=== PATIENT | male | born 1950 | race Caucasian/White ===

== ENCOUNTER 2017-07-12 10:13 | Inpatient (IN) | payer OTHER ==
[2017-07-12] VITALS (7 sets, daily range): BP systolic 156–162; BP diastolic 71–120; PULSE 63–101; RESP 18–50; TEMP 97.2–100; O2SAT 93–95
[~2017-07-12] VITALS: Ht 177.8 cm; Wt 124.9 kg
[~2017-07-12 10:13] MED LIST: AMLO5TAB22 PO; ESCI20TA PO; FURO20TA PO; ISOS120T14 PO; LANTUS2P SC; METO50CR PO; NITR0.4S SL; PROS5TAB2 PO; RANO500 PO; ROSU20 PO; WARF5TAB PO; WARF7.5T4 PO
[2017-07-12] MEDS ORDERED: NITROGLYCERIN 0.4 MG SL 25 TABS/BTL SL ONE ×3 (10:32→11:15)
[2017-07-12] MEDS ORDERED: SODIUM CHLORIDE 0.9% FLUSH 10 ML FLUSH IVF PRN (10:45)
[2017-07-12 11:03] LABS: AUTOMATED NEUTROPHIL # 14.9 TH/MM3 (1.8-7.7); BASOPHIL # 0.1 TH/MM3 (0-0.2); BASOPHIL % 0.4 % (0.0-2.0); EOSINOPHIL # 0.1 TH/MM3 (0-0.4); EOSINOPHIL % 0.6 % (0.0-4.0); HEMATOCRIT 48.6 % (39.0-51.0); HEMO FLAGS DIFF FINAL; LYMPH % 14.8 % (9.0-44.0); LYMPHOCYTE # 2.8 TH/MM3 (1.0-4.8); MEAN CELL VOLUME 86.4 FL (80.0-100.0); MEAN CORPUSCULAR HEMOGLOBIN 28.2 PG (27.0-34.0); MEAN CORPUSCULAR HGB CONC 32.7 % (32.0-36.0); MONO % 5.4 % (0.0-8.0); NEUT % 78.8 % (16.0-70.0); PLATELET COUNT 240 TH/MM3 (150-450); RED BLOOD COUNT 5.62 MIL/MM3 (4.50-5.90); RED CELL DISTRIBUTION WIDTH 14.9 % (11.6-17.2); WHITE BLOOD COUNT 18.9 TH/MM3 (4.0-11.0)
--- NOTE | 2017-07-12 11:06 | RADRPT ---
EXAM DATE/TIME: 07/12/2017 10:57 [place] COMPARISON: CHEST SINGLE AP, November 02, 2015, 4:12. INDICATIONS : Patient states shortness of breath. MEDICAL HISTORY : Congestive heart failure. Cardiovascular disease. SURGICAL HISTORY : Pacemaker. CABG. Coronary artery stent. ENCOUNTER: Initial ACUITY: 2 days PAIN SCORE: 0/10 LOCATION: Bilateral chest FINDINGS: Stable dual-lead AICD device. Median sternotomy wires in place. Mild bibasilar airspace disease, like ly atelectasis. Mild interstitial prominence. Cardiomediastinal contours are stable. Remainder of exa m is unchanged. CONCLUSION: 1. Mild bibasilar airspace disease, likely atelectasis. 2. Cardiomegaly with minimal positive fluid balance. Ankit Sarah MD on July 12, 2017 at 11:02 Board Certified Radiologist. This report was verified electronically.
[2017-07-12] MEDS ORDERED: AMLO5TAB2 PO (11:12)
[2017-07-12] MEDS ORDERED: METO25TA6 PO (11:12)
[2017-07-12] MEDS ORDERED: ISOS120T PO (11:12)
[2017-07-12] MEDS ORDERED: LANTUS2P SQ (11:12)
[2017-07-12] MEDS ORDERED: NITR0.4S SL (11:12)
[2017-07-12] MEDS ORDERED: NOVOLOGP2 SQ (11:12)
[2017-07-12] MEDS ORDERED: WARF-23 PO (11:12)
[2017-07-12] MEDS ORDERED: LISI-519 PO (11:12)
[2017-07-12] MEDS ORDERED: FURO20TA PO (11:12)
[2017-07-12] MEDS ORDERED: RANO500 PO (11:12)
[2017-07-12] MEDS ORDERED: ASPI81CH CHEW (11:12)
[2017-07-12] MEDS ORDERED: ESCI20TA PO (11:12)
[2017-07-12 11:13] LABS: INTERNATIONAL NORMALIZED RATIO 2.8 RATIO; PROTHROMBIN TIME - PATIENT 32.7 SEC (9.8-11.6)
[2017-07-12] MEDS ORDERED: FUROSEMIDE 40 MG/4 ML VIAL IV PUSH ONE (11:15)
[2017-07-12] MEDS ORDERED: ASPIRIN 81 MG CHEW TAB CHEW ONE (11:15)
[2017-07-12 11:25] LABS: BICARBONATE 24.2 MEQ/L (21.0-32.0); POTASSIUM 3.5 MEQ/L (3.5-5.1)
[2017-07-12] MEDS ORDERED: PIPERACIL-TAZO 4.5 GM PREMIX 100 ML IV ONE (11:45)
[2017-07-12] MEDS ORDERED: ETOMIDATE 20 MG/10 ML VIAL IV PUSH ONE (11:45)
[2017-07-12] MEDS ORDERED: VANCOMYCIN INJ 1,000 MG in SODIUM CHLOR 0.9% 250 ML INJ 250 ML IV ONE (12:45)
--- NOTE | 2017-07-12 13:12 | PD ---
HPI Chief Complaint: Respiratory Distress Time Seen by Provider: 10:45 Travel History International Travel<30 days: No Contact w/Intl Traveler<30days: No Traveled to known affect area: No History of Present Illness HPI 67-year-old male came to the emergency room with history of chest pain and shortness of breath for past 24 hours progressively getting worse. Patient describes the pain as substernal, nonradiating in as a pressure. Chest pain worse on ambulation. Patient has history of coronary artery disease including 2 stents in 2002 and a bypass surgery in 2004. He goes to [facility]. Patient does not recall his last cardiac catheterization. His temperature was 100 upon arrival. He is also complaining of some cough. No history of syncopal episode. [facility] Past Medical History Narrative Medical List of his past medical, surgical, social and family history is reviewed from the nursing note. Hx Anticoagulant Therapy: Yes (COUMADIN) Asthma: No Anxiety: No Depression: Yes Heart Rhythm Problems: No Cancer: No Cardiac Catheterization: Yes Cardiovascular Problems: Yes High Cholesterol: Yes Chest Pain: No Congestive Heart Failure: Yes COPD: No Cerebrovascular Accident: Yes (TIA) Coronary Artery Disease: Yes Diabetes: Yes Patient Takes Glucophage: No Diminished Hearing: No Endocrine: Yes GERD: Yes Genitourinary: Yes Hypertension: Yes Immune Disorder: No Implanted Vascular Access Dvce: Yes Kidney Stones: Yes Musculoskeletal: No Neurologic: Yes Psychiatric: Yes Reproductive: No Respiratory: Yes Migraines: No Renal Failure: No Seizures: No Sleep Apnea: Yes Tetanus Vaccination: < 5 Years Influenza Vaccination: Yes Past Surgical History Abdominal Surgery: Yes (Hernia Repair) AICD: Yes Arteriovenous Shunt: No Cardiac Surgery: Yes (triple bypass, pacemaker/AICD) Coronary Artery Bypass Graft: Yes Coronary Stent: Yes Ear Surgery: No Endocrine Surgery: No Eye Surgery: No Genitourinary Surgery: No Insulin Pump: No Joint Replacement: No Oral Surgery: Yes (Tonsileectomy) Pacemaker: No Thoracic Surgery: No Tonsillectomy: Yes Other Surgery: Yes Social History Alcohol Use: No Tobacco Use: No Substance Use: No Allergies-Medications (Allergen,Severity, Reaction): Coded Allergies: morphine (Unverified Allergy, Intermediate, RASH, 07/12/17) Comments List of his allergies reviewed from the nursing note. Reported Meds & Prescriptions Reported Meds & Active Scripts Active Reported Metoprolol Succinate ER 24 HR (Metoprolol Succinate) 25 Mg Tab 25 Mg PO TID Lisinopril 5 Mg Tab 5 Mg PO DAILY Isosorbide Mononitrate ER (Isosorbide Mononitrate) 120 Mg Anant 120 Mg PO DAILY Furosemide 20 Mg Tab 20 Mg PO BID Aspirin 81 Mg Chew 81 Mg CHEW DAILY Amlodipine (Amlodipine Besylate) 5 Mg Tab 5 Mg PO DAILY Novolog Inj (Insulin Aspart) 1,000 Unit/10 Ml Vial 5 Units SQ ACHS Warfarin 5 Mg Tab 5 Mg PO DAILY Ranexa ER 12 HR (Ranolazine) 500 Mg Tab 500 Mg PO BID Nitrostat SL (Nitroglycerin) 0.4 Mg Subl 0.4 Mg SL DIRECTED PRN 1 tablet under the tongue as needed for chest pain. Repeat every 5 minutes for a total of 3 DOSES or call 911 if NO relief. Lantus Inj (Insulin Glargine) 1,000 Unit/10 Ml Vial 70 Units SQ BID Escitalopram (Escitalopram Oxalate) 20 Mg Tab 20 Mg PO DAILY Narrative Medication List of his home medications reviewed from the nursing note. Review of Systems Except as stated in HPI: all other systems reviewed are Neg General / Constitutional: Positive: Fever Cardiovascular: Positive: Chest Pain or Discomfort, Dyspnea on exertion Respiratory: Positive: Shortness of Breath Physical Exam Narrative GENERAL: Awake, alert, moderate distress SKIN: Focused skin assessment warm/dry. HEAD: Atraumatic. Normocephalic. EYES: Pupils equal and round. No scleral icterus. No injection or drainage. ENT: No nasal bleeding or discharge. Mucous membranes pink and moist. NECK: Trachea midline. No JVD. CARDIOVASCULAR: Regular rate and rhythm. No murmur appreciated. RESPIRATORY: Decreased air entry bilaterally GASTROINTESTINAL: Abdomen soft, non-tender, nondistended. Hepatic and splenic margins not palpable. MUSCULOSKELETAL: No obvious deformities. No clubbing. No cyanosis. No edema. NEUROLOGICAL: Awake and alert. No obvious cranial nerve deficits. Motor grossly within normal limits. Normal speech. PSYCHIATRIC: Appropriate mood and affect; insight and judgment normal. Data Data Last Documented VS Vital Signs Date Time Temp Pulse Resp B/P (MAP) Pulse Ox O2 Delivery O2 Flow Rate FiO2 07/12/17 13:03 99.0 84 30 160/80 (106) 93 Nasal Cannula 3.00 Orders Orders Nitroglycerin Sl (Nitrostat Sl) (07/12/17 10:32) Complete Blood Count With Diff (07/12/17 10:45) Basic Metabolic Panel (Bmp) (07/12/17 10:45) B-Type Natriuretic Peptide (07/12/17 10:45) Prothrombin Time / Inr (Pt) (07/12/17 10:45) Troponin I (07/12/17 10:45) Urinalysis - C+S If Indicated (07/12/17 10:45) Influenzae A/B Antigen (07/12/17 10:45) Blood Culture (07/12/17 10:45) Iv Access Insert/Monitor (07/12/17 10:45) Electrocardiogram (07/12/17 10:45) Ecg Monitoring (07/12/17 10:45) Oximetry (07/12/17 10:45) Oxygen Administration (07/12/17 10:45) Chest, Single Ap (07/12/17 10:45) Sodium Chloride 0.9% Flush (Ns Flush) (07/12/17 10:45) Lactic Acid (07/12/17 10:45) Furosemide Inj (Lasix Inj) (07/12/17 11:15) Nitroglycerin Sl (Nitrostat Sl) (07/12/17 11:15) Aspirin Chew (Aspirin Chew) (07/12/17 11:15) Nitroglycerin Sl (Nitrostat Sl) (07/12/17 11:15) Piperacil-Tazo 4.5 Gm Premix (Zosyn 4.5 (07/12/17 11:45) Etomidate Inj (Amidate Inj) (07/12/17 11:45) Vancomycin Inj (Vancomycin Inj) (07/12/17 12:45) Admit Order (Ed Use Only) (07/12/17 13:06) Labs Laboratory Tests Test 07/12/17 10:50 07/12/17 13:05 White Blood Count 18.9 TH/MM3 Red Blood Count 5.62 MIL/MM3 Hemoglobin 15.9 GM/DL Hematocrit 48.6 % Mean Corpuscular Volume 86.4 FL Mean Corpuscular Hemoglobin 28.2 PG Mean Corpuscular Hemoglobin Concent 32.7 % Red Cell Distribution Width 14.9 % Platelet Count 240 TH/MM3 Mean Platelet Volume 7.8 FL Neutrophils (%) (Auto) 78.8 % Lymphocytes (%) (Auto) 14.8 % Monocytes (%) (Auto) 5.4 % Eosinophils (%) (Auto) 0.6 % Basophils (%) (Auto) 0.4 % Neutrophils # (Auto) 14.9 TH/MM3 Lymphocytes # (Auto) 2.8 TH/MM3 Monocytes # (Auto) 1.0 TH/MM3 Eosinophils # (Auto) 0.1 TH/MM3 Basophils # (Auto) 0.1 TH/MM3 CBC Comment DIFF FINAL Differential Comment Prothrombin Time 32.7 SEC Prothromb Time International Ratio 2.8 RATIO Blood Urea Nitrogen 21 MG/DL Creatinine 1.59 MG/DL Random Glucose 199 MG/DL Calcium Level 8.5 MG/DL Sodium Level 137 MEQ/L Potassium Level 3.5 MEQ/L Chloride Level 104 MEQ/L Carbon Dioxide Level 24.2 MEQ/L Anion Gap 9 MEQ/L Estimat Glomerular Filtration Rate 43 ML/MIN Lactic Acid Level 2.3 mmol/L Troponin I 0.05 NG/ML B-Type Natriuretic Peptide 920 PG/ML Urine Color YELLOW Urine Turbidity CLEAR Urine pH 6.5 Urine Specific [place] 1.016 Urine Protein 300 mg/dL Urine Glucose (UA) 70 mg/dL Urine Ketones NEG mg/dL Urine Occult Blood SMALL Urine Nitrite NEG Urine Bilirubin NEG Urine Urobilinogen LESS THAN 2.0 MG/DL Urine Leukocyte Esterase NEG Urine RBC 1 /hpf Urine WBC 1 /hpf Urine Hyaline Casts 1 /lpf Urine Mucus FEW /lpf Microscopic Urinalysis Comment CULT NOT INDICATED MDM Medical Decision Making Medical Screen Exam Complete: Yes Emergency Medical Condition: Yes Medical Record Reviewed: Yes Interpretation(s) Twelve-lead EKG was reviewed by me. Normal sinus rhythm, left axis deviation, frequent PVCs, old anterior lateral ME, tachycardia. Heart rate of 104 bpm. Differential Diagnosis Non-STEMI, congestive heart failure, pneumonia, sepsis Narrative Course 1 PM blood test results are back. Patient has significant leukocytosis with elevated lactic acid. His BNP is elevated as well. I have ordered IV Zosyn and vancomycin for sepsis coverage. Patient initially was given 2 nitroglycerin sublingual which has brought his chest pain down to 1. Chest x- ray suggestive of by basilar atelectasis. In my opinion the source of sepsis is respiratory. Patient will need to be admitted medically given the sepsis picture along with the chest pain. But at the same time he needs ACS ruled out as well. I spoke with the hospitalist has accepted the case. Critical Care Narrative Aggregate critical care time was 30 minutes. Time to perform other separately billable procedures was not included in the critical care time. My time did not include minutes spent treating any other patients simultaneously or on activities that did not directly contribute to the patient's treatment. The services I provided to this patient were to treat and/or prevent clinically significant deterioration that could result in: Chest pain, respiratory distress, sepsis I provided critical care services requiring my management, as noted below: Chart data review, documentation time, medication orders and management, vital sign assessments/reviewing monitor data, ordering and reviewing lab tests, ordering and interpreting/reviewing x-rays and diagnostic studies, care of the patient and discussion of the patient with the admitting physicians. Procedures EKG Prior to Arrival: No Sepsis Criteria SIRS Criteria (2 or more): Heart rate over 90, WBC > 27392, < 4000 or > 10% bands Sepsis Criteria (SIRS+source): Infect source susp/known Severe Sepsis (+one): Lactate >2 Diagnosis Primary Impression: Chest pain Qualified Codes: R07.9 - Chest pain, unspecified Additional Impressions: Respiratory distress Sepsis Qualified Codes: A41.9 - Sepsis, unspecified organism possible pneumonia Admitting Information Admitting Physician Requests: Alex Gonzales MD Jul 12, 2017 13:12
[2017-07-12 13:24] LABS: BLOOD, URINE SMALL (NEG); COMMENT (UR) CULT NOT INDICATED; CULTURE IF INDICATED CULT NOT INDICATED; GLUCOSE,URINE 70 mg/dL (NEG); HYALINE CAST, URINE 1 /lpf (RARE); KETONE, URINE NEG (NEG); MUCUS URINE FEW /lpf (OCC); NITRITE,URINE NEG (NEG); PH, URINE 6.5 (5.0-8.5); URINE COLOR YELLOW (YELLW/STRAW)
[2017-07-12] MEDS ORDERED: NALOXONE HCL 0.4 MG/ML AMP IV PUSH PRN (13:30)
[2017-07-12] MEDS ORDERED: MAGNESIUM HYDROXIDE SUSP 30 ML CUP PO PRN (13:30)
[2017-07-12] MEDS ORDERED: SENNOSIDES 8.6 MG TAB PO PRN (13:30)
[2017-07-12] MEDS ORDERED: ACETAMINOPHEN 325 MG TAB PO PRN (13:30)
[2017-07-12] MEDS ORDERED: LACTULOSE SYRUP 20 GM/30 ML CUP PO PRN (13:30)
[2017-07-12] MEDS ORDERED: ONDANSETRON HCL 4 MG/2 ML VIAL IVP PRN (13:30)
[2017-07-12] MEDS ORDERED: BISACODYL 10 MG SUPP RECTAL PRN (13:30)
--- NOTE | 2017-07-12 15:24 | HHI.HP ---
HPI Service [facility] Hospitalists Primary Care Physician [facility] Admission Diagnosis chest pain, rule out ACS, sepsis Diagnoses: Chief Complaint: Dyspnea Chest pain Cough Travel History International Travel<30 Days: No Contact w/Intl Traveler <30 Da: No Traveled to Known Affected Are: No Sepsis Criteria SIRS Criteria (2 or more): Heart rate over 90, RR > 20 or PaCO2 < 32, WBC > 12642, < 4000 or > 10% bands Sepsis Criteria (SIRS+source): Infect source susp/known Severe Sepsis (+one): Lactate >2 Criteria Outcome: Meets severe sepsis criteria History of Present Illness Written by Brittni Torres, acting as scribe for Dr. Otoole on 07/12/17 at 15:22. This is a 67yo male with a PMHX significant for CAD s/p [place] with cardiac stents and CABG x 3, s/p pacemaker/AICD, atrial fibrillation on Coumadin, CHF, HTN, DM , TIA, HLD and GERD who presents to [facility] ED with complaints of dyspnea that started 3 days ago. Patient reports severe shortness of breath all day Wednesday that eventually resolved on its on. He woke up around 3am again short of breath that has failed to improve. He endorses sharp 5/10 anterior chest pain with radiation into both arms that improved with nitroglycerin. He reports cough without any sputum production. He reports nausea but denies any vomiting. He endorses increased swelling in the legs. He denies any headache or vision changes. He denies any abdominal pain. He denies any urinary complaints, diarrhea or constipation. In the ED, patient was severely tachypneic with elevated HR of 101 and temp of 100.0. White count elevated at 18.9. BP elevated at 156/120. Lactic acid elevated at 2.3. BNP 920. CXR revealed cardiomegaly with minimal positive fluid balance and mild bibasilar airspace disease. Review of Systems Except as stated in HPI: all other systems reviewed are Neg Past Family Social History Past Medical History CAD s/p previous [place], cardiac stents, CABG x 3 Pacemaker/AICD CHF HTN DM Afib on Warfarin TIA HLD Kidney stones GERD NADINE Past Surgical History CABG x 3 cardiac stents Pacemaker/AICD Inguinal hernia repair Umbilical hernia repair Tonsillectomy Reported Medications Metoprolol Succinate ER 24 HR (Metoprolol Succinate) 25 Mg Tab 25 Mg PO TID Lisinopril 5 Mg Tab 5 Mg PO DAILY Isosorbide Mononitrate ER (Isosorbide Mononitrate) 120 Mg Anant 120 Mg PO DAILY Furosemide 20 Mg Tab 20 Mg PO BID Aspirin 81 Mg Chew 81 Mg CHEW DAILY Amlodipine (Amlodipine Besylate) 5 Mg Tab 5 Mg PO DAILY Novolog Inj (Insulin Aspart) 1,000 Unit/10 Ml Vial 5 Units SQ ACHS Warfarin 5 Mg Tab 5 Mg PO DAILY Ranexa ER 12 HR (Ranolazine) 500 Mg Tab 500 Mg PO BID Nitrostat SL (Nitroglycerin) 0.4 Mg Subl 0.4 Mg SL DIRECTED PRN 1 tablet under the tongue as needed for chest pain. Repeat every 5 minutes for a total of 3 DOSES or call 911 if NO relief. Lantus Inj (Insulin Glargine) 1,000 Unit/10 Ml Vial 70 Units SQ BID Escitalopram (Escitalopram Oxalate) 20 Mg Tab 20 Mg PO DAILY Allergies: Coded Allergies: morphine (Unverified Allergy, Intermediate, RASH, 07/12/17) Active Ordered Medications Current Medications Medications (Trade) Dose Ordered Sig/Jennifer Route Start Time Stop Time Status Last Admin (NS Flush) 2 ml UNSCH PRN IVF 07/12/17 10:45 Ceftriaxone Sodium 2000 mg/ Sodium Chloride 100 ml @ 200 mls/hr Q24H IV 07/13/17 09:00 Azithromycin 500 mg/Sodium Chloride 250 ml @ 250 mls/hr Q24H IV 07/13/17 11:00 (Tylenol) 650 mg Q4H PRN PO 07/12/17 13:30 (Zofran Inj) 4 mg Q6H PRN IVP 07/12/17 13:30 (Heparin Inj) 5,000 units Q12H SQ 07/12/17 18:00 (Narcan Inj) 0.4 mg UNSCH PRN IV PUSH 07/12/17 13:30 (Milk Of Magnesia Liq) 30 ml Q12H PRN PO 07/12/17 13:30 (Senokot) 17.2 mg Q12H PRN PO 07/12/17 13:30 (Dulcolax Supp) 10 mg DAILY PRN RECTAL 07/12/17 13:30 (Lactulose Liq) 30 ml DAILY PRN PO 07/12/17 13:30 Family History Both parents from an [place]. Father had diabetes. Brother w lung cancer. Sister w breast cancer. Social History Patient quit smoking in 1975. He denies any alcohol or illicit drug use. Physical Exam Vital Signs Vital Signs Date Time Temp Pulse Resp B/P (MAP) Pulse Ox O2 Delivery O2 Flow Rate FiO2 07/12/17 13:03 99.0 84 30 160/80 (106) 93 Nasal Cannula 3.00 07/12/17 10:20 95 Nasal Cannula 2.00 07/12/17 10:15 100.0 101 50 156/120 (132) 93 07/12/17 10:15 50 93 Room Air Physical Exam GENERAL: This is a obese well-nourished, well-developed patient, in mild distress. Awake and alert. SKIN: No rashes, ecchymoses or lesions. Warm and dry. HEAD: Atraumatic. Normocephalic. No temporal or scalp tenderness. EYES: Pupils equal round and reactive. Extraocular motions intact. No scleral icterus. No injection or drainage. ENT: Nose without bleeding, purulent drainage. Throat without erythema, tonsillar hypertrophy or exudate. Uvula midline. Airway patent. NECK: Trachea midline. No lymphadenopathy. Supple, nontender, no meningeal signs. CARDIOVASCULAR: Regular rate and rhythm without murmurs, gallops, or rubs. RESPIRATORY: Diminished BS bilateral bases. Breath sounds equal bilaterally. No wheezes, rales, or rhonchi. GASTROINTESTINAL: Abdomen soft, non-tender, nondistended. No hepato-splenomegaly , or palpable masses. No guarding. MUSCULOSKELETAL: Extremities without clubbing or cyanosis. Trace to 1+ BLE. No joint tenderness, effusion, or edema noted. No calf tenderness. NEUROLOGICAL: Awake and alert. Able to move all extremities. Nonfocal. Normal speech. Laboratory Laboratory Tests Test 07/12/17 10:50 07/12/17 13:05 07/12/17 14:29 White Blood Count 18.9 Red Blood Count 5.62 Hemoglobin 15.9 Hematocrit 48.6 Mean Corpuscular Volume 86.4 Mean Corpuscular Hemoglobin 28.2 Mean Corpuscular Hemoglobin Concent 32.7 Red Cell Distribution Width 14.9 Platelet Count 240 Mean Platelet Volume 7.8 Neutrophils (%) (Auto) 78.8 Lymphocytes (%) (Auto) 14.8 Monocytes (%) (Auto) 5.4 Eosinophils (%) (Auto) 0.6 Basophils (%) (Auto) 0.4 Neutrophils # (Auto) 14.9 Lymphocytes # (Auto) 2.8 Monocytes # (Auto) 1.0 Eosinophils # (Auto) 0.1 Basophils # (Auto) 0.1 CBC Comment DIFF FINAL Differential Comment Prothrombin Time 32.7 Prothromb Time International Ratio 2.8 Blood Urea Nitrogen 21 Creatinine 1.59 Random Glucose 199 Calcium Level 8.5 Sodium Level 137 Potassium Level 3.5 Chloride Level 104 Carbon Dioxide Level 24.2 Anion Gap 9 Estimat Glomerular Filtration Rate 43 Lactic Acid Level 2.3 2.4 Troponin I 0.05 B-Type Natriuretic Peptide 920 Urine Color YELLOW Urine Turbidity CLEAR Urine pH 6.5 Urine Specific [place] 1.016 Urine Protein 300 Urine Glucose (UA) 70 Urine Ketones NEG Urine Occult Blood SMALL Urine Nitrite NEG Urine Bilirubin NEG Urine Urobilinogen LESS THAN 2.0 Urine Leukocyte Esterase NEG Urine RBC 1 Urine WBC 1 Urine Hyaline Casts 1 Urine Mucus FEW Microscopic Urinalysis Comment CULT NOT INDICATED Date/Time Source Procedure Growth Status 07/12/17 11:00 Blood Peripheral Aerobic Blood Culture Pending Received 07/12/17 11:00 Blood Peripheral Anaerobic Blood Culture Pending Received 07/12/17 11:00 Nasal Aspirate Influenza Types A,B Antigen (HANDY) - Final NEGATIVE FOR FLU A AND B ANTIGEN.... Complete Result Diagram: 07/12/17 1050 07/12/17 1050 Imaging Last Impressions Chest X-Ray 07/12/17 1045 Signed Impressions: Service Date/Time: Wednesday, July 12, 2017 10:57 - CONCLUSION: 1. Mild bibasilar airspace disease, likely atelectasis. 2. Cardiomegaly with minimal positive fluid balance. MD Jhoan Lange VTE Risk Assessment Jhoan VTE Risk Assessment: Mod/High Risk (score >= 2) Caprini Risk Assessment Model Point Value = 1 Point Value = 2 Point Value = 3 Point Value = 5 Age 41-60 Minor surgery BMI > 25 kg/m2 Swollen legs Varicose veins or History of unexplained or recurrent spontaneous Oral contraceptives or hormone replacement Sepsis (< 1 month) Serious lung disease, including pneumonia (< 1 month) Abnormal pulmonary function Acute myocardial infarction Congestive heart failure (< 1 month) History of inflammatory bowel disease Medical patient at bed rest Age 61-74 Arthroscopic surgery Major open surgery (> 45 min) Laparoscopic surgery (> 45 min) Malignancy Confined to bed (> 72 hours) Immobilizing plaster cast Central venous access Age >= 75 History of VTE Family history of VTE Factor V Leiden Prothrombin [id number] Lupus anticoagulant Anticardiolipin antibodies Elevated serum homocysteine Heparin-induced thrombocytopenia Other congenital or acquired thrombophilia Stroke (< 1 month) Elective arthroplasty Hip, pelvis, or leg fracture Acute spinal cord injury (< 1 month) Prophylaxis Regimen Total Risk Factor Score Risk Level Prophylaxis Regimen 0-1 Low Early ambulation 2 Moderate Order ONE of the following: *Sequential Compression Device (SCD) *Heparin 5000 units SQ BID 3-4 Higher Order ONE of the following medications: *Heparin 5000 units SQ TID *Enoxaparin/Lovenox 40 mg SQ daily (WT < 150 kg, CrCl > 30 mL/min) *Enoxaparin/Lovenox 30 mg SQ daily (WT < 150 kg, CrCl > 10-29 mL/min) *Enoxaparin/Lovenox 30 mg SQ BID (WT < 150 kg, CrCl > 30 mL/min) AND/OR *Sequential Compression Device (SCD) 5 or more Highest Order ONE of the following medications: *Heparin 5000 units SQ TID (Preferred with Epidurals) *Enoxaparin/Lovenox 40 mg SQ daily (WT < 150 kg, CrCl > 30 mL/min) *Enoxaparin/Lovenox 30 mg SQ daily (WT < 150 kg, CrCl > 10-29 mL/min) *Enoxaparin/Lovenox 30 mg SQ BID (WT < 150 kg, CrCl > 30 mL/min) AND *Sequential Compression Device (SCD) Assessment and Plan Assessment and Plan 67yo male with a PMHX significant for CAD s/p [place] with cardiac stents and CABG x 3, s/p pacemaker/AICD, atrial fibrillation on Coumadin, CHF, HTN, DM, TIA, HLD and GERD who presents to [facility] ED with complaints of dyspnea that started 3 days ago. Patient meets severe sepsis criteria with elevated HR 101, tachypnea with RR 50 , lactic acid of 2.4, elevated white count 18.9 and source of PNA - Patient given Zosyn and Vanco in the ED - continue with IV antibiotics - patient not given bolus fluids due to elevated BNP and positive fluid balance on CXR - monitor lactic acid per sepsis protocol - trend white count Chest pain in patient with known CAD, previous [place], stents, CABG x 3 and pacemaker/AICD. R/O ACS. - EKG personally reviewed showing NSR, LAD, PVCs, old anterior lateral [place] and tachycardia - Initial troponin 0.05. Continue to trend cardiac enzymes and EKGs. - continuous cardiac monitoring - supplemental oxygen - ASA daily - Nitro prn chest pain. Patient reports rash allergy with Morphine - continue on home dose of Ranexa - BB daily PNA - CXR personally reviewed showing mild bibasilar airspace disease - IV Ceftriaxone and Azithromycin - Consult ID - supplemental oxygen to keep O2 sats above 92% - monitor respiratory status Atrial fibrillation - resume home dose of Warfarin. INR 2.8. Continue to monitor PT/INR - HR elevated at ED presentation but improved to 84. Continue to monitor HR. - resume home dose of BB HTN - uncontrolled at ED presentation 156/120, improved to 158/71 - resume home dose of antihypertensives - continue to monitor and adjust treat accordingly CHF - decompensated. CXR showing positive fluid balance. BNP 920. - echo 2015 - EF 30-35%, diffuse hypokinesis - patient given dose of Lasix in the ED - resume patients home dose of Lasix. Monitor electrolytes. - resume home dose of Isosorbide daily - strict I&Os - fluid and sodium restricted diet - monitor for signs of fluid overload DM - resume home dose of insulin - heart healthy diabetic diet - accuchek and ISS CKD stage III - unsure of patients baseline but previous creatinine around 1.9 last year - avoid nephrotoxic agents - renally dose medications - monitor kidney function DVT prophylaxis - Heparin sq - Bilateral SCD/DELPHINE hose This note was transcribed by lake Torres. I, Dr. Fredis Otoole personally performed the history, physical exam, and medical decision making; and confirmed the accuracy of the information in the transcribed note. Authenticated by Dr. Fredis Otoole on 07/12/17 at 16:16. Discussed Condition With Patient, nursing staff and ED physician Physician Certification 2 Midnight Certification Type: Admission for Inpatient Services Order for Inpatient Services The services are ordered in accordance with Medicare regulations or non- Medicare payer requirements, as applicable. In the case of services not specified as inpatient-only, they are appropriately provided as inpatient services in accordance with the 2-midnight benchmark. Estimated LOS (days): 3 3 days is the estimated time the patient will need to remain in the hospital, assuming treatment plan goals are met and no additional complications. Post-Hospital Plan: Not yet determined Brittni Torres Jul 12, 2017 15:23 Fredis Otoole MD Jul 12, 2017 16:17
[2017-07-12] MEDS ORDERED: GLUCAGON 1 MG/ML VIAL OTHER PRN (16:15)
[2017-07-12] MEDS ORDERED: DEXTROSE 50% IN WATER 50 ML VIAL(D50) IV PUSH PRN (16:15)
[2017-07-12 16:34] LABS: LACTIC ACID GHOST NOT REPORTABLE
[2017-07-12] MEDS: METOPROLOL SUCCINATE 25 MG EXTENDED RELEASE TAB PO SCH (16:44)
[2017-07-12] MEDS: HEPARIN SODIUM - SQ 10,000 UNITS/ML VIAL SQ SCH (16:44)
[2017-07-12] MEDS: INSULIN ASPART SUPPLEMENTAL SCALE SQ SCH ×2 (16:45→22:31)
[2017-07-12] MEDS ORDERED: INSULIN ASPART 1,000 UNITS/10 ML VIAL SQ SCH (17:00)
--- NOTE | 2017-07-12 17:32 | PD.ID.CON ---
History of Present Illness Service ID Consult Requested By Reason for Consult Evaluation and Mment of Sepsis, Pneumonia. Primary Care Physician [facility] Diagnoses: History of Present Illness is a 67 y/o CM with PMHx significant for CAD s/p CO with cardiac stents and CABG x 3, s/p pacemaker/AICD, atrial fibrillation on Coumadin, CHF, HTN, DM, TIA, HLD and GERD who presents to [facility] ED with complaints of dyspnea that started 3 days ago. Patient reports severe shortness of breath all day Wednesday and he reports he almost decided to come to hospital but decided to tough it out. The shortness of breath got better on its on. He woke up around 3am again short of breath that had failed to improve. He endorses sharp 5/10 anterior chest pain with radiation into both arms that improved with nitroglycerin. He reports cough without any sputum production. He reports nausea but denies any vomiting. He endorses increased swelling in the legs. He denies any headache or vision changes. He denies any abdominal pain. He denies any urinary complaints, diarrhea or constipation. In the ED, patient was severely tachypneic with elevated HR of 101 and temp of 100.0. White count elevated at 18.9. BP elevated at 156/120. Lactic acid elevated at 2.3. BNP 920. CXR revealed cardiomegaly with minimal positive fluid balance and mild bibasilar airspace disease. ID was consulted for evaluation and Mment of Sepsis, Pneumonia. Review of Systems Constitutional: COMPLAINS OF: Fever, Chills, DENIES: Diaphoretic episodes, Fatigue, Weight gain, Weight loss, Dizziness, Change in appetite, Night Sweats Endocrine: DENIES: Heat/cold intolerance, Polydipsia, Polyuria, Polyphagia Eyes: DENIES: Blurred vision, Diplopia, Eye inflammation, Eye pain, Vision loss , Photosensitivity, Double Vision Ears, nose, mouth, throat: DENIES: Tinnitus, Hearing loss, Vertigo, Nasal discharge, Oral lesions, Throat pain, Hoarseness, Ear Pain, Running Nose, Epistaxis, Sinus Pain, Toothache, Odynophagia Respiratory: COMPLAINS OF: Cough, Wheezing, Sputum production, Shortness of breath, DENIES: Apneas, Snoring, Hemoptysis Cardiovascular: COMPLAINS OF: Chest pain, DENIES: Palpitations, Syncope, Dyspnea on Exertion, PND, Lower Extremity Edema, Orthopnea, Claudication Gastrointestinal: DENIES: Abdominal pain, Black stools, Bloody stools, Constipation, Diarrhea, Nausea, Vomiting, Difficulty Swallowing, Anorexia Genitourinary: DENIES: Sexual dysfunction, Urinary frequency, Urinary incontinence, Urgency, Hematuria, Dysuria, Nocturia, Penile Discharge, Testicular Pain, Testicular Swelling Musculoskeletal: DENIES: Joint pain, Muscle aches, Stiffness, Joint Swelling, Back pain, Neck pain Integumentary: DENIES: Abnormal pigmentation, Nail changes, Pruritus, Rash Hematologic/lymphatic: DENIES: Bruising, Lymphadenopathy Immunologic/allergic: DENIES: Eczema, Urticaria Neurologic: DENIES: Abnormal gait, Headache, Localized weakness, Paresthesias, Seizures, Speech Problems, Tremor, Poor Balance Psychiatric: DENIES: Anxiety, Confusion, Mood changes, Depression, Hallucinations, Agitation, Suicidal Ideation, Homicidal Ideation, Delusions Except as stated in HPI: all other systems reviewed are Neg Past Family Social History Allergies: Coded Allergies: morphine (Unverified Allergy, Intermediate, RASH, 07/12/17) Past Medical History CAD s/p previous CO, cardiac stents, CABG x 3 Pacemaker/AICD CHF HTN DM Afib on Warfarin TIA HLD Kidney stones GERD NADINE Past Surgical History CABG x 3 cardiac stents Pacemaker/AICD Inguinal hernia repair Umbilical hernia repair Tonsillectomy Reported Medications I attest I reviewed, obtained or updated patients home meds and current meds. Reported Meds & Active Scripts Active Reported Metoprolol Succinate ER 24 HR (Metoprolol Succinate) 25 Mg Tab 25 Mg PO TID Lisinopril 5 Mg Tab 5 Mg PO DAILY Isosorbide Mononitrate ER (Isosorbide Mononitrate) 120 Mg Anant 120 Mg PO DAILY Furosemide 20 Mg Tab 20 Mg PO BID Aspirin 81 Mg Chew 81 Mg CHEW DAILY Amlodipine (Amlodipine Besylate) 5 Mg Tab 5 Mg PO DAILY Novolog Inj (Insulin Aspart) 1,000 Unit/10 Ml Vial 5 Units SQ ACHS Warfarin 5 Mg Tab 5 Mg PO DAILY Ranexa ER 12 HR (Ranolazine) 500 Mg Tab 500 Mg PO BID Nitrostat SL (Nitroglycerin) 0.4 Mg Subl 0.4 Mg SL DIRECTED PRN 1 tablet under the tongue as needed for chest pain. Repeat every 5 minutes for a total of 3 DOSES or call 911 if NO relief. Lantus Inj (Insulin Glargine) 1,000 Unit/10 Ml Vial 70 Units SQ BID Escitalopram (Escitalopram Oxalate) 20 Mg Tab 20 Mg PO DAILY Active Ordered Medications Current Medications Medications (Trade) Dose Ordered Sig/Jennifer Route Start Time Stop Time Status Last Admin (NS Flush) 2 ml UNSCH PRN IVF 07/12/17 10:45 Ceftriaxone Sodium 2000 mg/ Sodium Chloride 100 ml @ 200 mls/hr Q24H IV 07/13/17 09:00 Azithromycin 500 mg/Sodium Chloride 250 ml @ 250 mls/hr Q24H IV 07/13/17 11:00 (Tylenol) 650 mg Q4H PRN PO 07/12/17 13:30 (Zofran Inj) 4 mg Q6H PRN IVP 07/12/17 13:30 (Heparin Inj) 5,000 units Q12H SQ 07/12/17 18:00 07/12/17 16:44 (Narcan Inj) 0.4 mg UNSCH PRN IV PUSH 07/12/17 13:30 (Milk Of Magnesia Liq) 30 ml Q12H PRN PO 07/12/17 13:30 (Senokot) 17.2 mg Q12H PRN PO 07/12/17 13:30 (Dulcolax Supp) 10 mg DAILY PRN RECTAL 07/12/17 13:30 (Lactulose Liq) 30 ml DAILY PRN PO 07/12/17 13:30 (Norvasc) 5 mg DAILY PO 07/13/17 09:00 (Aspirin Chew) 81 mg DAILY CHEW 07/13/17 09:00 (Lexapro) 20 mg DAILY PO 07/13/17 09:00 (Lasix) 20 mg BID PO 07/12/17 21:00 (Levemir Inj) 70 units BID SQ 07/12/17 21:00 (Imdur) 120 mg DAILY PO 07/13/17 09:00 (Prinivil) 5 mg DAILY PO 07/13/17 09:00 (Toprol Xl) 25 mg TID PO 07/12/17 18:00 07/12/17 16:44 (Ranexa) 500 mg BID PO 07/12/17 21:00 (Coumadin) 5 mg DAILY@1600 PO 07/13/17 16:00 (D50w (Vial) Inj) 50 ml UNSCH PRN IV PUSH 07/12/17 16:15 (Glucagon Inj) 1 mg UNSCH PRN OTHER 07/12/17 16:15 (NovoLOG SUPPLEMENTAL SCALE) 1 ACHS SLIDING SCALE SQ 07/12/17 17:00 07/12/17 16:45 Family History Both parents from an [place]. Father had diabetes. Brother w lung cancer. Sister w breast cancer. Social History Patient quit smoking in 1975. He denies any alcohol or illicit drug use. Physical Exam Vital Signs Vital Signs Date Time Temp Pulse Resp B/P (MAP) Pulse Ox O2 Delivery O2 Flow Rate FiO2 07/12/17 16:30 Nasal Cannula 3.00 07/12/17 15:32 97.4 84 24 158/71 (100) 95 Nasal Cannula 3.00 07/12/17 13:03 99.0 84 30 160/80 (106) 93 Nasal Cannula 3.00 07/12/17 10:20 95 Nasal Cannula 2.00 07/12/17 10:15 100.0 101 50 156/120 (132) 93 07/12/17 10:15 50 93 Room Air Physical Exam GENERAL:Obese, well-developed patient, in no apparent distress. SKIN: No rashes, ecchymoses or lesions. Cool and dry. HEAD: Atraumatic. Normocephalic. No temporal or scalp tenderness. EYES: Pupils equal round and reactive. Extraocular motions intact. No scleral icterus. No injection or drainage. ENT: Nose without bleeding, purulent drainage or septal hematoma. Throat without erythema, tonsillar hypertrophy or exudate. Uvula midline. Airway patent. NECK: Trachea midline. Supple, nontender, no meningeal signs. Large neck. CARDIOVASCULAR: Regular rate and rhythm without murmurs, gallops, or rubs. RESPIRATORY: Breath sounds decreased bilaterally. Bibasilar crackles noted. GASTROINTESTINAL: Abdomen soft, non-tender, nondistended. Obese. MUSCULOSKELETAL: Extremities without clubbing, cyanosis. Trace pedal edema noted. No joint tenderness, effusion, or edema noted. No calf tenderness. Negative Homans sign bilaterally. NEUROLOGICAL: Awake and alert. Grossly non focal Psych cooperative IV line sites with no e.o infection. Laboratory Laboratory Tests Test 07/12/17 10:50 07/12/17 13:05 07/12/17 14:29 White Blood Count 18.9 Red Blood Count 5.62 Hemoglobin 15.9 Hematocrit 48.6 Mean Corpuscular Volume 86.4 Mean Corpuscular Hemoglobin 28.2 Mean Corpuscular Hemoglobin Concent 32.7 Red Cell Distribution Width 14.9 Platelet Count 240 Mean Platelet Volume 7.8 Neutrophils (%) (Auto) 78.8 Lymphocytes (%) (Auto) 14.8 Monocytes (%) (Auto) 5.4 Eosinophils (%) (Auto) 0.6 Basophils (%) (Auto) 0.4 Neutrophils # (Auto) 14.9 Lymphocytes # (Auto) 2.8 Monocytes # (Auto) 1.0 Eosinophils # (Auto) 0.1 Basophils # (Auto) 0.1 CBC Comment DIFF FINAL Differential Comment Prothrombin Time 32.7 Prothromb Time International Ratio 2.8 Blood Urea Nitrogen 21 Creatinine 1.59 Random Glucose 199 Calcium Level 8.5 Sodium Level 137 Potassium Level 3.5 Chloride Level 104 Carbon Dioxide Level 24.2 Anion Gap 9 Estimat Glomerular Filtration Rate 43 Lactic Acid Level 2.3 2.4 Troponin I 0.05 B-Type Natriuretic Peptide 920 Urine Color YELLOW Urine Turbidity CLEAR Urine pH 6.5 Urine Specific [place] 1.016 Urine Protein 300 Urine Glucose (UA) 70 Urine Ketones NEG Urine Occult Blood SMALL Urine Nitrite NEG Urine Bilirubin NEG Urine Urobilinogen LESS THAN 2.0 Urine Leukocyte Esterase NEG Urine RBC 1 Urine WBC 1 Urine Hyaline Casts 1 Urine Mucus FEW Microscopic Urinalysis Comment CULT NOT INDICATED Date/Time Source Procedure Growth Status 07/12/17 11:00 Blood Peripheral Aerobic Blood Culture Pending Received 07/12/17 11:00 Blood Peripheral Anaerobic Blood Culture Pending Received 07/12/17 11:00 Nasal Aspirate Influenza Types A,B Antigen (HANDY) - Final NEGATIVE FOR FLU A AND B ANTIGEN.... Complete Result Diagram: 07/12/17 1050 07/12/17 1050 Imaging Last Impressions Chest X-Ray 07/12/17 1045 Signed Impressions: Service Date/Time: Wednesday, July 12, 2017 10:57 - CONCLUSION: 1. Mild bibasilar airspace disease, likely atelectasis. 2. Cardiomegaly with minimal positive fluid balance. Ankit Bozorgmanesh, MD Assessment and Plan Assessment and Plan Severe Sepsis with lactic acidosis Pneumonia: CAP vs atypical acute resp failure now on oxygen Acute COPD exacerbation CADs/p CABG, Pacemaker/AICD in place. Acute renal failure: on diuretic at home plus prerenal, sepsis. Recs: Continue Ceftriaxone IV Continue Azithro oral No further vanco IV for now. 2D ECHO in view of cardiac symptoms and history. Follow cultures Follow clinically. Tamanna Santana MD Jul 12, 2017 17:32
[2017-07-12] MEDS ORDERED: FUROSEMIDE 20 MG TAB PO SCH (21:00)
[2017-07-12] MEDS: RANOLAZINE 500 MG EXTENDED RELEASE TAB PO SCH (21:23)
[2017-07-12] MEDS: INSULIN DETEMIR 100 UNITS/ML VIAL SQ SCH (22:31)
[2017-07-13] VITALS (8 sets, daily range): BP systolic 115–159; BP diastolic 72–96; PULSE 59–75; RESP 18–20; TEMP 97.1–98.1; O2SAT 93–96
[2017-07-13] MEDS: HEPARIN SODIUM - SQ 10,000 UNITS/ML VIAL SQ SCH ×2 (05:31→16:59)
[2017-07-13 08:17] LABS: BICARBONATE 25.5 MEQ/L (21.0-32.0); POTASSIUM 4.2 MEQ/L (3.5-5.1)
[2017-07-13] MEDS: LISINOPRIL 5 MG TAB PO SCH (08:54)
[2017-07-13] MEDS: amLODIPine BESYLATE 5 MG TAB PO SCH (08:54)
[2017-07-13] MEDS: ISOSORBIDE MONONITRATE 60 MG TAB PO SCH (08:54)
[2017-07-13] MEDS: ESCITALOPRAM OXALATE 20 MG TAB PO SCH (08:54)
[2017-07-13] MEDS: ASPIRIN 81 MG CHEW TAB CHEW SCH (08:54)
[2017-07-13] MEDS: RANOLAZINE 500 MG EXTENDED RELEASE TAB PO SCH ×2 (08:54→21:09)
[2017-07-13] MEDS: METOPROLOL SUCCINATE 25 MG EXTENDED RELEASE TAB PO SCH ×3 (08:54→16:55)
[2017-07-13] MEDS: cefTRIAXone INJ 2,000 MG in SODIUM CHLORIDE 0.9% INJ 100 ML IV SCH (08:55)
--- NOTE | 2017-07-13 09:24 | HHI.PR ---
Subjective Remarks Pt states SOB is somewhat improved however not much improvement w his lower extremity edema. no chest pains at this time. 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 doesn't remember the exact dose of his lasix but instead of taking it BID he takes both pills in the morning because he is forgetful. States that he has been compliant w his meds. no nausea or vomiting. Objective Vitals Vital Signs Date Time Temp Pulse Resp B/P (MAP) Pulse Ox O2 Delivery O2 Flow Rate FiO2 07/13/17 08:00 97.5 75 20 148/76 (100) 95 07/13/17 04:00 97.6 59 20 157/96 (116) 96 07/13/17 04:00 Room Air 07/13/17 00:00 97.1 72 20 159/84 (109) 95 07/13/17 00:00 3.00 07/12/17 20:01 84 07/12/17 20:00 97.7 63 20 162/84 (110) 94 07/12/17 20:00 Nasal Cannula 3.00 07/12/17 19:32 95 Nasal Cannula 3.00 07/12/17 16:30 Nasal Cannula 3.00 07/12/17 16:00 97.2 69 18 161/73 (102) 94 07/12/17 15:32 97.4 84 24 158/71 (100) 95 Nasal Cannula 3.00 07/12/17 13:03 99.0 84 30 160/80 (106) 93 Nasal Cannula 3.00 07/12/17 10:20 95 Nasal Cannula 2.00 07/12/17 10:15 100.0 101 50 156/120 (132) 93 07/12/17 10:15 50 93 Room Air I/O 07/12/17 07/12/17 07/12/17 07/13/17 07/13/17 07/13/17 07:00 15:00 23:00 07:00 15:00 23:00 Intake Total 300 ml 610 ml Output Total 200 ml 450 ml 950 ml Balance 100 ml -450 ml -340 ml Intake Oral 200 ml 610 ml IV Total 100 ml Output Urine Total 200 ml 450 ml 950 ml # Voids 1 1 # Bowel Movements 1 Result Diagram: 07/12/17 1050 07/13/17 0545 Imaging Last Impressions Chest X-Ray 07/12/17 1045 Signed Impressions: Service Date/Time: Wednesday, July 12, 2017 10:57 - CONCLUSION: 1. Mild bibasilar airspace disease, likely atelectasis. 2. Cardiomegaly with minimal positive fluid balance. Ankit Sarah MD Objective Remarks GENERAL: laying in bed, mildly SOB EYES: Extraocular motions intact. ENT: Airway patent. NECK: Trachea midline. CARDIOVASCULAR: Regular rate and rhythm without murmurs RESPIRATORY: Diminished BS bilateral bases. a bit SOB. No wheezes or crackles. GASTROINTESTINAL: Abdomen soft, non-tender, nondistended. MUSCULOSKELETAL: Extremities w Trace to 1+ BLE mainly at the feet and ankles. NEUROLOGICAL: Awake and alert. Able to move all extremities. Nonfocal. Normal speech. A/P Assessment and Plan 67yo male with a PMHX significant for CAD s/p [place] with cardiac stents and CABG x 3, s/p pacemaker/AICD, atrial fibrillation on Coumadin, CHF, HTN, DM, TIA, HLD and GERD who presents to [facility] ED with complaints of dyspnea that started 3 days ago. Patient meets severe sepsis criteria with elevated HR 101, tachypnea with RR 50 , lactic acid of 2.4, elevated white count 18.9 and source of PNA - s/p Zosyn and Vanco. ID evaluated the patient and pt now on azithro and rocephin. - patient not given bolus fluids due to elevated BNP and positive fluid balance on CXR - Continue to trend lactic acid and WBC. Chest pain in patient with known CAD, previous OR, stents, CABG x 3 and pacemaker/AICD. R/O ACS. - EKG showing NSR, LAD, PVCs, old anterior lateral OR and tachycardia - CE 0.05 -->0.09-->0.08. continuous cardiac monitoring. supplemental oxygen as needed - ASA daily, Nitro prn chest pain. Patient reports rash allergy with Morphine - continue on home dose of Ranexa - on his home dose of BB PNA - CXR showing mild bibasilar airspace disease, monitor respiratory status - IV Ceftriaxone and Azithromycin - ID following. - supplemental oxygen to keep O2 sats above 92% CHF - decompensated. CXR showing positive fluid balance. BNP 920. - echo 2015 - EF 30-35%, diffuse hypokinesis. Repeat ECHO - patient given dose of Lasix in the ED - Patient was restarted on his home dose of lasix 20mg po BID. Pt still edematous in his lower extremity and still has some SOB. Will increased dose to 40mg IV BID. Monitor Cr and K levels closely. Baseline Cr 1.9. monitor for signs of fluid overload - on Isosorbide daily - strict I&Os - fluid <1800ml/day and sodium restricted diet - Consulted cards for any recs and also due to elevated trops. Appreciate assistance. Atrial fibrillation - on Warfarin. INR 2.8. Continue to monitor PT/INR. - on BB HTN - uncontrolled at ED presentation 156/120, improved to 158/71 - resume home dose of antihypertensives - continue to monitor and adjust treat accordingly DM - resume home dose of insulin - heart healthy diabetic diet - accuchek and ISS CKD stage III - previous creatinine around 1.9 last year - avoid nephrotoxic agents - renally dose medications - monitor kidney function DVT prophylaxis - Heparin sq - Bilateral SCD/DELPHINE hose Discharge Planning ECHO pending cards consult continue Abx. Genesis Storey MD Jul 13, 2017 09:24
[2017-07-13] MEDS: INSULIN DETEMIR 100 UNITS/ML VIAL SQ SCH ×2 (10:11→22:23)
[2017-07-13] MEDS: INSULIN ASPART SUPPLEMENTAL SCALE SQ SCH ×4 (10:12→22:22)
[2017-07-13] MEDS ORDERED: FUROSEMIDE 20 MG/2 ML VIAL IV PUSH ONE (11:00)
[2017-07-13] MEDS: AZITHROMYCIN INJ 500 MG in SODIUM CHLOR 0.9% 250 ML INJ 250 ML IV SCH (13:18)
--- NOTE | 2017-07-13 15:39 | ECHRPT ---
Indication: CHRONIC PULMONARY HEART DISEASE CONCLUSIONS Moderately dilated left ventricle. Wall thickness is normal. The left ventricular systolic function is severely reduced with an estimated ejection fraction in th e range of 20-25%. There is diffuse global hypokinesis with distinct regional wall motion abnormalities. Trace mitral valve regurgitation. There is mild to moderate tricuspid valve regurgitation. The estimated pulmonary arterial pressure is 54 mmHg. BP: 157 / 96 HR: 59 Rhythm: Sinus MEASUREMENTS (Male / Female) Normal Values Technical Quality:Very technically difficult study 2D ECHO LV Diastolic Diameter PLAX 6.8 cm 4.2 - 5.9 / 3.9 - 5.3 cm LV Systolic Diameter PLAX 6.3 cm IVS Diastolic Thickness 0.9 cm 0.6 - 1.0 / 0.6 - 0.9 cm LVPW Diastolic Thickness 0.9 cm 0.6 - 1.0 / 0.6 - 0.9 cm LV Relative Wall Thickness 0.3 LVOT Diameter 2.1 cm Aortic Root Diameter 3.8 cm LA Systolic Diameter LX 4.6 cm 3.0 - 4.0 / 2.7 - 3.8 cm M-MODE AV Cusp Separation MM 2.1 cm DOPPLER AV Peak Velocity 131.0 cm/s AV Peak Gradient 6.9 mmHg AV Mean Gradient 4.0 mmHg AV Velocity Time Integral 26.5 cm LVOT Peak Velocity 79.0 cm/s LVOT Peak Gradient 2.5 mmHg LVOT Velocity Time Integral 15.3 cm LVOT Cardiac Index 1247.8 cm/minm AV Area Cont Eq vti 2.0 cm AV Area Cont Eq pk 2.1 cm Mitral E Point Velocity 69.1 cm/s Mitral A Point Velocity 64.7 cm/s Mitral E to A Ratio 1.1 LV E' Lateral Velocity 3.6 cm/s Mitral E to LV E' Lateral Ratio 19.1 LV E' Septal Velocity 3.5 cm/s Mitral E to LV E' Septal Ratio 19.7 TR Peak Velocity 331.0 cm/s TR Peak Gradient 43.8 mmHg Right Atrial Pressure 10.0 mmHg Pulmonary Artery Systolic Pressu 53.8 mmHg Right Ventricular Systolic Press 53.8 mmHg PV Peak Velocity 53.4 cm/s PV Peak Gradient 1.1 mmHg FINDINGS LEFT VENTRICLE Moderately dilated left ventricle. Wall thickness is normal. The left ventricular systolic function is severely reduced with an estimated ejection fraction in th e range of 20-25%. There is diffuse global hypokinesis with distinct regional wall motion abnormalities. RIGHT VENTRICLE Normal right ventricular size and systolic function. LEFT ATRIUM The left atrial size is normal. RIGHT ATRIUM The right atrial size is normal. ATRIAL SEPTUM Normal atrial septal thickness without atrial level shunting by limited color doppler interrogation. AORTA The aortic root and proximal ascending aorta are normal in size on limited imaging. MITRAL VALVE Trace mitral valve regurgitation. AORTIC VALVE Trileaflet aortic valve. No aortic valve stenosis or regurgitation. TRICUSPID VALVE There is mild to moderate tricuspid valve regurgitation. The estimated pulmonary arterial pressure is 54 mmHg. PULMONARY VALVE The pulmonary valve is not well visualized. VESSELS The inferior vena cava is normal in size. PERICARDIUM No pericardial effusion. Lana Beal MD, FACC (Electronically Signed) Final Date:13 July 2017 15:38
[2017-07-13] MEDS: WARFARIN SOD 5 MG TAB PO SCH (16:55)
[2017-07-13] MEDS: FUROSEMIDE 40 MG/4 ML VIAL IV PUSH SCH (16:56)
--- NOTE | 2017-07-13 20:47 | EKG ---
Date Performed: 07/12/2017 Time Performed: 17:36:53 PTAGE: 67 years EKG: ELECTRONIC ATRIAL PACEMAKER MARKED LEFT AXIS DEVIATION PATTERN CONSISTENT WITH PULMONARY DI SEASE SEPTAL MYOCARDIAL INFARCTION , OF INDETERMINATE AGE WHEN COMPARED TO PRIOR EKG PATIENT IS NOW I N ATRIAL PACED. ABNORMAL ECG PREVIOUS TRACING : 07/12/2017 10.39 DOCTOR: Lana Beal Interpretating Date/Time 07/13/2017 20:46:54
--- NOTE | 2017-07-13 20:47 | EKG ---
Date Performed: 07/12/2017 Time Performed: 22:08:34 PTAGE: 67 years EKG: ELECTRONIC ATRIAL PACEMAKER MARKED LEFT AXIS DEVIATION PATTERN CONSISTENT WITH PULMONARY DI SEASE INCOMPLETE RIGHT BUNDLE BRANCH BLOCK SEPTAL MYOCARDIAL INFARCTION , OF INDETERMINATE AGE Compar ed to prior tracing no significant change ABNORMAL ECG PREVIOUS TRACING : 07/12/2017 17.36 DOCTOR: Lana Beal Interpretating Date/Time 07/13/2017 20:47:07
--- NOTE | 2017-07-13 20:47 | EKG ---
Date Performed: 07/12/2017 Time Performed: 10:39:11 PTAGE: 67 years EKG: SINUS TACHYCARDIA WITH FREQUENT VENTRICULAR PREMATURE COMPLEXES LEFT ATRIAL ENLARGEMENT MAR KED LEFT AXIS DEVIATION WHEN COMPARED TO PRIOR EKG PATIENT IS NOW TACHYCARDIC. ABNORMAL ECG PREVIOUS TRACING : 11/05/2015 05.56 DOCTOR: Lana Beal Interpretating Date/Time 07/13/2017 20:45:53
[2017-07-14] VITALS (7 sets, daily range): BP systolic 120–140; BP diastolic 68–84; PULSE 60–67; RESP 16–20; TEMP 97.3–98.5; O2SAT 91–95
[2017-07-14] MEDS: HEPARIN SODIUM - SQ 10,000 UNITS/ML VIAL SQ SCH ×2 (05:48→16:46)
[2017-07-14 07:42] LABS: BASOPHIL % 0.3 % (0.0-2.0); EOSINOPHIL # 0.2 TH/MM3 (0-0.4); EOSINOPHIL % 2.1 % (0.0-4.0); HEMATOCRIT 41.1 % (39.0-51.0); HEMO FLAGS DIFF FINAL; LYMPH % 17.7 % (9.0-44.0); LYMPHOCYTE # 1.7 TH/MM3 (1.0-4.8); MEAN CORPUSCULAR HEMOGLOBIN 28.7 PG (27.0-34.0); MEAN CORPUSCULAR HGB CONC 33.8 % (32.0-36.0); MONO % 7.6 % (0.0-8.0); NEUT % 72.3 % (16.0-70.0); PLATELET COUNT 255 TH/MM3 (150-450); RED BLOOD COUNT 4.84 MIL/MM3 (4.50-5.90); RED CELL DISTRIBUTION WIDTH 15.3 % (11.6-17.2); WHITE BLOOD COUNT 9.6 TH/MM3 (4.0-11.0)
[2017-07-14] MEDS: INSULIN ASPART SUPPLEMENTAL SCALE SQ SCH ×4 (08:00→21:00)
[2017-07-14 08:34] LABS: BICARBONATE 26.7 MEQ/L (21.0-32.0); POTASSIUM 3.5 MEQ/L (3.5-5.1)
[2017-07-14] MEDS: LISINOPRIL 5 MG TAB PO SCH (09:27)
[2017-07-14] MEDS: ESCITALOPRAM OXALATE 20 MG TAB PO SCH (09:28)
[2017-07-14] MEDS: FUROSEMIDE 40 MG/4 ML VIAL IV PUSH SCH ×2 (09:28→16:46)
[2017-07-14] MEDS: RANOLAZINE 500 MG EXTENDED RELEASE TAB PO SCH ×2 (09:28→21:20)
[2017-07-14] MEDS: amLODIPine BESYLATE 5 MG TAB PO SCH (09:28)
[2017-07-14] MEDS: cefTRIAXone INJ 2,000 MG in SODIUM CHLORIDE 0.9% INJ 100 ML IV SCH (09:28)
[2017-07-14] MEDS: ASPIRIN 81 MG CHEW TAB CHEW SCH (09:28)
[2017-07-14] MEDS: ISOSORBIDE MONONITRATE 60 MG TAB PO SCH (09:28)
[2017-07-14] MEDS: METOPROLOL SUCCINATE 25 MG EXTENDED RELEASE TAB PO SCH ×2 (09:28→12:34)
[2017-07-14] MEDS: INSULIN DETEMIR 100 UNITS/ML VIAL SQ SCH ×2 (09:29→21:00)
--- NOTE | 2017-07-14 09:41 | HHI.PR ---
Subjective Remarks Pt states that his breathing is improved. Denies any chest pain at this time, denies any nausea or vomiting. Feels that his lower extremities are still swollen Objective Vitals Vital Signs Date Time Temp Pulse Resp B/P (MAP) Pulse Ox O2 Delivery O2 Flow Rate FiO2 07/14/17 04:00 97.6 67 20 133/68 (89) 95 07/14/17 04:00 2.00 07/14/17 00:00 98.2 65 20 140/81 (100) 95 07/14/17 00:00 2.00 07/13/17 20:50 60 07/13/17 20:00 Room Air 07/13/17 20:00 97.3 64 18 121/72 (88) 94 07/13/17 19:36 21 07/13/17 16:00 97.7 70 20 115/76 (89) 94 07/13/17 12:00 98.1 64 20 129/80 (96) 93 I/O 07/13/17 07/13/17 07/13/17 07/14/17 07/14/17 07/14/17 07:00 15:00 23:00 07:00 15:00 23:00 Intake Total 610 ml 240 ml 460 ml Output Total 950 ml 600 ml 300 ml Balance -340 ml -360 ml 160 ml Intake Oral 610 ml 240 ml 460 ml Output Urine Total 950 ml 600 ml 300 ml # Bowel Movements 1 Result Diagram: 07/14/17 0605 07/14/17 0605 Imaging Last Impressions Chest X-Ray 07/12/17 1045 Signed Impressions: Service Date/Time: Wednesday, July 12, 2017 10:57 - CONCLUSION: 1. Mild bibasilar airspace disease, likely atelectasis. 2. Cardiomegaly with minimal positive fluid balance. Ankit Sarah MD Objective Remarks GENERAL: laying in bed, mildly SOB EYES: Extraocular motions intact. ENT: Airway patent. NECK: Trachea midline. CARDIOVASCULAR: Regular rate and rhythm without murmurs RESPIRATORY: Diminished BS bilateral bases. No wheezes or crackles. on exam, able to speak in full sentences GASTROINTESTINAL: Abdomen soft, non-tender, nondistended. MUSCULOSKELETAL: Extremities w Trace BLE mainly at the feet and ankles. NEUROLOGICAL: Awake and alert. Able to move all extremities. Nonfocal. Normal speech. A/P Assessment and Plan 67yo male with a PMHX significant for CAD s/p [place] with cardiac stents and CABG x 3, s/p pacemaker/AICD, atrial fibrillation on Coumadin, CHF, HTN, DM, TIA, HLD and GERD who presents to [facility] ED with complaints of dyspnea that started 3 days ago. Patient meets severe sepsis criteria with elevated HR 101, tachypnea with RR 50 , lactic acid of 2.4, elevated white count 18.9 and source of PNA - s/p Zosyn and Vanco. ID evaluated the patient and pt now on azithro and rocephin. - patient not given bolus fluids due to elevated BNP and positive fluid balance on CXR - Continue to trend lactic acid and WBC. Chest pain in patient with known CAD, previous VA, stents, CABG x 3 and pacemaker/AICD. R/O ACS. - EKG showing NSR, LAD, PVCs, old anterior lateral VA and tachycardia - CE 0.05 -->0.09-->0.08. continuous cardiac monitoring. supplemental oxygen as needed - ASA daily, Nitro prn chest pain. Patient reports rash allergy with Morphine - continue on home dose of Ranexa - on his home dose of BB - Cardiology consult in place. PNA - CXR showing mild bibasilar airspace disease, monitor respiratory status - IV Ceftriaxone and Azithromycin - ID following. - supplemental oxygen to keep O2 sats above 92% CHF - decompensated. CXR showing positive fluid balance. BNP 920. - echo 2015 - EF 30-35%, diffuse hypokinesis. Repeat ECHO 07/13/17 shows EF 20-25% - patient given dose of Lasix in the ED - lasix dose was increased to 40 mg IV BID. Pt improving. Monitor Cr and K levels closely. Baseline Cr 1.9. monitor for signs of fluid overload. today Cr 2.01 - on Isosorbide daily - strict I&Os - fluid <1800ml/day and sodium restricted diet - Consulted cards for any recs and also due to elevated trops. Appreciate assistance. Atrial fibrillation - on Warfarin. INR 2.8. Repeat INR today. Continue to monitor PT/INR. pharm consult for coumadin management. - on BB HTN - uncontrolled at ED presentation 156/120, improved - resume home dose of antihypertensives - continue to monitor and adjust treat accordingly DM - on home dose of insulin - heart healthy/ diabetic diet - accuchek and ISS CKD stage III - previous creatinine around 1.9 last year - avoid nephrotoxic agents - renally dose medications - monitor kidney function DVT prophylaxis - Heparin sq - Bilateral SCD/DELPHINE hose Discharge Planning continue diuresing cards consult, awaiting recs continue Abx. Genesis Storey MD Jul 14, 2017 09:41
[2017-07-14] MEDS: AZITHROMYCIN INJ 500 MG in SODIUM CHLOR 0.9% 250 ML INJ 250 ML IV SCH (11:17)
--- NOTE | 2017-07-14 13:05 | HHI.IDPN ---
Subjective Subjective Remarks is a 67 y/o CM with PMHx significant for CAD s/p OR with cardiac stents and CABG x 3, s/p pacemaker/AICD, atrial fibrillation on Coumadin, CHF, HTN, DM, TIA, HLD and GERD who presents to [facility] ED with complaints of dyspnea that started 3 days ago. Patient reports severe shortness of breath all day Wednesday and he reports he almost decided to come to hospital but decided to tough it out. The shortness of breath got better on its on. He woke up around 3am again short of breath that had failed to improve. He endorses sharp 5/10 anterior chest pain with radiation into both arms that improved with nitroglycerin. He reports cough without any sputum production. He reports nausea but denies any vomiting. He endorses increased swelling in the legs. He denies any headache or vision changes. He denies any abdominal pain. He denies any urinary complaints, diarrhea or constipation. In the ED, patient was severely tachypneic with elevated HR of 101 and temp of 100.0. White count elevated at 18.9. BP elevated at 156/120. Lactic acid elevated at 2.3. BNP 920. CXR revealed cardiomegaly with minimal positive fluid balance and mild bibasilar airspace disease. ID was consulted for evaluation and Mment of Sepsis, Pneumonia. Overnight events reviewed No fevers No rash No diarrhea Antibiotics I attest I reviewed, obtained or updated patients home meds and current meds. Antibiotics reviewed. Ceftriaxone IV Azithro IV Lines Line sites with no e.o infection Past Medical History CAD s/p previous OR, cardiac stents, CABG x 3 Pacemaker/AICD CHF HTN DM Afib on Warfarin TIA HLD Kidney stones GERD NADINE CABG x 3 cardiac stents Pacemaker/AICD Inguinal hernia repair Umbilical hernia repair Tonsillectomy Allergies: Coded Allergies: morphine (Unverified Allergy, Intermediate, RASH, 07/12/17) Objective . Vital Signs Date Time Temp Pulse Resp B/P (MAP) Pulse Ox O2 Delivery O2 Flow Rate FiO2 07/14/17 08:00 97.8 65 16 130/69 (89) 94 07/14/17 04:00 97.6 67 20 133/68 (89) 95 07/14/17 04:00 2.00 07/14/17 00:00 98.2 65 20 140/81 (100) 95 07/14/17 00:00 2.00 07/13/17 20:50 60 07/13/17 20:00 Room Air 07/13/17 20:00 97.3 64 18 121/72 (88) 94 07/13/17 19:36 21 07/13/17 16:00 97.7 70 20 115/76 (89) 94 . Laboratory Tests Test 07/14/17 06:05 White Blood Count 9.6 TH/MM3 Red Blood Count 4.84 MIL/MM3 Hemoglobin 13.9 GM/DL Hematocrit 41.1 % Mean Corpuscular Volume 85.0 FL Mean Corpuscular Hemoglobin 28.7 PG Mean Corpuscular Hemoglobin Concent 33.8 % Red Cell Distribution Width 15.3 % Platelet Count 255 TH/MM3 Mean Platelet Volume 8.0 FL Neutrophils (%) (Auto) 72.3 % Lymphocytes (%) (Auto) 17.7 % Monocytes (%) (Auto) 7.6 % Eosinophils (%) (Auto) 2.1 % Basophils (%) (Auto) 0.3 % Neutrophils # (Auto) 7.0 TH/MM3 Lymphocytes # (Auto) 1.7 TH/MM3 Monocytes # (Auto) 0.7 TH/MM3 Eosinophils # (Auto) 0.2 TH/MM3 Basophils # (Auto) 0.0 TH/MM3 CBC Comment DIFF FINAL Differential Comment Laboratory Tests Test 07/12/17 14:29 07/12/17 18:25 07/13/17 00:02 07/13/17 05:45 Lactic Acid Level 2.4 mmol/L 2.1 mmol/L Total Creatine Kinase 147 U/L Troponin I 0.09 NG/ML 0.08 NG/ML Blood Urea Nitrogen 32 MG/DL Creatinine 1.94 MG/DL Random Glucose 197 MG/DL Calcium Level 8.6 MG/DL Sodium Level 137 MEQ/L Potassium Level 4.2 MEQ/L Chloride Level 102 MEQ/L Carbon Dioxide Level 25.5 MEQ/L Anion Gap 10 MEQ/L Estimat Glomerular Filtration Rate 34 ML/MIN Test 07/14/17 06:05 Blood Urea Nitrogen 41 MG/DL Creatinine 2.01 MG/DL Random Glucose 77 MG/DL Calcium Level 8.9 MG/DL Sodium Level 139 MEQ/L Potassium Level 3.5 MEQ/L Chloride Level 104 MEQ/L Carbon Dioxide Level 26.7 MEQ/L Anion Gap 8 MEQ/L Estimat Glomerular Filtration Rate 33 ML/MIN Microbiology Date/Time Source Procedure Growth Status 07/12/17 11:00 Blood Peripheral Aerobic Blood Culture - Preliminary NO GROWTH IN 2 DAYS Resulted 07/12/17 11:00 Blood Peripheral Anaerobic Blood Culture - Preliminary NO GROWTH IN 2 DAYS Resulted 07/12/17 10:45 Blood Peripheral Aerobic Blood Culture - Preliminary NO GROWTH IN 2 DAYS Resulted 07/12/17 10:45 Blood Peripheral Anaerobic Blood Culture - Preliminary NO GROWTH IN 2 DAYS Resulted 07/12/17 11:00 Nasal Aspirate Influenza Types A,B Antigen (HANDY) - Final NEGATIVE FOR FLU A AND B ANTIGEN.... Complete Imaging Last Impressions Chest X-Ray 07/12/17 1045 Signed Impressions: Service Date/Time: Wednesday, July 12, 2017 10:57 - CONCLUSION: 1. Mild bibasilar airspace disease, likely atelectasis. 2. Cardiomegaly with minimal positive fluid balance. Ankit Sarah MD Physical Exam GENERAL:Obese, well-developed patient, in no apparent distress. SKIN: No rashes, ecchymoses or lesions. Cool and dry. HEAD: Atraumatic. Normocephalic. No temporal or scalp tenderness. EYES: Pupils equal round and reactive. Extraocular motions intact. No scleral icterus. No injection or drainage. ENT: Nose without bleeding, purulent drainage or septal hematoma. Throat without erythema, tonsillar hypertrophy or exudate. Uvula midline. Airway patent. NECK: Trachea midline. Supple, nontender, no meningeal signs. Large neck. CARDIOVASCULAR: Regular rate and rhythm without murmurs, gallops, or rubs. RESPIRATORY: Breath sounds decreased bilaterally. Bibasilar crackles noted. GASTROINTESTINAL: Abdomen soft, non-tender, nondistended. Obese. MUSCULOSKELETAL: Extremities without clubbing, cyanosis. Trace pedal edema noted. No joint tenderness, effusion, or edema noted. No calf tenderness. Negative Homans sign bilaterally. NEUROLOGICAL: Awake and alert. Grossly non focal Psych cooperative IV line sites with no e.o infection. Assessment & Plan Remarks Severe Sepsis with lactic acidosis Pneumonia: CAP vs atypical Acute mild CHF exacerbation acute resp failure now on oxygen Acute COPD exacerbation CADs/p CABG, Pacemaker/AICD in place. Acute renal failure: on diuretic at home plus prerenal, sepsis. Recs: DC Ceftriaxone IV DC Azithro oral ECHO reviewed low EF. BNP elevated. Will start Doxy oral (covers CAP and atypicals, helps reduce fluid issues) Will check procalcitonin if normal all antibiotics can possibly stopped if clinically no signs of infection. If procalcitonin elevated will treat as CAP as he had fever on admission. But procalcitonin will help assess possible severity or rule out infection. Follow cultures Follow clinically. d/w pt and . Tamanna Santana MD Jul 14, 2017 13:04
[2017-07-14 14:58] LABS: INTERNATIONAL NORMALIZED RATIO 2.1 RATIO; PROTHROMBIN TIME - PATIENT 24.5 SEC (9.8-11.6)
--- NOTE | 2017-07-14 16:20 | MB ---
cc: SILVA FARIAS M.D. DATE OF CONSULTATION: 07/14/2017 REASON FOR CONSULTATION Congestive heart failure, chest pain, nonsustained ventricular tachycardia. HISTORY OF PRESENT ILLNESS The patient is a 67-year-old white male, followed regularly by a physician practice market manager at the [facility], with a history of multiple medical problems including hypertension, diabetes, severe ischemic cardiomyopathy, coronary artery disease, chronic renal insufficiency, who presented to the hospital with shortness of breath and chest discomforts. About 5 days ago he experienced fairly severe shortness of breath most of the day. By the end of the day the shortness of breath had improved so he decided not to go to the hospital. About 24 hours later the dyspnea recurred so he finally came to the emergency room for further evaluation and treatment. The patient also states he has chronic "angina". He describes the chest discomfort as a "pressure" without associated shortness of breath, nausea or diaphoresis. He takes occasional sublingual nitroglycerin with usually prompt relief of the symptoms. In general the pattern of the chest discomfort has not changed in the last several months. The patient reports compliance with his medications and a no added salt diet, although he does admit to eating a lot of processed foods. He denies paroxysmal nocturnal dyspnea, dizziness, syncope, near-syncope, palpitations. Occasionally he experiences dependent edema which may be somewhat worse recently. PAST MEDICAL HISTORY 1. History of transient ischemic attacks for which he is chronically on warfarin. 2. Obstructive sleep apnea. 3. COPD. 4. Hypertension. 5. Hyperlipidemia. 6. Coronary artery disease status post three-vessel bypass surgery 2002. The patient cannot recall his last heart catheterization but believes it was within the last 5 years, showing patent bypass grafts. 7. Status post dual-chamber AICD implantation, a [employer] device approximately 2009. 8. History of congestive heart failure. His ejection fraction was 20-25% on echo 2 days ago. 9. Chronic renal insufficiency. 10. Diabetes. MEDICATIONS His cardiac medications at home: 1. Metoprolol succinate 25 mg t.i.d. 2. Lisinopril 5 mg daily. 3. Imdur 120 mg daily. 4. Furosemide 20 mg b.i.d. 5. Aspirin 81 mg daily. 6. Amlodipine 5 mg daily. 7. Warfarin 5 mg daily. 8. Ranexa 500 mg b.i.d. ALLERGIES MORPHINE. FAMILY HISTORY Noncontributory. SOCIAL HISTORY The patient quit smoking 40 years ago. He denies alcohol abuse. REVIEW OF SYSTEMS in the history of present illness, otherwise negative or noncontributory. He also denies headache, abdominal pain, melena, dyspepsia, bright red blood per rectum, wheezing, cough, fevers. PHYSICAL EXAMINATION VITAL SINGS: On physical examination his blood pressure is 120/75 with a pulse of 60, respirations 18. GENERAL: He is a well-developed, well-nourished white male in no acute distress. HEENT: Jugular venous pressure is difficult to assess, it appears to be normal. Carotid pulses are 2+ bilaterally and without bruits. CHEST: Examination of the chest reveals decreased breath sounds at the bases. CARDIAC: On cardiac examination he has a regular rhythm and rate without S3-S4 or murmur. ABDOMEN: On abdominal examination he has a soft, obese, nontender abdomen. Bowel sounds are present. There is no definite hepatosplenomegaly. EXTREMITIES: Examination of extremities reveals no clubbing or cyanosis. There is trace pretibial edema bilaterally. LABORATORY DATA Laboratory data includes WBC 9.6, hemoglobin 13.9, platelets 255, potassium 3.5, BUN 41, creatinine 2.01, troponin 0.08. CK 147. Brain natriuretic peptide level 920, INR 2.1. EKG Shows sinus rhythm with occasional atrial demand pacing, poor R-wave progression, occasional premature atrial complex, inferior and lateral ST and T-wave abnormality, consider ischemia. IMAGING STUDIES Chest x-ray shows bibasilar atelectasis and mildly increased interstitial markings. IMPRESSION Congestive heart failure, overall chronic stable angina in this 67-year-old white male with a history of multiple medical problems including coronary artery disease, severe ischemic cardiomyopathy, sleep apnea, diabetes, chronic renal insufficiency, history of AICD implant. Since coming into the hospital he has symptomatically significantly improved after just mild diuresis with intravenous Lasix. He has had no further angina symptoms. Troponin levels are only slightly abnormal in the setting of renal insufficiency. The precipitating factor for his congestive heart failure may be in part due to dietary noncompliance. Also, his ejection fraction reportedly is 20-25% which is reduced from 30-35% last year. At this point he is overall a poor candidate for invasive cardiac evaluation. He would be at increased risk for dye induced renal failure with his diabetes and chronic renal insufficiency and severely reduced ejection fraction. The patient is already on a fairly comprehensive medical regimen for both his congestive heart failure and coronary artery disease. RECOMMENDATIONS 1. Would change his metoprolol succinate to once a day dosing, 100 mg a day. 2. Increase his Ranexa to 1 gram b.i.d. Continue Imdur. 3. Consider increasing his amlodipine to 10 mg a day. 4. Consider changing back to oral furosemide this evening or tomorrow morning. 5. With respect to his episodes of nonsustained ventricular tachycardia seen here on monitoring, it appears no therapy is being delivered by his AICD. Will have the [employer] sales support representative interrogate his device. MD CARTER Soriano/TLL /3:20 PM /3:39 PM MTDCrystal
[2017-07-14] MEDS: WARFARIN SOD 5 MG TAB PO SCH (16:41)
[2017-07-14] MEDS: DOXYCYCLINE HYCLATE 100 MG TAB PO SCH ×2 (16:41→21:20)
[2017-07-15] VITALS: BP 154/84; PULSE 65; RESP 16; TEMP 97.8; O2SAT 97
[2017-07-15 04:00] VITALS: BP 149/83; PULSE 63; RESP 16; TEMP 98.2; O2SAT 95
[2017-07-15] MEDS: HEPARIN SODIUM - SQ 10,000 UNITS/ML VIAL SQ SCH (05:33)
--- NOTE | 2017-07-15 06:56 | PD.CARD.PN ---
Subjective Subjective Remarks Denies dyspnea. Feeling much better. No CP, dizziness, palpitations. Objective Medications Item Value Date Time Metoprolol 100 mg 07/15/17 0900 Succinate DAILY/PO (Toprol Xl) Ranolazine 1,000 mg 07/14/17 2100 (Ranexa) BID/PO 07/14/172119 Furosemide 40 mg 07/13/17 1800 (Lasix Inj) BID@,18/IV PUSH 07/14/17 164 Warfarin Sodium 5 mg 07/13/17 1600 (Coumadin) DAILY@1600/PO 07/14/17 164 Amlodipine 5 mg 07/13/17 0900 Besylate DAILY/PO 07/14/17 0928 (Norvasc) Aspirin 81 mg 07/13/17 0900 (Aspirin Chew) DAILY/CHEW 07/14/17 0928 Isosorbide 120 mg 07/13/17 0900 Mononitrate DAILY/PO 07/14/17 0928 (Imdur) Lisinopril 5 mg 07/13/17 0900 (Prinivil) DAILY/PO 07/14/17 0927 Heparin Sodium 5,000 units 07/12/17 1800 (Porcine) Q12H/SQ 07/15/17 0533 (Heparin Inj) Current Medications Medications (Trade) Dose Ordered Sig/Jennifer Route Start Time Stop Time Status Last Admin (NS Flush) 2 ml UNSCH PRN IVF 07/12/17 10:45 07/12/17 21:24 (Tylenol) 650 mg Q4H PRN PO 07/12/17 13:30 (Zofran Inj) 4 mg Q6H PRN IVP 07/12/17 13:30 (Heparin Inj) 5,000 units Q12H SQ 07/12/17 18:00 07/15/17 05:33 (Narcan Inj) 0.4 mg UNSCH PRN IV PUSH 07/12/17 13:30 (Milk Of Magnesia Liq) 30 ml Q12H PRN PO 07/12/17 13:30 (Senokot) 17.2 mg Q12H PRN PO 07/12/17 13:30 (Dulcolax Supp) 10 mg DAILY PRN RECTAL 07/12/17 13:30 (Lactulose Liq) 30 ml DAILY PRN PO 07/12/17 13:30 (Norvasc) 5 mg DAILY PO 07/13/17 09:00 07/14/17 09:28 (Aspirin Chew) 81 mg DAILY CHEW 07/13/17 09:00 07/14/17 09:28 (Lexapro) 20 mg DAILY PO 07/13/17 09:00 07/14/17 09:28 (Levemir Inj) 70 units BID SQ 07/12/17 21:00 07/14/17 09:29 (Imdur) 120 mg DAILY PO 07/13/17 09:00 07/14/17 09:28 (Prinivil) 5 mg DAILY PO 07/13/17 09:00 07/14/17 09:27 (Coumadin) 5 mg DAILY@1600 PO 07/13/17 16:00 07/14/17 16:41 (D50w (Vial) Inj) 50 ml UNSCH PRN IV PUSH 07/12/17 16:15 (Glucagon Inj) 1 mg UNSCH PRN OTHER 07/12/17 16:15 (NovoLOG SUPPLEMENTAL SCALE) 1 ACHS SLIDING SCALE SQ 07/12/17 17:00 07/14/17 12:34 (Lasix Inj) 40 mg BID@09,18 IV PUSH 07/13/17 18:00 07/14/17 16:46 Pharmacy Profile Note 0 ml @ 0 mls/hr UNSCH OTHER 07/14/17 09:30 (Vibratab) 100 mg Q12HR PO 07/14/17 16:00 07/14/17 21:20 (Toprol Xl) 100 mg DAILY PO 07/15/17 09:00 (Ranexa) 1,000 mg BID PO 07/14/17 21:00 07/14/17 21:20 Vital Signs / I&O Vital Signs Date Time Temp Pulse Resp B/P (MAP) Pulse Ox O2 Delivery O2 Flow Rate FiO2 07/15/17 04:00 98.2 63 16 149/83 (105) 95 07/15/17 00:00 97.8 65 16 154/84 (107) 97 07/14/17 20:00 Room Air 07/14/17 20:00 67 07/14/17 20:00 98.5 63 16 121/73 (89) 91 07/14/17 16:48 94 07/14/17 16:00 97.5 62 18 134/84 (101) 94 11/1/17 12:00 97.3 60 18 120/75 (90) 94 07/14/17 08:00 Room Air 07/14/17 08:00 97.8 65 16 130/69 (89) 94 07/14/17 08:00 65 I/O 07/14/17 07/14/17 07/14/17 07/15/17 07/15/17 07/15/17 07:00 15:00 23:00 07:00 15:00 23:00 Intake Total 460 ml 480 ml 120 ml Output Total 300 ml 800 ml 1450 ml Balance 160 ml -320 ml -1330 ml Intake Oral 460 ml 480 ml 120 ml Output Urine Total 300 ml 800 ml 1450 ml # Bowel Movements 1 Physical Exam GENERAL: Well developed, well nourished. No acute distress. HEENT: Jugular venous pressure is normal. CHEST: Lungs clear to auscultation bilaterally. Unlabored respiratory effort. CARDIAC: Regular rate and rhythm without S3, S4, or murmur. ABDOMEN: Soft, nontender, no hepatosplenomegaly. Bowel sounds present. EXTREMITIES: No clubbing, cyanosis. Trace pretibial edema. Laboratory Laboratory Tests Test 07/14/17 13:55 Prothrombin Time 24.5 SEC Prothromb Time International Ratio 2.1 RATIO Procalcitonin 0.19 ng/mL Assessment and Plan Problem List: (1) CHF (congestive heart failure) ICD Codes: I50.9 - Heart failure, unspecified Status: Acute Plan: Doing well. Symptomatically much better after good diuresis since admission. EF 20% by echo. Suspect precipitation of CHF in part due to dietary noncompliance. REC change back to oral furosemide; OK to discharge home later today from a cardiac standpoint, f/u with his [facility] in [place] of note, metoprolol succinate dosing changed to 100 mg daily continue low dose RAMIN-I (2) CAD (coronary artery disease) ICD Codes: I25.10 - Atherosclerotic heart disease of [place] coronary artery without angina pectoris Status: Chronic Plan: Stable overnight. Angina pattern overall chronic, stable. Some of CP's also atypical for myocardial ischemia. Patient less than ideal candidate for invasive cardiac evaluation with the increased risk of dye-induced renal failure. REC medical therapy of his CAD continue Imdur, amlodipine, metoprolol, Ranexa (Ranexa and metoprolol doses increased) (3) Nonsustained ventricular tachycardia ICD Codes: I47.2 - Ventricular tachycardia Status: Acute Plan: Stable overnight. ICD interrogation shows normal ICD function. No recent ICD shocks. Rec no change in therapy unless patient has repeated ICD shocks for VT. (4) Hypertension ICD Codes: I10 - Essential (primary) hypertension Status: Chronic Plan: Fluctuating BP's. Rec outpatient monitoring. Code Status full code Discussed Condition With patient Problem Qualifiers (1) CHF (congestive heart failure): Qualified Codes: I50.23 - Acute on chronic systolic (congestive) heart failure (2) CAD (coronary artery disease): Qualified Codes: I25.118 - Atherosclerotic heart disease of [place] coronary artery with other forms of angina pectoris (3) Hypertension: Qualified Codes: I10 - Essential (primary) hypertension Jaden Little MD Jul 15, 2017 06:56
[2017-07-15 08:00] VITALS: BP 148/85; PULSE 60; RESP 20; TEMP 97.1; O2SAT 95
[2017-07-15] MEDS: INSULIN ASPART SUPPLEMENTAL SCALE SQ SCH ×2 (08:00→12:43)
[2017-07-15] MEDS ORDERED: LEVOFLOXACIN 500 MG TAB PO SCH (09:00)
[2017-07-15] MEDS ORDERED: METOPROLOL SUCCINATE 50 MG EXTENDED RELEASE TAB PO SCH (09:00)
[2017-07-15 09:06] LABS: INTERNATIONAL NORMALIZED RATIO 2.1 RATIO; PROTHROMBIN TIME - PATIENT 23.7 SEC (9.8-11.6)
[2017-07-15] MEDS: ASPIRIN 81 MG CHEW TAB CHEW SCH (09:48)
[2017-07-15] MEDS: amLODIPine BESYLATE 5 MG TAB PO SCH (09:49)
[2017-07-15] MEDS: ISOSORBIDE MONONITRATE 60 MG TAB PO SCH (09:49)
[2017-07-15] MEDS: FUROSEMIDE 40 MG/4 ML VIAL IV PUSH SCH (09:49)
[2017-07-15] MEDS: ESCITALOPRAM OXALATE 20 MG TAB PO SCH (09:49)
[2017-07-15] MEDS: LISINOPRIL 5 MG TAB PO SCH (09:50)
[2017-07-15] MEDS: RANOLAZINE 500 MG EXTENDED RELEASE TAB PO SCH (09:50)
[2017-07-15] MEDS: DOXYCYCLINE HYCLATE 100 MG TAB PO SCH (09:50)
[2017-07-15] MEDS ORDERED: INSULIN DETEMIR 100 UNITS/ML VIAL SQ SCH (10:15)
[2017-07-15 10:30] LABS: BICARBONATE 26.3 MEQ/L (21.0-32.0); MAGNESIUM 2.1 MG/DL (1.5-2.5); POTASSIUM 3.6 MEQ/L (3.5-5.1)
[2017-07-15 11:36] VITALS: BP 166/91; PULSE 66; RESP 20; TEMP 97.5; O2SAT 94
[2017-07-15] MEDS ORDERED: METO50TA11 PO (13:40)
[2017-07-15] MEDS ORDERED: FURO40TA PO (13:40)
[2017-07-15] MEDS ORDERED: DOXY100T PO (13:40)
--- NOTE | 2017-07-15 14:38 | HHI.DCPOC ---
Discharge Care Plan Diagnosis: (1) PNA (pneumonia) (2) CHF (congestive heart failure) Goals to Promote Your Health * To prevent worsening of your condition and complications * To maintain your health at the optimal level Directions to Meet Your Goals Take your medications as prescribed Follow your dietary instruction Follow activity as directed Keep your appointments as scheduled Take your immunizations and boosters as scheduled If your symptoms worsen call your PCP, if no PCP go to Urgent Care Center or Emergency Room Smoking is Dangerous to Your Health. Avoid second hand smoke Call the 24-hour hour crisis hotline for domestic abuse at Anni Garza Jul 15, 2017 14:38
--- NOTE | 2017-07-15 14:46 | HHI.DS ---
Discharge Summary Admission Date Jul 12, 2017 at 13:07 Discharge Date: Jul 15, 2017 Admitting Diagnosis chest pain, rule out ACS, sepsis (1) CHF (congestive heart failure) ICD Code: I50.9 - Heart failure, unspecified Status: Acute (2) PNA (pneumonia) ICD Code: J18.9 - Pneumonia, unspecified organism Procedures none Brief History - From Admission Written by Brittni Torres, acting as scribe for Dr. Otoole on 07/12/17 at 15:22. This is a 67yo male with a PMHX significant for CAD s/p ND with cardiac stents and CABG x 3, s/p pacemaker/AICD, atrial fibrillation on Coumadin, CHF, HTN, DM , TIA, HLD and GERD who presents to [facility] ED with complaints of dyspnea that started 3 days ago. Patient reports severe shortness of breath all day Wednesday that eventually resolved on its on. He woke up around 3am again short of breath that has failed to improve. He endorses sharp 5/10 anterior chest pain with radiation into both arms that improved with nitroglycerin. He reports cough without any sputum production. He reports nausea but denies any vomiting. He endorses increased swelling in the legs. He denies any headache or vision changes. He denies any abdominal pain. He denies any urinary complaints, diarrhea or constipation. In the ED, patient was severely tachypneic with elevated HR of 101 and temp of 100.0. White count elevated at 18.9. BP elevated at 156/120. Lactic acid elevated at 2.3. BNP 920. CXR revealed cardiomegaly with minimal positive fluid balance and mild bibasilar airspace disease. CBC/BMP: 07/14/17 0605 07/15/17 0825 Significant Findings Laboratory Tests Test 07/12/17 18:25 07/13/17 00:02 07/13/17 05:45 07/14/17 06:05 Lactic Acid Level 2.1 mmol/L (0.4-2.0) Troponin I 0.09 NG/ML (0.02-0.05) 0.08 NG/ML (0.02-0.05) Blood Urea Nitrogen 32 MG/DL (7-18) 41 MG/DL (7-18) Creatinine 1.94 MG/DL (0.60-1.30) 2.01 MG/DL (0.60-1.30) Random Glucose 197 MG/DL (74-106) Estimat Glomerular Filtration Rate 34 ML/MIN (>89) 33 ML/MIN (>89) Neutrophils (%) (Auto) 72.3 % (16.0-70.0) Test 07/14/17 13:55 07/15/17 08:25 Prothrombin Time 24.5 SEC (9.8-11.6) 23.7 SEC (9.8-11.6) Procalcitonin 0.19 ng/mL (0.00-0.08) Blood Urea Nitrogen 42 MG/DL (7-18) Creatinine 2.11 MG/DL (0.60-1.30) Random Glucose 117 MG/DL (74-106) Estimat Glomerular Filtration Rate 31 ML/MIN (>89) Imaging Last Impressions Chest X-Ray 07/12/17 1045 Signed Impressions: Service Date/Time: Wednesday, July 12, 2017 10:57 - CONCLUSION: 1. Mild bibasilar airspace disease, likely atelectasis. 2. Cardiomegaly with minimal positive fluid balance. Ankit Sarah MD PE at Discharge GENERAL: laying in bed, in no acute distress EYES: Extraocular motions intact. ENT: Airway patent. NECK: Trachea midline. CARDIOVASCULAR: Regular rate and rhythm RESPIRATORY: clear through out GASTROINTESTINAL: Abdomen soft, non-tender, nondistended. MUSCULOSKELETAL: Extremities w Trace BLE mainly at the feet and ankles. NEUROLOGICAL: Awake and alert. Able to move all extremities. Nonfocal. Normal speech. Hospital Course 67yo male with a PMHX significant for CAD s/p ND with cardiac stents and CABG x 3, s/p pacemaker/AICD, atrial fibrillation on Coumadin, CHF, HTN, DM, TIA, HLD and GERD who presents to [facility] ED with complaints of dyspnea that started 3 days ago. On admission patient met severe sepsis criteria with elevated HR 101, tachypnea with RR 50, lactic acid of 2.4, elevated white count 18.9 and source of PNA - s/p Zosyn and Vanco. ID evaluated the patient and pt now on azithro and rocephin. - patient not given bolus fluids due to elevated BNP and positive fluid balance on CXR - Continue to trend lactic acid and WBC. Chest pain in patient with known CAD, previous ND, stents, CABG x 3 and pacemaker/AICD. R/O ACS. - EKG showing NSR, LAD, PVCs, old anterior lateral ND and tachycardia - CE 0.05 -->0.09-->0.08. continuous cardiac monitoring. supplemental oxygen as needed - ASA daily, Nitro prn chest pain. Patient reports rash allergy with Morphine - continue on home dose of Ranexa - continue BB - Patient with report of 27 beat NSVT, patient has AICD which was interrogated and no changes were made - Cardiology consult in place- cleared patient for DC follow up with [facility] cardiology PNA - CXR showing mild bibasilar airspace disease, monitor respiratory status - IV Ceftriaxone and Azithromycin DC - ID following changed patient to Doxycycline PO, Spoke with ID who cleared patient for DC recommending 5 more days of PO doxycycline - supplemental oxygen to keep O2 sats above 92% CHF NSVT - decompensated. CXR showing positive fluid balance. BNP 920. - echo 2015 - EF 30-35%, diffuse hypokinesis. Repeat ECHO 07/13/17 shows EF 20-25% - patient given dose of Lasix in the ED - lasix dose was increased to 40 mg IV BID. Pt improving. Monitor Cr and K levels closely. Baseline Cr 1.9. monitor for signs of fluid overload. today Cr 2.01 - on Isosorbide daily - strict I&Os - fluid <1800ml/day and sodium restricted diet - Consulted cards for any recs and also due to elevated trops. Appreciate assistance. - report of 27 beat NSVT, patient has AICD which was interrogated and no changes were made - Cardiology consult in place- cleared patient for DC follow up with [facility] cardiology Atrial fibrillation - on Warfarin. Continue to monitor PT/INR. pharm consult for Coumadin management. - on BB HTN - uncontrolled at ED presentation 156/120, improved - resume home dose of antihypertensives - continue to monitor and adjust treat accordingly DM - on home dose of insulin - heart healthy/ diabetic diet - accuchek and ISS CKD stage III - previous creatinine around 1.9 last year - avoid nephrotoxic agents - renally dose medications - monitor kidney function DVT prophylaxis - Heparin sq - Bilateral SCD/DELPHINE hose Pt Condition on Discharge: Stable Discharge Disposition: Discharge Home Discharge Time: <= 30 minutes Discharge Instructions DIET: Follow Instructions for: Heart Healthy Diet, Diabetic Diet Activities you can perform: Regular-No Restrictions Follow up Referrals: Cardiology - 1 Week 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 [facility] 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 Follow-up - 1 Week with [facility] provider New Orders: BASIC METABOLIC PROF - 1 Week New Medications: Doxycycline Hyclate (Doxycycline Hyclate) 100 Mg Tab 100 MG PO Q12HR for antibiotic for 5 Days, #10 TAB 0 Refills Furosemide (Furosemide) 40 Mg Tab 40 MG PO BID@09,18 for fluid retention, #60 TAB 0 Refills Metoprolol Succinate ER 24 HR (Metoprolol Succinate ER 24 HR) 50 Mg Tab 100 MG PO DAILY for heart/ blood pressure, #30 TAB 0 Refills Continued Medications: Amlodipine (Amlodipine) 5 Mg Tab 5 MG PO DAILY for Blood Pressure Management, TAB 0 Refills Aspirin (Aspirin) 81 Mg Chew 81 MG CHEW DAILY, TAB 0 Refills Escitalopram (Escitalopram) 20 Mg Tab 20 MG PO DAILY, TAB 0 Refills Insulin Aspart Inj (Novolog Inj) 1,000 Unit/10 Ml Vial 5 UNITS SQ ACHS for Blood Sugar Management, INJECTION 0 Refills Insulin Glargine Inj (Lantus Inj) 1,000 Unit/10 Ml Vial 70 UNITS SQ BID for Blood Sugar Management, VIAL 0 Refills Isosorbide Mononitrate ER (Isosorbide Mononitrate ER) 120 Mg Anant 120 MG PO DAILY for Prevent Chest Pain, TAB 0 Refills Lisinopril (Lisinopril) 5 Mg Tab 5 MG PO DAILY for Blood Pressure Management, TAB 0 Refills Nitroglycerin SL (Nitrostat SL) 0.4 Mg Subl 0.4 MG SL DIRECTED PRN for CHEST PAIN, TAB.SL 0 Refills 1 tablet under the tongue as needed for chest pain. Repeat every 5 minutes for a total of 3 DOSES or call 911 if NO relief. Ranolazine ER 12 HR (Ranexa ER 12 HR) 500 Mg Tab 500 MG PO BID for Chest Pain, TAB 0 Refills Warfarin (Warfarin) 5 Mg Tab 5 MG PO DAILY for Blood Clot Prevention, TAB 0 Refills Discontinued Medications: Furosemide (Furosemide) 20 Mg Tab 20 MG PO BID, TAB 0 Refills Metoprolol Succinate ER 24 HR (Metoprolol Succinate ER 24 HR) 25 Mg Tab 25 MG PO TID, TAB 0 Refills Additional Information patient instructed to weigh himself daily after DC and call outpatient MD if began to gain weight > 3 lbs in 2 days Anni Garza Jul 15, 2017 14:46
[2017-07-15] MEDS ORDERED: FUROSEMIDE 40 MG TAB PO SCH (18:00)
== END 2017-07-15 16:25 | disposition home or self-care (01) | DRG 871 ==
LOC: NEPE 10:13 → NEDA 13:07 → N04A 16:12
PROVIDERS: ADMIT Internal Medicine; ATTEND Internal Medicine
DX: A41.9 Sepsis, unspecified organism (principal); J18.9 Pneumonia, unspecified organism; J96.00 Acute respiratory failure, unspecified whether with hypoxia or hypercapnia; I50.23 Acute on chronic systolic (congestive) heart failure; I47.2 Ventricular tachycardia; N17.9 Acute kidney failure, unspecified; N18.3 Chronic kidney disease, stage 3 (moderate); E87.2 Acidosis; I13.0 Hypertensive heart and chronic kidney disease with heart failure and stage 1 through stage 4 chronic kidney disease, or unspecified chronic kidney disease; J44.0 Chronic obstructive pulmonary disease with (acute) lower respiratory infection; J44.1 Chronic obstructive pulmonary disease with (acute) exacerbation; J98.11 Atelectasis; E11.22 Type 2 diabetes mellitus with diabetic chronic kidney disease; R65.20 Severe sepsis without septic shock; E78.5 Hyperlipidemia, unspecified; I25.118 Atherosclerotic heart disease of native coronary artery with other forms of angina pectoris; G47.33 Obstructive sleep apnea (adult) (pediatric); I25.5 Ischemic cardiomyopathy; I25.2 Old myocardial infarction; I48.91 Unspecified atrial fibrillation; Z79.01 Long term (current) use of anticoagulants; K21.9 Gastro-esophageal reflux disease without esophagitis; Z79.4 Long term (current) use of insulin; Z86.73 Personal history of transient ischemic attack (TIA), and cerebral infarction without residual deficits; Z87.891 Personal history of nicotine dependence; Z95.1 Presence of aortocoronary bypass graft; Z95.5 Presence of coronary angioplasty implant and graft; Z95.810 Presence of automatic (implantable) cardiac defibrillator
CPT/HCPCS: 71010; 80048; 81001; 82550; 82948; 83605; 83735; 83880; 84145; 84484; 85025; 85610; 87040; 87804; 93005; 93306; 96374; 96375; J0456; J0696; J1644; J1815; J1940; J2543; J3370; J7050

== ENCOUNTER 2017-09-07 14:40 | Observation (INO) | payer OTHER ==
[~2017-09-07 14:40] MED LIST changes: +AMLO5TAB2 PO; -AMLO5TAB22 PO; +ASPI-516 CHEW; +DOXY100T PO; -FURO20TA PO; +FURO40TA PO; +ISOS120T PO; -ISOS120T14 PO; -LANTUS2P SC; +LANTUS2P SQ; +LISI-519 PO; +METO1TAB9 PO; -METO50CR PO; +NOVOLOGP2 SQ; -PROS5TAB2 PO; -ROSU20 PO; +WARF-23 PO; -WARF5TAB PO; -WARF7.5T4 PO
[2017-09-07 14:43] VITALS: BP 191/107; PULSE 96; RESP 24; TEMP 96.6; O2SAT 96
[2017-09-07 15:49] VITALS: BP 112/67; PULSE 84; RESP 19; O2SAT 95
[2017-09-07] MEDS ORDERED: FUROSEMIDE 40 MG/4 ML VIAL IV PUSH ONE (16:00)
--- NOTE | 2017-09-07 16:16 | RADRPT ---
EXAM DATE/TIME: 09/07/2017 15:18 [place] COMPARISON: CHEST SINGLE AP, July 12, 2017, 10:57. INDICATIONS : Short of breatah MEDICAL HISTORY : Congestive heart failure. Cardiovascular disease SURGICAL HISTORY : Pacemaker. CABG. Coronary artery stent. ENCOUNTER: Initial ACUITY: 2 days PAIN SCORE: 0/10 LOCATION: chest FINDINGS: Heart is moderately enlarged. Postsurgical changes from prior open heart surgery noted. ICD device is noted in place. There is no significant congestion or consolidating airspace disease. CONCLUSION: Cardiomegaly without evidence of acute congestion or consolidating airspace disease. Stable ICD. Chidi Zapata MD on September 07, 2017 at 16:10 Board Certified Radiologist. This report was verified electronically.
[2017-09-07 16:20] LABS: AUTOMATED NEUTROPHIL # 5.6 TH/MM3 (1.8-7.7); BASOPHIL # 0.1 TH/MM3 (0-0.2); BASOPHIL % 0.9 % (0.0-2.0); EOSINOPHIL # 0.2 TH/MM3 (0-0.4); EOSINOPHIL % 2.5 % (0.0-4.0); HEMATOCRIT 47.8 % (39.0-51.0); LYMPH % 18.8 % (9.0-44.0); LYMPHOCYTE # 1.5 TH/MM3 (1.0-4.8); MEAN CELL VOLUME 85.6 FL (80.0-100.0); MEAN CORPUSCULAR HEMOGLOBIN 28.6 PG (27.0-34.0); MEAN CORPUSCULAR HGB CONC 33.4 % (32.0-36.0); MEAN PLATELET VOLUME 7.9 FL (7.0-11.0); MONO % 8.1 % (0.0-8.0); MONOCYTE # 0.6 TH/MM3 (0-0.9); NEUT % 69.7 % (16.0-70.0); PLATELET COUNT 239 TH/MM3 (150-450); RED BLOOD COUNT 5.59 MIL/MM3 (4.50-5.90); WHITE BLOOD COUNT 8.1 TH/MM3 (4.0-11.0)
[2017-09-07 16:25] LABS: INTERNATIONAL NORMALIZED RATIO 2.9 RATIO; PROTHROMBIN TIME - PATIENT 29.7 SEC (9.8-11.6)
[2017-09-07 16:34] LABS: BICARBONATE 25.9 MEQ/L (21.0-32.0); BLOOD UREA NITROGEN 30 MG/DL (7-18); CALCIUM 8.4 MG/DL (8.5-10.1); CHLORIDE 106 MEQ/L (98-107); CREATININE 1.97 MG/DL (0.60-1.30); GLOMERULAR FILTRATION RATE 34 ML/MIN (>89); GLUCOSE,RANDOM 227 MG/DL (74-106); MAGNESIUM 1.9 MG/DL (1.5-2.5); SODIUM (NA) 139 MEQ/L (136-145)
--- NOTE | 2017-09-07 16:34 | PD ---
HPI Chief Complaint: Respiratory Symptoms Time Seen by Provider: 15:12 Travel History International Travel<30 days: No Contact w/Intl Traveler<30days: No Traveled to known affect area: No History of Present Illness HPI 67-year-old male that presents to the ED for evaluation of shortness of breath with exertion. Per patient his been going on for 3 days. He has a significant history of heart failure and has had multiple exacerbations in the past per per patient he feels somewhat similar. He states that he takes Coumadin. He has a pacemaker in place. Denies any chest pain but states the shortness of breath is worse with laying flat as well as with any movement. Even sitting right now the shortness of breath is worse which is what prompted evaluation today. He denies any abdominal pain. Per patient he is not sure if it in any way but he believes that he has. He denies any pain anywhere. He states that he is compliant with his Lasix and takes it every day. He denies any other medical issues at this time. Denies any headache. No blurry vision or double vision. No chest pain or pressure. Allergies to morphine. PFSH Past Medical History Hx Anticoagulant Therapy: Yes (WARFARIN) Asthma: No Anxiety: No Depression: Yes Heart Rhythm Problems: No Cancer: No Cardiac Catheterization: Yes Cardiovascular Problems: Yes (CHF, HTN) High Cholesterol: Yes Chest Pain: No Congestive Heart Failure: Yes COPD: No Cerebrovascular Accident: Yes (TIA) Coronary Artery Disease: Yes Diabetes: Yes Diminished Hearing: No Endocrine: Yes GERD: Yes Genitourinary: Yes Hypertension: Yes Immune Disorder: No Implanted Vascular Access Dvce: Yes Kidney Stones: Yes Musculoskeletal: No Neurologic: Yes Psychiatric: Yes Reproductive: No Respiratory: Yes Migraines: No Renal Failure: No Seizures: No Sleep Apnea: Yes Past Surgical History Abdominal Surgery: Yes (Hernia Repair) AICD: Yes Arteriovenous Shunt: No Cardiac Surgery: Yes (triple bypass, pacemaker/AICD, stents) Coronary Artery Bypass Graft: Yes Coronary Stent: Yes Ear Surgery: No Endocrine Surgery: No Eye Surgery: No Genitourinary Surgery: No Insulin Pump: No Joint Replacement: No Oral Surgery: Yes (Tonsileectomy) Pacemaker: No Thoracic Surgery: No Tonsillectomy: Yes Other Surgery: Yes Social History Alcohol Use: No Tobacco Use: No Substance Use: No Allergies-Medications (Allergen,Severity, Reaction): Coded Allergies: morphine (Unverified Allergy, Intermediate, RASH, 07/12/17) Reported Meds & Prescriptions Reported Meds & Active Scripts Active Furosemide 40 Mg Tab 40 Mg PO BID@ Metoprolol Succinate ER 24 HR (Metoprolol Succinate) 50 Mg Tab 100 Mg PO DAILY Doxycycline Hyclate 100 Mg Tab 100 Mg PO Q12HR 5 Days Reported Lisinopril 5 Mg Tab 5 Mg PO DAILY Isosorbide Mononitrate ER (Isosorbide Mononitrate) 120 Mg Anant 120 Mg PO DAILY Aspirin 81 Mg Chew 81 Mg CHEW DAILY Amlodipine (Amlodipine Besylate) 5 Mg Tab 5 Mg PO DAILY Novolog Inj (Insulin Aspart) 1,000 Unit/10 Ml Vial 5 Units SQ ACHS Warfarin 5 Mg Tab 5 Mg PO DAILY Ranexa ER 12 HR (Ranolazine) 500 Mg Tab 500 Mg PO BID Nitrostat SL (Nitroglycerin) 0.4 Mg Subl 0.4 Mg SL DIRECTED PRN 1 tablet under the tongue as needed for chest pain. Repeat every 5 minutes for a total of 3 DOSES or call 911 if NO relief. Lantus Inj (Insulin Glargine) 1,000 Unit/10 Ml Vial 70 Units SQ BID Escitalopram (Escitalopram Oxalate) 20 Mg Tab 20 Mg PO DAILY Review of Systems Except as stated in HPI: all other systems reviewed are Neg Physical Exam Narrative GENERAL: SKIN: Warm and dry. HEAD: Atraumatic. Normocephalic. EYES: Pupils equal and round. No scleral icterus. No injection or drainage. ENT: No nasal bleeding or discharge. Mucous membranes pink and moist. Tongue is midline. No uvula deviation. NECK: Trachea midline. No JVD. CARDIOVASCULAR: Regular rate and rhythm. No murmurs, S3, S4. RESPIRATORY: No accessory muscle use. Some rales hurts patient the lower lung dao. Breath sounds equal bilaterally. GASTROINTESTINAL: Abdomen soft, non-tender, slightly distended. Hepatic and splenic margins not palpable. MUSCULOSKELETAL: Extremities without clubbing, cyanosis, or edema. No obvious deformities. Full range of motion of the upper and lower extremities bilaterally. 2+ pulses bilaterally. NEUROLOGICAL: Awake and alert. No obvious cranial nerve deficits. Motor grossly within normal limits. Five out of 5 muscle strength in the arms and legs. Normal speech. PSYCHIATRIC: Appropriate mood and affect; insight and judgment normal. Data Data Last Documented VS Vital Signs Date Time Temp Pulse Resp B/P (MAP) Pulse Ox O2 Delivery O2 Flow Rate FiO2 09/07/17 15:49 84 19 112/67 (82) 95 Nasal Cannula 2.00 09/07/17 14:43 96.6 Orders Orders Electrocardiogram (09/07/17 15:12) Complete Blood Count With Diff (09/07/17 15:12) Basic Metabolic Panel (Bmp) (09/07/17 15:12) Ckmb (Isoenzyme) Profile (09/07/17 15:12) Troponin I (09/07/17 15:12) B-Type Natriuretic Peptide (09/07/17 15:12) Prothrombin Time / Inr (Pt) (09/07/17 15:12) Act Partial Throm Time (Ptt) (09/07/17 15:12) Magnesium (Mg) (09/07/17 15:12) Chest, Single Ap (09/07/17 15:12) Iv Access Insert/Monitor (09/07/17 15:12) Ecg Monitoring (09/07/17 15:12) Oximetry (09/07/17 15:12) Furosemide Inj (Lasix Inj) (09/07/17 16:00) CKMB (09/07/17 15:45) CKMB% (09/07/17 15:45) Labs Laboratory Tests Test 09/07/17 15:45 White Blood Count 8.1 TH/MM3 Red Blood Count 5.59 MIL/MM3 Hemoglobin 16.0 GM/DL Hematocrit 47.8 % Mean Corpuscular Volume 85.6 FL Mean Corpuscular Hemoglobin 28.6 PG Mean Corpuscular Hemoglobin Concent 33.4 % Red Cell Distribution Width 16.0 % Platelet Count 239 TH/MM3 Mean Platelet Volume 7.9 FL Neutrophils (%) (Auto) 69.7 % Lymphocytes (%) (Auto) 18.8 % Monocytes (%) (Auto) 8.1 % Eosinophils (%) (Auto) 2.5 % Basophils (%) (Auto) 0.9 % Neutrophils # (Auto) 5.6 TH/MM3 Lymphocytes # (Auto) 1.5 TH/MM3 Monocytes # (Auto) 0.6 TH/MM3 Eosinophils # (Auto) 0.2 TH/MM3 Basophils # (Auto) 0.1 TH/MM3 CBC Comment DIFF FINAL Differential Comment Prothrombin Time 29.7 SEC Prothromb Time International Ratio 2.9 RATIO Activated Partial Thromboplast Time 38.5 SEC Blood Urea Nitrogen 30 MG/DL Creatinine 1.97 MG/DL Random Glucose 227 MG/DL Calcium Level 8.4 MG/DL Magnesium Level 1.9 MG/DL Sodium Level 139 MEQ/L Potassium Level 3.7 MEQ/L Chloride Level 106 MEQ/L Carbon Dioxide Level 25.9 MEQ/L Anion Gap 7 MEQ/L Estimat Glomerular Filtration Rate 34 ML/MIN Total Creatine Kinase 219 U/L Creatine Kinase MB 3.3 NG/ML Troponin I 0.06 NG/ML B-Type Natriuretic Peptide 698 PG/ML MDM Medical Decision Making Medical Screen Exam Complete: Yes Emergency Medical Condition: Yes Medical Record Reviewed: Yes Interpretation(s) CBC & BMP Diagram 09/07/17 15:45 Calcium Level 8.4 L, Magnesium Level 1.9 Last Impressions Chest X-Ray 09/07/17 1512 Signed Impressions: Service Date/Time: Thursday, September 07, 2017 15:18 - CONCLUSION: Cardiomegaly without evidence of acute congestion or consolidating airspace disease. Stable ICD. Chidi Zapata MD BNP in the 600s Troponin is slightly elevated at 0.06 CK-MB negative. Differential Diagnosis CHF exacerbation versus respiratory illness versus COPD versus CAD versus pneumonia versus sleep apnea Narrative Course 67-year-old male that presents to the ED for evaluation of shortness of breath. Patient was properly examined and was found to have signs and symptoms very concerning for CHF exacerbation. Patient does have significant history of this in the past. Per patient feels somewhat similar to his not quite sure if it is the same. Labs and imaging were ordered. Labs and imaging were consistent with CHF exacerbation. Patient does have a slightly positive troponin but this appears to be better than previous. Likely secondary to the significant CHF. Patient was given Lasix IV. Patient was put on oxygen. Case was discussed in my attending Dr. Andino who agrees with plan. HEPAS was paged. Diagnosis Primary Impression: CHF (congestive heart failure) Qualified Codes: I50.9 - Heart failure, unspecified Admitting Information Admitting Physician Requests: John Ochoa Sep 07, 2017 16:34
[2017-09-07 16:38] LABS: TROPONIN I 0.06 NG/ML (0.02-0.05)
[2017-09-07 17:23] VITALS: BP 141/93; PULSE 79; RESP 18; O2SAT 99
[2017-09-07] MEDS: RESP: ALBUTEROL 2.5 MG/IPRATROPIUM 0.5 MG NEB (SCH) INH (17:43)
[2017-09-07 18:27] VITALS: BP 153/84; PULSE 77; RESP 16; O2SAT 100
[2017-09-07] MEDS ORDERED: NALOXONE HCL 0.4 MG/ML AMP IV PUSH PRN (19:45)
[2017-09-07] MEDS ORDERED: ACETAMINOPHEN 325 MG TAB PO PRN (19:45)
[2017-09-07] MEDS ORDERED: ONDANSETRON HCL 4 MG/2 ML VIAL IVP PRN (19:45)
[2017-09-07] MEDS ORDERED: SENNOSIDES 8.6 MG TAB PO PRN (19:45)
[2017-09-07] MEDS ORDERED: GLUCAGON 1 MG/ML VIAL OTHER PRN (19:45)
[2017-09-07] MEDS ORDERED: BISACODYL 10 MG SUPP RECTAL PRN (19:45)
[2017-09-07] MEDS ORDERED: SODIUM CHLORIDE 0.9% FLUSH 10 ML FLUSH IV FLUSH PRN (19:45)
[2017-09-07] MEDS ORDERED: DEXTROSE 50% IN WATER 50 ML VIAL(D50) IV PUSH PRN (19:45)
[2017-09-07 20:21] VITALS: BP 175/91; PULSE 75; RESP 18; TEMP 98.9; O2SAT 99
[2017-09-07 20:30] VITALS: PULSE 75
--- NOTE | 2017-09-07 20:53 | HHI.HP ---
[facility] Admission Diagnosis acute CHF exacerbation Diagnoses: Travel History International Travel<30 Days: No Contact w/Intl Traveler <30 Da: No Traveled to Known Affected Are: No History of Present Illness 67-year-old male with a past medical history significant for CHF (echo on showed an EF of 30-35%), CAD, hypertension, hyperlipidemia, atrial fibrillation on Coumadin, insulin-dependent diabetes mellitus, TIA and GERD presents to the emergency department with increasing shortness of breath 2 days. The patient reports a productive cough and increased ankle edema. He denies fever/chills. He also reports weakness of 2 days' duration and increasing dyspnea on exertion. Troponin mildly elevated at 0.06, which is baseline for the patient. BNP 698. Review of Systems Denies fever or chills Denies blurry vision, otorrhea, rhinorrhea Denies sore throat and cough No chest pain, palpitations, positive shortness of breath No abdominal pain Denies constipation/diarrhea/nausea/vomiting Denies muscle pain/positive weakness No rashes Past Family Social History Past Medical History CAD status post previous AL, stent placement 1, status post CABG 3 Pacemaker/AICD CHF (EF of 30-35%) Hypertension Insulin-dependent diabetes mellitus A. fib on Coumadin TIA Hyperlipidemia GERD Past Surgical History CABG 3 in Cardiac stent placement 1 Pacemaker/AICD Inguinal hernia repair Umbilical hernia repair Tonsillectomy Reported Medications Reported Meds & Active Scripts Active Furosemide 40 Mg Tab 40 Mg PO BID@,18 Metoprolol Succinate ER 24 HR (Metoprolol Succinate) 50 Mg Tab 100 Mg PO DAILY Doxycycline Hyclate 100 Mg Tab 100 Mg PO Q12HR 5 Days Reported Lisinopril 5 Mg Tab 5 Mg PO DAILY Isosorbide Mononitrate ER (Isosorbide Mononitrate) 120 Mg Anant 120 Mg PO DAILY Aspirin 81 Mg Chew 81 Mg CHEW DAILY Amlodipine (Amlodipine Besylate) 5 Mg Tab 5 Mg PO DAILY Novolog Inj (Insulin Aspart) 1,000 Unit/10 Ml Vial 5 Units SQ ACHS Warfarin 5 Mg Tab 5 Mg PO DAILY Ranexa ER 12 HR (Ranolazine) 500 Mg Tab 500 Mg PO BID Nitrostat SL (Nitroglycerin) 0.4 Mg Subl 0.4 Mg SL DIRECTED PRN 1 tablet under the tongue as needed for chest pain. Repeat every 5 minutes for a total of 3 DOSES or call 911 if NO relief. Lantus Inj (Insulin Glargine) 1,000 Unit/10 Ml Vial 70 Units SQ BID Escitalopram (Escitalopram Oxalate) 20 Mg Tab 20 Mg PO DAILY Allergies: Coded Allergies: morphine (Unverified Allergy, Intermediate, RASH, 07/12/17) Family History Father with diabetes mellitus Social History Patient quit smoking in 1975. He denies alcohol, illicit drugs. Physical Exam Vital Signs Vital Signs Date Time Temp Pulse Resp B/P (MAP) Pulse Ox O2 Delivery O2 Flow Rate FiO2 09/07/17 20:21 98.9 75 18 175/91 (119) 99 09/07/17 20:06 09/07/17 18:27 77 16 153/84 (107) 100 Nasal Cannula 2.00 09/07/17 17:23 79 18 141/93 (109) 99 Nasal Cannula 2.00 09/07/17 15:50 96 Nasal Cannula 2.00 09/07/17 15:49 84 19 112/67 (82) 95 Nasal Cannula 2.00 09/07/17 14:43 96.6 96 24 191/107 (135) 96 Room Air Physical Exam GENERAL: male standing up in his room SKIN: No rashes, ecchymoses or lesions. Cool and dry. HEAD: Atraumatic. Normocephalic. No temporal or scalp tenderness. EYES: Pupils equal round and reactive. Extraocular motions intact. No scleral icterus. No injection or drainage. ENT: Nose without bleeding, purulent drainage or septal hematoma. Throat without erythema, tonsillar hypertrophy or exudate. Uvula midline. Airway patent. NECK: Trachea midline. No JVD or lymphadenopathy. Supple, nontender, no meningeal signs. CARDIOVASCULAR: Regular rate and rhythm without murmurs, gallops, or rubs. RESPIRATORY: Clear to auscultation. Breath sounds equal bilaterally. No wheezes , rales, or rhonchi. GASTROINTESTINAL: Abdomen soft, non-tender, nondistended. No hepato-splenomegaly , or palpable masses. No guarding. MUSCULOSKELETAL: 2+ pitting edema to the mid smith. No calf tenderness. NEUROLOGICAL: Awake and alert. Cranial nerves II through XII intact. Motor and sensory grossly within normal limits. Normal speech. Laboratory Laboratory Tests Test 09/07/17 15:45 White Blood Count 8.1 Red Blood Count 5.59 Hemoglobin 16.0 Hematocrit 47.8 Mean Corpuscular Volume 85.6 Mean Corpuscular Hemoglobin 28.6 Mean Corpuscular Hemoglobin Concent 33.4 Red Cell Distribution Width 16.0 Platelet Count 239 Mean Platelet Volume 7.9 Neutrophils (%) (Auto) 69.7 Lymphocytes (%) (Auto) 18.8 Monocytes (%) (Auto) 8.1 Eosinophils (%) (Auto) 2.5 Basophils (%) (Auto) 0.9 Neutrophils # (Auto) 5.6 Lymphocytes # (Auto) 1.5 Monocytes # (Auto) 0.6 Eosinophils # (Auto) 0.2 Basophils # (Auto) 0.1 CBC Comment DIFF FINAL Differential Comment Prothrombin Time 29.7 Prothromb Time International Ratio 2.9 Activated Partial Thromboplast Time 38.5 Blood Urea Nitrogen 30 Creatinine 1.97 Random Glucose 227 Calcium Level 8.4 Magnesium Level 1.9 Sodium Level 139 Potassium Level 3.7 Chloride Level 106 Carbon Dioxide Level 25.9 Anion Gap 7 Estimat Glomerular Filtration Rate 34 Total Creatine Kinase 219 Creatine Kinase MB 3.3 Troponin I 0.06 B-Type Natriuretic Peptide 698 Result Diagram: 09/07/17 1545 09/07/17 1545 Caprini VTE Risk Assessment Caprini VTE Risk Assessment: Mod/High Risk (score >= 2) Caprini Risk Assessment Model Point Value = 1 Point Value = 2 Point Value = 3 Point Value = 5 Age 41-60 Minor surgery BMI > 25 kg/m2 Swollen legs Varicose veins or History of unexplained or recurrent spontaneous Oral contraceptives or hormone replacement Sepsis (< 1 month) Serious lung disease, including pneumonia (< 1 month) Abnormal pulmonary function Acute myocardial infarction Congestive heart failure (< 1 month) History of inflammatory bowel disease Medical patient at bed rest Age 61-74 Arthroscopic surgery Major open surgery (> 45 min) Laparoscopic surgery (> 45 min) Malignancy Confined to bed (> 72 hours) Immobilizing plaster cast Central venous access Age >= 75 History of VTE Family history of VTE Factor V Leiden Prothrombin 13205H Lupus anticoagulant Anticardiolipin antibodies Elevated serum homocysteine Heparin-induced thrombocytopenia Other congenital or acquired thrombophilia Stroke (< 1 month) Elective arthroplasty Hip, pelvis, or leg fracture Acute spinal cord injury (< 1 month) Prophylaxis Regimen Total Risk Factor Score Risk Level Prophylaxis Regimen 0-1 Low Early ambulation 2 Moderate Order ONE of the following: *Sequential Compression Device (SCD) *Heparin 5000 units SQ BID 3-4 Higher Order ONE of the following medications: *Heparin 5000 units SQ TID *Enoxaparin/Lovenox 40 mg SQ daily (WT < 150 kg, CrCl > 30 mL/min) *Enoxaparin/Lovenox 30 mg SQ daily (WT < 150 kg, CrCl > 10-29 mL/min) *Enoxaparin/Lovenox 30 mg SQ BID (WT < 150 kg, CrCl > 30 mL/min) AND/OR *Sequential Compression Device (SCD) 5 or more Highest Order ONE of the following medications: *Heparin 5000 units SQ TID (Preferred with Epidurals) *Enoxaparin/Lovenox 40 mg SQ daily (WT < 150 kg, CrCl > 30 mL/min) *Enoxaparin/Lovenox 30 mg SQ daily (WT < 150 kg, CrCl > 10-29 mL/min) *Enoxaparin/Lovenox 30 mg SQ BID (WT < 150 kg, CrCl > 30 mL/min) AND *Sequential Compression Device (SCD) Assessment and Plan Assessment and Plan Assessment/plan: 1. CHF exacerbation/shortness of breath Chest x-ray showed cardiomegaly without acute congestion, images reviewed by me GERALDINE Mcallister Echo from 11/02/15 showed an EF of 30-35% Continue home medications 2. A. fib Continue anticoagulation with warfarin Currently in NSR Continue home medications 3. Insulin-dependent diabetes mellitus Continue home Lantus SSI Monitor blood glucose 4. Hypertension/hyperlipidemia/CAD Status post CABG and stent placement, AICD Continue home medications ACS rule out pending [facility] Heart healthy diet Electrolytes: monitor and replete prn Coumadin Janey Baldwin MD Sep 07, 2017 20:53
[2017-09-07] MEDS: RANOLAZINE 500 MG EXTENDED RELEASE TAB PO SCH (21:47)
[2017-09-07] MEDS: SODIUM CHLORIDE 0.9% FLUSH 10 ML FLUSH IV FLUSH SCH (21:47)
[2017-09-07] MEDS: INSULIN DETEMIR 100 UNITS/ML VIAL SQ SCH (21:48)
[2017-09-07] MEDS: INSULIN ASPART SUPPLEMENTAL SCALE SQ SCH (21:48)
[2017-09-07 23:43] LABS: TROPONIN I 0.06 NG/ML (0.02-0.05)
[2017-09-08] VITALS (11 sets, daily range): BP systolic 115–186; BP diastolic 63–109; PULSE 48–84; RESP 20–21; TEMP 97.4–98.1; O2SAT 92–99
[2017-09-08 05:18] LABS: AUTOMATED NEUTROPHIL # 5.4 TH/MM3 (1.8-7.7); BASOPHIL % 0.2 % (0.0-2.0); EOSINOPHIL # 0.3 TH/MM3 (0-0.4); EOSINOPHIL % 3.3 % (0.0-4.0); HEMATOCRIT 45.6 % (39.0-51.0); HEMOGLOBIN 15.8 GM/DL (13.0-17.0); LYMPH % 23.8 % (9.0-44.0); MEAN CELL VOLUME 85.4 FL (80.0-100.0); MEAN CORPUSCULAR HEMOGLOBIN 29.6 PG (27.0-34.0); MEAN CORPUSCULAR HGB CONC 34.6 % (32.0-36.0); MEAN PLATELET VOLUME 8.6 FL (7.0-11.0); MONO % 8.9 % (0.0-8.0); MONOCYTE # 0.8 TH/MM3 (0-0.9); NEUT % 63.8 % (16.0-70.0); PLATELET COUNT 275 TH/MM3 (150-450); RED BLOOD COUNT 5.34 MIL/MM3 (4.50-5.90); RED CELL DISTRIBUTION WIDTH 15.6 % (11.6-17.2); WHITE BLOOD COUNT 8.5 TH/MM3 (4.0-11.0)
[2017-09-08 05:24] LABS: INTERNATIONAL NORMALIZED RATIO 2.6 RATIO; PROTHROMBIN TIME - PATIENT 26.4 SEC (9.8-11.6)
[2017-09-08 05:48] LABS: BICARBONATE 29.1 MEQ/L (21.0-32.0); CALCIUM 8.6 MG/DL (8.5-10.1); CREATININE 1.94 MG/DL (0.60-1.30)
[2017-09-08 05:52] LABS: TROPONIN I 0.08 NG/ML (0.02-0.05)
[2017-09-08] MEDS: INSULIN ASPART SUPPLEMENTAL SCALE SQ SCH ×4 (08:00→21:34)
[2017-09-08] MEDS ORDERED: cloNIDine HCL 0.1 MG TAB PO PRN (08:15)
[2017-09-08] MEDS ORDERED: FUROSEMIDE 20 MG/2 ML VIAL IV PUSH SCH (09:00)
--- NOTE | 2017-09-08 10:26 | HHI.PR ---
Subjective Remarks Patient reports only slight improvements in his CHF symptoms. He still has problems lying flat. He still has significant shortness of breath and benefits from oxygen use at this point. He is not at baseline. Objective Vital Signs Date Time Temp Pulse Resp B/P (MAP) Pulse Ox O2 Delivery O2 Flow Rate FiO2 09/08/17 07:58 97.4 61 21 161/109 (126) 97 09/08/17 03:42 80 09/08/17 00:50 98.1 60 21 186/81 (116) 99 09/08/17 00:04 79 09/07/17 20:30 75 09/07/17 20:21 98.9 75 18 175/91 (119) 99 09/07/17 20:06 09/07/17 18:27 77 16 153/84 (107) 100 Nasal Cannula 2.00 09/07/17 17:23 79 18 141/93 (109) 99 Nasal Cannula 2.00 09/07/17 15:50 96 Nasal Cannula 2.00 09/07/17 15:49 84 19 112/67 (82) 95 Nasal Cannula 2.00 09/07/17 14:43 96.6 96 24 191/107 (135) 96 Room Air Result Diagram: 09/08/17 0500 09/08/17 0500 Objective Remarks GENERAL: NAD, A&Ox3 HEAD: Normocephalic. NECK: Supple, trachea midline. No lymphadenopathy. EYES: No scleral icterus. No injection or drainage. CARDIOVASCULAR: Regular rate and rhythm without murmurs, gallops, or rubs. RESPIRATORY: Breath sounds equal bilaterally. No accessory muscle use. Bilateral crackles at bases. GASTROINTESTINAL: Abdomen soft, non-tender, nondistended. MUSCULOSKELETAL: No cyanosis, or edema. SKIN: Warm and dry. NEURO: No focal neurological deficitis. A/P Problem List: (1) CHF (congestive heart failure) ICD Code: I50.9 - Heart failure, unspecified Status: Acute Assessment and Plan Assessment and Plan 67-year-old male admitted secondary to CHF exacerbation CHF exacerbation Dyspnea Continue twice a day diuresis Minimal improvements thus far Furosemide increased from 20mg to 40 mg twice a day baseline echocardiogram from 11/02/15 is an EF of 30-35%. A. fib Continue Coumadin Continue beta bryan Follow on telemetry Follow INR Diabetes mellitus type 2 Follow blood sugars Insulin sliding scale Diabetic diet Hypertension Continue to monitor blood pressures No change in baseline treatment hyperlipidemia Follows in outpatient No change to baseline treatment CAD Follow clinically No chest pain Monitor on telemetry DVT prophylaxis Patient on Coumadin Problem Qualifiers (1) CHF (congestive heart failure): Qualified Codes: I50.9 - Heart failure, unspecified Kings Oor MD Sep 08, 2017 10:26
[2017-09-08] MEDS ORDERED: TAMSULOSIN HCL 0.4 MG CAP PO ONE (10:30)
[2017-09-08] MEDS ORDERED: predniSONE 10 MG TAB PO ONE (10:30)
[2017-09-08] MEDS: INSULIN DETEMIR 100 UNITS/ML VIAL SQ SCH ×2 (10:50→21:34)
[2017-09-08] MEDS: ASPIRIN 81 MG CHEW TAB CHEW SCH (10:52)
[2017-09-08] MEDS: SODIUM CHLORIDE 0.9% FLUSH 10 ML FLUSH IV FLUSH SCH ×2 (10:53→21:34)
[2017-09-08] MEDS: METOPROLOL SUCCINATE 50 MG EXTENDED RELEASE TAB PO SCH (10:53)
[2017-09-08] MEDS: ISOSORBIDE MONONITRATE 60 MG TAB PO SCH (10:54)
[2017-09-08] MEDS: amLODIPine BESYLATE 5 MG TAB PO SCH (10:54)
[2017-09-08] MEDS: ESCITALOPRAM OXALATE 20 MG TAB PO SCH (13:31)
[2017-09-08] MEDS: RANOLAZINE 500 MG EXTENDED RELEASE TAB PO SCH ×2 (13:31→21:33)
--- NOTE | 2017-09-08 14:40 | EKG ---
Date Performed: 09/08/2017 Time Performed: 03:27:11 PTAGE: 67 years EKG: ELECTRONIC ATRIAL PACEMAKER SEPTAL MYOCARDIAL INFARCTION ABNORMAL ECG INTERPRETATION BASED ON A DEFAULT AGE OF 40 YEARS PREVIOUS TRACING : 09/07/2017 22.06 DOCTOR: Hardeep Pierre Interpretating Date/Time 09/08/2017 14:38:13
--- NOTE | 2017-09-08 14:46 | EKG ---
Date Performed: 09/07/2017 Time Performed: 22:06:41 PTAGE: 67 years EKG: Sinus rhythm SEPTAL MYOCARDIAL INFARCTION ABNORMAL ECG WARNING: DATA QUALITY MAY AFFECT INTERPRETATION PREVIOUS TRACING : 09/07/2017 15.45 DOCTOR: Hardeep Pierre Interpretating Date/Time 09/08/2017 14:44:54
--- NOTE | 2017-09-08 15:06 | EKG ---
Date Performed: 09/07/2017 Time Performed: 15:45:01 PTAGE: 67 years EKG: Sinus rhythm WITH FREQUENT VENTRICULAR PREMATURE COMPLEXES LEFT ATRIAL ENLARGEMENT MARKED LEFT AXIS DEVIATION INC OMPLETE RIGHT BUNDLE BRANCH BLOCK ANTEROSEPTAL MYOCARDIAL INFARCTION ABNORMAL ECG PREVIOUS TRACING : 07/12/2017 22.08 DOCTOR: Hardeep Pierre Interpretating Date/Time 09/08/2017 15:05:53
[2017-09-08] MEDS: FUROSEMIDE 40 MG/4 ML VIAL IV PUSH SCH (15:25)
[2017-09-08] MEDS ORDERED: RESP: ALBUTEROL 2.5 MG/IPRATROPIUM 0.5 MG NEB (PRN) NEB (15:30)
[2017-09-08] MEDS ORDERED: WARFARIN SOD 5 MG TAB PO SCH (16:00)
[2017-09-09] VITALS (10 sets, daily range): BP systolic 103–142; BP diastolic 56–89; PULSE 61–74; RESP 19–22; TEMP 97.4–98.1; O2SAT 94–97
[2017-09-09] MEDS ORDERED: diphenhydrAMINE HCL 50 MG CAP PO ONE (00:30)
[2017-09-09 05:42] LABS: AUTOMATED NEUTROPHIL # 5.5 TH/MM3 (1.8-7.7); BASOPHIL # 0.1 TH/MM3 (0-0.2); BASOPHIL % 0.9 % (0.0-2.0); EOSINOPHIL # 0.2 TH/MM3 (0-0.4); EOSINOPHIL % 2.2 % (0.0-4.0); HEMATOCRIT 44.5 % (39.0-51.0); HEMOGLOBIN 15.3 GM/DL (13.0-17.0); LYMPH % 23.1 % (9.0-44.0); MEAN CELL VOLUME 85.3 FL (80.0-100.0); MEAN CORPUSCULAR HEMOGLOBIN 29.4 PG (27.0-34.0); MEAN CORPUSCULAR HGB CONC 34.5 % (32.0-36.0); MEAN PLATELET VOLUME 8.2 FL (7.0-11.0); MONO % 8.5 % (0.0-8.0); MONOCYTE # 0.7 TH/MM3 (0-0.9); NEUT % 65.3 % (16.0-70.0); PLATELET COUNT 278 TH/MM3 (150-450); RED BLOOD COUNT 5.22 MIL/MM3 (4.50-5.90); RED CELL DISTRIBUTION WIDTH 15.8 % (11.6-17.2); WHITE BLOOD COUNT 8.5 TH/MM3 (4.0-11.0)
[2017-09-09 06:02] LABS: ALBUMIN 2.6 GM/DL (3.4-5.0); AST (GOT) 19 U/L (15-37); BICARBONATE 24.7 MEQ/L (21.0-32.0); BLOOD UREA NITROGEN 34 MG/DL (7-18); CALCIUM 8.7 MG/DL (8.5-10.1); CHLORIDE 105 MEQ/L (98-107); CREATININE 2.25 MG/DL (0.60-1.30); GLOMERULAR FILTRATION RATE 29 ML/MIN (>89); GLUCOSE,RANDOM 125 MG/DL (74-106); SODIUM (NA) 139 MEQ/L (136-145)
[2017-09-09 06:04] LABS: ALT (GPT) 16 U/L (12-78)
[2017-09-09 06:06] LABS: ALKALINE PHOSPHATASE 109 U/L (45-117); TOTAL BILIRUBIN ADULT 0.7 MG/DL (0.2-1.0); TOTAL PROTEIN 6.1 GM/DL (6.4-8.2)
[2017-09-09] MEDS: INSULIN ASPART SUPPLEMENTAL SCALE SQ SCH ×2 (08:00→12:58)
[2017-09-09] MEDS: FUROSEMIDE 40 MG/4 ML VIAL IV PUSH SCH (08:39)
[2017-09-09] MEDS: amLODIPine BESYLATE 5 MG TAB PO SCH (08:39)
[2017-09-09] MEDS: ISOSORBIDE MONONITRATE 60 MG TAB PO SCH (08:39)
[2017-09-09] MEDS: ASPIRIN 81 MG CHEW TAB CHEW SCH (08:39)
[2017-09-09] MEDS: METOPROLOL SUCCINATE 50 MG EXTENDED RELEASE TAB PO SCH (08:40)
[2017-09-09] MEDS: RANOLAZINE 500 MG EXTENDED RELEASE TAB PO SCH (08:40)
[2017-09-09] MEDS: SODIUM CHLORIDE 0.9% FLUSH 10 ML FLUSH IV FLUSH SCH (09:00)
[2017-09-09] MEDS ORDERED: TAMSULOSIN HCL 0.4 MG CAP PO SCH (09:00)
[2017-09-09] MEDS: ESCITALOPRAM OXALATE 20 MG TAB PO SCH (09:00)
[2017-09-09] MEDS ORDERED: predniSONE 10 MG TAB PO SCH (09:00)
[2017-09-09] MEDS: INSULIN DETEMIR 100 UNITS/ML VIAL SQ SCH (09:20)
--- NOTE | 2017-09-09 13:12 | HHI.DCPOC ---
Discharge Care Plan Diagnosis: (1) CHF (congestive heart failure) (2) A-fib (3) Hypertension (4) Diabetes (5) CKD (chronic kidney disease) Goals to Promote Your Health * To prevent worsening of your condition and complications * To maintain your health at the optimal level Directions to Meet Your Goals Take your medications as prescribed Follow your dietary instruction Follow activity as directed Keep your appointments as scheduled Take your immunizations and boosters as scheduled If your symptoms worsen call your PCP, if no PCP go to Urgent Care Center or Emergency Room Smoking is Dangerous to Your Health. Avoid second hand smoke Call the 24-hour hour crisis hotline for domestic abuse at [facility] Rivera PA-C Sep 09, 2017 1:12 pm
[2017-09-09] MEDS ORDERED: FURO1TAB60 PO (13:30)
[2017-09-09] MEDS ORDERED: TAMS5CAP PO (13:30)
--- NOTE | 2017-09-09 13:33 | HHI.DS ---
Discharge Summary Admission Date Sep 07, 2017 at 17:12 Discharge Date: Sep 09, 2017 Admitting Diagnosis acute CHF exacerbation (1) Acute exacerbation of congestive heart failure ICD Code: I50.9 - Heart failure, unspecified Diagnosis: Principal (2) CKD (chronic kidney disease) ICD Code: N18.9 - Chronic kidney disease, unspecified Diagnosis: Secondary Status: Chronic (3) Hypertension ICD Code: I10 - Essential (primary) hypertension Diagnosis: Secondary Status: Chronic (4) A-fib ICD Code: I48.91 - Unspecified atrial fibrillation Diagnosis: Secondary (5) CHF (congestive heart failure) ICD Code: I50.9 - Heart failure, unspecified Diagnosis: Principal Status: Acute Procedures None Brief History - From Admission 67-year-old male with a past medical history significant for CHF (echo on showed an EF of 30-35%), CAD, hypertension, hyperlipidemia, atrial fibrillation on Coumadin, insulin-dependent diabetes mellitus, TIA and GERD presents to the emergency department with increasing shortness of breath 2 days. The patient reports a productive cough and increased ankle edema. He denies fever/chills. He also reports weakness of 2 days' duration and increasing dyspnea on exertion. Troponin mildly elevated at 0.06, which is baseline for the patient. BNP 698. CBC/BMP: 09/09/17 0503 09/09/17 0503 Significant Findings Laboratory Tests Test 09/07/17 15:45 09/07/17 22:35 09/08/17 05:00 09/09/17 05:03 Monocytes (%) (Auto) 8.1 % (0.0-8.0) 8.9 % (0.0-8.0) 8.5 % (0.0-8.0) Prothrombin Time 29.7 SEC (9.8-11.6) 26.4 SEC (9.8-11.6) Activated Partial Thromboplast Time 38.5 SEC (24.3-30.1) Blood Urea Nitrogen 30 MG/DL (7-18) 29 MG/DL (7-18) 34 MG/DL (7-18) Creatinine 1.97 MG/DL (0.60-1.30) 1.94 MG/DL (0.60-1.30) 2.25 MG/DL (0.60-1.30) Random Glucose 227 MG/DL (74-106) 115 MG/DL (74-106) 125 MG/DL (74-106) Calcium Level 8.4 MG/DL (8.5-10.1) Estimat Glomerular Filtration Rate 34 ML/MIN (>89) 34 ML/MIN (>89) 29 ML/MIN (>89) Troponin I 0.06 NG/ML (0.02-0.05) 0.06 NG/ML (0.02-0.05) 0.08 NG/ML (0.02-0.05) B-Type Natriuretic Peptide 698 PG/ML (0-100) Total Protein 6.1 GM/DL (6.4-8.2) Albumin 2.6 GM/DL (3.4-5.0) Hospital Course Mr. John is a 67-year-old male. He is admitted secondary to acute CHF exacerbation. He has congestive heart failure at baseline and is uncertain if this is diastolic or systolic. Pulmonary edema with respiratory distress was his primary complaint. With diuresis he has benefited to time. At this point she is nearing his prior baseline and is medically stable for conversion back to by mouth Lasix. Medically stable for discharge to home today. Follow up with primary care doctor and cardiology as an outpatient. Pt Condition on Discharge: Stable Discharge Disposition: Discharge Home Discharge Time: <= 30 minutes Discharge Instructions DIET: Follow Instructions for: Heart Healthy Diet Activities you can perform: Regular-No Restrictions Follow up Referrals: Cardiology - 1 Week PCP Follow-up - 1 Week with [facility] New Medications: Furosemide (Lasix) 40 Mg Tab 40 MG PO DAILY PRN for Swelling, #30 TAB 0 Refills Tamsulosin (Flomax) 0.4 Mg Cap 0.4 MG PO DAILY for Prostate, #30 CAP Continued Medications: Amlodipine (Amlodipine) 5 Mg Tab 5 MG PO DAILY for Blood Pressure Management, TAB 0 Refills Aspirin (Aspirin) 81 Mg Chew 81 MG CHEW DAILY, TAB 0 Refills Escitalopram (Escitalopram) 20 Mg Tab 20 MG PO DAILY, TAB 0 Refills Furosemide (Furosemide) 40 Mg Tab 40 MG PO BID@09,18 for fluid retention, #60 TAB 0 Refills Insulin Aspart Inj (Novolog Inj) 1,000 Unit/10 Ml Vial 5 UNITS SQ ACHS for Blood Sugar Management, INJECTION 0 Refills Insulin Glargine Inj (Lantus Inj) 1,000 Unit/10 Ml Vial 70 UNITS SQ BID for Blood Sugar Management, VIAL 0 Refills Isosorbide Mononitrate ER (Isosorbide Mononitrate ER) 120 Mg Anant 120 MG PO DAILY for Prevent Chest Pain, TAB 0 Refills Lisinopril (Lisinopril) 5 Mg Tab 5 MG PO DAILY for Blood Pressure Management, TAB 0 Refills Metoprolol Succinate ER 24 HR (Metoprolol Succinate ER 24 HR) 50 Mg Tab 100 MG PO DAILY for heart/ blood pressure, #30 TAB 0 Refills Nitroglycerin SL (Nitrostat SL) 0.4 Mg Subl 0.4 MG SL DIRECTED PRN for CHEST PAIN, TAB.SL 0 Refills 1 tablet under the tongue as needed for chest pain. Repeat every 5 minutes for a total of 3 DOSES or call 911 if NO relief. Ranolazine ER 12 HR (Ranexa ER 12 HR) 500 Mg Tab 500 MG PO BID for Chest Pain, TAB 0 Refills Warfarin (Warfarin) 5 Mg Tab 5 MG PO DAILY for Blood Clot Prevention, TAB 0 Refills Discontinued Medications: Doxycycline Hyclate (Doxycycline Hyclate) 100 Mg Tab 100 MG PO Q12HR for antibiotic for 5 Days, #10 TAB 0 Refills Kings Oro MD Sep 09, 2017 13:33
[2017-09-09] MEDS ORDERED: FUROSEMIDE 20 MG/2 ML VIAL IV PUSH SCH (14:00)
== END 2017-09-09 15:37 | disposition home or self-care (01) ==
LOC: NEPE 14:40 → NEDA 17:12 → NEPFCDU 20:08
PROVIDERS: ADMIT Hospitalist; ATTEND Hospitalist
DX: I13.0 Hypertensive heart and chronic kidney disease with heart failure and stage 1 through stage 4 chronic kidney disease, or unspecified chronic kidney disease (principal); I50.9 Heart failure, unspecified; N18.9 Chronic kidney disease, unspecified; E11.22 Type 2 diabetes mellitus with diabetic chronic kidney disease; I48.91 Unspecified atrial fibrillation; R06.02 Shortness of breath; I25.10 Atherosclerotic heart disease of native coronary artery without angina pectoris; E78.5 Hyperlipidemia, unspecified; K21.9 Gastro-esophageal reflux disease without esophagitis; Z95.0 Presence of cardiac pacemaker; Z79.01 Long term (current) use of anticoagulants; Z86.73 Personal history of transient ischemic attack (TIA), and cerebral infarction without residual deficits; Z79.4 Long term (current) use of insulin
CPT/HCPCS: 71010; 80048; 80053; 82550; 82552; 82948; 83735; 83880; 84484; 85025; 85610; 85730; 93005; 94620; 94640; 94664; 96372; 96374; 96375; 96376; 97162; 99285; G0378; G8987; G8988; J1815; J1940; J2405; J7512

== ENCOUNTER 2017-11-15 16:45 | Inpatient (IN) | payer OTHER, MEDICARE ==
[~2017-11-15] VITALS: Ht 175.3 cm; Wt 112.5 kg
[~2017-11-15 16:45] MED LIST changes: -DOXY100T PO; +FURO1TAB60 PO; +TAMS5CAP PO
[2017-11-15 17:16] VITALS: BP 109/58; PULSE 88; RESP 18; TEMP 97.9; O2SAT 99
--- NOTE | 2017-11-15 17:35 | PD ---
HPI Chief Complaint: Respiratory Symptoms Time Seen by Provider: 17:32 Travel History International Travel<30 days: No Contact w/Intl Traveler<30days: No Traveled to known affect area: No History of Present Illness HPI 67-year-old male with PMH of CHF, DM, COPD, ESRD, CAD status post stenting, on Coumadin presents to the ED by EMS for evaluation of approximately 12 hour history of nausea and shortness of breath. The patient endorses weakness. He states that his legs gave out on him today and he just laid on the floor for many hours. He endorses nonproductive cough. He endorses dysuria. He denies fever, chills, vomiting, chest pain, palpitations, abdominal pain. He states that he is compliant with his medications. He is followed by the OR. [facility] Past Medical History Hx Anticoagulant Therapy: Yes (WARFARIN) Asthma: No Anxiety: No Depression: Yes Heart Rhythm Problems: No Cancer: No Cardiac Catheterization: Yes Cardiovascular Problems: Yes High Cholesterol: Yes Chest Pain: Yes Congestive Heart Failure: Yes COPD: No Cerebrovascular Accident: Yes (TIA) Coronary Artery Disease: Yes Diabetes: Yes (takes lantus and novolog) Patient Takes Glucophage: No Diminished Hearing: No Endocrine: Yes GERD: Yes Genitourinary: No Hypertension: Yes Immune Disorder: No Implanted Vascular Access Dvce: Yes Kidney Stones: Yes Musculoskeletal: Yes Neurologic: Yes (hx. tia) Psychiatric: Yes Reproductive: No Respiratory: Yes Migraines: No Renal Failure: No Seizures: No Sleep Apnea: Yes Thyroid Disease: No ?: Not Past Surgical History Abdominal Surgery: Yes (Hernia Repair) AICD: Yes Arteriovenous Shunt: No Cardiac Surgery: Yes (triple bypass, pacemaker/AICD, stents) Coronary Artery Bypass Graft: Yes Coronary Stent: Yes Ear Surgery: No Endocrine Surgery: No Eye Surgery: No Genitourinary Surgery: No Insulin Pump: No Joint Replacement: No Oral Surgery: Yes (Tonsileectomy) Pacemaker: No Thoracic Surgery: No Tonsillectomy: Yes Other Surgery: Yes Social History Alcohol Use: No Tobacco Use: No Substance Use: No Allergies-Medications (Allergen,Severity, Reaction): Coded Allergies: morphine (Unverified Allergy, Intermediate, RASH, 07/12/17) Reported Meds & Prescriptions Reported Meds & Active Scripts Active Lasix (Furosemide) 40 Mg Tab 40 Mg PO DAILY PRN Flomax (Tamsulosin HCl) 0.4 Mg Cap 0.4 Mg PO DAILY Furosemide 40 Mg Tab 40 Mg PO BID@,18 Metoprolol Succinate ER 24 HR (Metoprolol Succinate) 50 Mg Tab 100 Mg PO DAILY Reported Lisinopril 5 Mg Tab 5 Mg PO DAILY Isosorbide Mononitrate ER (Isosorbide Mononitrate) 120 Mg Anant 120 Mg PO DAILY Aspirin 81 Mg Chew 81 Mg CHEW DAILY Amlodipine (Amlodipine Besylate) 5 Mg Tab 5 Mg PO DAILY Novolog Inj (Insulin Aspart) 1,000 Unit/10 Ml Vial 5 Units SQ ACHS Warfarin 5 Mg Tab 5 Mg PO DAILY Ranexa ER 12 HR (Ranolazine) 500 Mg Tab 500 Mg PO BID Nitrostat SL (Nitroglycerin) 0.4 Mg Subl 0.4 Mg SL DIRECTED PRN 1 tablet under the tongue as needed for chest pain. Repeat every 5 minutes for a total of 3 DOSES or call 911 if NO relief. Lantus Inj (Insulin Glargine) 1,000 Unit/10 Ml Vial 70 Units SQ BID Escitalopram (Escitalopram Oxalate) 20 Mg Tab 20 Mg PO DAILY Review of Systems Except as stated in HPI: all other systems reviewed are Neg Physical Exam Narrative GENERAL: Obese white male in no acute distress. SKIN: Focused skin assessment warm/dry. HEAD: Normocephalic. EYES: No scleral icterus. No injection or drainage. NECK: Supple, trachea midline. No JVD or lymphadenopathy. CARDIOVASCULAR: Regular rate and rhythm without murmurs, gallops, or rubs. RESPIRATORY: Breath sounds tight, equal bilaterally. No accessory muscle use. GASTROINTESTINAL: Abdomen soft, protuberant, non-tender, nondistended. Active bowel sounds. MUSCULOSKELETAL: No cyanosis, or edema. Moves extremities spontaneously. BACK: Nontender without obvious deformity. No CVA tenderness. Data Data Last Documented VS Vital Signs Date Time Temp Pulse Resp B/P (MAP) Pulse Ox O2 Delivery O2 Flow Rate FiO2 11/15/17 20:50 98 Nasal Cannula 2.00 11/15/17 20:50 24 11/15/17 20:50 75 113/69 (84) 11/15/17 17:16 97.9 Orders Orders Complete Blood Count With Diff (11/15/17 17:32) Comprehensive Metabolic Panel (11/15/17 17:32) B-Type Natriuretic Peptide (11/15/17 17:32) Act Partial Throm Time (Ptt) (11/15/17 17:32) Prothrombin Time / Inr (Pt) (11/15/17 17:32) Magnesium (Mg) (11/15/17 17:32) Ckmb (Isoenzyme) Profile (11/15/17 17:32) Troponin I (11/15/17 17:32) Urinalysis - C+S If Indicated (11/15/17 17:32) Iv Access Insert/Monitor (11/15/17 17:32) Electrocardiogram (11/15/17 17:32) Ecg Monitoring (11/15/17 17:32) Oximetry (11/15/17 17:32) Oxygen Administration (11/15/17 17:32) Chest, Single Ap (11/15/17 17:32) Sodium Chloride 0.9% Flush (Ns Flush) (11/15/17 17:45) Methylprednisolone So Succ Inj (Solumedr (11/15/17 17:45) Albuterol-Ipratropium Neb (Duoneb Neb) (11/15/17 17:45) Influenzae A/B Antigen (11/15/17 20:50) CKMB (11/15/17 20:00) CKMB% (11/15/17 20:00) Consult Cardiology (11/15/17 ) Aspirin Chew (Aspirin Chew) (11/15/17 22:00) Admit Order (Ed Use Only) (11/15/17 22:45) Labs Laboratory Tests Test 11/15/17 20:00 White Blood Count 7.8 TH/MM3 Red Blood Count 5.80 MIL/MM3 Hemoglobin 16.4 GM/DL Hematocrit 48.5 % Mean Corpuscular Volume 83.5 FL Mean Corpuscular Hemoglobin 28.3 PG Mean Corpuscular Hemoglobin Concent 33.9 % Red Cell Distribution Width 16.3 % Platelet Count 193 TH/MM3 Mean Platelet Volume 8.1 FL Neutrophils (%) (Auto) 80.1 % Lymphocytes (%) (Auto) 13.0 % Monocytes (%) (Auto) 6.6 % Eosinophils (%) (Auto) 0.0 % Basophils (%) (Auto) 0.3 % Neutrophils # (Auto) 6.3 TH/MM3 Lymphocytes # (Auto) 1.0 TH/MM3 Monocytes # (Auto) 0.5 TH/MM3 Eosinophils # (Auto) 0.0 TH/MM3 Basophils # (Auto) 0.0 TH/MM3 CBC Comment DIFF FINAL Differential Comment Prothrombin Time 16.5 SEC Prothromb Time International Ratio 1.6 RATIO Activated Partial Thromboplast Time 35.0 SEC Blood Urea Nitrogen 35 MG/DL Creatinine 2.59 MG/DL Random Glucose 198 MG/DL Total Protein 6.6 GM/DL Albumin 2.7 GM/DL Calcium Level 8.6 MG/DL Magnesium Level 2.0 MG/DL Alkaline Phosphatase 124 U/L Aspartate Amino Transf (AST/SGOT) 110 U/L Alanine Aminotransferase (ALT/SGPT) 21 U/L Total Bilirubin 0.8 MG/DL Sodium Level 133 MEQ/L Potassium Level 4.2 MEQ/L Chloride Level 98 MEQ/L Carbon Dioxide Level 21.3 MEQ/L Anion Gap 14 MEQ/L Estimat Glomerular Filtration Rate 25 ML/MIN Total Creatine Kinase 1428 U/L Creatine Kinase MB 77.5 NG/ML Creatine Kinase MB % 5.4 % Troponin I 35.30 NG/ML B-Type Natriuretic Peptide 1445 PG/ML MDM Medical Decision Making Medical Screen Exam Complete: Yes Emergency Medical Condition: Yes Differential Diagnosis COPD exacerbation versus CHF exacerbation versus pneumonia versus UTI versus ACS versus other Narrative Course 67-year-old male with PMH of CHF, DM, COPD, ESRD, CAD status post stenting, on Coumadin presents to the ED by EMS for evaluation of approximately 12 hour history of nausea and shortness of breath. The patient endorses weakness. He states that his legs gave out on him today and he just laid on the floor for many hours. He endorses nonproductive cough. He endorses dysuria. He states that he is compliant with his medications. [facility] patients afebrile, BP 109/58, heart rate 88, O2 sats 99% on room air on presentation. On exam this is an obese white male in no acute distress. Sounds are tight but equal bilaterally. Patient was administered 120 mg methylprednisone, do nebs 2. Patient seen in the ambulance [place]. Please see oncoming providers notes for disposition Charisma Tavares Nov 15, 2017 17:35
[2017-11-15] MEDS ORDERED: SODIUM CHLORIDE 0.9% FLUSH 10 ML FLUSH IVF PRN (17:45)
[2017-11-15] MEDS ORDERED: methylPREDNISolone SOD SUCC 125 MG/2 ML VIAL IV PUSH ONE (17:45)
--- NOTE | 2017-11-15 18:08 | RADRPT ---
EXAM DATE/TIME: 11/15/2017 17:40 [place] COMPARISON: CHEST SINGLE AP, September 07, 2017, 15:18. INDICATIONS : Short of breath. MEDICAL HISTORY : Hypertension. Congestive heart failure. A-fib. SURGICAL HISTORY : Pacemaker. ENCOUNTER: Initial ACUITY: 2 days PAIN SCORE: 0/10 LOCATION: Bilateral chest FINDINGS: A single portable frontal view the chest shows cardiomegaly with pulmonary vascular engorgement. No i nfiltrates or effusions. Left-sided pacing device. Median sternotomy wires. CONCLUSION: Cardiomegaly with pulmonary vascular engorgement. Humphrey Kilpatrick Jr., MD on November 15, 2017 at 18:06 Board Certified Radiologist. This report was verified electronically.
[2017-11-15] MEDS: RESP: ALBUTEROL 2.5 MG/IPRATROPIUM 0.5 MG NEB (SCH) INH ×2 (18:35→18:36)
[2017-11-15 20:41] LABS: AUTOMATED NEUTROPHIL # 6.3 TH/MM3 (1.8-7.7); BASOPHIL % 0.3 % (0.0-2.0); HEMATOCRIT 48.5 % (39.0-51.0); HEMOGLOBIN 16.4 GM/DL (13.0-17.0); MEAN CELL VOLUME 83.5 FL (80.0-100.0); MEAN CORPUSCULAR HEMOGLOBIN 28.3 PG (27.0-34.0); MEAN CORPUSCULAR HGB CONC 33.9 % (32.0-36.0); MEAN PLATELET VOLUME 8.1 FL (7.0-11.0); MONO % 6.6 % (0.0-8.0); MONOCYTE # 0.5 TH/MM3 (0-0.9); NEUT % 80.1 % (16.0-70.0); PLATELET COUNT 193 TH/MM3 (150-450); RED CELL DISTRIBUTION WIDTH 16.3 % (11.6-17.2); WHITE BLOOD COUNT 7.8 TH/MM3 (4.0-11.0)
[2017-11-15 20:50] VITALS: BP 113/69; PULSE 75; RESP 24; O2SAT 98
--- NOTE | 2017-11-15 20:55 | PD ---
Physical Exam Narrative Patient was seen by physician [employer] assistant principal and signed out to me. Patient complains of extreme nausea for the past 2 weeks. Patient states that he had poor appetite for the past 2 weeks. Patient states that he had intermittent productive cough for the past 2 weeks and worse for the past 2 days. Patient denies any chest pain. Patient complains of shortness of breath. Patient complaint generalized malaise and weakness. Patient states that he fell on the floor this morning and stay on the floor all day today. EMS was called. Patient was brought to ED for evaluation. Patient denies any headache. Patient denies any chest pain. Patient denies abdominal pain. Patient denies any focal weakness or numbness of extremity. Patient denies any fever chills. Patient has history hypertension, diabetes, hyperlipidemia. Patient is a non-smoker. Patient has history of CAD status post stent placement , CABG, patient status post AICD placement. patient is on Coumadin. Physical exam: Patient had few rhonchi at the bases. No wheezes. Cardiovascular regular rate and rhythm. Data Data Last Documented VS Vital Signs Date Time Temp Pulse Resp B/P (MAP) Pulse Ox O2 Delivery O2 Flow Rate FiO2 11/15/17 20:50 98 Nasal Cannula 2.00 11/15/17 20:50 24 11/15/17 20:50 75 113/69 (84) 11/15/17 17:16 97.9 Orders Orders Complete Blood Count With Diff (11/15/17 17:32) Comprehensive Metabolic Panel (11/15/17 17:32) B-Type Natriuretic Peptide (11/15/17 17:32) Act Partial Throm Time (Ptt) (11/15/17 17:32) Prothrombin Time / Inr (Pt) (11/15/17 17:32) Magnesium (Mg) (11/15/17 17:32) Ckmb (Isoenzyme) Profile (11/15/17 17:32) Troponin I (11/15/17 17:32) Urinalysis - C+S If Indicated (11/15/17 17:32) Iv Access Insert/Monitor (11/15/17 17:32) Electrocardiogram (11/15/17 17:32) Ecg Monitoring (11/15/17 17:32) Oximetry (11/15/17 17:32) Oxygen Administration (11/15/17 17:32) Chest, Single Ap (11/15/17 17:32) Sodium Chloride 0.9% Flush (Ns Flush) (11/15/17 17:45) Methylprednisolone So Succ Inj (Solumedr (11/15/17 17:45) Albuterol-Ipratropium Neb (Duoneb Neb) (11/15/17 17:45) Influenzae A/B Antigen (11/15/17 20:50) CKMB (11/15/17 20:00) CKMB% (11/15/17 20:00) Labs Laboratory Tests Test 11/15/17 20:00 White Blood Count 7.8 TH/MM3 Red Blood Count 5.80 MIL/MM3 Hemoglobin 16.4 GM/DL Hematocrit 48.5 % Mean Corpuscular Volume 83.5 FL Mean Corpuscular Hemoglobin 28.3 PG Mean Corpuscular Hemoglobin Concent 33.9 % Red Cell Distribution Width 16.3 % Platelet Count 193 TH/MM3 Mean Platelet Volume 8.1 FL Neutrophils (%) (Auto) 80.1 % Lymphocytes (%) (Auto) 13.0 % Monocytes (%) (Auto) 6.6 % Eosinophils (%) (Auto) 0.0 % Basophils (%) (Auto) 0.3 % Neutrophils # (Auto) 6.3 TH/MM3 Lymphocytes # (Auto) 1.0 TH/MM3 Monocytes # (Auto) 0.5 TH/MM3 Eosinophils # (Auto) 0.0 TH/MM3 Basophils # (Auto) 0.0 TH/MM3 CBC Comment DIFF FINAL Differential Comment Prothrombin Time 16.5 SEC Prothromb Time International Ratio 1.6 RATIO Activated Partial Thromboplast Time 35.0 SEC Blood Urea Nitrogen 35 MG/DL Creatinine 2.59 MG/DL Random Glucose 198 MG/DL Total Protein 6.6 GM/DL Albumin 2.7 GM/DL Calcium Level 8.6 MG/DL Magnesium Level 2.0 MG/DL Alkaline Phosphatase 124 U/L Aspartate Amino Transf (AST/SGOT) 110 U/L Alanine Aminotransferase (ALT/SGPT) 21 U/L Total Bilirubin 0.8 MG/DL Sodium Level 133 MEQ/L Potassium Level 4.2 MEQ/L Chloride Level 98 MEQ/L Carbon Dioxide Level 21.3 MEQ/L Anion Gap 14 MEQ/L Estimat Glomerular Filtration Rate 25 ML/MIN Total Creatine Kinase 1428 U/L Creatine Kinase MB 77.5 NG/ML Creatine Kinase MB % 5.4 % Troponin I 35.30 NG/ML B-Type Natriuretic Peptide 1445 PG/ML [facility] Supervised Visit with NATY: Yes Interpretation(s) Last Impressions Chest X-Ray 11/15/17 1732 Signed Impressions: Service Date/Time: Wednesday, November 15, 2017 17:40 - CONCLUSION: Cardiomegaly with pulmonary vascular engorgement. Humphrey Kilpatrick Jr., MD 2054 PM. CBC within normal limits. 21:19 PM. BUN 35. Creatinine 2.59. GFR 25. Troponin 35.30. BNP 1445. Narrative Course I spoke with Dr. Little, hide curer safety companion. Advised aspirin 81 mg daily. Continue Coumadin. Serial EKG and cardiac enzymes. Diagnosis Primary Impression: NSTEMI (non-ST elevated myocardial infarction) Additional Impressions: CKD (chronic kidney disease) Qualified Codes: N18.4 - Chronic kidney disease, stage 4 (severe) CHF (congestive heart failure) Qualified Codes: I50.9 - Heart failure, unspecified Admitting Information Admitting Physician Requests: Admit Jose Howard MD Nov 15, 2017 20:55
[2017-11-15 20:57] LABS: ALBUMIN 2.7 GM/DL (3.4-5.0); AST (GOT) 110 U/L (15-37); BICARBONATE 21.3 MEQ/L (21.0-32.0); BLOOD UREA NITROGEN 35 MG/DL (7-18); CALCIUM 8.6 MG/DL (8.5-10.1); CHLORIDE 98 MEQ/L (98-107); CREATININE 2.59 MG/DL (0.60-1.30); GLOMERULAR FILTRATION RATE 25 ML/MIN (>89); GLUCOSE,RANDOM 198 MG/DL (74-106); INTERNATIONAL NORMALIZED RATIO 1.6 RATIO; PROTHROMBIN TIME - PATIENT 16.5 SEC (9.8-11.6); SODIUM (NA) 133 MEQ/L (136-145)
[2017-11-15 20:58] LABS: ALT (GPT) 21 U/L (12-78)
[2017-11-15 21:06] LABS: ALKALINE PHOSPHATASE 124 U/L (45-117); TOTAL BILIRUBIN ADULT 0.8 MG/DL (0.2-1.0); TOTAL PROTEIN 6.6 GM/DL (6.4-8.2)
[2017-11-15] MEDS ORDERED: ASPIRIN 81 MG CHEW TAB CHEW ONE (22:00)
[2017-11-15 22:53] VITALS: BP 130/68; PULSE 84; RESP 24; O2SAT 97
[2017-11-15] MEDS ORDERED: DEXTROSE 50% IN WATER 50 ML VIAL(D50) IV PUSH PRN (23:15)
[2017-11-15] MEDS ORDERED: GLUCAGON 1 MG/ML VIAL OTHER PRN (23:15)
[2017-11-15] MEDS ORDERED: SODIUM CHLORIDE 0.9% FLUSH 10 ML FLUSH IV FLUSH PRN (23:15)
[2017-11-15] MEDS ORDERED: PROCHLORPERAZINE 25 MG SUPP RECTAL PRN (23:15)
[2017-11-15] MEDS ORDERED: ACETAMINOPHEN 325 MG TAB PO PRN (23:15)
[2017-11-15] MEDS: NITROGLYCERIN 2% OINT 1 GM PACKET TOPICAL SCH (23:56)
[2017-11-16] VITALS (27 sets, daily range): BP systolic 97–154; BP diastolic 56–79; PULSE 68–88; RESP 18–21; TEMP 96.9–98.1; O2SAT 92–97
--- NOTE | 2017-11-16 01:14 | HHI.HP ---
[facility] [employer] [facility] Admission Diagnosis NSTEMI. Chronic kidney disease Diagnoses: Travel History International Travel<30 Days: No Contact w/Intl Traveler <30 Da: No Traveled to Known Affected Are: No History of Present Illness 67-year-old male with a past medical history significant for CHF (echo on showed an EF of 30-35%), CAD, hypertension, hyperlipidemia, atrial fibrillation on Coumadin, insulin-dependent diabetes mellitus, TIA and GERD presents to the emergency department with nausea and shortness of breath. He also states he has weakness and that his legs gave out on him today and he just laid on the floor for many hours. He has a nonproductive cough. He denies any fever/chills/nausea/vomiting/diarrhea/abdominal pain. He denies any lateralizing signs/symptoms. Review of Systems Except as stated in HPI: all other systems reviewed are Neg Past Family Social History Past Medical History CAD status post previous AR, stent placement 1, status post CABG 3 Pacemaker/AICD CHF (EF of 30-35%) Hypertension Insulin-dependent diabetes mellitus A. fib on Coumadin TIA Hyperlipidemia GERD Past Surgical History CABG 3 in Cardiac stent placement 1 Pacemaker/AICD Inguinal hernia repair Umbilical hernia repair Tonsillectomy Reported Medications Reported Meds & Active Scripts Active Lasix (Furosemide) 40 Mg Tab 40 Mg PO DAILY PRN Flomax (Tamsulosin HCl) 0.4 Mg Cap 0.4 Mg PO DAILY Furosemide 40 Mg Tab 40 Mg PO BID@,18 Metoprolol Succinate ER 24 HR (Metoprolol Succinate) 50 Mg Tab 100 Mg PO DAILY Reported Lisinopril 5 Mg Tab 5 Mg PO DAILY Isosorbide Mononitrate ER (Isosorbide Mononitrate) 120 Mg Anant 120 Mg PO DAILY Aspirin 81 Mg Chew 81 Mg CHEW DAILY Amlodipine (Amlodipine Besylate) 5 Mg Tab 5 Mg PO DAILY Novolog Inj (Insulin Aspart) 1,000 Unit/10 Ml Vial 5 Units SQ ACHS Warfarin 5 Mg Tab 5 Mg PO DAILY Ranexa ER 12 HR (Ranolazine) 500 Mg Tab 500 Mg PO BID Nitrostat SL (Nitroglycerin) 0.4 Mg Subl 0.4 Mg SL DIRECTED PRN 1 tablet under the tongue as needed for chest pain. Repeat every 5 minutes for a total of 3 DOSES or call 911 if NO relief. Lantus Inj (Insulin Glargine) 1,000 Unit/10 Ml Vial 70 Units SQ BID Escitalopram (Escitalopram Oxalate) 20 Mg Tab 20 Mg PO DAILY Allergies: Coded Allergies: morphine (Unverified Allergy, Intermediate, RASH, 07/12/17) Family History Father with diabetes mellitus Social History Patient quit smoking in 1975. He denies alcohol, illicit drugs. Physical Exam Vital Signs Vital Signs Date Time Temp Pulse Resp B/P (MAP) Pulse Ox O2 Delivery O2 Flow Rate FiO2 11/16/17 00:16 11/15/17 22:53 84 24 130/68 (88) 97 Nasal Cannula 2.00 11/15/17 20:50 98 Nasal Cannula 2.00 11/15/17 20:50 24 11/15/17 20:50 75 24 113/69 (84) 98 Nasal Cannula 2.00 11/15/17 17:16 97.9 88 18 109/58 (75) 99 Physical Exam GENERAL: Obese, male lying in bed SKIN: No rashes, ecchymoses or lesions. Cool and dry. HEAD: Atraumatic. Normocephalic. No temporal or scalp tenderness. EYES: Pupils equal round and reactive. Extraocular motions intact. No scleral icterus. No injection or drainage. ENT: Nose without bleeding, purulent drainage or septal hematoma. Throat without erythema, tonsillar hypertrophy or exudate. Uvula midline. Airway patent. NECK: Trachea midline. No JVD or lymphadenopathy. Supple, nontender, no meningeal signs. CARDIOVASCULAR: Regular rate and rhythm without murmurs, gallops, or rubs. RESPIRATORY: Clear to auscultation. Breath sounds equal bilaterally. No wheezes , rales, or rhonchi. GASTROINTESTINAL: Abdomen soft, non-tender, nondistended. No hepato-splenomegaly , or palpable masses. No guarding. MUSCULOSKELETAL: Extremities without clubbing, cyanosis, or edema. No joint tenderness, effusion, or edema noted. No calf tenderness. NEUROLOGICAL: Awake and alert. Cranial nerves II through XII intact. Motor and sensory grossly within normal limits. Normal speech. Laboratory Laboratory Tests Test 11/15/17 20:00 White Blood Count 7.8 Red Blood Count 5.80 Hemoglobin 16.4 Hematocrit 48.5 Mean Corpuscular Volume 83.5 Mean Corpuscular Hemoglobin 28.3 Mean Corpuscular Hemoglobin Concent 33.9 Red Cell Distribution Width 16.3 Platelet Count 193 Mean Platelet Volume 8.1 Neutrophils (%) (Auto) 80.1 Lymphocytes (%) (Auto) 13.0 Monocytes (%) (Auto) 6.6 Eosinophils (%) (Auto) 0.0 Basophils (%) (Auto) 0.3 Neutrophils # (Auto) 6.3 Lymphocytes # (Auto) 1.0 Monocytes # (Auto) 0.5 Eosinophils # (Auto) 0.0 Basophils # (Auto) 0.0 CBC Comment DIFF FINAL Differential Comment Prothrombin Time 16.5 Prothromb Time International Ratio 1.6 Activated Partial Thromboplast Time 35.0 Blood Urea Nitrogen 35 Creatinine 2.59 Random Glucose 198 Total Protein 6.6 Albumin 2.7 Calcium Level 8.6 Magnesium Level 2.0 Alkaline Phosphatase 124 Aspartate Amino Transf (AST/SGOT) 110 Alanine Aminotransferase (ALT/SGPT) 21 Total Bilirubin 0.8 Sodium Level 133 Potassium Level 4.2 Chloride Level 98 Carbon Dioxide Level 21.3 Anion Gap 14 Estimat Glomerular Filtration Rate 25 Total Creatine Kinase 1428 Creatine Kinase MB 77.5 Creatine Kinase MB % 5.4 Troponin I 35.30 B-Type Natriuretic Peptide 1445 Date/Time Source Procedure Growth Status 11/15/17 21:00 Nasal Washing Influenza Types A,B Antigen (HANDY) - Final NEGATIVE FOR FLU A AND B ANTIGEN.... Complete Result Diagram: 11/15/17199911/15/171999 Caprini VTE Risk Assessment Caprini VTE Risk Assessment: Mod/High Risk (score >= 2) Caprini Risk Assessment Model Point Value = 1 Point Value = 2 Point Value = 3 Point Value = 5 Age 41-60 Minor surgery BMI > 25 kg/m2 Swollen legs Varicose veins or History of unexplained or recurrent spontaneous Oral contraceptives or hormone replacement Sepsis (< 1 month) Serious lung disease, including pneumonia (< 1 month) Abnormal pulmonary function Acute myocardial infarction Congestive heart failure (< 1 month) History of inflammatory bowel disease Medical patient at bed rest Age 61-74 Arthroscopic surgery Major open surgery (> 45 min) Laparoscopic surgery (> 45 min) Malignancy Confined to bed (> 72 hours) Immobilizing plaster cast Central venous access Age >= 75 History of VTE Family history of VTE Factor V Leiden Prothrombin [id number] Lupus anticoagulant Anticardiolipin antibodies Elevated serum homocysteine Heparin-induced thrombocytopenia Other congenital or acquired thrombophilia Stroke (< 1 month) Elective arthroplasty Hip, pelvis, or leg fracture Acute spinal cord injury (< 1 month) Prophylaxis Regimen Total Risk Factor Score Risk Level Prophylaxis Regimen 0-1 Low Early ambulation 2 Moderate Order ONE of the following: *Sequential Compression Device (SCD) *Heparin 5000 units SQ BID 3-4 Higher Order ONE of the following medications: *Heparin 5000 units SQ TID *Enoxaparin/Lovenox 40 mg SQ daily (WT < 150 kg, CrCl > 30 mL/min) *Enoxaparin/Lovenox 30 mg SQ daily (WT < 150 kg, CrCl > 10-29 mL/min) *Enoxaparin/Lovenox 30 mg SQ BID (WT < 150 kg, CrCl > 30 mL/min) AND/OR *Sequential Compression Device (SCD) 5 or more Highest Order ONE of the following medications: *Heparin 5000 units SQ TID (Preferred with Epidurals) *Enoxaparin/Lovenox 40 mg SQ daily (WT < 150 kg, CrCl > 30 mL/min) *Enoxaparin/Lovenox 30 mg SQ daily (WT < 150 kg, CrCl > 10-29 mL/min) *Enoxaparin/Lovenox 30 mg SQ BID (WT < 150 kg, CrCl > 30 mL/min) AND *Sequential Compression Device (SCD) Assessment and Plan Assessment and Plan Assessment/plan: 1. NSTEMI EKG significant for incomplete right bundle branch block without ST segment elevations or depressions, personally reviewed Initial troponin 35.30 Serial troponin/EKGs Cardiology consulted, appreciate recommendations - will continue anticoagulation with Coumadin per cardiology recommendations Aspirin Continue home beta bryan 2. CHF exacerbation/shortness of breath Chest x-ray showed cardiomegaly without acute congestion, images reviewed by me BNP elevated from baseline IV Lasix Echo from 07/13/17 showed an EF of 20-25% Continue home medications 3. A. fib Continue anticoagulation with warfarin Currently in NSR Continue home medications 4. Insulin-dependent diabetes mellitus Continue home Lantus SSI Monitor blood glucose 5. CKD Creatinine 2.59, baseline approximately 2.0 Monitor renal function 6. Hypertension/hyperlipidemia/CAD Status post CABG and stent placement, AICD Continue home medications ACS rule out pending FEN Heart healthy diet Electrolytes: monitor and replete prn Coumadin Physician Certification 2 Midnight Certification Type: Admission for Inpatient Services Order for Inpatient Services The services are ordered in accordance with Medicare regulations or non- Medicare payer requirements, as applicable. In the case of services not specified as inpatient-only, they are appropriately provided as inpatient services in accordance with the 2-midnight benchmark. Estimated LOS (days): 2 2 days is the estimated time the patient will need to remain in the hospital, assuming treatment plan goals are met and no additional complications. Post-Hospital Plan: Not yet determined Janey Baldwin MD Nov 16, 2017 01:14
[2017-11-16 01:47] LABS: AUTOMATED NEUTROPHIL # 6.1 TH/MM3 (1.8-7.7); BASOPHIL % 0.1 % (0.0-2.0); HEMATOCRIT 47.9 % (39.0-51.0); HEMOGLOBIN 16.1 GM/DL (13.0-17.0); LYMPH % 4.4 % (9.0-44.0); LYMPHOCYTE # 0.3 TH/MM3 (1.0-4.8); MEAN CELL VOLUME 84.3 FL (80.0-100.0); MEAN CORPUSCULAR HEMOGLOBIN 28.3 PG (27.0-34.0); MEAN CORPUSCULAR HGB CONC 33.6 % (32.0-36.0); MEAN PLATELET VOLUME 7.6 FL (7.0-11.0); MONO % 2.4 % (0.0-8.0); MONOCYTE # 0.2 TH/MM3 (0-0.9); NEUT % 93.1 % (16.0-70.0); PLATELET COUNT 190 TH/MM3 (150-450); RED BLOOD COUNT 5.68 MIL/MM3 (4.50-5.90); RED CELL DISTRIBUTION WIDTH 16.5 % (11.6-17.2); WHITE BLOOD COUNT 6.6 TH/MM3 (4.0-11.0)
[2017-11-16 02:20] LABS: BICARBONATE 21.7 MEQ/L (21.0-32.0); CALCIUM 8.9 MG/DL (8.5-10.1); CREATININE 2.82 MG/DL (0.60-1.30)
[2017-11-16 02:25] LABS: TROPONIN I 28.2 NG/ML (0.02-0.05)
[2017-11-16] MEDS: NITROGLYCERIN 2% OINT 1 GM PACKET TOPICAL SCH ×3 (06:00→17:06)
[2017-11-16] MEDS: ISOSORBIDE MONONITRATE 60 MG CR TAB (IMDUR) PO SCH (06:21)
[2017-11-16] MEDS: INSULIN ASPART SUPPLEMENTAL SCALE SQ SCH ×4 (08:41→21:00)
[2017-11-16 08:54] LABS: TROPONIN I 21.7 NG/ML (0.02-0.05)
--- NOTE | 2017-11-16 08:54 | HHI.PR ---
Subjective Remarks Follow up [place], CKD. The patient reports dyspnea. He denies chest pain. No nausea, vomiting, diarrhea, constipation. Objective Vitals Vital Signs Date Time Temp Pulse Resp B/P (MAP) Pulse Ox O2 Delivery O2 Flow Rate FiO2 11/16/17 06:00 80 11/16/17 05:00 82 11/16/17 04:00 82 11/16/17 03:52 96 Nasal Cannula 2.00 11/16/17 03:00 97.8 80 154/74 (100) 94 11/16/17 03:00 78 11/16/17 03:00 94 Nasal Cannula 2.00 11/16/17 02:00 80 11/16/17 01:00 80 11/16/17 00:16 11/15/17 22:53 84 24 130/68 (88) 97 Nasal Cannula 2.00 11/15/17 20:50 98 Nasal Cannula 2.00 11/15/17 20:50 24 11/15/17 20:50 75 24 113/69 (84) 98 Nasal Cannula 2.00 11/15/17 17:16 97.9 88 18 109/58 (75) 99 I/O 11/15/17 11/15/17 11/15/17 11/16/17 11/16/17 11/16/17 07:00 15:00 23:00 07:00 15:00 23:00 Intake Total 220 ml Output Total 0 ml Balance 220 ml Intake Oral 220 ml Output Urine Total 0 ml Bladder Scan Volume Amount 39 ml # Bowel Movements 1 Result Diagram: 11/16/17 0128 11/16/17 0128 Imaging Last Impressions Chest X-Ray 11/15/17 1732 Signed Impressions: Service Date/Time: Wednesday, November 15, 2017 17:40 - CONCLUSION: Cardiomegaly with pulmonary vascular engorgement. Humphrey Kilpatrick Jr., MD Objective Remarks General: Obese male in no acute distress. Heart: Regular rate and rhythm. No murmur. Lungs: Clear to auscultation bilaterally. No wheezes, rales, or rhonchi. Breathing is nonlabored. Abdomen: Soft, nontender, nondistended. Extremities: No lower extremity edema. Psych: Alert and oriented. Procedures None Urinary Catheter: No Vascular Central Line Catheter: No A/P Assessment and Plan 1. NSTEMI: Patient has significant history of coronary artery disease. In the past he was not felt to be a good candidate for cardiac catheterization due to renal failure. Cardiology consultation is pending. Troponin is significantly elevated. Patient without chest pain currently. Continue aspirin, beta- bryan. 2. Acute exacerbation of chronic systolic congestive heart failure: Echocardiogram from 07/13/17 showed ejection fraction of 20-25%. Continue Lasix. BNP is elevated. Cardiology consultation is pending. 3. Atrial fibrillation: Continue Coumadin. Currently in normal sinus rhythm. 4. Insulin-dependent diabetes mellitus: Continue Lantus. Monitor Accu-Cheks and cover with sliding scale insulin. 5. Acute kidney injury superimposed on chronic kidney disease: Consult nephrology. Patient may need cardiac catheterization. 6. Hypertension: Continue home medications. 7. DVT prophylaxis: Coumadin. Fredis Otoole MD Nov 16, 2017 08:54
[2017-11-16] MEDS ORDERED: FUROSEMIDE 40 MG/4 ML VIAL IV PUSH SCH (09:00)
[2017-11-16] MEDS: RANOLAZINE 500 MG EXTENDED RELEASE TAB PO SCH ×2 (09:30→21:07)
[2017-11-16] MEDS: INSULIN DETEMIR 100 UNITS/ML VIAL SQ SCH ×2 (09:30→21:07)
[2017-11-16] MEDS: ASPIRIN 81 MG CHEW TAB CHEW SCH (09:30)
[2017-11-16] MEDS: TAMSULOSIN HCL 0.4 MG CAP PO SCH (09:31)
[2017-11-16] MEDS: amLODIPine BESYLATE 5 MG TAB PO SCH (09:31)
[2017-11-16] MEDS: METOPROLOL SUCCINATE 50 MG EXTENDED RELEASE TAB PO SCH (09:31)
[2017-11-16] MEDS: ESCITALOPRAM OXALATE 20 MG TAB PO SCH (09:31)
[2017-11-16] MEDS: FUROSEMIDE 40 MG/4 ML VIAL IV PUSH SCH ×2 (09:34→17:05)
[2017-11-16] MEDS: SODIUM CHLORIDE 0.9% FLUSH 10 ML FLUSH IV FLUSH SCH ×2 (09:35→21:00)
[2017-11-16 10:33] LABS: BILIRUBIN, URINE NEG (NEG); BLOOD, URINE MOD (NEG); GLUCOSE,URINE 150 mg/dL (NEG); HYALINE CAST, URINE 12 /lpf (RARE); KETONE, URINE TRACE mg/dL (NEG); MUCUS URINE FEW /lpf (OCC); NITRITE,URINE NEG (NEG); SQUAMOUS EPITHELIAL CELL URINE 1 /hpf (0-5); URINE COLOR YELLOW (YELLW/STRAW); URINE LEUKOCYTE ESTERASE NEG (NEG)
--- NOTE | 2017-11-16 11:42 | MB ---
cc: Bernardo Avila DO DATE OF CONSULT: 11/16/2017 REASON FOR CONSULTATION: Elevated troponin. HISTORY OF PRESENT ILLNESS: Adam Cortez is a pleasant 67-year-old male who presented to [facility] Emergency Room on 11/15/2017 due to weakness. Apparently the patient stated that this started weeks ago when he started getting nauseous and short of breath. These episodes seem to correlate together. During these episodes, he denies any chest pain. Then, on 11/15/2017, he tried to get up out of bed and go to the restroom. When he attempted to sit back down on the bed, he felt like his legs gave out, and he landed on the floor. No loss of consciousness during this episode. He laid on the floor for hours until in the afternoon he was able to crawl to his phone. He denies any fevers or chills. He has had a nonproductive cough. In seeing him, he states that his breathing has been somewhat better since being in the hospital. He still denies having any episodes of chest pain. PAST MEDICAL HISTORY: 1. Coronary artery disease with a history of myocardial infarction. 2. Chronic systolic heart failure with an ejection fraction of 30% to 35%. 3. Hypertension. 4. Insulin dependent diabetes mellitus. 5. Atrial fibrillation on Coumadin. 6. TIA. 7. Hyperlipidemia. 8. GERD. PAST SURGICAL HISTORY: 1. CABG x3. 2. Jeana PCI to an unknown vessel. 3. Pacemaker/AICD placement. 4. Inguinal hernia repair. 5. Umbilical hernia repair. 6. Tonsillectomy. ALLERGIES: MORPHINE. MEDICATIONS: 1. Flomax 0.4 mg daily. 2. Coumadin 5 mg daily. 3. Ranexa 500 mg b.i.d. 4. Isosorbide mononitrate 120 mg daily. 5. Nitro sublingual as needed for chest pain. 6. Toprol XL 100 mg daily. 7. Norvasc 5 mg daily. 8. Lisinopril 5 mg daily. 9. Aspirin 81 mg daily. 10. Lexapro 20 mg daily. 11. Lasix 40 mg b.i.d. 12. Novolog 5 units with meals. 13. Lantus 70 units b.i.d. FAMILY HISTORY: Denies premature coronary artery disease or sudden cardiac within the family. SOCIAL HISTORY: The patient previously smoked, but quit in 1975. Denies alcohol or illicit drugs. REVIEW OF SYSTEMS: Fourteen systems were reviewed including osteopathic pertinent positives and negatives above, otherwise negative. PHYSICAL EXAMINATION: VITAL SIGNS: Temperature 97.8, heart rate 88, blood pressure 149/79, respirations 20. Pulse ox 94% on 2 liters. GENERAL: The patient appears well in no acute distress. Alert, awake and oriented x3. HEENT: Extraocular muscles intact. Mucous membranes moist. NECK: Supple. No JVD at 45 degrees. CARDIOVASCULAR: No carotid bruits heard bilaterally. Carotid upstroke is brisk in nature. Heart is regular rate and rhythm, positive first and second heart sounds with no noted murmurs, gallops or rubs. RESPIRATORY: Lungs have decreased breath sounds bilaterally, but no overt wheezes, rales or rhonchi. GASTROINTESTINAL: Abdomen is soft, nontender, nondistended. No organomegaly noted. EXTREMITIES: No clubbing, cyanosis or edema. Femoral and distal pulses intact bilaterally. NEUROLOGIC: No focal deficits. SKIN: Warm, dry and intact. MUSCULOSKELETAL: Osteopathically, mild lordosis, no kyphoscoliosis or paraspinal tender points. LABORATORY WORK: Hemoglobin 16.1, hematocrit 47.9, platelets 190. INR 1.6. Potassium 4.8, BUN 40, creatinine 2.82. Troponin 35, decreasing to 21. RADIOLOGY: Electrocardiogram (11/16/2017 at 0306). Sinus rhythm, in a bigeminal pattern, left axis deviation, inferior infarct age undetermined, non-specific ST-T wave changes. IMPRESSION: 1. Non-ST elevation myocardial infarction. 2. History of coronary artery disease as above. 3. Acute kidney injury and chronic kidney disease. 4. Acute exacerbation of chronic systolic heart failure. 5. Atrial fibrillation on Coumadin therapy. 6. Insulin dependent diabetes mellitus. RECOMMENDATIONS: 1. Mr. Cortez appears to have had an NSTEMI, although the troponins are decreasing, and this might be overall type 2 in nature. 2. Due to the significance of his troponin elevation, I feel that he will eventually need an ischemic evaluation if possible. 3. He does have a creatinine that is significantly elevated from his previous hospitalization, but also elevated from yesterday, and so for now, he will have to be treated medically. I am concerned that any kind of contrast will put him onto hemodialysis. 4. He will be started on a heparin drip. 5. We will check a 2D echo to look at his overall left ventricular function, cardiac structure and possible valvulopathies. 6. While on the heparin drip, we will hold his Coumadin in anticipation of possible coronary visualization. 7. We will continue him on his beta bryan therapy. 8. Further recommendations will be made based on the hospital course. Thank you for allowing me to see Adam Cortez. If there are any questions, please do not hesitate to call. Bernardo Avila, VGP/DL , 10:55 AM , 11:41 AM
--- NOTE | 2017-11-16 12:20 | PD.CONS ---
HPI Consult Requested By Reason for Consult Acute on chronic renal insufficiency Primary Care Physician Niko [facility] History of Present Illness 67-year-old male with a history of known CKD, long-standing diabetes mellitus,, coronary disease, question of diabetic retinopathy as well as hypertension and a cardiomyopathy with an ejection fraction said to be 20-25%. Patient presents with dyspnea related to clinically largely evidence of congestive heart failure. Patient is being considered for possible repeat catheterization. As a history of CABG as well as previous stent placement. Creatinine level noted to be 2.25 witnessed by GFR September 09, 2017. On presentation patient has required diuresis and his creatinine level on day of consultation 2.82 with a GFR of only 22. Denies using NSAIDs as an outpatient for analgesia. No history of collagen vascular disease Review of Systems Constitutional: COMPLAINS OF: Fatigue, DENIES: Diaphoretic episodes, Fever, Weight gain, Weight loss, Chills, Dizziness, Change in appetite, Night Sweats Respiratory: COMPLAINS OF: Cough, Shortness of breath, DENIES: Apneas, Snoring , Wheezing, Hemoptysis, Sputum production Cardiovascular: COMPLAINS OF: Dyspnea on Exertion, Lower Extremity Edema, DENIES: Chest pain, Palpitations, Syncope, PND, Orthopnea, Claudication Genitourinary: COMPLAINS OF: Sexual dysfunction, Urinary frequency, Dysuria, Nocturia, DENIES: Urinary incontinence, Urgency, Hematuria, Penile Discharge, Testicular Pain, Testicular Swelling Musculoskeletal: DENIES: Muscle aches, Stiffness, Joint Swelling, Back pain, Neck pain Past Family Social History Allergies: Coded Allergies: morphine (Unverified Allergy, Intermediate, RASH, 07/12/17) Past Medical History Chronic kidney disease stage IV Diabetes mellitus long-standing History suggesting diabetic retinopathy Ischemic cardiomyopathy with an ejection fraction said to be 20-25%. Congestive heart failure. Gastroesophageal reflux disease. Evidence of proteinuria. Past Surgical History AICD placement. CABG 3. PTCA. Reported Medications Reported Meds & Active Scripts Active Lasix (Furosemide) 40 Mg Tab 40 Mg PO DAILY PRN Flomax (Tamsulosin HCl) 0.4 Mg Cap 0.4 Mg PO DAILY Furosemide 40 Mg Tab 40 Mg PO BID@,18 Metoprolol Succinate ER 24 HR (Metoprolol Succinate) 50 Mg Tab 100 Mg PO DAILY Reported Lisinopril 5 Mg Tab 5 Mg PO DAILY Isosorbide Mononitrate ER (Isosorbide Mononitrate) 120 Mg Anant 120 Mg PO DAILY Aspirin 81 Mg Chew 81 Mg CHEW DAILY Amlodipine (Amlodipine Besylate) 5 Mg Tab 5 Mg PO DAILY Novolog Inj (Insulin Aspart) 1,000 Unit/10 Ml Vial 5 Units SQ ACHS Warfarin 5 Mg Tab 5 Mg PO DAILY Ranexa ER 12 HR (Ranolazine) 500 Mg Tab 500 Mg PO BID Nitrostat SL (Nitroglycerin) 0.4 Mg Subl 0.4 Mg SL DIRECTED PRN 1 tablet under the tongue as needed for chest pain. Repeat every 5 minutes for a total of 3 DOSES or call 911 if NO relief. Lantus Inj (Insulin Glargine) 1,000 Unit/10 Ml Vial 70 Units SQ BID Escitalopram (Escitalopram Oxalate) 20 Mg Tab 20 Mg PO DAILY Active Ordered Medications Current Medications Sodium Chloride (NS Flush) 2 ml UNSCH PRN IVF FLUSH AFTER USING IV ACCESS; Start 11/15/17 at 17:45; Stop 11/15/17 at 23:14; Status DC Methylprednisolone Sodium Succinate (SoluMEDROL INJ) 125 mg ONCE ONCE IV PUSH Last administered on 11/15/17at 18:24; Start 11/15/17 at 17:45; Stop 11/15/17 at 17: 46; Status DC Albuterol/ Ipratropium (Duoneb Neb) 1 ampule Q15M INH Last administered on at 18:36; Start 11/15/17 at 17:45; Stop 11/15/17 at 18:16; Status DC Aspirin (Aspirin Chew) 81 mg ONCE ONCE CHEW Last administered on 11/15/17at 22: 06; Start 11/15/17 at 22:00; Stop 11/15/17 at 22:01; Status DC Sodium Chloride (NS Flush) 2 ml UNSCH PRN IV FLUSH FLUSH AFTER USING IV ACCESS ; Start 11/15/17 at 23:15 Sodium Chloride (NS Flush) 2 ml BID IV FLUSH Last administered on 11/16/17at 09: 35; Start 11/16/17 at 09:00 Acetaminophen (Tylenol) 650 mg Q4H PRN PO TEMP > 100.4; Start 11/15/17 at 23:15 Prochlorperazine (Compazine Supp) 25 mg Q12H PRN RECTAL NAUSEA OR VOMITING; Start 11/15/17 at 23:15 Nitroglycerin (Nitroglycerin 2% Oint) 1 inch Q6HR TOPICAL Last administered on 11/15/17at 23:56; Start 11/16/17 at 00:00 Dextrose (D50w (Vial) Inj) 50 ml UNSCH PRN IV PUSH HYPOGLYCEMIA-SEE COMMENTS; Start 11/15/17 at 23:15 Glucagon (Glucagon Inj) 1 mg UNSCH PRN OTHER HYPOGLYCEMIA-SEE COMMENTS; Start 11/15/17 at 23:15 Insulin Aspart (NovoLOG SUPPLEMENTAL SCALE) 1 ACHS SLIDING SCALE SQ ; Start 11/16/17 at 08:00 Pharmacy Profile Note 0 ml @ 0 mls/hr UNSCH OTHER ; Start 11/15/17 at 23:15 Furosemide (Lasix Inj) 40 mg BID@,18 IV PUSH ; Start 11/16/17 at 09:00; Stop at 09:00; Status DC Furosemide (Lasix Inj) 20 mg BID@18 IV PUSH Last administered on 11/16/17at 09 :34; Start 11/16/17 at 09:00 Amlodipine Besylate (Norvasc) 5 mg DAILY PO Last administered on 11/16/17 09:31 ; Start 11/16/17 at 09:00 Aspirin (Aspirin Chew) 81 mg DAILY CHEW Last administered on 11/16/17at 09:30; Start 11/16/17 at 09:00 Escitalopram Oxalate (Lexapro) 20 mg DAILY PO Last administered on 11/16/17at 09: 31; Start 11/16/17 at 09:00 Insulin Detemir (Levemir Inj) 70 units BID SQ Last administered on 11/16/17at 09: 30; Start 11/16/17 at 09:00 Isosorbide Mononitrate (Imdur) 120 mg DAILY@0700 PO Last administered on 06:21; Start 11/16/17 at 07:00 Metoprolol Succinate (Toprol Xl) 100 mg DAILY PO Last administered on 11/16/17at 09:31; Start 11/16/17 at 09:00 Ranolazine (Ranexa) 500 mg BID PO Last administered on 11/16/17at 09:30; Start at 09:00 Tamsulosin HCl (Flomax) 0.4 mg DAILY PO Last administered on 11/16/17at 09:31; Start 11/16/17 at 09:00 Warfarin Sodium (Coumadin) 5 mg DAILY@1600 PO ; Start 11/16/17 at 16:00; Stop 11/16/17 at 16:00; Status DC Heparin Sodium (Porcine) (Heparin Inj) 4,000 units ONCE ONCE IV PUSH ; Start at 11:00; Stop 11/16/17 at 11:01; Status UNV Heparin Sodium (Porcine) (Heparin Inj) 5,000 units UNSCH PRN IV PUSH APTT LESS THAN 25; Start 11/16/17 at 17:00; Status UNV Heparin Sodium (Porcine) (Heparin Inj) 2,500 units UNSCH PRN IV PUSH APTT 25 TO 39; Start 11/16/17 at 17:00; Status UNV Heparin Sodium/ Dextrose 250 ml @ 0 mls/hr TITRATE PRN IV Coagulation Management; Start 11/16/17 at 11:00; Status UNV Family History Noncontributory to current complaint Social History Please see H&P for details. Physical Exam Vital Signs Vital Signs Date Time Temp Pulse Resp B/P (MAP) Pulse Ox O2 Delivery O2 Flow Rate FiO2 11/16/17 10:28 84 11/16/17 09:03 Nasal Cannula 2.00 11/16/17 09:03 97.8 88 21 149/79 (102) 94 11/16/17 09:00 81 11/16/17 08:00 96.9 82 18 149/79 (102) 97 11/16/17 08:00 85 11/16/17 08:00 84 11/16/17 07:00 82 11/16/17 07:00 81 11/16/17 06:00 80 11/16/17 05:00 82 11/16/17 04:00 82 11/16/17 03:52 96 Nasal Cannula 2.00 11/16/17 03:00 97.8 80 154/74 (100) 94 11/16/17 03:00 78 11/16/17 03:00 94 Nasal Cannula 2.00 11/16/17 02:00 80 11/16/17 01:00 80 11/16/17 00:16 11/15/17 22:53 84 24 130/68 (88) 97 Nasal Cannula 2.00 11/15/17 20:50 98 Nasal Cannula 2.00 11/15/17 20:50 24 11/15/17 20:50 75 24 113/69 (84) 98 Nasal Cannula 2.00 11/15/17 17:16 97.9 88 18 109/58 (75) 99 Physical Exam GENERAL: Elderly male appears to have mild dyspnea. Obese. SKIN: Warm and dry. HEAD: Normocephalic. EYES: No scleral icterus. No injection or drainage. NECK: Supple, trachea midline. No JVD or lymphadenopathy. CARDIOVASCULAR: Regular rate and rhythm without murmurs, gallops, or rubs. RESPIRATORY: Breath sounds equal bilaterally. No accessory muscle use. GASTROINTESTINAL: Abdomen soft, non-tender, nondistended. MUSCULOSKELETAL: No cyanosis, plus pitting edema lower legs and pretibial.. BACK: Nontender without obvious deformity. No CVA tenderness. Laboratory Laboratory Tests Test 11/15/17 20:00 11/16/17 01:28 11/16/17 07:35 11/16/17 09:15 White Blood Count 7.8 6.6 Red Blood Count 5.80 5.68 Hemoglobin 16.4 16.1 Hematocrit 48.5 47.9 Mean Corpuscular Volume 83.5 84.3 Mean Corpuscular Hemoglobin 28.3 28.3 Mean Corpuscular Hemoglobin Concent 33.9 33.6 Red Cell Distribution Width 16.3 16.5 Platelet Count 193 190 Mean Platelet Volume 8.1 7.6 Neutrophils (%) (Auto) 80.1 93.1 Lymphocytes (%) (Auto) 13.0 4.4 Monocytes (%) (Auto) 6.6 2.4 Eosinophils (%) (Auto) 0.0 0.0 Basophils (%) (Auto) 0.3 0.1 Neutrophils # (Auto) 6.3 6.1 Lymphocytes # (Auto) 1.0 0.3 Monocytes # (Auto) 0.5 0.2 Eosinophils # (Auto) 0.0 0.0 Basophils # (Auto) 0.0 0.0 CBC Comment DIFF FINAL DIFF FINAL Differential Comment Prothrombin Time 16.5 Prothromb Time International Ratio 1.6 Activated Partial Thromboplast Time 35.0 Blood Urea Nitrogen 35 40 Creatinine 2.59 2.82 Random Glucose 198 308 Total Protein 6.6 Albumin 2.7 Calcium Level 8.6 8.9 Magnesium Level 2.0 Alkaline Phosphatase 124 Aspartate Amino Transf (AST/SGOT) 110 Alanine Aminotransferase (ALT/SGPT) 21 Total Bilirubin 0.8 Sodium Level 133 132 Potassium Level 4.2 4.8 Chloride Level 98 100 Carbon Dioxide Level 21.3 21.7 Anion Gap 14 10 Estimat Glomerular Filtration Rate 25 22 Total Creatine Kinase 1428 1534 1436 Creatine Kinase MB 77.5 69.4 56.2 Creatine Kinase MB % 5.4 4.5 3.9 Troponin I 35.30 28.20 21.70 B-Type Natriuretic Peptide 1445 Urine Color YELLOW Urine Turbidity HAZY Urine pH 6.0 Urine Specific Odin 1.026 Urine Protein 300 Urine Glucose (UA) 150 Urine Ketones TRACE Urine Occult Blood MOD Urine Nitrite NEG Urine Bilirubin NEG Urine Urobilinogen LESS THAN 2.0 Urine Leukocyte Esterase NEG Urine RBC 1 Urine WBC 3 Urine Squamous Epithelial Cells 1 Urine Hyaline Casts 12 Urine Granular Casts 1 Urine Mucus FEW Microscopic Urinalysis Comment CULT NOT INDICATED Date/Time Source Procedure Growth Status 11/15/17 21:00 Nasal Washing Influenza Types A,B Antigen (HANDY) - Final NEGATIVE FOR FLU A AND B ANTIGEN.... Complete Result Diagram: 11/16/17 0128 11/16/17 0128 Imaging Last 48 hours Impressions Chest X-Ray 11/15/17 1732 Signed Impressions: Service Date/Time: Wednesday, November 15, 2017 17:40 - CONCLUSION: Cardiomegaly with pulmonary vascular engorgement. Humphrey Kilpatrick Jr., MD Assessment and Plan Problem List: (1) Cardiorenal syndrome with renal failure ICD Codes: I13.10 - Hypertensive heart and chronic kidney disease without heart failure, with stage 1 through stage 4 chronic kidney disease, or unspecified chronic kidney disease; N19 - Unspecified kidney failure Status: Acute Plan: I believe the patient has a significant component of cardiorenal syndrome given the severity of his cardiomyopathy and worsening renal indices now noted. Discussed with patient in detail the pathogenesis of same and its implications. Most likely a poor prognostic indicator for the future. Despite worsening renal indices diuresis is necessary to improve his volume status as discussed with the patient. (2) CKD (chronic kidney disease) stage 4, GFR 15-29 ml/min ICD Codes: N18.4 - Chronic kidney disease, stage 4 (severe) Status: Chronic Plan: Most likely related to diabetic nephropathy with possible superimposed nephrosclerosis. Does have symptoms suggesting prostatism. Renal ultrasound to exclude obstructive process. Serological studies as ordered. Far as his cardiac catheterization is concerned estimated risk for development of contrast nephrotoxicity about 26% which may result in temporary worsening or possibly permanent decline in his already severely impaired renal function as discussed with the patient. Estimated risk of the patient may require dialysis temporarily or permanently after exposure to 100 mL also iodine contrast agent about 1.1% or higher. This was also discussed with the patient. Risk-benefit ratio has to be considered as far as proceeding with cardiac catheterization. I will defer to cardiology as far as determining potential benefit of cardiac catheter and discussing same with patient. Unfortunately the patient's congestive heart failure precludes utilization of saline for hydration pre-catheter in my opinion. This was also discussed with the patient. Medications should be adjusted for the patient's estimated GFR if clinically indicated. Avoid agents with significant potential for nephrotoxicity possible including NSAIDs for analgesia, . Gadolinium is contraindicated if the GFR is below 30. (3) Proteinuria ICD Codes: R80.9 - Proteinuria, unspecified Status: Chronic (4) CHF (congestive heart failure) ICD Codes: I50.9 - Heart failure, unspecified Status: Acute Plan: Continue diuretic therapy as is for the present. (5) HTN (hypertension) ICD Codes: I10 - Essential (primary) hypertension Status: Acute Problem Qualifiers (1) CHF (congestive heart failure): Qualified Codes: I50.9 - Heart failure, unspecified Leann Garza MD Nov 16, 2017 12:20
[2017-11-16 13:13] LABS: HEMATOCRIT 47.9 % (39.0-51.0); HEMOGLOBIN 16.2 GM/DL (13.0-17.0); MEAN CELL VOLUME 84.6 FL (80.0-100.0); MEAN CORPUSCULAR HEMOGLOBIN 28.6 PG (27.0-34.0); MEAN CORPUSCULAR HGB CONC 33.8 % (32.0-36.0); MEAN PLATELET VOLUME 8.2 FL (7.0-11.0); PLATELET COUNT 222 TH/MM3 (150-450); RED BLOOD COUNT 5.65 MIL/MM3 (4.50-5.90); RED CELL DISTRIBUTION WIDTH 16.3 % (11.6-17.2); WHITE BLOOD COUNT 10.1 TH/MM3 (4.0-11.0)
[2017-11-16 13:27] LABS: INTERNATIONAL NORMALIZED RATIO 1.6 RATIO; PROTHROMBIN TIME - PATIENT 15.9 SEC (9.8-11.6)
[2017-11-16] MEDS ORDERED: HEPARIN SODIUM - IV 10,000 UNITS/10 ML VIAL IV PUSH ONE (13:45)
--- NOTE | 2017-11-16 14:03 | RADRPT ---
EXAM DATE/TIME: 11/16/2017 13:20 [facility] COMPARISON: No previous studies available for comparison. INDICATIONS : Increased BUN/Creatinine. MEDICAL HISTORY : Myocardial infarction. Hypercholesterolemia. Hypertension. TIA. Congestive heart failure. Coronary ar zehra disease. Anticoagulant therapy, Warfarin. GERD. Diabetes. SURGICAL HISTORY : Tonsillectomy. CABG. Cardiac catheterization. Coronary stent. Internal defibrillator. Hernia repair . ENCOUNTER: Initial ACUITY: 1 day PAIN SCORE: 0/10 LOCATION: Bilateral flank MEASUREMENTS: RIGHT KIDNEY: 9.5 x 4.8 x 5.4 cm LEFT KIDNEY: 12.3 x 5.2 x 4.7 cm FINDINGS: RIGHT KIDNEY: Renal cortex is normal in thickness and echotexture. No hydronephrosis, stone, or mass. LEFT KIDNEY: Renal cortex is normal in thickness and echotexture. No hydronephrosis, stone, or mass. Small left kidney cyst measuring 1 cm. BLADDER: Within normal limits given the degree of distension. Prevoid volume was 233 mL. Patient was unable t o void. CONCLUSION: 1. No evidence of hydronephrosis. 2. 1 cm benign appearing left renal cyst. Martin Fernandez MD on November 16, 2017 at 14:00 Board Certified Radiologist. This report was verified electronically.
[2017-11-16] MEDS: HEPARIN-D5W 25,000 U/250 ML 250 ML IV PRN (14:49)
--- NOTE | 2017-11-16 15:13 | ECHRPT ---
Indication: NSTEMI CONCLUSIONS The left ventricular systolic function is severely reduced with an estimated ejection fraction in th e range of 20-25%. There is global left ventricular dysfunction. Trace mitral valve regurgitation. There is mild to moderate tricuspid valve regurgitation. BP: 149 / 79 HR: 84 Rhythm: MEASUREMENTS (Male / Female) Normal Values Technical Quality:Fair 2D ECHO LV Diastolic Diameter PLAX 6.6 cm 4.2 - 5.9 / 3.9 - 5.3 cm LV Systolic Diameter PLAX 6.0 cm IVS Diastolic Thickness 1.1 cm 0.6 - 1.0 / 0.6 - 0.9 cm LVPW Diastolic Thickness 1.0 cm 0.6 - 1.0 / 0.6 - 0.9 cm LV Relative Wall Thickness 0.3 RV Internal Dim ED PLAX 2.8 cm LVOT Diameter 2.0 cm LA Systolic Diameter LX 4.7 cm 3.0 - 4.0 / 2.7 - 3.8 cm LV Ejection Fraction MOD 4C 23.7 % LV Cardiac Index MOD 4C 1946.2 cm/minm LV Ejection Fraction 4C AL 26.6 % LV Cardiac Index 4C AL 2278.5 cm/minm M-MODE Aortic Root Diameter MM 2.9 cm LA Systolic Diameter MM 4.3 cm LA Ao Ratio MM 1.5 AV Cusp Separation MM 2.0 cm DOPPLER AV Peak Velocity 128.0 cm/s AV Peak Gradient 6.6 mmHg LVOT Peak Velocity 82.4 cm/s LVOT Peak Gradient 2.7 mmHg AV Area Cont Eq pk 2.0 cm MV Area PHT 3.9 cm Mitral E Point Velocity 82.9 cm/s Mitral A Point Velocity 54.3 cm/s Mitral E to A Ratio 1.5 LV E' Lateral Velocity 4.2 cm/s Mitral E to LV E' Lateral Ratio 19.8 LV E' Septal Velocity 5.2 cm/s Mitral E to LV E' Septal Ratio 16.0 TR Peak Velocity 305.0 cm/s TR Peak Gradient 37.2 mmHg Right Atrial Pressure 10.0 mmHg Pulmonary Artery Systolic Pressu 47.2 mmHg Right Ventricular Systolic Press 47.2 mmHg PV Peak Velocity 81.4 cm/s PV Peak Gradient 2.7 mmHg FINDINGS LEFT VENTRICLE The left ventricular systolic function is severely reduced with an estimated ejection fraction in th e range of 20-25%. Normal left ventricular size. Wall thickness is normal. There is global left ventricular dysfunction. RIGHT VENTRICLE Normal right ventricular size The right ventricular systoilc function is mildly decreased. LEFT ATRIUM The left atrial size is moderately dilated. RIGHT ATRIUM The right atrial size is normal. ATRIAL SEPTUM Normal atrial septal thickness AORTA The aortic root and proximal ascending aorta are normal in size on limited imaging. MITRAL VALVE Structurally normal mitral valve. Trace mitral valve regurgitation. No mitral valve stenosis. AORTIC VALVE Trileaflet aortic valve. Aortic valve sclerosis is present. No aortic valve regurgitation. No aortic valve stenosis. TRICUSPID VALVE Structurally normal tricuspid valve. There is mild to moderate tricuspid valve regurgitation. The estimated pulmonary arterial pressure is 47 mmHg. PULMONARY VALVE Trivial pulmonary valve regurgitation. VESSELS The inferior vena cava is normal in size. PERICARDIUM No pericardial effusion. Bernardo Avila DO (Electronically Signed) Final Date:16 November 2017 15:11
[2017-11-16] MEDS ORDERED: WARFARIN SOD 5 MG TAB PO SCH (16:00)
[2017-11-16] MEDS ORDERED: HEPARIN SODIUM - IV 10,000 UNITS/10 ML VIAL IV PUSH PRN (17:00)
[2017-11-16 19:04] LABS: BILIRUBIN, URINE NEG (NEG); BLOOD, URINE MOD (NEG); GLUCOSE,URINE 70 mg/dL (NEG); HYALINE CAST, URINE 29 /lpf (RARE); KETONE, URINE TRACE mg/dL (NEG); NITRITE,URINE NEG (NEG); PH, URINE 5.5 (5.0-8.5); URINE COLOR YELLOW (YELLW/STRAW); URINE LEUKOCYTE ESTERASE NEG (NEG)
[2017-11-16] MEDS ORDERED: TRIMETHOBENZAMIDE INJ 200 MG/2 ML VIAL IM PRN (21:00)
--- NOTE | 2017-11-16 23:37 | RADRPT ---
EXAM DATE/TIME: 11/16/2017 23:18 [facility] COMPARISON: CHEST SINGLE AP, November 15, 2017, 17:40. INDICATIONS : Shortness of breath. MEDICAL HISTORY : Hypertension. Congestive heart failure. A-fib. SURGICAL HISTORY : Pacemaker. CABG. ENCOUNTER: Subsequent ACUITY: 3 days PAIN SCORE: 0/10 LOCATION: Bilateral chest FINDINGS: Stable cardiomegaly. Central bronchopulmonary markings are fairly well delineated. There is a new f ocal area of consolidation in the lateral left lower lung. Right lung is clear. Median sternotomy a nd cardiac pacer leads. CONCLUSION: 1. Stable cardiomegaly. 2. Small infiltrate at the left lung base.. Humphrey Shaffer MD on November 16, 2017 at 23:33 Board Certified Radiologist. This report was verified electronically.
[2017-11-17] VITALS (32 sets, daily range): BP systolic 100–133; BP diastolic 59–73; PULSE 46–77; RESP 16–20; TEMP 97.1–97.7; O2SAT 93–99
[2017-11-17 02:46] LABS: COMPLEMENT C3 132 MG/DL (90-180); COMPLEMENT C4 30 MG/DL (10-40)
[2017-11-17 02:49] LABS: INTERNATIONAL NORMALIZED RATIO 1.5 RATIO; PROTHROMBIN TIME - PATIENT 15.5 SEC (9.8-11.6)
[2017-11-17 03:03] LABS: ALBUMIN 2.6 GM/DL (3.4-5.0); BICARBONATE 27.3 MEQ/L (21.0-32.0); BLOOD UREA NITROGEN 62 MG/DL (7-18); CALCIUM 8.9 MG/DL (8.5-10.1); CHLORIDE 98 MEQ/L (98-107); CREATININE 3.21 MG/DL (0.60-1.30); GLOMERULAR FILTRATION RATE 19 ML/MIN (>89); GLUCOSE,RANDOM 129 MG/DL (74-106); PHOSPHORUS 4.9 MG/DL (2.5-4.9); SODIUM (NA) 133 MEQ/L (136-145)
[2017-11-17] MEDS: NITROGLYCERIN 2% OINT 1 GM PACKET TOPICAL SCH ×4 (06:00→17:54)
[2017-11-17] MEDS: ISOSORBIDE MONONITRATE 60 MG CR TAB (IMDUR) PO SCH (06:21)
[2017-11-17] MEDS: INSULIN ASPART SUPPLEMENTAL SCALE SQ SCH ×4 (08:00→20:35)
--- NOTE | 2017-11-17 08:30 | EKG ---
Date Performed: 11/15/2017 Time Performed: 19:17:49 PTAGE: 67 years EKG: Sinus rhythm LEFT AXIS DEVIATION LEFT ATRIAL ABNORMALITY VENTRICULAR BIGEMINY POOR R-WAVE PROGRESSION, CANNOT EXC LUDE OLD ANTEROSEPTAL INFARCT ABNORMAL ECG Since PREVIOUS TRACING , no significant change noted PREVIOUS TRACIN09/08/2017 03.27 DOCTOR: Best Arizmendi Interpretating Date/Time 11/17/2017 08:28:54
--- NOTE | 2017-11-17 08:32 | EKG ---
Date Performed: 11/16/2017 Time Performed: 03:06:42 PTAGE: 67 years EKG: Sinus rhythm LEFT AXIS DEVIATION LEFT ATRIAL ENLARGEMENT VENTRICULAR BIGEMINY POOR R-WAVE PROGRESSION, CANNOT EXC LUDE OLD ANTEROSEPTAL INFARCT Abnormal ECG Since PREVIOUS TRACING , no significant change noted PREVIOUS TRACIN11/15/2017 19.17 DOCTOR: Best Arizmendi Interpretating Date/Time 11/17/2017 08:30:54
[2017-11-17] MEDS: METOPROLOL SUCCINATE 50 MG EXTENDED RELEASE TAB PO SCH (09:00)
[2017-11-17] MEDS: INSULIN DETEMIR 100 UNITS/ML VIAL SQ SCH ×2 (09:00→20:35)
[2017-11-17] MEDS: TAMSULOSIN HCL 0.4 MG CAP PO SCH (09:21)
[2017-11-17] MEDS: amLODIPine BESYLATE 5 MG TAB PO SCH (09:22)
[2017-11-17] MEDS: RANOLAZINE 500 MG EXTENDED RELEASE TAB PO SCH (09:22)
[2017-11-17] MEDS: FUROSEMIDE 40 MG/4 ML VIAL IV PUSH SCH ×2 (09:23→17:53)
[2017-11-17] MEDS: ASPIRIN 81 MG CHEW TAB CHEW SCH (09:23)
[2017-11-17] MEDS: ESCITALOPRAM OXALATE 20 MG TAB PO SCH (09:23)
[2017-11-17] MEDS: SODIUM CHLORIDE 0.9% FLUSH 10 ML FLUSH IV FLUSH SCH ×2 (09:24→20:35)
--- NOTE | 2017-11-17 09:46 | HHI.PR ---
Subjective Remarks Follow up ND, CHF, diabetes. Patient reports worsening dyspnea and nausea. No chest pain. Objective Vitals Vital Signs Date Time Temp Pulse Resp B/P (MAP) Pulse Ox O2 Delivery O2 Flow Rate FiO2 11/17/17 09:35 74 11/17/17 08:22 56 11/17/17 08:01 97 Simple Mask 5.00 11/17/17 08:00 97.7 56 16 106/68 (81) 97 11/17/17 07:01 77 11/17/17 06:01 72 11/17/17 05:00 70 11/17/17 04:00 70 11/17/17 03:21 93 30 11/17/17 03:00 97 Bi-Pap 11/17/17 03:00 97.1 72 100/63 (75) 97 11/17/17 03:00 70 11/17/17 02:00 70 11/17/17 01:00 70 11/17/17 00:12 96 30 11/17/17 00:00 68 11/16/17 23:00 72 11/16/17 23:00 96 Simple Mask 4.00 11/16/17 23:00 97.7 71 104/56 (72) 96 11/16/17 22:00 68 11/16/17 21:00 70 11/16/17 20:00 72 11/16/17 19:00 92 Nasal Cannula 2.00 11/16/17 19:00 70 11/16/17 19:00 98.1 74 105/63 (77) 92 11/16/17 18:00 72 11/16/17 17:00 72 11/16/17 16:00 74 11/16/17 15:03 94 Nasal Cannula 2.00 11/16/17 15:03 98.0 74 20 97/64 (75) 94 11/16/17 15:00 74 11/16/17 14:00 74 11/16/17 13:00 76 11/16/17 12:00 78 11/16/17 11:45 Nasal Cannula 2.00 11/16/17 11:00 78 18 140/71 (94) 94 11/16/17 11:00 84 11/16/17 11:00 76 11/16/17 10:28 84 11/16/17 10:00 84 I/O 311/16/17 11/16/17 11/17/17 11/17/17 11/17/17 07:00 15:00 23:00 07:00 15:00 23:00 Intake Total 220 ml 560 ml 360 ml 146 ml Output Total 0 ml 300 ml 150 ml 0 ml Balance 220 ml 260 ml 210 ml 146 ml Intake Oral 220 ml 560 ml 360 ml 0 ml IV Total 146 ml Output Urine Total 0 ml 300 ml 150 ml 0 ml Bladder Scan Volume Amount 39 ml # Bowel Movements 1 Result Diagram: 11/16/17 1144 11/17/17 0209 Imaging Last Impressions Renal Ultrasound 11/16/17 0000 Signed Impressions: Service Date/Time: Thursday, November 16, 2017 13:20 - CONCLUSION: 1. No evidence of hydronephrosis. 2. 1 cm benign appearing left renal cyst. Martin Fernandez MD Chest X-Ray 11/16/17 0000 Signed Impressions: Service Date/Time: Thursday, November 16, 2017 23:18 - CONCLUSION: 1. Stable cardiomegaly. 2. Small infiltrate at the left lung base.. Humphrey Shaffer MD Objective Remarks General: Obese male in no acute distress. Heart: Regular rate and rhythm. No murmur. Lungs: Decreased breath sounds in the bases, L>R. Breathing is nonlabored. Abdomen: Soft, nontender, nondistended. Extremities: No lower extremity edema. Psych: Alert and oriented. Procedures None Urinary Catheter: No Vascular Central Line Catheter: No A/P Assessment and Plan 1. NSTEMI: Patient has significant history of coronary artery disease. In the past he was not felt to be a good candidate for cardiac catheterization due to renal failure. Appreciate cardiology recommendations. Troponin is significantly elevated, but trending down. Patient without chest pain currently. Continue aspirin, beta-bryan. 2. Acute exacerbation of chronic systolic congestive heart failure: Echocardiogram from 07/13/17 showed ejection fraction of 20-25%. Continue Lasix. BNP is elevated. 3. Atrial fibrillation: Coumadin on hold. On heparin drip. Currently in normal sinus rhythm. 4. Insulin-dependent diabetes mellitus: Continue Lantus. Monitor Accu-Cheks and cover with sliding scale insulin. 5. Acute kidney injury superimposed on chronic kidney disease: Appreciate nephrology recommendations. Creatinine increasing. 6. Hypertension: Continue home medications. 7. DVT prophylaxis: Heparin drip. 8. Nausea: Continue antiemetics. Fredis Otoole MD Nov 17, 2017 09:45
[2017-11-17] MEDS: ONDANSETRON HCL 4 MG/2 ML VIAL IV PUSH PRN ×2 (10:49→20:31)
--- NOTE | 2017-11-17 13:53 | PD.CARD.PN ---
Subjective Subjective Remarks No events overnight Mildly short of breath, no chest pain Nauseated Objective Medications Current Medications Medications (Trade) Dose Ordered Sig/Jennifer Route Start Time Stop Time Status Last Admin (NS Flush) 2 ml UNSCH PRN IV FLUSH 11/15/17 23:15 (NS Flush) 2 ml BID IV FLUSH 11/16/17 09:00 11/17/17 09:24 (Tylenol) 650 mg Q4H PRN PO 11/15/17 23:15 (Nitroglycerin 2% Oint) 1 inch Q6HR TOPICAL 11/16/17 00:00 11/15/17 23:56 (D50w (Vial) Inj) 50 ml UNSCH PRN IV PUSH 11/15/17 23:15 (Glucagon Inj) 1 mg UNSCH PRN OTHER 11/15/17 23:15 (NovoLOG SUPPLEMENTAL SCALE) 1 ACHS SLIDING SCALE SQ 11/16/17 08:00 11/16/17 12:44 Pharmacy Profile Note 0 ml @ 0 mls/hr UNSCH OTHER 11/15/17 23:15 (Lasix Inj) 20 mg BID@18 IV PUSH 11/16/17 09:00 11/17/17 09:23 (Norvasc) 5 mg DAILY PO 11/16/17 09:00 11/17/17 09:22 (Aspirin Chew) 81 mg DAILY CHEW 11/16/17 09:00 11/17/17 09:23 (Lexapro) 20 mg DAILY PO 11/16/17 09:00 11/17/17 09:23 (Levemir Inj) 70 units BID SQ 11/16/17 09:00 11/16/17 21:07 (Imdur) 120 mg DAILY@0700 PO 11/16/17 07:00 11/17/17 06:21 (Toprol Xl) 100 mg DAILY PO 11/16/17 09:00 11/16/17 09:31 (Ranexa) 500 mg BID PO 11/16/17 09:00 11/17/17 09:22 (Flomax) 0.4 mg DAILY PO 11/16/17 09:00 11/17/17 09:21 (Heparin Inj) 5,000 units UNSCH PRN IV PUSH 11/16/17 17:00 (Heparin Inj) 2,500 units UNSCH PRN IV PUSH 11/16/17 17:00 Heparin Sodium/ Dextrose 250 ml @ 10 mls/hr TITRATE PRN IV 11/16/17 13:45 11/16/17 14:49 (Zofran Inj) 4 mg Q6HR PRN IV PUSH 11/17/17 09:45 11/17/17 10:49 Vital Signs / I&O Vital Signs Date Time Temp Pulse Resp B/P (MAP) Pulse Ox O2 Delivery O2 Flow Rate FiO2 11/17/17 12:01 74 11/17/17 11:01 97 Nasal Cannula 5.00 11/17/17 11:01 97.4 46 18 105/59 (74) 93 11/17/17 11:01 76 11/17/17 10:23 72 11/17/17 10:08 99 Simple Mask 5.00 11/17/17 09:35 74 11/17/17 08:22 56 11/17/17 08:01 97 Simple Mask 5.00 11/17/17 08:00 97.7 56 16 106/68 (81) 97 11/17/17 07:01 77 11/17/17 06:01 72 11/17/17 05:00 70 11/17/17 04:00 70 11/17/17 03:21 93 30 11/17/17 03:00 97 Bi-Pap 11/17/17 03:00 97.1 72 100/63 (75) 97 11/17/17 03:00 70 11/17/17 02:00 70 11/17/17 01:00 70 11/17/17 00:12 96 30 11/17/17 00:00 68 11/16/17 23:00 72 11/16/17 23:00 96 Simple Mask 4.00 11/16/17 23:00 97.7 71 104/56 (72) 96 11/16/17 22:00 68 11/16/17 21:00 70 11/16/17 20:00 72 11/16/17 19:00 92 Nasal Cannula 2.00 11/16/17 19:00 70 11/16/17 19:00 98.1 74 105/63 (77) 92 11/16/17 18:00 72 11/16/17 17:00 72 11/16/17 16:00 74 11/16/17 15:03 94 Nasal Cannula 2.00 11/16/17 15:03 98.0 74 20 97/64 (75) 94 11/16/17 15:00 74 11/16/17 14:00 74 I/O 11/16/17 11/16/17 11/16/17 11/17/17 11/17/17 11/17/17 07:00 15:00 23:00 07:00 15:00 23:00 Intake Total 220 ml 560 ml 360 ml 146 ml Output Total 0 ml 300 ml 150 ml 0 ml Balance 220 ml 260 ml 210 ml 146 ml Intake Oral 220 ml 560 ml 360 ml 0 ml IV Total 146 ml Output Urine Total 0 ml 300 ml 150 ml 0 ml Bladder Scan Volume Amount 39 ml # Bowel Movements 1 Physical Exam GENERAL: NAD SKIN: Warm and dry. HEAD: Atraumatic. Normocephalic. EYES: Pupils equal and round. No scleral icterus. No injection or drainage. ENT: No nasal bleeding or discharge. Mucous membranes pink and moist. NECK: Trachea midline. No JVD. CARDIOVASCULAR: Regular rate and rhythm. RESPIRATORY: No accessory muscle use. Decreased breath sounds bilaterally GASTROINTESTINAL: Abdomen soft, non-tender, nondistended. Hepatic and splenic margins not palpable. MUSCULOSKELETAL: 1+ pitting edema NEUROLOGICAL: Awake and alert. No obvious cranial nerve deficits. Motor grossly within normal limits. Five out of 5 muscle strength in the arms and legs. Normal speech. PSYCHIATRIC: Appropriate mood and affect; insight and judgment normal. Laboratory Laboratory Tests Test 11/16/17 18:18 11/16/17 20:23 11/17/17 02:09 Urine Color YELLOW Urine Turbidity HAZY Urine pH 5.5 Urine Specific [place] 1.021 Urine Protein 300 mg/dL Urine Glucose (UA) 70 mg/dL Urine Ketones TRACE mg/dL Urine Occult Blood MOD Urine Nitrite NEG Urine Bilirubin NEG Urine Urobilinogen LESS THAN 2.0 MG/DL Urine Leukocyte Esterase NEG Urine RBC LESS THAN 1 /hpf Urine WBC 2 /hpf Urine Hyaline Casts 29 /lpf Urine Eosinophils NONE SEEN /HPF Activated Partial Thromboplast Time 62.0 SEC 57.4 SEC Prothrombin Time 15.5 SEC Prothromb Time International Ratio 1.5 RATIO Blood Urea Nitrogen 62 MG/DL Creatinine 3.21 MG/DL Random Glucose 129 MG/DL Albumin 2.6 GM/DL Calcium Level 8.9 MG/DL Phosphorus Level 4.9 MG/DL Sodium Level 133 MEQ/L Potassium Level 5.1 MEQ/L Chloride Level 98 MEQ/L Carbon Dioxide Level 27.3 MEQ/L Anion Gap 8 MEQ/L Estimat Glomerular Filtration Rate 19 ML/MIN Total Protein 5.9 GM/DL 25-Hydroxy Vitamin D Total LESS THAN 4.2 ng/ML Complement C3 132 MG/DL Complement C4 30 MG/DL Assessment and Plan Problem List: (1) Cardiorenal syndrome with renal failure ICD Codes: I13.10 - Hypertensive heart and chronic kidney disease without heart failure, with stage 1 through stage 4 chronic kidney disease, or unspecified chronic kidney disease; N19 - Unspecified kidney failure Status: Acute (2) CKD (chronic kidney disease) stage 4, GFR 15-29 ml/min ICD Codes: N18.4 - Chronic kidney disease, stage 4 (severe) Status: Chronic (3) HTN (hypertension) ICD Codes: I10 - Essential (primary) hypertension Status: Acute (4) Proteinuria ICD Codes: R80.9 - Proteinuria, unspecified Status: Chronic (5) NSTEMI (non-ST elevated myocardial infarction) ICD Codes: I21.4 - Non-ST elevation (NSTEMI) myocardial infarction Status: Acute (6) CHF (congestive heart failure) ICD Codes: I50.9 - Heart failure, unspecified Status: Acute (7) Acute exacerbation of congestive heart failure ICD Codes: I50.9 - Heart failure, unspecified (8) Hypertension ICD Codes: I10 - Essential (primary) hypertension Status: Chronic (9) Diabetes ICD Codes: E11.9 - Type 2 diabetes mellitus without complications Status: Acute Assessment and Plan 1) NSTEMI Con't medical management for now Heparin drip 2) JEROME on CKD Concern for worsening kidney function Await nephrology recommendations Azotemia as a possible cause of nausea 3) Cardiac cath will have to be on hold due to worsening kidney function, most likely won't happen unless he starts dialysis If no HD, then will need to continue medical management 4) EF 20-25% 5) Coumadin on hold while on heparin drip Problem Qualifiers (1) CHF (congestive heart failure): Qualified Codes: I50.9 - Heart failure, unspecified Bernardo Avila DO Nov 17, 2017 13:53
[2017-11-17] MEDS: HEPARIN-D5W 25,000 U/250 ML 250 ML IV PRN (14:50)
--- NOTE | 2017-11-17 16:09 | HHI.NPPN ---
Subjective History of Present Illness 67-year-old male with a history of known CKD, long-standing diabetes mellitus,, coronary disease, question of diabetic retinopathy as well as hypertension and a cardiomyopathy with an ejection fraction said to be 20-25%. Patient presents with dyspnea related to clinically largely evidence of congestive heart failure. Patient is being considered for possible repeat catheterization. As a history of CABG as well as previous stent placement. Creatinine level noted to be 2.25 witnessed by GFR September 09, 2017. On presentation patient has required diuresis and his creatinine level on day of consultation 2.82 with a GFR of only 22. Denies using NSAIDs as an outpatient for analgesia. No history of collagen vascular disease Interval History Pt c/o nausea and SOB today (Blessing Wilson) Review of Systems General Constitutional: Fatigue (Blessing Wilson) Respiratory Lungs: SOB (Blessing Wilson) Cardiovascular Cardiac: Edema (Blessing Wilson) Gastrointestinal Gastrointestinal: Nausea & Vomiting (Blessing Wilson) Objective Data Data Vital Signs Date Time Temp Pulse Resp B/P (MAP) Pulse Ox O2 Delivery O2 Flow Rate FiO2 11/17/17 15:01 95 Nasal Cannula 5.00 11/17/17 15:01 97.4 52 18 115/69 (84) 95 11/17/17 12:01 74 11/17/17 11:01 97 Nasal Cannula 5.00 11/17/17 11:01 97.4 46 18 105/59 (74) 93 11/17/17 11:01 76 11/17/17 10:23 72 11/17/17 10:08 99 Simple Mask 5.00 11/17/17 09:35 74 11/17/17 08:22 56 11/17/17 08:01 97 Simple Mask 5.00 11/17/17 08:00 97.7 56 16 106/68 (81) 97 11/17/17 07:01 77 11/17/17 06:01 72 11/17/17 05:00 70 11/17/17 04:00 70 11/17/17 03:21 93 30 11/17/17 03:00 97 Bi-Pap 11/17/17 03:00 97.1 72 100/63 (75) 97 11/17/17 03:00 70 11/17/17 02:00 70 11/17/17 01:00 70 11/17/17 00:12 96 30 11/17/17 00:00 68 11/16/17 23:00 72 11/16/17 23:00 96 Simple Mask 4.00 11/16/17 23:00 97.7 71 104/56 (72) 96 11/16/17 22:00 68 11/16/17 21:00 70 11/16/17 20:00 72 11/16/17 19:00 92 Nasal Cannula 2.00 11/16/17 19:00 70 11/16/17 19:00 98.1 74 105/63 (77) 92 11/16/17 18:00 72 11/16/17 17:00 72 (Blessing Wilson) -: 11/16/17 1144 11/17/17 0209 Imaging Last Impressions Renal Ultrasound 11/16/17 0000 Signed Impressions: Service Date/Time: Thursday, November 16, 2017 13:20 - CONCLUSION: 1. No evidence of hydronephrosis. 2. 1 cm benign appearing left renal cyst. Martin Fernandez MD Chest X-Ray 11/16/17 0000 Signed Impressions: Service Date/Time: Thursday, November 16, 2017 23:18 - CONCLUSION: 1. Stable cardiomegaly. 2. Small infiltrate at the left lung base.. Humphrey Shaffer MD Medication Review Current Medications Medications (Trade) Dose Ordered Sig/Jennifer Route Start Time Stop Time Status Last Admin (NS Flush) 2 ml UNSCH PRN IV FLUSH 11/15/17 23:15 (NS Flush) 2 ml BID IV FLUSH 11/16/17 09:00 11/17/17 09:24 (Tylenol) 650 mg Q4H PRN PO 11/15/17 23:15 11/17/17 15:11 (Nitroglycerin 2% Oint) 1 inch Q6HR TOPICAL 11/16/17 00:00 11/15/17 23:56 (D50w (Vial) Inj) 50 ml UNSCH PRN IV PUSH 11/15/17 23:15 (Glucagon Inj) 1 mg UNSCH PRN OTHER 11/15/17 23:15 (NovoLOG SUPPLEMENTAL SCALE) 1 ACHS SLIDING SCALE SQ 11/16/17 08:00 11/16/17 12:44 Pharmacy Profile Note 0 ml @ 0 mls/hr UNSCH OTHER 11/15/17 23:15 (Lasix Inj) 20 mg BID@,18 IV PUSH 11/16/17 09:00 11/17/17 09:23 (Norvasc) 5 mg DAILY PO 11/16/17 09:00 11/17/17 09:22 (Aspirin Chew) 81 mg DAILY CHEW 11/16/17 09:00 11/17/17 09:23 (Lexapro) 20 mg DAILY PO 11/16/17 09:00 11/17/17 09:23 (Levemir Inj) 70 units BID SQ 11/16/17 09:00 11/16/17 21:07 (Imdur) 120 mg DAILY@0700 PO 11/16/17 07:00 11/17/17 06:21 (Toprol Xl) 100 mg DAILY PO 11/16/17 09:00 11/16/17 09:31 (Ranexa) 500 mg BID PO 11/16/17 09:00 11/17/17 09:22 (Flomax) 0.4 mg DAILY PO 11/16/17 09:00 11/17/17 09:21 (Heparin Inj) 5,000 units UNSCH PRN IV PUSH 11/16/17 17:00 (Heparin Inj) 2,500 units UNSCH PRN IV PUSH 11/16/17 17:00 Heparin Sodium/ Dextrose 250 ml @ 10 mls/hr TITRATE PRN IV 11/16/17 13:45 11/17/17 14:50 (Zofran Inj) 4 mg Q6HR PRN IV PUSH 11/17/17 09:45 11/17/17 10:49 (Blessing Wilson) Physical Exam General Appearance: No Acute Distress, Comfortable (Blessing Wilson) Neck Neck Exam: Neck Supple, Trachea Midline (Blessing Wilson) Pulmonary Resp Exam: Diminished Breath Sounds (Blessing Wilson) Cardiology CV Exam: Regular, Normal Sinus Rhythm (Blessing Wilson) Gastrointestinal/Abdomen GI Exam: Soft, Distended (Blessing Wilson) Integumentary Skin Exam: Clear, Warm (Blessing Wilson) Extremeties Extremities Exam: Moderate Edema (1-2+ pitting BLE to hips as well as in hands) (Blessing Wilson) Neurologic Neuro Exam: Alert, Awake (Blessing Wilson) Psychiatric Psych Exam: Appropriate Responses (Blessing Wilson) Assessment/Plan Problem List: (1) Cardiorenal syndrome with renal failure ICD Codes: I13.10 - Hypertensive heart and chronic kidney disease without heart failure, with stage 1 through stage 4 chronic kidney disease, or unspecified chronic kidney disease; N19 - Unspecified kidney failure Status: Acute Plan: I believe the patient has a significant component of cardiorenal syndrome given the severity of his cardiomyopathy and worsening renal indices now noted. Discussed with patient in detail the pathogenesis of same and its implications. Most likely a poor prognostic indicator for the future. Despite worsening renal indices diuresis is necessary to improve his volume status as discussed with the patient. Will increase Lasix to 40mg q12h as long as BP holding to improve volume status. Requested placement of Ness. No hydronephrosis noted on US, but pt mentions difficulties voiding at times. Monitor UOP closely. Cardiology holding off on catheterization at the present given his renal dysfunction. Would recommend holding Ranexa at the present given his continued renal deterioration. Will defer this to cardiology. Discussed with RN. Pt and his daughter were counselled of the severity of his renal decline. Hopefully renal functions will stabilize and subsequently improve with diuresis , but this remains to be seen. (2) CKD (chronic kidney disease) stage 4, GFR 15-29 ml/min ICD Codes: N18.4 - Chronic kidney disease, stage 4 (severe) Status: Chronic Plan: Most likely related to diabetic nephropathy with possible superimposed nephrosclerosis. Medications should be adjusted for the patient's estimated GFR if clinically indicated. Avoid agents with significant potential for nephrotoxicity possible including NSAIDs for analgesia, . Gadolinium is contraindicated if the GFR is below 30. (3) Proteinuria ICD Codes: R80.9 - Proteinuria, unspecified Status: Chronic (4) CHF (congestive heart failure) ICD Codes: I50.9 - Heart failure, unspecified Status: Acute Plan: Continue diuretic therapy as is for the present. (5) HTN (hypertension) ICD Codes: I10 - Essential (primary) hypertension Status: Acute (6) Nausea ICD Codes: R11.0 - Nausea Plan: Etiology unclear. If agreeable with primary team, consider GI consultation. (Blessing Wilson) Plan The exam, history, and the medical decision-making described in the above note were completed with the assistance of the PA-C. I reviewed and agree with the findings presented. (Leann Garza MD) Problem Qualifiers (1) CHF (congestive heart failure): Qualified Codes: I50.9 - Heart failure, unspecified Blessing Wilson Nov 17, 2017 16:09 Leann Garza MD Nov 18, 2017 15:41
[2017-11-17] MEDS: CHOLECALCIFEROL (VIT D3) 1000 UNIT TAB PO SCH (17:54)
[2017-11-18] VITALS (28 sets, daily range): BP systolic 116–149; BP diastolic 69–86; PULSE 57–84; RESP 18–22; TEMP 97.2–98.5; O2SAT 91–96
[2017-11-18] MEDS: NITROGLYCERIN 2% OINT 1 GM PACKET TOPICAL SCH ×4 (00:42→18:49)
[2017-11-18] MEDS: ONDANSETRON HCL 4 MG/2 ML VIAL IV PUSH PRN ×2 (03:05→17:00)
[2017-11-18 04:13] LABS: BASOPHIL % 0.1 % (0.0-2.0); EOSINOPHIL % 0.1 % (0.0-4.0); HEMATOCRIT 44.5 % (39.0-51.0); HEMOGLOBIN 14.9 GM/DL (13.0-17.0); LYMPH % 15.8 % (9.0-44.0); LYMPHOCYTE # 1.3 TH/MM3 (1.0-4.8); MEAN CELL VOLUME 83.9 FL (80.0-100.0); MEAN CORPUSCULAR HEMOGLOBIN 28.2 PG (27.0-34.0); MEAN CORPUSCULAR HGB CONC 33.6 % (32.0-36.0); MONO % 9.1 % (0.0-8.0); MONOCYTE # 0.7 TH/MM3 (0-0.9); NEUT % 74.9 % (16.0-70.0); PLATELET COUNT 221 TH/MM3 (150-450); RED CELL DISTRIBUTION WIDTH 16.5 % (11.6-17.2)
[2017-11-18 04:41] LABS: BICARBONATE 27.4 MEQ/L (21.0-32.0); CALCIUM 8.4 MG/DL (8.5-10.1); CREATININE 3.28 MG/DL (0.60-1.30)
[2017-11-18] MEDS: ISOSORBIDE MONONITRATE 60 MG CR TAB (IMDUR) PO SCH (06:14)
[2017-11-18] MEDS: INSULIN ASPART SUPPLEMENTAL SCALE SQ SCH ×4 (08:00→21:00)
--- NOTE | 2017-11-18 08:13 | HHI.PR ---
Subjective Remarks Follow up CHF, diabetes, renal failure. Patient states that he is still short of breath. No chest pain. Nausea persists, but is less severe than yesterday. Objective Vitals Vital Signs Date Time Temp Pulse Resp B/P (MAP) Pulse Ox O2 Delivery O2 Flow Rate FiO2 11/18/17 07:01 84 11/18/17 06:02 72 11/18/17 05:00 80 11/18/17 04:00 68 11/18/17 03:07 94 Nasal Cannula 3.00 11/18/17 03:07 98.5 79 22 149/85 (106) 91 11/18/17 03:00 78 11/18/17 02:00 69 11/18/17 01:00 73 11/18/17 00:00 68 11/17/17 23:08 94 Nasal Cannula 3.00 11/17/17 23:08 97.2 58 20 133/64 (87) 94 11/17/17 23:00 73 11/17/17 22:00 72 11/17/17 21:00 74 11/17/17 20:09 94 Nasal Cannula 3.00 11/17/17 20:09 97.2 53 20 124/73 (90) 94 11/17/17 20:00 70 11/17/17 19:00 72 11/17/17 18:01 70 11/17/17 17:19 95 Nasal Cannula 3.00 11/17/17 17:00 68 11/17/17 16:01 70 11/17/17 15:01 95 Nasal Cannula 5.00 11/17/17 15:01 97.4 52 18 115/69 (84) 95 11/17/17 15:00 73 11/17/17 14:00 70 11/17/17 13:00 74 11/17/17 12:01 74 11/17/17 11:01 97 Nasal Cannula 5.00 11/17/17 11:01 97.4 46 18 105/59 (74) 93 11/17/17 11:01 76 11/17/17 10:23 72 11/17/17 10:08 99 Simple Mask 5.00 11/17/17 09:35 74 11/17/17 08:22 56 I/O 11/17/17 11/17/17 11/17/17 11/18/17 11/18/17 11/18/17 07:00 15:00 23:00 07:00 15:00 23:00 Intake Total 146 ml 720 ml 240 ml Output Total 0 ml 1500 ml 325 ml Balance 146 ml -780 ml -85 ml Intake Oral 0 ml 720 ml 240 ml IV Total 146 ml Output Urine Total 0 ml 1500 ml 325 ml # Bowel Movements 0 Result Diagram: 11/18/17 0300 11/18/17 0300 Imaging Last Impressions Renal Ultrasound 11/16/17 0000 Signed Impressions: Service Date/Time: Thursday, November 16, 2017 13:20 - CONCLUSION: 1. No evidence of hydronephrosis. 2. 1 cm benign appearing left renal cyst. Martin Fernandez MD Chest X-Ray 11/16/17 0000 Signed Impressions: Service Date/Time: Thursday, November 16, 2017 23:18 - CONCLUSION: 1. Stable cardiomegaly. 2. Small infiltrate at the left lung base.. Humphrey Shaffer MD Objective Remarks General: Obese male in no acute distress. Heart: Regular rate and rhythm. No murmur. Lungs: Decreased breath sounds in the bases, L>R. Breathing is nonlabored. Abdomen: Soft, nontender, nondistended. Extremities: No lower extremity edema. Psych: Alert and oriented. Procedures None Urinary Catheter: Yes Assessment to: Continue Ness insert reason: Measure Accurate Output Vascular Central Line Catheter: No A/P Assessment and Plan 1. NSTEMI: Patient has significant history of coronary artery disease. Appreciate cardiology recommendations. Troponin is significantly elevated, but trending down. Patient without chest pain. Continue aspirin, beta-bryan. Per cardiology, no catheterization procedure planned due to renal function. 2. Acute exacerbation of chronic systolic congestive heart failure: Echocardiogram from 07/13/17 showed ejection fraction of 20-25%. Continue Lasix. BNP is elevated. Strict intake/output. 3. Atrial fibrillation: Coumadin on hold. On heparin drip. Currently in normal sinus rhythm. 4. Insulin-dependent diabetes mellitus: Continue Lantus. Monitor Accu-Cheks and cover with sliding scale insulin. 5. Acute kidney injury superimposed on chronic kidney disease, cardiorenal syndrome: Appreciate nephrology recommendations. Creatinine increasing. Continue diuresis. 6. Hypertension: Continue home medications. 7. DVT prophylaxis: Heparin drip. 8. Nausea: Continue antiemetics. Stoverink,Fredis D. MD Nov 18, 2017 08:13
[2017-11-18] MEDS: TAMSULOSIN HCL 0.4 MG CAP PO SCH (08:31)
[2017-11-18] MEDS: FUROSEMIDE 40 MG/4 ML VIAL IV PUSH SCH ×2 (08:31→18:50)
[2017-11-18] MEDS: ESCITALOPRAM OXALATE 20 MG TAB PO SCH (08:31)
[2017-11-18] MEDS: ASPIRIN 81 MG CHEW TAB CHEW SCH (08:31)
[2017-11-18] MEDS: METOPROLOL SUCCINATE 50 MG EXTENDED RELEASE TAB PO SCH (08:31)
[2017-11-18] MEDS: CHOLECALCIFEROL (VIT D3) 1000 UNIT TAB PO SCH (08:32)
[2017-11-18] MEDS: SODIUM CHLORIDE 0.9% FLUSH 10 ML FLUSH IV FLUSH SCH ×2 (08:32→21:00)
[2017-11-18] MEDS: INSULIN DETEMIR 100 UNITS/ML VIAL SQ SCH ×2 (09:00→21:00)
--- NOTE | 2017-11-18 12:15 | PD.CARD.PN ---
Subjective Subjective Remarks No events overnight Mildly short of breath, no chest pain Nauseated Objective Medications Current Medications Medications (Trade) Dose Ordered Sig/Jennifer Route Start Time Stop Time Status Last Admin (NS Flush) 2 ml UNSCH PRN IV FLUSH 11/15/17 23:15 (NS Flush) 2 ml BID IV FLUSH 11/16/17 09:00 11/18/17 08:32 (Tylenol) 650 mg Q4H PRN PO 11/15/17 23:15 11/17/17 15:11 (Nitroglycerin 2% Oint) 1 inch Q6HR TOPICAL 11/16/17 00:00 11/18/17 06:14 (D50w (Vial) Inj) 50 ml UNSCH PRN IV PUSH 11/15/17 23:15 (Glucagon Inj) 1 mg UNSCH PRN OTHER 11/15/17 23:15 (NovoLOG SUPPLEMENTAL SCALE) 1 ACHS SLIDING SCALE SQ 11/16/17 08:00 11/16/17 12:44 Pharmacy Profile Note 0 ml @ 0 mls/hr UNSCH OTHER 11/15/17 23:15 (Norvasc) 5 mg DAILY PO 11/16/17 09:00 Future Hold 11/17/17 09:22 (Aspirin Chew) 81 mg DAILY CHEW 11/16/17 09:00 11/18/17 08:31 (Lexapro) 20 mg DAILY PO 11/16/17 09:00 11/18/17 08:31 (Levemir Inj) 70 units BID SQ 11/16/17 09:00 11/17/17 20:35 (Imdur) 120 mg DAILY@0700 PO 11/16/17 07:00 11/18/17 06:14 (Toprol Xl) 100 mg DAILY PO 11/16/17 09:00 11/18/17 08:31 (Flomax) 0.4 mg DAILY PO 11/16/17 09:00 11/18/17 08:31 (Heparin Inj) 5,000 units UNSCH PRN IV PUSH 11/16/17 17:00 (Heparin Inj) 2,500 units UNSCH PRN IV PUSH 11/16/17 17:00 Heparin Sodium/ Dextrose 250 ml @ 10 mls/hr TITRATE PRN IV 11/16/17 13:45 11/17/17 14:50 (Zofran Inj) 4 mg Q6HR PRN IV PUSH 11/17/17 09:45 11/18/17 03:05 (Lasix Inj) 40 mg BID@09,18 IV PUSH 11/17/17 18:00 11/18/17 08:31 (Vitamin D3) 2,000 units DAILY PO 11/17/17 16:15 11/18/17 08:32 Vital Signs / I&O Vital Signs Date Time Temp Pulse Resp B/P (MAP) Pulse Ox O2 Delivery O2 Flow Rate FiO2 11/18/17 11:01 97.6 79 22 143/80 (101) 95 11/18/17 11:01 95 Nasal Cannula 3.00 11/18/17 09:45 95 Nasal Cannula 3.00 11/18/17 08:15 97.7 80 20 143/86 (105) 96 11/18/17 08:15 96 Nasal Cannula 3.00 11/18/17 07:01 84 11/18/17 06:02 72 11/18/17 05:00 80 11/18/17 04:00 68 11/18/17 03:07 94 Nasal Cannula 3.00 11/18/17 03:07 98.5 79 22 149/85 (106) 91 11/18/17 03:00 78 11/18/17 02:00 69 11/18/17 01:00 73 11/18/17 00:00 68 11/17/17 23:08 94 Nasal Cannula 3.00 11/17/17 23:08 97.2 58 20 133/64 (87) 94 11/17/17 23:00 73 11/17/17 22:00 72 11/17/17 21:00 74 11/17/17 20:09 94 Nasal Cannula 3.00 11/17/17 20:09 97.2 53 20 124/73 (90) 94 11/17/17 20:00 70 11/17/17 19:00 72 11/17/17 18:01 70 11/17/17 17:19 95 Nasal Cannula 3.00 11/17/17 17:00 68 11/17/17 16:01 70 11/17/17 15:01 95 Nasal Cannula 5.00 11/17/17 15:01 97.4 52 18 115/69 (84) 95 11/17/17 15:00 73 11/17/17 14:00 70 11/17/17 13:00 74 I/O 11/17/17 11/17/17 11/17/17 11/18/17 11/18/17 11/18/17 07:00 15:00 23:00 07:00 15:00 23:00 Intake Total 146 ml 720 ml 240 ml Output Total 0 ml 1500 ml 325 ml Balance 146 ml -780 ml -85 ml Intake Oral 0 ml 720 ml 240 ml IV Total 146 ml Output Urine Total 0 ml 1500 ml 325 ml # Bowel Movements 0 Physical Exam GENERAL: NAD SKIN: Warm and dry. HEAD: Atraumatic. Normocephalic. EYES: Pupils equal and round. No scleral icterus. No injection or drainage. ENT: No nasal bleeding or discharge. Mucous membranes pink and moist. NECK: Trachea midline. No JVD. CARDIOVASCULAR: Regular rate and rhythm. RESPIRATORY: No accessory muscle use. Decreased breath sounds bilaterally GASTROINTESTINAL: Abdomen soft, non-tender, nondistended. Hepatic and splenic margins not palpable. MUSCULOSKELETAL: 1+ pitting edema NEUROLOGICAL: Awake and alert. No obvious cranial nerve deficits. Motor grossly within normal limits. Five out of 5 muscle strength in the arms and legs. Normal speech. PSYCHIATRIC: Appropriate mood and affect; insight and judgment normal. Laboratory Laboratory Tests Test 11/17/17 18:18 11/18/17 03:00 Urine Total Volume 24 Hours 725 ML Urine Total Protein 24 Hour 2080 MG/24HR White Blood Count 8.0 TH/MM3 Red Blood Count 5.30 MIL/MM3 Hemoglobin 14.9 GM/DL Hematocrit 44.5 % Mean Corpuscular Volume 83.9 FL Mean Corpuscular Hemoglobin 28.2 PG Mean Corpuscular Hemoglobin Concent 33.6 % Red Cell Distribution Width 16.5 % Platelet Count 221 TH/MM3 Mean Platelet Volume 8.0 FL Neutrophils (%) (Auto) 74.9 % Lymphocytes (%) (Auto) 15.8 % Monocytes (%) (Auto) 9.1 % Eosinophils (%) (Auto) 0.1 % Basophils (%) (Auto) 0.1 % Neutrophils # (Auto) 6.0 TH/MM3 Lymphocytes # (Auto) 1.3 TH/MM3 Monocytes # (Auto) 0.7 TH/MM3 Eosinophils # (Auto) 0.0 TH/MM3 Basophils # (Auto) 0.0 TH/MM3 CBC Comment DIFF FINAL Differential Comment Activated Partial Thromboplast Time 40.8 SEC Blood Urea Nitrogen 71 MG/DL Creatinine 3.28 MG/DL Random Glucose 114 MG/DL Calcium Level 8.4 MG/DL Sodium Level 134 MEQ/L Potassium Level 3.9 MEQ/L Chloride Level 97 MEQ/L Carbon Dioxide Level 27.4 MEQ/L Anion Gap 10 MEQ/L Estimat Glomerular Filtration Rate 19 ML/MIN Assessment and Plan Problem List: (1) Cardiorenal syndrome with renal failure ICD Codes: I13.10 - Hypertensive heart and chronic kidney disease without heart failure, with stage 1 through stage 4 chronic kidney disease, or unspecified chronic kidney disease; N19 - Unspecified kidney failure Status: Acute (2) CKD (chronic kidney disease) stage 4, GFR 15-29 ml/min ICD Codes: N18.4 - Chronic kidney disease, stage 4 (severe) Status: Chronic (3) HTN (hypertension) ICD Codes: I10 - Essential (primary) hypertension Status: Acute (4) Proteinuria ICD Codes: R80.9 - Proteinuria, unspecified Status: Chronic (5) NSTEMI (non-ST elevated myocardial infarction) ICD Codes: I21.4 - Non-ST elevation (NSTEMI) myocardial infarction Status: Acute (6) CHF (congestive heart failure) ICD Codes: I50.9 - Heart failure, unspecified Status: Acute (7) Acute exacerbation of congestive heart failure ICD Codes: I50.9 - Heart failure, unspecified (8) Hypertension ICD Codes: I10 - Essential (primary) hypertension Status: Chronic (9) Diabetes ICD Codes: E11.9 - Type 2 diabetes mellitus without complications Status: Acute Assessment and Plan 1) NSTEMI Con't medical management for now Heparin drip 2) JEROME on CKD Concern for worsening kidney function Azotemia as a possible cause of nausea 3) Cardiac cath will have to be on hold due to worsening kidney function, most likely won't happen unless he starts dialysis If no HD, then will need to continue medical management 4) EF 20-25% 5) Coumadin on hold while on heparin drip 6) Fluid overload state, currently stable Increased urine output yesterday Problem Qualifiers (1) CHF (congestive heart failure): Qualified Codes: I50.9 - Heart failure, unspecified Bernardo Avila DO Nov 18, 2017 12:15
--- NOTE | 2017-11-18 16:06 | HHI.NPPN ---
Subjective History of Present Illness 67-year-old male with a history of known CKD, long-standing diabetes mellitus,, coronary disease, question of diabetic retinopathy as well as hypertension and a cardiomyopathy with an ejection fraction said to be 20-25%. Patient presents with dyspnea related to clinically largely evidence of congestive heart failure. Patient is being considered for possible repeat catheterization. As a history of CABG as well as previous stent placement. Creatinine level noted to be 2.25 witnessed by GFR September 09, 2017. On presentation patient has required diuresis and his creatinine level on day of consultation 2.82 with a GFR of only 22. Denies using NSAIDs as an outpatient for analgesia. No history of collagen vascular disease Interval History Patient still experiencing some shortness of breath and wheezing. Review of Systems General Constitutional: Fatigue Respiratory Lungs: SOB, Wheeze Cardiovascular Cardiac: Edema Objective Data Data Vital Signs Date Time Temp Pulse Resp B/P (MAP) Pulse Ox O2 Delivery O2 Flow Rate FiO2 11/18/17 15:15 97.2 57 22 117/74 (88) 95 11/18/17 15:15 95 Nasal Cannula 3.00 11/18/17 13:01 68 11/18/17 12:00 68 11/18/17 11:01 97.6 79 22 143/80 (101) 95 11/18/17 11:01 95 Nasal Cannula 3.00 11/18/17 11:00 71 11/18/17 10:00 72 11/18/17 09:45 95 Nasal Cannula 3.00 11/18/17 09:00 74 11/18/17 08:15 97.7 80 20 143/86 (105) 96 11/18/17 08:15 96 Nasal Cannula 3.00 11/18/17 08:00 76 11/18/17 07:01 84 11/18/17 06:02 72 11/18/17 05:00 80 11/18/17 04:00 68 11/18/17 03:07 94 Nasal Cannula 3.00 11/18/17 03:07 98.5 79 22 149/85 (106) 91 11/18/17 03:00 78 11/18/17 02:00 69 11/18/17 01:00 73 11/18/17 00:00 68 11/17/17 23:08 94 Nasal Cannula 3.00 11/17/17 23:08 97.2 58 20 133/64 (87) 94 11/17/17 23:00 73 11/17/17 22:00 72 11/17/17 21:00 74 11/17/17 20:09 94 Nasal Cannula 3.00 11/17/17 20:09 97.2 53 20 124/73 (90) 94 11/17/17 20:00 70 11/17/17 19:00 72 11/17/17 18:01 70 11/17/17 17:19 95 Nasal Cannula 3.00 11/17/17 17:00 68 -: 11/18/17 0300 11/18/17 0300 Physical Exam General Appearance: No Acute Distress, Comfortable Neck Neck Exam: Neck Supple, Trachea Midline Pulmonary Resp Exam: Decreased Bases, Diminished Breath Sounds, Labored (mild.) Resp Remarks Bilateral medium pitched expiratory wheezes in the mid zone. Cardiology CV Exam: Regular, Normal Sinus Rhythm Gastrointestinal/Abdomen GI Exam: Soft, Distended Integumentary Skin Exam: Clear, Warm Extremeties Extremities Exam: Moderate Edema (1-2+ pitting BLE to hips as well as in hands) Neurologic Neuro Exam: Alert, Awake Psychiatric Psych Exam: Appropriate Responses Assessment/Plan Discussed Condition With: Patient Problem List: (1) Cardiorenal syndrome with renal failure ICD Codes: I13.10 - Hypertensive heart and chronic kidney disease without heart failure, with stage 1 through stage 4 chronic kidney disease, or unspecified chronic kidney disease; N19 - Unspecified kidney failure Status: Acute Plan: Unfortunately patient's renal indices continue to deteriorate most likely related to superimposed diabetic nephropathy with cardiorenal syndrome currently. Continue diuretics at current dosage for the present. I again counseled patient regarding the pathogenesis of cardiorenal syndrome and the possibility that he may require dialytic support. In addition the patient may have a component of intrinsic pulmonary disease protruding to his dyspnea i.e. COPD. Will order nebulizer treatments and also suggest pulmonary consultation in addition. (2) CKD (chronic kidney disease) stage 4, GFR 15-29 ml/min ICD Codes: N18.4 - Chronic kidney disease, stage 4 (severe) Status: Chronic Plan: Most likely related to diabetic nephropathy with possible superimposed nephrosclerosis. Medications should be adjusted for the patient's estimated GFR if clinically indicated. Avoid agents with significant potential for nephrotoxicity possible including NSAIDs for analgesia, . Gadolinium is contraindicated if the GFR is below 30. (3) Proteinuria ICD Codes: R80.9 - Proteinuria, unspecified Status: Chronic Plan: Secondary to diabetic nephropathy. Documented that 2080 mg by 24-hour urine protein. (4) CHF (congestive heart failure) ICD Codes: I50.9 - Heart failure, unspecified Status: Acute Plan: Continue diuretic therapy as is for the present. (5) HTN (hypertension) ICD Codes: I10 - Essential (primary) hypertension Status: Acute Problem Qualifiers (1) CHF (congestive heart failure): Qualified Codes: I50.9 - Heart failure, unspecified Leann Garza MD Nov 18, 2017 16:06
[2017-11-18] MEDS ORDERED: CHLOROTHIAZIDE SOD 500 MG VIAL IV ONE (16:15)
[2017-11-18] MEDS ORDERED: POTASSIUM CHLORIDE 10 MEQ CONTROLLED RELEASE TAB PO ONE (16:15)
[2017-11-18] MEDS ORDERED: RESP: ALBUTEROL 2.5 MG/IPRATROPIUM 0.5 MG NEB (SCH) NEB ONE (16:30)
[2017-11-18] MEDS: HEPARIN-D5W 25,000 U/250 ML 250 ML IV PRN (16:47)
[2017-11-18] MEDS: RESP: ALBUTEROL 2.5 MG/IPRATROPIUM 0.5 MG NEB (SCH) NEB (20:02)
[2017-11-18 22:15] LABS: ALB/GLOB RATIO (SPE) 1.06 (1.39-2.23)
[2017-11-19] VITALS (28 sets, daily range): BP systolic 116–144; BP diastolic 67–79; PULSE 54–75; RESP 18–20; TEMP 97.5–98.5; O2SAT 93–96
[2017-11-19] MEDS: NITROGLYCERIN 2% OINT 1 GM PACKET TOPICAL SCH ×4 (02:17→18:28)
[2017-11-19] MEDS: ISOSORBIDE MONONITRATE 60 MG CR TAB (IMDUR) PO SCH (06:32)
[2017-11-19] MEDS: INSULIN ASPART SUPPLEMENTAL SCALE SQ SCH ×4 (08:00→21:00)
[2017-11-19 08:17] LABS: HEMATOCRIT 42.9 % (39.0-51.0); HEMOGLOBIN 14.7 GM/DL (13.0-17.0); MEAN CELL VOLUME 83.7 FL (80.0-100.0); MEAN CORPUSCULAR HEMOGLOBIN 28.7 PG (27.0-34.0); MEAN CORPUSCULAR HGB CONC 34.3 % (32.0-36.0); MEAN PLATELET VOLUME 8.2 FL (7.0-11.0); PLATELET COUNT 199 TH/MM3 (150-450); RED BLOOD COUNT 5.13 MIL/MM3 (4.50-5.90); RED CELL DISTRIBUTION WIDTH 16.2 % (11.6-17.2); WHITE BLOOD COUNT 6.2 TH/MM3 (4.0-11.0)
[2017-11-19 08:39] LABS: BICARBONATE 27.4 MEQ/L (21.0-32.0); CALCIUM 8.5 MG/DL (8.5-10.1)
[2017-11-19] MEDS: ESCITALOPRAM OXALATE 20 MG TAB PO SCH (08:51)
[2017-11-19] MEDS: CHOLECALCIFEROL (VIT D3) 1000 UNIT TAB PO SCH (08:51)
[2017-11-19] MEDS: FUROSEMIDE 40 MG/4 ML VIAL IV PUSH SCH ×2 (08:52→18:27)
[2017-11-19] MEDS: SODIUM CHLORIDE 0.9% FLUSH 10 ML FLUSH IV FLUSH SCH ×2 (08:52→21:28)
[2017-11-19] MEDS: TAMSULOSIN HCL 0.4 MG CAP PO SCH (08:52)
[2017-11-19] MEDS: ASPIRIN 81 MG CHEW TAB CHEW SCH (08:52)
[2017-11-19] MEDS: METOPROLOL SUCCINATE 50 MG EXTENDED RELEASE TAB PO SCH (09:00)
[2017-11-19] MEDS: INSULIN DETEMIR 100 UNITS/ML VIAL SQ SCH ×2 (09:00→21:00)
[2017-11-19] MEDS: HEPARIN SODIUM - IV 10,000 UNITS/10 ML VIAL IV PUSH PRN (09:00)
[2017-11-19] MEDS: RESP: ALBUTEROL 2.5 MG/IPRATROPIUM 0.5 MG NEB (SCH) NEB ×3 (09:06→19:35)
--- NOTE | 2017-11-19 10:34 | PD.CARD.PN ---
Subjective Subjective Remarks No events overnight SOB better, no chest pain Nauseated Objective Medications Current Medications Medications (Trade) Dose Ordered Sig/Jennifer Route Start Time Stop Time Status Last Admin (NS Flush) 2 ml UNSCH PRN IV FLUSH 11/15/17 23:15 (NS Flush) 2 ml BID IV FLUSH 11/16/17 09:00 11/19/17 08:52 (Tylenol) 650 mg Q4H PRN PO 11/15/17 23:15 11/17/17 15:11 (Nitroglycerin 2% Oint) 1 inch Q6HR TOPICAL 11/16/17 00:00 11/19/17 06:22 (D50w (Vial) Inj) 50 ml UNSCH PRN IV PUSH 11/15/17 23:15 (Glucagon Inj) 1 mg UNSCH PRN OTHER 11/15/17 23:15 (NovoLOG SUPPLEMENTAL SCALE) 1 ACHS SLIDING SCALE SQ 11/16/17 08:00 11/16/17 12:44 Pharmacy Profile Note 0 ml @ 0 mls/hr UNSCH OTHER 11/15/17 23:15 (Norvasc) 5 mg DAILY PO 11/16/17 09:00 Future Hold 11/17/17 09:22 (Aspirin Chew) 81 mg DAILY CHEW 11/16/17 09:00 11/19/17 08:52 (Lexapro) 20 mg DAILY PO 11/16/17 09:00 11/19/17 08:51 (Levemir Inj) 70 units BID SQ 11/16/17 09:00 11/17/17 20:35 (Imdur) 120 mg DAILY@0700 PO 11/16/17 07:00 11/19/17 06:32 (Toprol Xl) 100 mg DAILY PO 11/16/17 09:00 11/18/17 08:31 (Flomax) 0.4 mg DAILY PO 11/16/17 09:00 11/19/17 08:52 (Heparin Inj) 5,000 units UNSCH PRN IV PUSH 11/16/17 17:00 (Heparin Inj) 2,500 units UNSCH PRN IV PUSH 11/16/17 17:00 11/19/17 09:00 Heparin Sodium/ Dextrose 250 ml @ 10 mls/hr TITRATE PRN IV 11/16/17 13:45 3/8/18 16:47 (Zofran Inj) 4 mg Q6HR PRN IV PUSH 11/17/17 09:45 11/18/17 17:00 (Lasix Inj) 40 mg BID@,18 IV PUSH 11/17/17 18:00 11/19/17 08:52 (Vitamin D3) 2,000 units DAILY PO 11/17/17 16:15 11/19/17 08:51 (Duoneb Neb) 1 ampule Q6HR WHILE AWAKE NEB NEB 11/18/17 20:00 11/19/17 09:06 Vital Signs / I&O Vital Signs Date Time Temp Pulse Resp B/P (MAP) Pulse Ox O2 Delivery O2 Flow Rate FiO2 11/19/17 09:09 95 Nasal Cannula 3.00 11/19/17 08:30 98.5 60 20 140/79 (99) 96 11/19/17 08:30 96 Nasal Cannula 3.00 11/19/17 07:01 68 11/19/17 06:00 66 11/19/17 05:00 66 11/19/17 04:00 67 11/19/17 03:53 95 Bi-Pap 3.00 11/19/17 03:00 67 11/19/17 03:00 98.4 54 18 116/67 (83) 96 11/19/17 02:00 66 11/19/17 01:00 66 11/19/17 00:00 66 11/18/17 23:44 94 Bi-Pap 3.00 11/18/17 23:00 98.2 66 20 135/83 (100) 95 11/18/17 23:00 68 11/18/17 22:00 68 11/18/17 21:00 68 11/18/17 20:03 94 Nasal Cannula 3.00 11/18/17 20:00 98.2 59 18 116/69 (85) 95 11/18/17 20:00 96 Nasal Cannula 3.00 11/18/17 20:00 68 11/18/17 19:00 74 11/18/17 16:01 68 11/18/17 15:15 97.2 57 22 117/74 (88) 95 11/18/17 15:15 95 Nasal Cannula 3.00 11/18/17 15:00 68 11/18/17 14:00 68 11/18/17 13:01 68 11/18/17 12:00 68 11/18/17 11:01 97.6 79 22 143/80 (101) 95 11/18/17 11:01 95 Nasal Cannula 3.00 11/18/17 11:00 71 I/O 11/18/17 11/18/17 11/18/17 11/19/17 11/19/17 11/19/17 07:00 15:00 23:00 07:00 15:00 23:00 Intake Total 240 ml 924 ml 240 ml Output Total 325 ml 1150 ml 1852 ml 600 ml Balance -85 ml -226 ml -1612 ml -600 ml Intake Oral 240 ml 924 ml 240 ml Output Urine Total 325 ml 1150 ml 1852 ml 600 ml Stool Total 0 ml # Bowel Movements 0 Physical Exam GENERAL: NAD SKIN: Warm and dry. HEAD: Atraumatic. Normocephalic. EYES: Pupils equal and round. No scleral icterus. No injection or drainage. ENT: No nasal bleeding or discharge. Mucous membranes pink and moist. NECK: Trachea midline. No JVD. CARDIOVASCULAR: Regular rate and rhythm. RESPIRATORY: No accessory muscle use. Decreased breath sounds bilaterally GASTROINTESTINAL: Abdomen soft, non-tender, nondistended. Hepatic and splenic margins not palpable. MUSCULOSKELETAL: 1+ pitting edema NEUROLOGICAL: Awake and alert. No obvious cranial nerve deficits. Motor grossly within normal limits. Five out of 5 muscle strength in the arms and legs. Normal speech. PSYCHIATRIC: Appropriate mood and affect; insight and judgment normal. Laboratory Laboratory Tests Test 11/19/17 06:34 White Blood Count 6.2 TH/MM3 Red Blood Count 5.13 MIL/MM3 Hemoglobin 14.7 GM/DL Hematocrit 42.9 % Mean Corpuscular Volume 83.7 FL Mean Corpuscular Hemoglobin 28.7 PG Mean Corpuscular Hemoglobin Concent 34.3 % Red Cell Distribution Width 16.2 % Platelet Count 199 TH/MM3 Mean Platelet Volume 8.2 FL Activated Partial Thromboplast Time 38.7 SEC Blood Urea Nitrogen 66 MG/DL Creatinine 3.00 MG/DL Random Glucose 132 MG/DL Calcium Level 8.5 MG/DL Sodium Level 133 MEQ/L Potassium Level 3.7 MEQ/L Chloride Level 96 MEQ/L Carbon Dioxide Level 27.4 MEQ/L Anion Gap 10 MEQ/L Estimat Glomerular Filtration Rate 21 ML/MIN Assessment and Plan Problem List: (1) Cardiorenal syndrome with renal failure ICD Codes: I13.10 - Hypertensive heart and chronic kidney disease without heart failure, with stage 1 through stage 4 chronic kidney disease, or unspecified chronic kidney disease; N19 - Unspecified kidney failure Status: Acute (2) CKD (chronic kidney disease) stage 4, GFR 15-29 ml/min ICD Codes: N18.4 - Chronic kidney disease, stage 4 (severe) Status: Chronic (3) HTN (hypertension) ICD Codes: I10 - Essential (primary) hypertension Status: Acute (4) Proteinuria ICD Codes: R80.9 - Proteinuria, unspecified Status: Chronic (5) NSTEMI (non-ST elevated myocardial infarction) ICD Codes: I21.4 - Non-ST elevation (NSTEMI) myocardial infarction Status: Acute (6) CHF (congestive heart failure) ICD Codes: I50.9 - Heart failure, unspecified Status: Acute (7) Acute exacerbation of congestive heart failure ICD Codes: I50.9 - Heart failure, unspecified (8) Hypertension ICD Codes: I10 - Essential (primary) hypertension Status: Chronic (9) Diabetes ICD Codes: E11.9 - Type 2 diabetes mellitus without complications Status: Acute Assessment and Plan 1) NSTEMI Con't medical management for now Heparin drip 2) JEROME on CKD Concern for worsening kidney function Azotemia as a possible cause of nausea 3) Cardiac cath will have to be on hold due to worsening kidney function, most likely won't happen unless he starts dialysis If no HD, then will need to continue medical management 4) EF 20-25% 5) Coumadin on hold while on heparin drip 6) Fluid overload state, currently stable Urine output increasing, creatinine mildly better Problem Qualifiers (1) CHF (congestive heart failure): Qualified Codes: I50.9 - Heart failure, unspecified Bernardo Avila DO Nov 19, 2017 10:34
--- NOTE | 2017-11-19 13:05 | HHI.PR ---
Subjective Remarks Follow up CHF, diabetes, renal failure. The patient states that he is feeling a little better today. Shortness of breath is about the same. Nausea is better. No chest pain. Objective Vitals Vital Signs Date Time Temp Pulse Resp B/P (MAP) Pulse Ox O2 Delivery O2 Flow Rate FiO2 11/19/17 10:01 68 11/19/17 09:09 95 Nasal Cannula 3.00 11/19/17 09:00 68 11/19/17 08:30 98.5 60 20 140/79 (99) 96 11/19/17 08:30 96 Nasal Cannula 3.00 11/19/17 08:00 66 11/19/17 07:01 68 11/19/17 06:00 66 11/19/17 05:00 66 11/19/17 04:00 67 11/19/17 03:53 95 Bi-Pap 3.00 11/19/17 03:00 67 11/19/17 03:00 98.4 54 18 116/67 (83) 96 11/19/17 02:00 66 11/19/17 01:00 66 11/19/17 00:00 66 11/18/17 23:44 94 Bi-Pap 3.00 11/18/17 23:00 98.2 66 20 135/83 (100) 95 11/18/17 23:00 68 11/18/17 22:00 68 11/18/17 21:00 68 11/18/17 20:03 94 Nasal Cannula 3.00 11/18/17 20:00 98.2 59 18 116/69 (85) 95 11/18/17 20:00 96 Nasal Cannula 3.00 11/18/17 20:00 68 11/18/17 19:00 74 11/18/17 16:01 68 11/18/17 15:15 97.2 57 22 117/74 (88) 95 11/18/17 15:15 95 Nasal Cannula 3.00 11/18/17 15:00 68 11/18/17 14:00 68 I/O 11/18/17 11/18/17 11/18/17 11/19/17 11/19/17 11/19/17 07:00 15:00 23:00 07:00 15:00 23:00 Intake Total 240 ml 924 ml 240 ml Output Total 325 ml 1150 ml 1852 ml 600 ml Balance -85 ml -226 ml -1612 ml -600 ml Intake Oral 240 ml 924 ml 240 ml Output Urine Total 325 ml 1150 ml 1852 ml 600 ml Stool Total 0 ml # Bowel Movements 0 Result Diagram: 11/19/17 0634 11/19/17 0634 Imaging Last Impressions Renal Ultrasound 11/16/17 0000 Signed Impressions: Service Date/Time: Thursday, November 16, 2017 13:20 - CONCLUSION: 1. No evidence of hydronephrosis. 2. 1 cm benign appearing left renal cyst. Martin Fernandez MD Chest X-Ray 11/16/17 0000 Signed Impressions: Service Date/Time: Thursday, November 16, 2017 23:18 - CONCLUSION: 1. Stable cardiomegaly. 2. Small infiltrate at the left lung base.. Humphrey Shaffer MD Objective Remarks General: Obese male in no acute distress. Sitting up in a chair. Heart: Regular rate and rhythm. No murmur. Lungs: Decreased breath sounds in the bases, L>R. Mild scattered wheeze. Breathing is nonlabored. Abdomen: Soft, nontender, nondistended. Extremities: No lower extremity edema. Psych: Alert and oriented. Procedures None Urinary Catheter: Yes Assessment to: Continue Ness insert reason: Measure Accurate Output Vascular Central Line Catheter: No A/P Assessment and Plan 1. NSTEMI: Patient has significant history of coronary artery disease. Appreciate cardiology recommendations. Troponin is significantly elevated, but trending down. Patient without chest pain. Continue aspirin, beta-bryan. Per cardiology, no catheterization procedure planned due to renal function. 2. Acute exacerbation of chronic systolic congestive heart failure: Echocardiogram from 07/13/17 showed ejection fraction of 20-25%. Continue Lasix. BNP is elevated. Strict intake/output. 3. Atrial fibrillation: Coumadin on hold. On heparin drip. Currently in normal sinus rhythm. 4. Insulin-dependent diabetes mellitus: Continue Lantus. Monitor Accu-Cheks and cover with sliding scale insulin. 5. Acute kidney injury superimposed on chronic kidney disease, cardiorenal syndrome: Appreciate nephrology recommendations. Creatinine is slightly better today. Continue diuresis. Monitor labs. 6. Hypertension: Continue home medications. 7. DVT prophylaxis: Heparin drip. 8. Nausea: Continue antiemetics. Fredis Otoole MD Nov 19, 2017 13:05
[2017-11-19] MEDS: POTASSIUM CHLORIDE 10 MEQ CONTROLLED RELEASE TAB PO SCH (13:15)
--- NOTE | 2017-11-19 14:53 | HHI.NPPN ---
Subjective History of Present Illness 67-year-old male with a history of known CKD, long-standing diabetes mellitus,, coronary disease, question of diabetic retinopathy as well as hypertension and a cardiomyopathy with an ejection fraction said to be 20-25%. Patient presents with dyspnea related to clinically largely evidence of congestive heart failure. Patient is being considered for possible repeat catheterization. As a history of CABG as well as previous stent placement. Creatinine level noted to be 2.25 witnessed by GFR September 09, 2017. On presentation patient has required diuresis and his creatinine level on day of consultation 2.82 with a GFR of only 22. Denies using NSAIDs as an outpatient for analgesia. No history of collagen vascular disease Interval History Patient indicating a shortness of breath has improved since yesterday. Review of Systems General Constitutional: Fatigue Respiratory Lungs: SOB, Wheeze Cardiovascular Cardiac: Edema Objective Data Data 11/19/17 11/20/17 19:00 07:00 Output Total 600 ml Balance -600 ml Output Urine Total 600 ml Vital Signs Date Time Temp Pulse Resp B/P (MAP) Pulse Ox O2 Delivery O2 Flow Rate FiO2 11/19/17 11:30 96 Nasal Cannula 3.00 11/19/17 11:30 98.2 63 20 129/68 (88) 96 11/19/17 10:01 68 11/19/17 09:09 95 Nasal Cannula 3.00 11/19/17 09:00 68 11/19/17 08:30 98.5 60 20 140/79 (99) 96 11/19/17 08:30 96 Nasal Cannula 3.00 11/19/17 08:00 66 11/19/17 07:01 68 11/19/17 06:00 66 11/19/17 05:00 66 11/19/17 04:00 67 11/19/17 03:53 95 Bi-Pap 3.00 11/19/17 03:00 67 11/19/17 03:00 98.4 54 18 116/67 (83) 96 11/19/17 02:00 66 11/19/17 01:00 66 11/19/17 00:00 66 11/18/17 23:44 94 Bi-Pap 3.00 11/18/17 23:00 98.2 66 20 135/83 (100) 95 11/18/17 23:00 68 11/18/17 22:00 68 11/18/17 21:00 68 11/18/17 20:03 94 Nasal Cannula 3.00 11/18/17 20:00 98.2 59 18 116/69 (85) 95 11/18/17 20:00 96 Nasal Cannula 3.00 11/18/17 20:00 68 11/18/17 19:00 74 11/18/17 16:01 68 11/18/17 15:15 97.2 57 22 117/74 (88) 95 11/18/17 15:15 95 Nasal Cannula 3.00 11/18/17 15:00 68 -: 11/19/17 0634 11/19/17 0634 Physical Exam General Appearance: No Acute Distress, Comfortable Neck Neck Exam: Neck Supple, Trachea Midline Pulmonary Resp Exam: Decreased Bases, Diminished Breath Sounds Resp Remarks Improved Bilateral medium pitched expiratory wheezes in the mid zone. Cardiology CV Exam: Regular, Normal Sinus Rhythm Gastrointestinal/Abdomen GI Exam: Soft, Distended Integumentary Skin Exam: Clear, Warm Extremeties Extremities Exam: Trace Edema, Pitting Edema Neurologic Neuro Exam: Alert, Awake Psychiatric Psych Exam: Appropriate Responses Assessment/Plan Discussed Condition With: Patient Problem List: (1) Cardiorenal syndrome with renal failure ICD Codes: I13.10 - Hypertensive heart and chronic kidney disease without heart failure, with stage 1 through stage 4 chronic kidney disease, or unspecified chronic kidney disease; N19 - Unspecified kidney failure Status: Acute Plan: Significant improvement in renal indices as compared to yesterday and his urine output has also improved. Continue diuretics at current dosage for the present with follow-up volume status and renal indices tomorrow. In addition the patient may have a component of intrinsic pulmonary disease protruding to his dyspnea i.e. COPD. Will order nebulizer treatments and also suggest pulmonary consultation in addition. (2) CKD (chronic kidney disease) stage 4, GFR 15-29 ml/min ICD Codes: N18.4 - Chronic kidney disease, stage 4 (severe) Status: Chronic Plan: Most likely related to diabetic nephropathy with possible superimposed nephrosclerosis. Medications should be adjusted for the patient's estimated GFR if clinically indicated. Avoid agents with significant potential for nephrotoxicity possible including NSAIDs for analgesia, . Gadolinium is contraindicated if the GFR is below 30. (3) Proteinuria ICD Codes: R80.9 - Proteinuria, unspecified Status: Chronic Plan: Secondary to diabetic nephropathy. Documented that 2080 mg by 24-hour urine protein. (4) CHF (congestive heart failure) ICD Codes: I50.9 - Heart failure, unspecified Status: Acute Plan: Continue diuretic therapy as is for the present. (5) HTN (hypertension) ICD Codes: I10 - Essential (primary) hypertension Status: Acute Problem Qualifiers (1) CHF (congestive heart failure): Qualified Codes: I50.9 - Heart failure, unspecified Leann Garza MD Nov 19, 2017 14:53
[2017-11-19] MEDS: HEPARIN-D5W 25,000 U/250 ML 250 ML IV PRN (20:01)
[2017-11-19] MEDS: BUDESONIDE-FORMOTEROL 160/4.5 MCG INHALER INH SCH (21:22)
--- NOTE | 2017-11-19 22:18 | MB ---
cc: Angelina Rosales MD, V J MD DATE OF CONSULT: 11/19/2017 REASON FOR CONSULTATION: Respiratory insufficiency and COPD. HISTORY OF PRESENT ILLNESS: This is a 67-year-old white male with a longstanding history of coronary artery disease, diabetes mellitus, hypertension, chronic kidney disease and cardiomyopathy who has a low ejection fraction and was admitted with progressive shortness of breath and pulmonary edema. The patient has had a previous history of cardiac catheterization and stent placement. He has been complaining of some weakness and dizziness as well as a persistent cough with wheezing. He denied any chest pains or hemoptysis. He was admitted to the cardiac unit and is being considered for cardiac catheterization. Presently, the patient is on O2 at 2 liters and has some wheezing and chest congestion and brings up very little mucus. PAST MEDICAL HISTORY: Has included history of coronary artery disease with stent placement and previous CO as well as CABG x3. He has a permanent pacemaker with AICD, history of inguinal hernia repair and umbilical hernia repair, and history of tonsillectomy remotely. Medical history includes atrial fibrillation, diabetes mellitus type 2, hypertension and CHF and chronic kidney disease. MEDICATIONS: Med list included Lasix 40 mg b.i.d., Flomax 0.4 mg a day, lisinopril 5 mg daily, Isordil 20 mg daily, aspirin 1 daily, amlodipine 5 mg a day, Novolog insulin 5 units at bedtime, Coumadin 5 mg a day, Ranexa 500 mg b.i.d., Lantus insulin 70 units b.i.d. subcu, escitalopram 20 mg a day. ALLERGIES: MORPHINE. FAMILY HISTORY: Significant for diabetes. HABITS: The patient smoked a pack per day for over 15 years and quit many years ago. No significant alcohol. REVIEW OF SYSTEMS: The patient is overweight. He has leg swelling. He has dizzy attacks, postnasal drip, cough with expectoration, epigastric distress, reflux and urinary frequency, joint pains of his extremities, and anxiety. PHYSICAL EXAMINATION: GENERAL: This is an obese elderly man in a chair, mildly dyspneic. VITAL SIGNS: His blood pressure is 112/60, pulse 85, respirations 20, temperature 97.2. HEENT: Normocephalic. Pupils reactive. Tongue is moist. Throat is injected. Nasal mucosa edematous. NECK: No bruits, mild venous distention. CHEST: Equal movements with distant breath sounds, expiratory wheezes bilaterally. Prolonged expirations. There are a few crackles in the lung bases. HEART: Sounds are irregular, S1 and S2, with no murmur. ABDOMEN: Soft, protuberant without masses. No organomegaly or tenderness. The bowel sounds are active. EXTREMITIES: No clubbing and peripheral pulses are diminished. No calf tenderness. NEUROLOGIC: Reflexes are 1+. There is minimal edema. The patient does answer questions well and there are no gross motor or sensory deficits. SKIN: Dry and warm. IMPRESSION: 1. Pulmonary edema with basilar atelectasis. 2. Non-ST elevation myocardial infarction and history of coronary artery disease. 3. Atrial fibrillation on anticoagulation. 4. Chronic obstructive pulmonary disease. 5. Diabetes mellitus type 2. 6. Chronic kidney disease. 7. Hypertension. PLAN: The patient has been placed on O2 at 2 liters. We will get a blood gas study and also get sputum for culture and Gram stain. Diuresis is being done with IV Lasix and followup chest x-ray to be obtained. Nebulized DuoNeb solution added q.i.d. and the patient will be advised to give a sputum for culture and Gram statin. If there is any suspicion of infection, he will be treated with oral antibiotics. We will also get a pulmonary function study at the bedside and incentive spirometry q.i.d. Thank you, Dr. Oro, for this consultation. MD AJ [email or web address]//[email or web address] , 08:47 PM , 09:29 PM
[2017-11-20] VITALS (26 sets, daily range): BP systolic 108–148; BP diastolic 63–80; PULSE 53–75; RESP 14–18; TEMP 97.3–98.4; O2SAT 94–97
[2017-11-20] MEDS: NITROGLYCERIN 2% OINT 1 GM PACKET TOPICAL SCH ×5 (00:01→23:23)
[2017-11-20] MEDS: HEPARIN SODIUM - IV 10,000 UNITS/10 ML VIAL IV PUSH PRN (01:52)
--- NOTE | 2017-11-20 04:56 | RADRPT ---
EXAM DATE/TIME: 11/20/2017 04:15 [facility] COMPARISON: CHEST SINGLE AP, November 16, 2017, 23:18. INDICATIONS : Shortness of breath, possible pulmonary disease. MEDICAL HISTORY : Hypertension. Congestive heart failure. A-Fib SURGICAL HISTORY : CABG. Pacemaker. ENCOUNTER: Subsequent ACUITY: 1 week PAIN SCORE: 0/10 LOCATION: Bilateral chest FINDINGS: Mild bibasilar atelectasis not significantly changed. No large effusion seen. No pneumothorax. Heart size stable and upper limits of normal. Patient has had previous median sternotomy. Cardiac pac er/defibrillator again noted. CONCLUSION: No significant change. Mild bibasilar atelectasis again seen. Adam Cross MD on November 20, 2017 at 4:54 Board Certified Radiologist. This report was verified electronically.
[2017-11-20 05:18] LABS: CALCIUM 8.2 MG/DL (8.5-10.1); CREATININE 2.85 MG/DL (0.60-1.30); MAGNESIUM 2.3 MG/DL (1.5-2.5); PHOSPHORUS 4.4 MG/DL (2.5-4.9)
[2017-11-20] MEDS: ISOSORBIDE MONONITRATE 60 MG CR TAB (IMDUR) PO SCH (06:05)
[2017-11-20] MEDS: RESP: ALBUTEROL 2.5 MG/IPRATROPIUM 0.5 MG NEB (SCH) NEB ×4 (07:54→20:56)
[2017-11-20] MEDS: BUDESONIDE-FORMOTEROL 160/4.5 MCG INHALER INH SCH ×2 (08:33→21:17)
[2017-11-20] MEDS: FUROSEMIDE 40 MG/4 ML VIAL IV PUSH SCH ×2 (08:34→18:31)
[2017-11-20] MEDS: ESCITALOPRAM OXALATE 20 MG TAB PO SCH (08:35)
[2017-11-20] MEDS: ASPIRIN 81 MG CHEW TAB CHEW SCH (08:35)
[2017-11-20] MEDS: METOPROLOL SUCCINATE 50 MG EXTENDED RELEASE TAB PO SCH (08:35)
[2017-11-20] MEDS: TAMSULOSIN HCL 0.4 MG CAP PO SCH (08:35)
[2017-11-20] MEDS: POTASSIUM CHLORIDE 10 MEQ CONTROLLED RELEASE TAB PO SCH (08:36)
[2017-11-20] MEDS: AZITHROMYCIN 250 MG TAB PO SCH (08:36)
[2017-11-20] MEDS: CHOLECALCIFEROL (VIT D3) 1000 UNIT TAB PO SCH (08:36)
[2017-11-20] MEDS: SODIUM CHLORIDE 0.9% FLUSH 10 ML FLUSH IV FLUSH SCH ×2 (08:36→21:18)
--- NOTE | 2017-11-20 08:52 | HHI.PR ---
Subjective Remarks Follow up renal failure, COPD, CHF, diabetes. Patient states that he is feeling better today. Dyspnea and nausea have improved. No chest pain. Objective Vitals Vital Signs Date Time Temp Pulse Resp B/P (MAP) Pulse Ox O2 Delivery O2 Flow Rate FiO2 11/20/17 07:55 96 Nasal Cannula 3.00 11/20/17 06:00 68 11/20/17 05:00 65 11/20/17 04:00 68 11/20/17 03:15 95 3.00 11/20/17 03:00 72 11/20/17 03:00 97.3 61 18 146/78 (100) 94 11/20/17 02:00 68 11/20/17 01:00 68 11/20/17 00:00 74 11/19/17 23:00 98.3 54 20 144/75 (98) 95 11/19/17 23:00 75 11/19/17 23:00 94 Nasal Cannula 3.00 11/19/17 22:00 68 11/19/17 21:28 20 11/19/17 21:00 72 11/19/17 20:00 72 11/19/17 19:39 Nasal Cannula 3.00 11/19/17 19:00 95 Nasal Cannula 3.00 11/19/17 19:00 97.5 57 18 144/75 (98) 95 11/19/17 19:00 72 11/19/17 18:01 74 11/19/17 17:00 70 11/19/17 16:01 68 11/19/17 15:01 97.6 65 18 136/77 (96) 93 11/19/17 15:01 93 Nasal Cannula 3.00 11/19/17 15:00 69 11/19/17 14:00 68 11/19/17 13:00 68 11/19/17 12:00 70 11/19/17 11:30 96 Nasal Cannula 3.00 11/19/17 11:30 98.2 63 20 129/68 (88) 96 11/19/17 11:00 72 11/19/17 10:01 68 11/19/17 09:09 95 Nasal Cannula 3.00 11/19/17 09:00 68 I/O 11/19/17 11/19/17 11/19/17 11/20/17 11/20/17 11/20/17 07:00 15:00 23:00 07:00 15:00 23:00 Intake Total 240 ml 480 ml 240 ml Output Total 1852 ml 600 ml 1125 ml 1100 ml Balance -1612 ml -600 ml -645 ml -860 ml Intake Oral 240 ml 480 ml 240 ml Output Urine Total 1852 ml 600 ml 1125 ml 1100 ml Stool Total 0 ml # Voids 0 # Bowel Movements 1 Result Diagram: 11/19/17 0634 11/20/17 0336 Imaging Last Impressions Chest X-Ray 11/20/17 0600 Signed Impressions: Service Date/Time: Monday, November 20, 2017 04:15 - CONCLUSION: No significant change. Mild bibasilar atelectasis again seen. Adam Cross MD Renal Ultrasound 11/16/17 0000 Signed Impressions: Service Date/Time: Thursday, November 16, 2017 13:20 - CONCLUSION: 1. No evidence of hydronephrosis. 2. 1 cm benign appearing left renal cyst. Martin Fernandez MD Objective Remarks General: Obese male in no acute distress. Heart: Regular rate and rhythm. No murmur. Lungs: Decreased breath sounds in the bases, L>R. Mild scattered wheeze. Breathing is nonlabored. Abdomen: Soft, nontender, nondistended. Extremities: No lower extremity edema. Psych: Sleeping, but awakens easily and answers questions appropriately. Procedures None Urinary Catheter: Yes Assessment to: Continue Ness insert reason: Measure Accurate Output Vascular Central Line Catheter: No A/P Assessment and Plan 1. NSTEMI: Patient has significant history of coronary artery disease. Appreciate cardiology recommendations. Troponin is significantly elevated, but trending down. Patient without chest pain. Continue aspirin, beta-bryan. Per cardiology, no catheterization procedure planned due to renal function. 2. Acute exacerbation of chronic systolic congestive heart failure: Echocardiogram from 07/13/17 showed ejection fraction of 20-25%. Continue Lasix. BNP is elevated. Strict intake/output. 3. Atrial fibrillation: Coumadin on hold. On heparin drip. Currently in normal sinus rhythm. 4. Insulin-dependent diabetes mellitus: Continue Lantus. Monitor Accu-Cheks and cover with sliding scale insulin. 5. Acute kidney injury superimposed on chronic kidney disease, cardiorenal syndrome: Appreciate nephrology recommendations. Creatinine continues to improve. Continue diuresis. Monitor labs. 6. Hypertension: Continue home medications. 7. DVT prophylaxis: Heparin drip. 8. Nausea: Improved. Continue antiemetics as needed. Discharge Planning Pending further clinical improvement and clearance by nephrology/cardiology. Fredis Otoole MD Nov 20, 2017 08:52
[2017-11-20] MEDS: INSULIN ASPART SUPPLEMENTAL SCALE SQ SCH ×4 (09:57→21:00)
[2017-11-20] MEDS: INSULIN DETEMIR 100 UNITS/ML VIAL SQ SCH (09:58)
--- NOTE | 2017-11-20 10:25 | HHI.PR ---
Subjective Remarks Patient is lying in bed on NAD. On heparin drip. Afebrile. Objective Vital Signs Vital Signs Date Time Temp Pulse Resp B/P (MAP) Pulse Ox O2 Delivery O2 Flow Rate FiO2 11/20/17 07:55 96 Nasal Cannula 3.00 11/20/17 06:00 68 11/20/17 05:00 65 11/20/17 04:00 68 11/20/17 03:15 95 3.00 11/20/17 03:00 72 11/20/17 03:00 97.3 61 18 146/78 (100) 94 11/20/17 02:00 68 11/20/17 01:00 68 11/20/17 00:00 74 11/19/17 23:00 98.3 54 20 144/75 (98) 95 11/19/17 23:00 75 11/19/17 23:00 94 Nasal Cannula 3.00 11/19/17 22:00 68 11/19/17 21:28 20 11/19/17 21:00 72 11/19/17 20:00 72 11/19/17 19:39 Nasal Cannula 3.00 11/19/17 19:00 95 Nasal Cannula 3.00 11/19/17 19:00 97.5 57 18 144/75 (98) 95 11/19/17 19:00 72 11/19/17 18:01 74 11/19/17 17:00 70 11/19/17 16:01 68 11/19/17 15:01 97.6 65 18 136/77 (96) 93 11/19/17 15:01 93 Nasal Cannula 3.00 11/19/17 15:00 69 11/19/17 14:00 68 11/19/17 13:00 68 11/19/17 12:00 70 11/19/17 11:30 96 Nasal Cannula 3.00 11/19/17 11:30 98.2 63 20 129/68 (88) 96 11/19/17 11:00 72 I/O 11/19/17 11/19/17 11/19/17 11/20/17 11/20/17 11/20/17 07:00 15:00 23:00 07:00 15:00 23:00 Intake Total 240 ml 480 ml 240 ml Output Total 1852 ml 600 ml 1125 ml 1100 ml Balance -1612 ml -600 ml -645 ml -860 ml Intake Oral 240 ml 480 ml 240 ml Output Urine Total 1852 ml 600 ml 1125 ml 1100 ml Stool Total 0 ml # Voids 0 # Bowel Movements 1 Result Diagram: 11/19/17 0634 11/20/17 0336 Other Results Last Impressions Chest X-Ray 11/20/17 0600 Signed Impressions: Service Date/Time: Monday, November 20, 2017 04:15 - CONCLUSION: No significant change. Mild bibasilar atelectasis again seen. Adam Cross MD Renal Ultrasound 11/16/17 0000 Signed Impressions: Service Date/Time: Thursday, November 16, 2017 13:20 - CONCLUSION: 1. No evidence of hydronephrosis. 2. 1 cm benign appearing left renal cyst. Martin Fernandez MD Objective Remarks GENERAL: Patient is 67 yo lying in bed in NAD SKIN: Warm and dry. HEAD: Normocephalic. EYES: No scleral icterus. No injection or drainage. NECK: Supple, trachea midline. No JVD or lymphadenopathy. CARDIOVASCULAR: Regular rate and rhythm without murmurs, gallops, or rubs. RESPIRATORY: Breath sounds equal bilaterally. No accessory muscle use. GASTROINTESTINAL: Abdomen soft, non-tender, nondistended. MUSCULOSKELETAL: No cyanosis, or edema. Neuro: awake and alert A/P Assessment and Plan 1)Resp Insuff 2)COPD 3) NADINE - on CPAP at home 4)NSTEMI/ Cardiomyopathy 5)Atrial fibrillation on anticoagulation. 6)Diabetes mellitus type 2. 7)Acute on CKD 8)Hypertension. PLAN: Continue with oxygen keep sat >92% Bronchodilators ( DuoNeb, Symbicort) CXR today- bibasilar atelectasis Incentive spirometry Continue with Zithromax, monitor for signs of infections ( fever, WBC) nasal washing negative for Influenza. On Lasix 40mg BID, avoid nephrotoxins, renal is following- Continue Heparin drip- cards is following Continue treatment plan Rachel Roberts MD Nov 20, 2017 10:25
--- NOTE | 2017-11-20 12:23 | HHI.NPPN ---
Subjective History of Present Illness 67-year-old male with a history of known CKD, long-standing diabetes mellitus,, coronary disease, question of diabetic retinopathy as well as hypertension and a cardiomyopathy with an ejection fraction said to be 20-25%. Patient presents with dyspnea related to clinically largely evidence of congestive heart failure. Patient is being considered for possible repeat catheterization. As a history of CABG as well as previous stent placement. Creatinine level noted to be 2.25 witnessed by GFR September 09, 2017. On presentation patient has required diuresis and his creatinine level on day of consultation 2.82 with a GFR of only 22. Denies using NSAIDs as an outpatient for analgesia. No history of collagen vascular disease Interval History Pt feeling OK today. Breathing still not great. No longer with nausea (Blessing Wilson) Review of Systems General Constitutional: Fatigue (Blessing Wilson) Respiratory Lungs: SOB, Wheeze (Blessing Wilson) Cardiovascular Cardiac: Edema (Blessing Wilson) Objective Data Data Vital Signs Date Time Temp Pulse Resp B/P (MAP) Pulse Ox O2 Delivery O2 Flow Rate FiO2 11/20/17 11:00 68 11/20/17 10:00 72 11/20/17 09:00 68 11/20/17 08:00 68 11/20/17 08:00 97.4 60 16 148/80 (102) 97 11/20/17 08:00 97 Nasal Cannula 2.50 11/20/17 07:55 96 Nasal Cannula 3.00 11/20/17 07:00 60 11/20/17 06:00 68 11/20/17 05:00 65 11/20/17 04:00 68 11/20/17 03:15 95 3.00 11/20/17 03:00 72 11/20/17 03:00 97.3 61 18 146/78 (100) 94 11/20/17 02:00 68 11/20/17 01:00 68 11/20/17 00:00 74 11/19/17 23:00 98.3 54 20 144/75 (98) 95 11/19/17 23:00 75 11/19/17 23:00 94 Nasal Cannula 3.00 11/19/17 22:00 68 11/19/17 21:28 20 11/19/17 21:00 72 11/19/17 20:00 72 11/19/17 19:39 Nasal Cannula 3.00 11/19/17 19:00 95 Nasal Cannula 3.00 11/19/17 19:00 97.5 57 18 144/75 (98) 95 11/19/17 19:00 72 11/19/17 18:01 74 11/19/17 17:00 70 11/19/17 16:01 68 11/19/17 15:01 97.6 65 18 136/77 (96) 93 11/19/17 15:01 93 Nasal Cannula 3.00 11/19/17 15:00 69 11/19/17 14:00 68 11/19/17 13:00 68 (Blessing Wilson) -: 11/19/17 0634 11/20/17 0336 Imaging Last Impressions Chest X-Ray 11/20/17 0600 Signed Impressions: Service Date/Time: Monday, November 20, 2017 04:15 - CONCLUSION: No significant change. Mild bibasilar atelectasis again seen. Adam Cross MD Renal Ultrasound 11/16/17 0000 Signed Impressions: Service Date/Time: Thursday, November 16, 2017 13:20 - CONCLUSION: 1. No evidence of hydronephrosis. 2. 1 cm benign appearing left renal cyst. Martin Fernandez MD Medication Review Current Medications Medications (Trade) Dose Ordered Sig/Jennifer Route Start Time Stop Time Status Last Admin (NS Flush) 2 ml UNSCH PRN IV FLUSH 11/15/17 23:15 (NS Flush) 2 ml BID IV FLUSH 11/16/17 09:00 11/19/17 21:28 (Tylenol) 650 mg Q4H PRN PO 11/15/17 23:15 11/17/17 15:11 (Nitroglycerin 2% Oint) 1 inch Q6HR TOPICAL 11/16/17 00:00 11/20/17 06:04 (D50w (Vial) Inj) 50 ml UNSCH PRN IV PUSH 11/15/17 23:15 (Glucagon Inj) 1 mg UNSCH PRN OTHER 11/15/17 23:15 (NovoLOG SUPPLEMENTAL SCALE) 1 ACHS SLIDING SCALE SQ 11/16/17 08:00 11/20/17 09:57 Pharmacy Profile Note 0 ml @ 0 mls/hr UNSCH OTHER 11/15/17 23:15 (Norvasc) 5 mg DAILY PO 11/16/17 09:00 Future Hold 11/17/17 09:22 (Aspirin Chew) 81 mg DAILY CHEW 11/16/17 09:00 11/20/17 08:35 (Lexapro) 20 mg DAILY PO 11/16/17 09:00 11/20/17 08:35 (Levemir Inj) 70 units BID SQ 11/16/17 09:00 11/17/17 20:35 (Imdur) 120 mg DAILY@0700 PO 11/16/17 07:00 11/20/17 06:05 (Toprol Xl) 100 mg DAILY PO 11/16/17 09:00 11/20/17 08:35 (Flomax) 0.4 mg DAILY PO 11/16/17 09:00 11/20/17 08:35 (Heparin Inj) 5,000 units UNSCH PRN IV PUSH 11/16/17 17:00 (Heparin Inj) 2,500 units UNSCH PRN IV PUSH 11/16/17 17:00 11/20/17 01:52 Heparin Sodium/ Dextrose 250 ml @ 10 mls/hr TITRATE PRN IV 11/16/17 13:45 11/19/17 20:01 (Zofran Inj) 4 mg Q6HR PRN IV PUSH 11/17/17 09:45 11/18/17 17:00 (Lasix Inj) 40 mg BID@,18 IV PUSH 11/17/17 18:00 11/20/17 08:34 (Vitamin D3) 2,000 units DAILY PO 11/17/17 16:15 11/20/17 08:36 (Symbicort 160-4.5 Mcg Inh) 2 puff Q12HR INH 11/19/17 21:00 11/20/17 08:33 (Duoneb Neb) 1 ampule QID NEB NEB 11/19/17 16:00 11/20/17 07:54 (KCl) 20 meq DAILY PO 11/19/17 13:15 11/20/17 08:36 (Zithromax) 500 mg DAILY PO 11/20/17 09:00 11/20/17 08:36 (Blessing Wilson) Physical Exam General Appearance: No Acute Distress, Comfortable (Blessing Wilson) Neck Neck Exam: Neck Supple, Trachea Midline (Blessing Wilson) Pulmonary Resp Exam: Decreased Bases, Diminished Breath Sounds (Blessing Wilson) Cardiology CV Exam: Regular, Normal Sinus Rhythm (Blessing Wilson) Gastrointestinal/Abdomen GI Exam: Soft, Distended (Blessing Wilson) Integumentary Skin Exam: Clear, Warm (Blessing Wilson) Extremeties Extremities Exam: Trace Edema, Pitting Edema (Blessing Wilson) Neurologic Neuro Exam: Alert, Awake (Blessing Wilson) Psychiatric Psych Exam: Appropriate Responses (Blessing Wilson) Assessment/Plan Discussed Condition With: Patient Problem List: (1) Cardiorenal syndrome with renal failure ICD Codes: I13.10 - Hypertensive heart and chronic kidney disease without heart failure, with stage 1 through stage 4 chronic kidney disease, or unspecified chronic kidney disease; N19 - Unspecified kidney failure Status: Acute Plan: Renal functions improving UOP good. Remains to be seen where he will stabilize. Edema much improved. Appreciate pulmonology input. Medications should be adjusted for the patient's renal decline. Avoid nephrotoxins such as iodinated contrast dyes and NSAIDs. (2) CKD (chronic kidney disease) stage 4, GFR 15-29 ml/min ICD Codes: N18.4 - Chronic kidney disease, stage 4 (severe) Status: Chronic Plan: Most likely related to diabetic nephropathy with possible superimposed nephrosclerosis. Medications should be adjusted for the patient's estimated GFR if clinically indicated. Avoid agents with significant potential for nephrotoxicity possible including NSAIDs for analgesia, . Gadolinium is contraindicated if the GFR is below 30. (3) Proteinuria ICD Codes: R80.9 - Proteinuria, unspecified Status: Chronic Plan: Secondary to diabetic nephropathy. Documented that 2080 mg by 24-hour urine protein. (4) CHF (congestive heart failure) ICD Codes: I50.9 - Heart failure, unspecified Status: Acute Plan: Continue diuretic therapy as is for the present. (5) HTN (hypertension) ICD Codes: I10 - Essential (primary) hypertension Status: Acute (Blessing Wilson) Plan The exam, history, and the medical decision-making described in the above note were completed with the assistance of the [facility]. I reviewed and agree with the findings presented. (Leann Garza MD) Problem Qualifiers (1) CHF (congestive heart failure): Qualified Codes: I50.9 - Heart failure, unspecified Blessing Wilson Nov 20, 2017 12:23 Leann Garza MD Nov 20, 2017 14:20
--- NOTE | 2017-11-20 13:42 | PD.CARD.PN ---
Subjective Subjective Remarks No events overnight SOB better, no chest pain Objective Medications Current Medications Medications (Trade) Dose Ordered Sig/Jennifer Route Start Time Stop Time Status Last Admin (NS Flush) 2 ml UNSCH PRN IV FLUSH 11/15/17 23:15 (NS Flush) 2 ml BID IV FLUSH 11/16/17 09:00 11/19/17 21:28 (Tylenol) 650 mg Q4H PRN PO 11/15/17 23:15 11/17/17 15:11 (Nitroglycerin 2% Oint) 1 inch Q6HR TOPICAL 11/16/17 00:00 11/20/17 12:30 (D50w (Vial) Inj) 50 ml UNSCH PRN IV PUSH 11/15/17 23:15 (Glucagon Inj) 1 mg UNSCH PRN OTHER 11/15/17 23:15 (NovoLOG SUPPLEMENTAL SCALE) 1 ACHS SLIDING SCALE SQ 11/16/17 08:00 11/20/17 09:57 Pharmacy Profile Note 0 ml @ 0 mls/hr UNSCH OTHER 11/15/17 23:15 (Norvasc) 5 mg DAILY PO 11/16/17 09:00 Future Hold 11/17/17 09:22 (Aspirin Chew) 81 mg DAILY CHEW 11/16/17 09:00 11/20/17 08:35 (Lexapro) 20 mg DAILY PO 11/16/17 09:00 11/20/17 08:35 (Levemir Inj) 70 units BID SQ 11/16/17 09:00 11/17/17 20:35 (Imdur) 120 mg DAILY@0700 PO 11/16/17 07:00 11/20/17 06:05 (Toprol Xl) 100 mg DAILY PO 11/16/17 09:00 11/20/17 08:35 (Flomax) 0.4 mg DAILY PO 11/16/17 09:00 11/20/17 08:35 (Heparin Inj) 5,000 units UNSCH PRN IV PUSH 11/16/17 17:00 (Heparin Inj) 2,500 units UNSCH PRN IV PUSH 11/16/17 17:00 11/20/17 01:52 Heparin Sodium/ Dextrose 250 ml @ 10 mls/hr TITRATE PRN IV 11/16/17 13:45 11/19/17 20:01 (Zofran Inj) 4 mg Q6HR PRN IV PUSH 11/17/17 09:45 11/18/17 17:00 (Lasix Inj) 40 mg BID@,18 IV PUSH 11/17/17 18:00 11/20/17 08:34 (Vitamin D3) 2,000 units DAILY PO 11/17/17 16:15 11/20/17 08:36 (Symbicort 160-4.5 Mcg Inh) 2 puff Q12HR INH 11/19/17 21:00 11/20/17 08:33 (Duoneb Neb) 1 ampule QID NEB NEB 11/19/17 16:00 11/20/17 12:31 (KCl) 20 meq DAILY PO 11/19/17 13:15 11/20/17 08:36 (Zithromax) 500 mg DAILY PO 11/20/17 09:00 11/20/17 08:36 Vital Signs / I&O Vital Signs Date Time Temp Pulse Resp B/P (MAP) Pulse Ox O2 Delivery O2 Flow Rate FiO2 11/20/17 11:00 68 11/20/17 10:00 72 11/20/17 09:00 68 11/20/17 08:00 68 11/20/17 08:00 97.4 60 16 148/80 (102) 97 11/20/17 08:00 97 Nasal Cannula 2.50 11/20/17 07:55 96 Nasal Cannula 3.00 11/20/17 07:00 60 11/20/17 06:00 68 11/20/17 05:00 65 11/20/17 04:00 68 11/20/17 03:15 95 3.00 11/20/17 03:00 72 11/20/17 03:00 97.3 61 18 146/78 (100) 94 11/20/17 02:00 68 11/20/17 01:00 68 11/20/17 00:00 74 11/19/17 23:00 98.3 54 20 144/75 (98) 95 11/19/17 23:00 75 11/19/17 23:00 94 Nasal Cannula 3.00 11/19/17 22:00 68 11/19/17 21:28 20 11/19/17 21:00 72 11/19/17 20:00 72 11/19/17 19:39 Nasal Cannula 3.00 11/19/17 19:00 95 Nasal Cannula 3.00 11/19/17 19:00 97.5 57 18 144/75 (98) 95 11/19/17 19:00 72 11/19/17 18:01 74 11/19/17 17:00 70 11/19/17 16:01 68 11/19/17 15:01 97.6 65 18 136/77 (96) 93 11/19/17 15:01 93 Nasal Cannula 3.00 11/19/17 15:00 69 11/19/17 14:00 68 I/O 11/19/17 11/19/17 11/19/17 11/20/17 11/20/17 11/20/17 07:00 15:00 23:00 07:00 15:00 23:00 Intake Total 240 ml 480 ml 240 ml Output Total 1852 ml 600 ml 1125 ml 1100 ml Balance -1612 ml -600 ml -645 ml -860 ml Intake Oral 240 ml 480 ml 240 ml Output Urine Total 1852 ml 600 ml 1125 ml 1100 ml Stool Total 0 ml # Voids 0 # Bowel Movements 1 Physical Exam GENERAL: NAD SKIN: Warm and dry. HEAD: Atraumatic. Normocephalic. EYES: Pupils equal and round. No scleral icterus. No injection or drainage. ENT: No nasal bleeding or discharge. Mucous membranes pink and moist. NECK: Trachea midline. No JVD. CARDIOVASCULAR: Regular rate and rhythm. RESPIRATORY: No accessory muscle use. Decreased breath sounds bilaterally GASTROINTESTINAL: Abdomen soft, non-tender, nondistended. Hepatic and splenic margins not palpable. MUSCULOSKELETAL: 1+ pitting edema NEUROLOGICAL: Awake and alert. No obvious cranial nerve deficits. Motor grossly within normal limits. Five out of 5 muscle strength in the arms and legs. Normal speech. PSYCHIATRIC: Appropriate mood and affect; insight and judgment normal. Laboratory Laboratory Tests Test 11/19/17 17:20 11/19/17 22:19 11/20/17 03:36 11/20/17 12:12 Activated Partial Thromboplast Time 41.1 SEC 36.4 SEC 61.6 SEC 41.0 SEC Blood Urea Nitrogen 67 MG/DL Creatinine 2.85 MG/DL Random Glucose 154 MG/DL Calcium Level 8.2 MG/DL Phosphorus Level 4.4 MG/DL Magnesium Level 2.3 MG/DL Sodium Level 133 MEQ/L Potassium Level 3.7 MEQ/L Chloride Level 96 MEQ/L Carbon Dioxide Level 27.0 MEQ/L Anion Gap 10 MEQ/L Estimat Glomerular Filtration Rate 22 ML/MIN Imaging Last 24 hours Impressions Chest X-Ray 11/20/17 0600 Signed Impressions: Service Date/Time: Monday, November 20, 2017 04:15 - CONCLUSION: No significant change. Mild bibasilar atelectasis again seen. Adam Cross MD Assessment and Plan Problem List: (1) Cardiorenal syndrome with renal failure ICD Codes: I13.10 - Hypertensive heart and chronic kidney disease without heart failure, with stage 1 through stage 4 chronic kidney disease, or unspecified chronic kidney disease; N19 - Unspecified kidney failure Status: Acute (2) CKD (chronic kidney disease) stage 4, GFR 15-29 ml/min ICD Codes: N18.4 - Chronic kidney disease, stage 4 (severe) Status: Chronic (3) HTN (hypertension) ICD Codes: I10 - Essential (primary) hypertension Status: Acute (4) Proteinuria ICD Codes: R80.9 - Proteinuria, unspecified Status: Chronic (5) NSTEMI (non-ST elevated myocardial infarction) ICD Codes: I21.4 - Non-ST elevation (NSTEMI) myocardial infarction Status: Acute (6) CHF (congestive heart failure) ICD Codes: I50.9 - Heart failure, unspecified Status: Acute (7) Acute exacerbation of congestive heart failure ICD Codes: I50.9 - Heart failure, unspecified (8) Hypertension ICD Codes: I10 - Essential (primary) hypertension Status: Chronic (9) Diabetes ICD Codes: E11.9 - Type 2 diabetes mellitus without complications Status: Acute Assessment and Plan 1) NSTEMI Con't medical management for now Heparin drip 2) JEROME on CKD Concern for worsening kidney function Azotemia as a possible cause of nausea 3) Cardiac cath will have to be on hold due to worsening kidney function Discussed continuing medical management vs cardiac catheterization Overall wants to have cardiac catheterization to determine cause of episode Will need to see where his creatinine stabilizes Most likely diagnostic cath, and stage any intervention 4) EF 20-25% 5) Coumadin on hold while on heparin drip 6) Fluid overload state, currently stable Urine output increasing, creatinine mildly better Problem Qualifiers (1) CHF (congestive heart failure): Qualified Codes: I50.9 - Heart failure, unspecified Bernardo Avila DO Nov 20, 2017 13:42
[2017-11-20] MEDS: HEPARIN-D5W 25,000 U/250 ML 250 ML IV PRN (14:10)
[2017-11-21] VITALS (25 sets, daily range): BP systolic 118–144; BP diastolic 65–80; PULSE 56–98; RESP 12–60; TEMP 97.5–98.6; O2SAT 94–96
[2017-11-21 05:56] LABS: HEMATOCRIT 43.5 % (39.0-51.0); HEMOGLOBIN 14.8 GM/DL (13.0-17.0); MEAN CELL VOLUME 83.7 FL (80.0-100.0); MEAN CORPUSCULAR HEMOGLOBIN 28.5 PG (27.0-34.0); MEAN CORPUSCULAR HGB CONC 34.1 % (32.0-36.0); MEAN PLATELET VOLUME 8.2 FL (7.0-11.0); PLATELET COUNT 211 TH/MM3 (150-450); RED CELL DISTRIBUTION WIDTH 16.5 % (11.6-17.2); WHITE BLOOD COUNT 5.1 TH/MM3 (4.0-11.0)
[2017-11-21] MEDS: ISOSORBIDE MONONITRATE 60 MG CR TAB (IMDUR) PO SCH (06:12)
[2017-11-21] MEDS: NITROGLYCERIN 2% OINT 1 GM PACKET TOPICAL SCH ×3 (06:12→18:30)
[2017-11-21 06:18] LABS: BICARBONATE 27.8 MEQ/L (21.0-32.0); CALCIUM 8.7 MG/DL (8.5-10.1); CREATININE 2.39 MG/DL (0.60-1.30)
[2017-11-21] MEDS: HEPARIN SODIUM - IV 10,000 UNITS/10 ML VIAL IV PUSH PRN ×2 (07:01→21:05)
[2017-11-21] MEDS: INSULIN ASPART SUPPLEMENTAL SCALE SQ SCH ×4 (08:00→21:08)
[2017-11-21] MEDS: RESP: ALBUTEROL 2.5 MG/IPRATROPIUM 0.5 MG NEB (SCH) NEB ×4 (08:34→21:30)
[2017-11-21] MEDS: SODIUM CHLORIDE 0.9% FLUSH 10 ML FLUSH IV FLUSH SCH ×2 (09:00→21:00)
--- NOTE | 2017-11-21 09:27 | HHI.PR ---
Subjective Remarks No events overnight. Patient is on 3L oxygen. On heparin drip. Afebrile. Objective Vital Signs Vital Signs Date Time Temp Pulse Resp B/P (MAP) Pulse Ox O2 Delivery O2 Flow Rate FiO2 11/21/17 08:34 96 Nasal Cannula 3.00 11/21/17 06:34 60 11/21/17 05:00 64 11/21/17 04:00 60 11/21/17 03:00 97.6 61 16 134/77 (96) 95 11/21/17 03:00 72 11/21/17 03:00 95 Nasal Cannula 2.50 11/21/17 02:00 64 11/21/17 01:00 68 11/21/17 00:00 64 11/20/17 23:00 64 11/20/17 23:00 97 Nasal Cannula 2.50 11/20/17 23:00 98.1 59 18 108/63 (78) 97 11/20/17 22:00 66 11/20/17 21:00 70 11/20/17 20:56 96 BiPAP 3.00 11/20/17 20:00 70 11/20/17 19:00 98.4 53 18 131/74 (93) 94 11/20/17 19:00 67 11/20/17 19:00 94 Nasal Cannula 2.50 11/20/17 18:00 75 11/20/17 17:00 62 11/20/17 16:00 69 11/20/17 15:00 94 Nasal Cannula 2.50 11/20/17 15:00 65 11/20/17 15:00 98.2 57 14 118/71 (87) 94 11/20/17 14:00 70 11/20/17 13:00 69 11/20/17 12:00 70 11/20/17 11:00 97.6 61 14 128/75 (92) 94 11/20/17 11:00 68 11/20/17 11:00 94 Nasal Cannula 2.50 11/20/17 10:00 72 I/O 11/20/17 11/20/17 11/20/17 11/21/17 11/21/17 11/21/17 07:00 15:00 23:00 07:00 15:00 23:00 Intake Total 240 ml 240 ml 464 ml Output Total 1100 ml 1200 ml 1000 ml Balance -860 ml -960 ml -536 ml Intake Oral 240 ml 240 ml 320 ml IV Total 144 ml Output Urine Total 1100 ml 1200 ml 1000 ml # Bowel Movements 0 Result Diagram: 11/21/17 0455 11/21/17 0455 Other Results Laboratory Tests Test 11/20/17 12:12 11/21/17 04:55 Activated Partial Thromboplast Time 41.0 SEC 38.1 SEC White Blood Count 5.1 TH/MM3 Red Blood Count 5.20 MIL/MM3 Hemoglobin 14.8 GM/DL Hematocrit 43.5 % Mean Corpuscular Volume 83.7 FL Mean Corpuscular Hemoglobin 28.5 PG Mean Corpuscular Hemoglobin Concent 34.1 % Red Cell Distribution Width 16.5 % Platelet Count 211 TH/MM3 Mean Platelet Volume 8.2 FL Blood Urea Nitrogen 59 MG/DL Creatinine 2.39 MG/DL Random Glucose 169 MG/DL Calcium Level 8.7 MG/DL Sodium Level 137 MEQ/L Potassium Level 4.3 MEQ/L Chloride Level 100 MEQ/L Carbon Dioxide Level 27.8 MEQ/L Anion Gap 9 MEQ/L Estimat Glomerular Filtration Rate 27 ML/MIN Objective Remarks GENERAL: Patient is 67 yo lying in bed in NAD SKIN: Warm and dry. HEAD: Normocephalic. EYES: No scleral icterus. No injection or drainage. NECK: Supple, trachea midline. No JVD or lymphadenopathy. CARDIOVASCULAR: Regular rate and rhythm without murmurs, gallops, or rubs. RESPIRATORY: Breath sounds equal bilaterally.Few coarse BS GASTROINTESTINAL: Abdomen soft, non-tender, nondistended. MUSCULOSKELETAL: No cyanosis, or edema. Neuro: awake and alert A/P Assessment and Plan 1)Resp Insuff 2)COPD 3) NADINE - on CPAP at home 4)NSTEMI/ Cardiomyopathy 5)Atrial fibrillation on anticoagulation. 6)Diabetes mellitus type 2. 7)Acute on CKD 8)Hypertension. PLAN: Continue with oxygen keep sat >92% Bronchodilators ( DuoNeb, Symbicort) CXR3/10- bibasilar atelectasis Incentive spirometry Continue with Zithromax, monitor for signs of infections ( fever, WBC) nasal washing negative for Influenza. On Lasix 40mg BID, avoid nephrotoxins, renal is following- Renal fucntion is improving Continue Heparin drip- cards is following Continue treatment plan Rachel Roberts MD Nov 21, 2017 09:27
[2017-11-21] MEDS: FUROSEMIDE 40 MG/4 ML VIAL IV PUSH SCH ×2 (09:30→19:00)
[2017-11-21] MEDS: AZITHROMYCIN 250 MG TAB PO SCH (09:30)
[2017-11-21] MEDS: TAMSULOSIN HCL 0.4 MG CAP PO SCH (09:31)
[2017-11-21] MEDS: ESCITALOPRAM OXALATE 20 MG TAB PO SCH (09:31)
[2017-11-21] MEDS: METOPROLOL SUCCINATE 50 MG EXTENDED RELEASE TAB PO SCH (09:31)
[2017-11-21] MEDS: ASPIRIN 81 MG CHEW TAB CHEW SCH (09:31)
[2017-11-21] MEDS: CHOLECALCIFEROL (VIT D3) 1000 UNIT TAB PO SCH (09:31)
[2017-11-21] MEDS: POTASSIUM CHLORIDE 10 MEQ CONTROLLED RELEASE TAB PO SCH (09:31)
[2017-11-21] MEDS: BUDESONIDE-FORMOTEROL 160/4.5 MCG INHALER INH SCH ×2 (09:32→21:05)
[2017-11-21] MEDS: HEPARIN-D5W 25,000 U/250 ML 250 ML IV PRN (11:48)
--- NOTE | 2017-11-21 13:29 | PD.CARD.PN ---
Subjective Subjective Remarks No events overnight SOB better, no chest pain Objective Medications Current Medications Medications (Trade) Dose Ordered Sig/Jennifer Route Start Time Stop Time Status Last Admin (NS Flush) 2 ml UNSCH PRN IV FLUSH 11/15/17 23:15 (NS Flush) 2 ml BID IV FLUSH 11/16/17 09:00 11/21/17 09:00 (Tylenol) 650 mg Q4H PRN PO 11/15/17 23:15 11/17/17 15:11 (Nitroglycerin 2% Oint) 1 inch Q6HR TOPICAL 11/16/17 00:00 11/21/17 12:30 (D50w (Vial) Inj) 50 ml UNSCH PRN IV PUSH 11/15/17 23:15 (Glucagon Inj) 1 mg UNSCH PRN OTHER 11/15/17 23:15 (NovoLOG SUPPLEMENTAL SCALE) 1 ACHS SLIDING SCALE SQ 11/16/17 08:00 11/21/17 08:00 Pharmacy Profile Note 0 ml @ 0 mls/hr UNSCH OTHER 11/15/17 23:15 (Norvasc) 5 mg DAILY PO 11/16/17 09:00 Future Hold 11/17/17 09:22 (Aspirin Chew) 81 mg DAILY CHEW 11/16/17 09:00 11/21/17 09:31 (Lexapro) 20 mg DAILY PO 11/16/17 09:00 11/21/17 09:31 (Levemir Inj) 70 units BID SQ 11/16/17 09:00 Future Hold 11/17/17 20:35 (Imdur) 120 mg DAILY@0700 PO 11/16/17 07:00 11/21/17 06:12 (Toprol Xl) 100 mg DAILY PO 11/16/17 09:00 11/21/17 09:31 (Flomax) 0.4 mg DAILY PO 11/16/17 09:00 11/21/17 09:31 (Heparin Inj) 5,000 units UNSCH PRN IV PUSH 11/16/17 17:00 (Heparin Inj) 2,500 units UNSCH PRN IV PUSH 11/16/17 17:00 11/21/17 07:01 Heparin Sodium/ Dextrose 250 ml @ 10 mls/hr TITRATE PRN IV 11/16/17 13:45 11/21/17 11:48 (Zofran Inj) 4 mg Q6HR PRN IV PUSH 11/17/17 09:45 11/18/17 17:00 (Lasix Inj) 40 mg BID@18 IV PUSH 11/17/17 18:00 11/21/17 09:30 (Vitamin D3) 2,000 units DAILY PO 11/17/17 16:15 11/21/17 09:31 (Symbicort 160-4.5 Mcg Inh) 2 puff Q12HR INH 11/19/17 21:00 11/21/17 09:32 (Duoneb Neb) 1 ampule QID NEB NEB 11/19/17 16:00 11/21/17 12:18 (KCl) 20 meq DAILY PO 11/19/17 13:15 11/21/17 09:31 (Zithromax) 500 mg DAILY PO 11/20/17 09:00 11/21/17 09:30 Vital Signs / I&O Vital Signs Date Time Temp Pulse Resp B/P (MAP) Pulse Ox O2 Delivery O2 Flow Rate FiO2 11/21/17 12:00 64 11/21/17 11:00 75 11/21/17 10:00 70 11/21/17 09:00 70 11/21/17 08:34 96 Nasal Cannula 3.00 11/21/17 08:00 60 11/21/17 08:00 98.4 61 16 121/68 (85) 94 11/21/17 08:00 94 Nasal Cannula 2.50 11/21/17 07:00 61 11/21/17 06:34 60 11/21/17 05:00 64 11/21/17 04:00 60 11/21/17 03:00 97.6 61 16 134/77 (96) 95 11/21/17 03:00 72 11/21/17 03:00 95 Nasal Cannula 2.50 11/21/17 02:00 64 11/21/17 01:00 68 11/21/17 00:00 64 11/20/17 23:00 64 11/20/17 23:00 97 Nasal Cannula 2.50 11/20/17 23:00 98.1 59 18 108/63 (78) 97 11/20/17 22:00 66 11/20/17 21:00 70 11/20/17 20:56 96 BiPAP 3.00 11/20/17 20:00 70 11/20/17 19:00 98.4 53 18 131/74 (93) 94 11/20/17 19:00 67 11/20/17 19:00 94 Nasal Cannula 2.50 11/20/17 18:00 75 11/20/17 17:00 62 11/20/17 16:00 69 11/20/17 15:00 94 Nasal Cannula 2.50 11/20/17 15:00 65 11/20/17 15:00 98.2 57 14 118/71 (87) 94 11/20/17 14:00 70 I/O 11/20/17 11/20/17 11/20/17 11/21/17 11/21/17 11/21/17 07:00 15:00 23:00 07:00 15:00 23:00 Intake Total 240 ml 240 ml 464 ml Output Total 1100 ml 1200 ml 1000 ml Balance -860 ml -960 ml -536 ml Intake Oral 240 ml 240 ml 320 ml IV Total 144 ml Output Urine Total 1100 ml 1200 ml 1000 ml # Bowel Movements 0 Physical Exam GENERAL: NAD SKIN: Warm and dry. HEAD: Atraumatic. Normocephalic. EYES: Pupils equal and round. No scleral icterus. No injection or drainage. ENT: No nasal bleeding or discharge. Mucous membranes pink and moist. NECK: Trachea midline. No JVD. CARDIOVASCULAR: Regular rate and rhythm. RESPIRATORY: No accessory muscle use. Decreased breath sounds bilaterally GASTROINTESTINAL: Abdomen soft, non-tender, nondistended. Hepatic and splenic margins not palpable. MUSCULOSKELETAL: 1+ pitting edema NEUROLOGICAL: Awake and alert. No obvious cranial nerve deficits. Motor grossly within normal limits. Five out of 5 muscle strength in the arms and legs. Normal speech. PSYCHIATRIC: Appropriate mood and affect; insight and judgment normal. Laboratory Laboratory Tests Test 11/21/17 04:55 White Blood Count 5.1 TH/MM3 Red Blood Count 5.20 MIL/MM3 Hemoglobin 14.8 GM/DL Hematocrit 43.5 % Mean Corpuscular Volume 83.7 FL Mean Corpuscular Hemoglobin 28.5 PG Mean Corpuscular Hemoglobin Concent 34.1 % Red Cell Distribution Width 16.5 % Platelet Count 211 TH/MM3 Mean Platelet Volume 8.2 FL Activated Partial Thromboplast Time 38.1 SEC Blood Urea Nitrogen 59 MG/DL Creatinine 2.39 MG/DL Random Glucose 169 MG/DL Calcium Level 8.7 MG/DL Sodium Level 137 MEQ/L Potassium Level 4.3 MEQ/L Chloride Level 100 MEQ/L Carbon Dioxide Level 27.8 MEQ/L Anion Gap 9 MEQ/L Estimat Glomerular Filtration Rate 27 ML/MIN Assessment and Plan Problem List: (1) Cardiorenal syndrome with renal failure ICD Codes: I13.10 - Hypertensive heart and chronic kidney disease without heart failure, with stage 1 through stage 4 chronic kidney disease, or unspecified chronic kidney disease; N19 - Unspecified kidney failure Status: Acute (2) CKD (chronic kidney disease) stage 4, GFR 15-29 ml/min ICD Codes: N18.4 - Chronic kidney disease, stage 4 (severe) Status: Chronic (3) HTN (hypertension) ICD Codes: I10 - Essential (primary) hypertension Status: Acute (4) Proteinuria ICD Codes: R80.9 - Proteinuria, unspecified Status: Chronic (5) NSTEMI (non-ST elevated myocardial infarction) ICD Codes: I21.4 - Non-ST elevation (NSTEMI) myocardial infarction Status: Acute (6) CHF (congestive heart failure) ICD Codes: I50.9 - Heart failure, unspecified Status: Acute (7) Acute exacerbation of congestive heart failure ICD Codes: I50.9 - Heart failure, unspecified (8) Hypertension ICD Codes: I10 - Essential (primary) hypertension Status: Chronic (9) Diabetes ICD Codes: E11.9 - Type 2 diabetes mellitus without complications Status: Acute Assessment and Plan 1) NSTEMI Con't medical management for now Heparin drip 2) JEROME on CKD Resolving Azotemia as a possible cause of nausea 3) Cardiac cath will have to be on hold due to worsening kidney function Discussed continuing medical management vs cardiac catheterization Patient now hesitant about cardiac catheterization and risk of kidney disease , wants to think about it before proceeding Planned for possible cath on /Wed, depending on kidney function, but will reassess tomorrow and see if patient wants cath vs medical management 4) EF 20-25% 5) Coumadin on hold while on heparin drip 6) Fluid overload state, currently stable Urine output increasing, creatinine back to baseline Problem Qualifiers (1) CHF (congestive heart failure): Qualified Codes: I50.9 - Heart failure, unspecified Bernardo Avila DO Nov 21, 2017 13:29
--- NOTE | 2017-11-21 15:35 | HHI.NPPN ---
Subjective History of Present Illness 67-year-old male with a history of known CKD, long-standing diabetes mellitus,, coronary disease, question of diabetic retinopathy as well as hypertension and a cardiomyopathy with an ejection fraction said to be 20-25%. Patient presents with dyspnea related to clinically largely evidence of congestive heart failure. Patient is being considered for possible repeat catheterization. As a history of CABG as well as previous stent placement. Creatinine level noted to be 2.25 witnessed by GFR September 09, 2017. On presentation patient has required diuresis and his creatinine level on day of consultation 2.82 with a GFR of only 22. Denies using NSAIDs as an outpatient for analgesia. No history of collagen vascular disease Interval History Patient indicated that he is still having some dyspnea with exertion. Otherwise no verbal complaints. Review of Systems General Constitutional: Fatigue Respiratory Lungs: SOB, Wheeze Cardiovascular Cardiac: Edema Objective Data Data Vital Signs Date Time Temp Pulse Resp B/P (MAP) Pulse Ox O2 Delivery O2 Flow Rate FiO2 11/21/17 14:00 73 11/21/17 13:00 73 11/21/17 12:00 64 11/21/17 11:00 98.6 56 12 118/65 (82) 94 11/21/17 11:00 94 Nasal Cannula 2.50 11/21/17 11:00 75 11/21/17 10:00 70 11/21/17 09:00 70 11/21/17 08:34 96 Nasal Cannula 3.00 11/21/17 08:00 60 11/21/17 08:00 98.4 61 16 121/68 (85) 94 11/21/17 08:00 94 Nasal Cannula 2.50 11/21/17 07:00 61 11/21/17 06:34 60 11/21/17 05:00 64 11/21/17 04:00 60 11/21/17 03:00 97.6 61 16 134/77 (96) 95 11/21/17 03:00 72 11/21/17 03:00 95 Nasal Cannula 2.50 11/21/17 02:00 64 11/21/17 01:00 68 11/21/17 00:00 64 11/20/17 23:00 64 11/20/17 23:00 97 Nasal Cannula 2.50 11/20/17 23:00 98.1 59 18 108/63 (78) 97 11/20/17 22:00 66 11/20/17 21:00 70 11/20/17 20:56 96 BiPAP 3.00 11/20/17 20:00 70 11/20/17 19:00 98.4 53 18 131/74 (93) 94 11/20/17 19:00 67 11/20/17 19:00 94 Nasal Cannula 2.50 11/20/17 18:00 75 11/20/17 17:00 62 11/20/17 16:00 69 -: 11/21/17 0455 11/21/17 0455 Physical Exam General Appearance: No Acute Distress, Comfortable Neck Neck Exam: Neck Supple, Trachea Midline Pulmonary Resp Exam: Decreased Bases, Diminished Breath Sounds Resp Remarks Lungs were completely clear to auscultation today. Cardiology CV Exam: Regular, Normal Sinus Rhythm Gastrointestinal/Abdomen GI Exam: Soft, Distended Integumentary Skin Exam: Clear, Warm Extremeties Extremities Exam: No Edema Neurologic Neuro Exam: Alert, Awake Psychiatric Psych Exam: Appropriate Responses Assessment/Plan Discussed Condition With: Patient Problem List: (1) Cardiorenal syndrome with renal failure ICD Codes: I13.10 - Hypertensive heart and chronic kidney disease without heart failure, with stage 1 through stage 4 chronic kidney disease, or unspecified chronic kidney disease; N19 - Unspecified kidney failure Status: Acute Plan: Renal indices continue to improve. Volume status also much improved. I will consider changing to by mouth furosemide tomorrow. As far as cardiac catheterization is concerned risk-benefit ratio has to be considered prior to proceeding as discussed with patient. The estimated risk of contrast nephrotoxicity based on current renal disease and risk factors would be about 26% which would likely be reversible although it may result in some reduction in baseline renal function. Risks that the patient may require dialytic support post contrast exposure which may be required temporarily or permanently would be about 1.1% estimated as discussed with the patient. Discussion of of potential benefit of cardiac catheterization and risks of not doing same will be deferred to cardiology. Medications should be adjusted for the patient's renal decline. Avoid nephrotoxins such as iodinated contrast dyes and NSAIDs. (2) CKD (chronic kidney disease) stage 4, GFR 15-29 ml/min ICD Codes: N18.4 - Chronic kidney disease, stage 4 (severe) Status: Chronic Plan: Most likely related to diabetic nephropathy with possible superimposed nephrosclerosis. Medications should be adjusted for the patient's estimated GFR if clinically indicated. Avoid agents with significant potential for nephrotoxicity possible including NSAIDs for analgesia, . Gadolinium is contraindicated if the GFR is below 30. (3) Proteinuria ICD Codes: R80.9 - Proteinuria, unspecified Status: Chronic Plan: Secondary to diabetic nephropathy. Documented that 2080 mg by 24-hour urine protein. (4) CHF (congestive heart failure) ICD Codes: I50.9 - Heart failure, unspecified Status: Acute Plan: Improved clinically. (5) HTN (hypertension) ICD Codes: I10 - Essential (primary) hypertension Status: Acute Plan The exam, history, and the medical decision-making described in the above note were completed with the assistance of the DANII. I reviewed and agree with the findings presented. Problem Qualifiers (1) CHF (congestive heart failure): Qualified Codes: I50.9 - Heart failure, unspecified Leann Garza MD Nov 21, 2017 15:35
--- NOTE | 2017-11-21 15:59 | HHI.PR ---
Subjective Remarks Follow-up renal failure, coronary artery disease, CHF. Patient continues to report shortness of breath. Denies chest pain. Nausea has improved. Objective Vitals Vital Signs Date Time Temp Pulse Resp B/P (MAP) Pulse Ox O2 Delivery O2 Flow Rate FiO2 11/21/17 14:00 73 11/21/17 13:00 73 11/21/17 12:00 64 11/21/17 11:00 98.6 56 12 118/65 (82) 94 11/21/17 11:00 94 Nasal Cannula 2.50 11/21/17 11:00 75 11/21/17 10:00 70 11/21/17 09:00 70 11/21/17 08:34 96 Nasal Cannula 3.00 11/21/17 08:00 60 11/21/17 08:00 98.4 61 16 121/68 (85) 94 11/21/17 08:00 94 Nasal Cannula 2.50 11/21/17 07:00 61 11/21/17 06:34 60 11/21/17 05:00 64 11/21/17 04:00 60 11/21/17 03:00 97.6 61 16 134/77 (96) 95 11/21/17 03:00 72 11/21/17 03:00 95 Nasal Cannula 2.50 11/21/17 02:00 64 11/21/17 01:00 68 11/21/17 00:00 64 11/20/17 23:00 64 11/20/17 23:00 97 Nasal Cannula 2.50 11/20/17 23:00 98.1 59 18 108/63 (78) 97 11/20/17 22:00 66 11/20/17 21:00 70 11/20/17 20:56 96 BiPAP 3.00 11/20/17 20:00 70 11/20/17 19:00 98.4 53 18 131/74 (93) 94 11/20/17 19:00 67 11/20/17 19:00 94 Nasal Cannula 2.50 11/20/17 18:00 75 11/20/17 17:00 62 11/20/17 16:00 69 I/O 11/20/17 11/20/17 11/20/17 11/21/17 11/21/17 11/21/17 07:00 15:00 23:00 07:00 15:00 23:00 Intake Total 240 ml 240 ml 464 ml Output Total 1100 ml 1200 ml 1000 ml Balance -860 ml -960 ml -536 ml Intake Oral 240 ml 240 ml 320 ml IV Total 144 ml Output Urine Total 1100 ml 1200 ml 1000 ml # Bowel Movements 0 Result Diagram: 11/21/17 0455 11/21/17 0455 Imaging Last Impressions Chest X-Ray 11/20/17 0600 Signed Impressions: Service Date/Time: Monday, November 20, 2017 04:15 - CONCLUSION: No significant change. Mild bibasilar atelectasis again seen. Adam Cross MD Renal Ultrasound 11/16/17 0000 Signed Impressions: Service Date/Time: Thursday, November 16, 2017 13:20 - CONCLUSION: 1. No evidence of hydronephrosis. 2. 1 cm benign appearing left renal cyst. Martin Fernandez MD Objective Remarks General: Obese male in no acute distress. Heart: Regular rate and rhythm. No murmur. Lungs: Decreased breath sounds in the bases. Breathing is nonlabored. Abdomen: Soft, nontender, nondistended. Extremities: No lower extremity edema. Psych: Alert and oriented. Procedures None Urinary Catheter: Yes Assessment to: Continue Ness insert reason: Measure Accurate Output Vascular Central Line Catheter: No A/P Assessment and Plan 1. NSTEMI: Patient has significant history of coronary artery disease. Appreciate cardiology recommendations. Troponin is significantly elevated, but trending down. Patient without chest pain. Continue aspirin, beta-bryan. Discussed with Dr. Avila. The patient is considering whether he would like to proceed with cardiac catheterization now that his renal function is improved. 2. Acute exacerbation of chronic systolic congestive heart failure: Echocardiogram from 07/13/17 showed ejection fraction of 20-25%. Continue Lasix. BNP is elevated. Strict intake/output. 3. Atrial fibrillation: Coumadin on hold. On heparin drip. Currently in normal sinus rhythm. 4. Insulin-dependent diabetes mellitus: Continue Lantus. Monitor Accu-Cheks and cover with sliding scale insulin. 5. Acute kidney injury superimposed on chronic kidney disease, cardiorenal syndrome: Appreciate nephrology recommendations. Creatinine continues to improve. Continue diuresis. Monitor labs. 6. Hypertension: Continue home medications. 7. DVT prophylaxis: Heparin drip. 8. Nausea: Improved. Continue antiemetics as needed. Discharge Planning Pending further clinical improvement and clearance by nephrology/cardiology. Fredis Otoole MD Nov 21, 2017 15:59
[2017-11-22] VITALS (28 sets, daily range): BP systolic 112–140; BP diastolic 66–82; PULSE 54–75; RESP 18–20; TEMP 97.7–98.3; O2SAT 92–98
[2017-11-22] MEDS: NITROGLYCERIN 2% OINT 1 GM PACKET TOPICAL SCH ×5 (02:35→23:59)
[2017-11-22 02:50] LABS: HEMATOCRIT 43.3 % (39.0-51.0); MEAN CORPUSCULAR HEMOGLOBIN 29.2 PG (27.0-34.0); MEAN CORPUSCULAR HGB CONC 34.7 % (32.0-36.0); MEAN PLATELET VOLUME 7.7 FL (7.0-11.0); PLATELET COUNT 232 TH/MM3 (150-450); RED BLOOD COUNT 5.15 MIL/MM3 (4.50-5.90); RED CELL DISTRIBUTION WIDTH 16.4 % (11.6-17.2); WHITE BLOOD COUNT 6.2 TH/MM3 (4.0-11.0)
[2017-11-22 02:58] LABS: BICARBONATE 30.8 MEQ/L (21.0-32.0); CALCIUM 8.7 MG/DL (8.5-10.1); CREATININE 2.29 MG/DL (0.60-1.30)
[2017-11-22] MEDS: FUROSEMIDE 40 MG TAB PO SCH ×2 (04:08→17:07)
[2017-11-22] MEDS: HEPARIN-D5W 25,000 U/250 ML 250 ML IV PRN ×2 (04:15→21:30)
[2017-11-22] MEDS: ISOSORBIDE MONONITRATE 60 MG CR TAB (IMDUR) PO SCH (06:20)
[2017-11-22] MEDS: INSULIN ASPART SUPPLEMENTAL SCALE SQ SCH ×4 (08:00→21:00)
[2017-11-22] MEDS: RESP: ALBUTEROL 2.5 MG/IPRATROPIUM 0.5 MG NEB (SCH) NEB ×4 (08:43→20:52)
--- NOTE | 2017-11-22 08:49 | HHI.PR ---
Subjective Remarks Follow-up CAD, renal failure. Patient states that he feels a little better today. No chest pain. No events reported overnight by nursing. Objective Vitals Vital Signs Date Time Temp Pulse Resp B/P (MAP) Pulse Ox O2 Delivery O2 Flow Rate FiO2 11/22/17 07:15 60 11/22/17 07:15 61 20 133/82 (99) 95 11/22/17 07:15 95 11/22/17 06:00 68 11/22/17 05:00 64 11/22/17 04:42 97.7 58 20 112/77 (89) 92 11/22/17 04:00 72 11/22/17 03:00 60 11/22/17 02:00 64 11/22/17 01:00 68 11/22/17 00:00 68 11/21/17 23:00 97.6 69 20 133/80 (97) 96 11/21/17 23:00 70 11/21/17 22:00 68 11/21/17 21:00 68 11/21/17 20:00 96 Nasal Cannula 2.50 11/21/17 20:00 68 11/21/17 20:00 97.5 68 20 144/72 (96) 96 11/21/17 19:00 73 11/21/17 18:00 72 11/21/17 17:00 72 11/21/17 16:00 70 11/21/17 15:00 72 11/21/17 15:00 95 Nasal Cannula 2.50 11/21/17 15:00 98.0 60 60 127/76 (93) 95 11/21/17 14:00 73 11/21/17 13:00 73 11/21/17 12:00 64 11/21/17 11:00 98.6 56 12 118/65 (82) 94 11/21/17 11:00 94 Nasal Cannula 2.50 11/21/17 11:00 75 11/21/17 10:00 70 11/21/17 09:00 70 I/O 11/21/17 11/21/17 11/21/17 11/22/17 11/22/17 11/22/17 07:00 15:00 23:00 07:00 15:00 23:00 Intake Total 464 ml 645.5 ml Output Total 1000 ml 700 ml 1250 ml Balance -536 ml -700 ml -604.5 ml Intake Oral 320 ml 480 ml IV Total 144 ml 165.5 ml Output Urine Total 1000 ml 700 ml 1250 ml Stool Total 0 ml # Bowel Movements 0 1 Result Diagram: 11/22/17 0235 11/22/17 0235 Imaging Last Impressions Chest X-Ray 11/20/17 0600 Signed Impressions: Service Date/Time: Monday, November 20, 2017 04:15 - CONCLUSION: No significant change. Mild bibasilar atelectasis again seen. Adam Cross MD Renal Ultrasound 11/16/17 0000 Signed Impressions: Service Date/Time: Thursday, November 16, 2017 13:20 - CONCLUSION: 1. No evidence of hydronephrosis. 2. 1 cm benign appearing left renal cyst. Martin Fernandez MD Objective Remarks General: Obese male in no acute distress. CPAP mask in place. Heart: Regular rate and rhythm. No murmur. Lungs: Decreased breath sounds in the bases. Breathing is nonlabored. Abdomen: Soft, nontender, nondistended. Extremities: No lower extremity edema. Psych: Alert and oriented. Procedures None Urinary Catheter: Yes Assessment to: Continue Ness insert reason: Measure Accurate Output Vascular Central Line Catheter: No A/P Assessment and Plan 1. NSTEMI: Patient has significant history of coronary artery disease. Appreciate cardiology recommendations. Troponin is significantly elevated, but trending down. Patient without chest pain. Continue aspirin, beta-bryan. The patient is considering whether he would like to proceed with cardiac catheterization now that his renal function is improved. 2. Acute exacerbation of chronic systolic congestive heart failure: Echocardiogram from 07/13/17 showed ejection fraction of 20-25%. Continue Lasix. BNP is elevated. Strict intake/output. 3. Atrial fibrillation: Coumadin on hold. On heparin drip. Currently in normal sinus rhythm. Continue telemetry monitoring. 4. Insulin-dependent diabetes mellitus: Levemir on hold secondary to poor oral intake. Will resume as oral intake improves. Monitor Accu-Cheks and cover with sliding scale insulin. 5. Acute kidney injury superimposed on chronic kidney disease, cardiorenal syndrome: Appreciate nephrology recommendations. Creatinine continues to improve. Continue diuresis. Monitor labs. 6. Hypertension: Continue home medications. 7. DVT prophylaxis: Heparin drip. 8. Nausea: Improved. Continue antiemetics as needed. Discharge Planning Pending further clinical improvement and clearance by nephrology/cardiology. Fredis Otoole MD Nov 22, 2017 08:49
[2017-11-22] MEDS: SODIUM CHLORIDE 0.9% FLUSH 10 ML FLUSH IV FLUSH SCH ×2 (09:00→21:00)
--- NOTE | 2017-11-22 10:05 | RSPPFT ---
DATE OF PROCEDURE: 11/19/17 COMMENTS: Spirometry demonstrates an FEV1of 1.3 at 43% of predicted, FVC of 1.8 at 47%, FEF 25-75 is 32%. Post-bronchodilator study demonstrated no significant change. Flow volume loops indicate a restrictive pattern. IMPRESSION: 1. Moderate obstructive disease. 2. Additional mild to moderate restrictive disease. 3. No significant change following use of bronchodilator.
[2017-11-22] MEDS: METOPROLOL SUCCINATE 50 MG EXTENDED RELEASE TAB PO SCH (10:13)
[2017-11-22] MEDS: ESCITALOPRAM OXALATE 20 MG TAB PO SCH (10:13)
[2017-11-22] MEDS: AZITHROMYCIN 250 MG TAB PO SCH (10:14)
[2017-11-22] MEDS: POTASSIUM CHLORIDE 10 MEQ CONTROLLED RELEASE TAB PO SCH (10:14)
[2017-11-22] MEDS: ASPIRIN 81 MG CHEW TAB CHEW SCH (10:14)
[2017-11-22] MEDS: TAMSULOSIN HCL 0.4 MG CAP PO SCH (10:14)
[2017-11-22] MEDS: CHOLECALCIFEROL (VIT D3) 1000 UNIT TAB PO SCH (10:14)
[2017-11-22] MEDS: BUDESONIDE-FORMOTEROL 160/4.5 MCG INHALER INH SCH ×2 (10:15→21:00)
--- NOTE | 2017-11-22 12:09 | HHI.NPPN ---
Subjective History of Present Illness 67-year-old male with a history of known CKD, long-standing diabetes mellitus,, coronary disease, question of diabetic retinopathy as well as hypertension and a cardiomyopathy with an ejection fraction said to be 20-25%. Patient presents with dyspnea related to clinically largely evidence of congestive heart failure. Patient is being considered for possible repeat catheterization. As a history of CABG as well as previous stent placement. Creatinine level noted to be 2.25 witnessed by GFR September 09, 2017. On presentation patient has required diuresis and his creatinine level on day of consultation 2.82 with a GFR of only 22. Denies using NSAIDs as an outpatient for analgesia. No history of collagen vascular disease Interval History Shortness of breath improved. Daughter by bedside. Review of Systems General Constitutional: Fatigue Objective Data Data Vital Signs Date Time Temp Pulse Resp B/P (MAP) Pulse Ox O2 Delivery O2 Flow Rate FiO2 11/22/17 11:00 67 11/22/17 11:00 95 Nasal Cannula 3.00 11/22/17 11:00 98.3 61 20 133/75 (94) 95 11/22/17 10:00 72 11/22/17 09:00 60 11/22/17 08:00 62 11/22/17 07:15 60 11/22/17 07:15 61 20 133/82 (99) 95 11/22/17 07:15 95 11/22/17 06:00 68 11/22/17 05:00 64 11/22/17 04:42 97.7 58 20 112/77 (89) 92 11/22/17 04:00 72 11/22/17 03:00 60 11/22/17 02:00 64 11/22/17 01:00 68 11/22/17 00:00 68 11/21/17 23:00 97.6 69 20 133/80 (97) 96 11/21/17 23:00 70 11/21/17 22:00 68 11/21/17 21:00 68 11/21/17 20:00 96 Nasal Cannula 2.50 11/21/17 20:00 68 11/21/17 20:00 97.5 68 20 144/72 (96) 96 11/21/17 19:00 73 11/21/17 18:00 72 11/21/17 17:00 72 11/21/17 16:00 70 11/21/17 15:00 72 11/21/17 15:00 95 Nasal Cannula 2.50 11/21/17 15:00 98.0 60 60 127/76 (93) 95 11/21/17 14:00 73 11/21/17 13:00 73 -: 11/22/17 0235 11/22/17 0235 Physical Exam General Appearance: No Acute Distress, Comfortable Neck Neck Exam: Neck Supple, Trachea Midline Pulmonary Resp Exam: Clear Bilaterally Resp Remarks Lungs were completely clear to auscultation today. Cardiology CV Exam: Regular, Normal Sinus Rhythm Gastrointestinal/Abdomen GI Exam: Soft, Distended Integumentary Skin Exam: Clear, Warm Extremeties Extremities Exam: No Edema Neurologic Neuro Exam: Alert, Awake Psychiatric Psych Exam: Appropriate Responses Assessment/Plan Discussed Condition With: Patient Problem List: (1) Cardiorenal syndrome with renal failure ICD Codes: I13.10 - Hypertensive heart and chronic kidney disease without heart failure, with stage 1 through stage 4 chronic kidney disease, or unspecified chronic kidney disease; N19 - Unspecified kidney failure Status: Acute Plan: Renal indices continue to improve. Volume status also much improved. Patient converted to by mouth furosemide. As far as cardiac catheterization is concerned risk-benefit ratio has to be considered prior to proceeding as discussed with patient. The estimated risk of contrast nephrotoxicity based on current renal disease and risk factors would be about 26% which would likely be reversible although it may result in some reduction in baseline renal function. Risks that the patient may require dialytic support post contrast exposure which may be required temporarily or permanently would be about 1.1% estimated as discussed with the patient. Discussion of of potential benefit of cardiac catheterization and risks of not doing same will be deferred to cardiology. Medications should be adjusted for the patient's renal decline. Avoid nephrotoxins such as iodinated contrast dyes and NSAIDs. (2) CKD (chronic kidney disease) stage 4, GFR 15-29 ml/min ICD Codes: N18.4 - Chronic kidney disease, stage 4 (severe) Status: Chronic Plan: Most likely related to diabetic nephropathy with possible superimposed nephrosclerosis. Discussed with the patient and his daughter with his permission potential benefit of dietary modification, avoidance of NSAIDs for analgesia as well as improved diabetic control improved slowing progression of CKD.. Patient was advised however given the severity of his renal dysfunction and it may well likely progress in his lifetime towards end-stage renal disease. Medications should be adjusted for the patient's estimated GFR if clinically indicated. Avoid agents with significant potential for nephrotoxicity possible including NSAIDs for analgesia, . Gadolinium is contraindicated if the GFR is below 30. (3) Proteinuria ICD Codes: R80.9 - Proteinuria, unspecified Status: Chronic Plan: Secondary to diabetic nephropathy. Documented that 2080 mg by 24-hour urine protein. (4) CHF (congestive heart failure) ICD Codes: I50.9 - Heart failure, unspecified Status: Acute Plan: Improved clinically. (5) HTN (hypertension) ICD Codes: I10 - Essential (primary) hypertension Status: Acute Problem Qualifiers (1) CHF (congestive heart failure): Qualified Codes: I50.9 - Heart failure, unspecified Leann Garza MD Nov 22, 2017 12:09
--- NOTE | 2017-11-22 17:25 | PD.CARD.PN ---
Subjective Subjective Remarks No events overnight SOB better, no chest pain Objective Medications Current Medications Medications (Trade) Dose Ordered Sig/Jennifer Route Start Time Stop Time Status Last Admin (NS Flush) 2 ml UNSCH PRN IV FLUSH 11/15/17 23:15 (NS Flush) 2 ml BID IV FLUSH 11/16/17 09:00 11/21/17 09:00 (Tylenol) 650 mg Q4H PRN PO 11/15/17 23:15 11/17/17 15:11 (Nitroglycerin 2% Oint) 1 inch Q6HR TOPICAL 11/16/17 00:00 11/22/17 17:07 (D50w (Vial) Inj) 50 ml UNSCH PRN IV PUSH 11/15/17 23:15 (Glucagon Inj) 1 mg UNSCH PRN OTHER 11/15/17 23:15 (NovoLOG SUPPLEMENTAL SCALE) 1 ACHS SLIDING SCALE SQ 11/16/17 08:00 11/22/17 17:00 (Norvasc) 5 mg DAILY PO 11/16/17 09:00 Future Hold 11/17/17 09:22 (Aspirin Chew) 81 mg DAILY CHEW 11/16/17 09:00 11/22/17 10:14 (Lexapro) 20 mg DAILY PO 11/16/17 09:00 11/22/17 10:13 (Levemir Inj) 70 units BID SQ 11/16/17 09:00 Future Hold 11/17/17 20:35 (Imdur) 120 mg DAILY@0700 PO 11/16/17 07:00 11/22/17 06:20 (Toprol Xl) 100 mg DAILY PO 11/16/17 09:00 11/22/17 10:13 (Flomax) 0.4 mg DAILY PO 11/16/17 09:00 11/22/17 10:14 (Heparin Inj) 5,000 units UNSCH PRN IV PUSH 11/16/17 17:00 (Heparin Inj) 2,500 units UNSCH PRN IV PUSH 11/16/17 17:00 11/21/17 21:05 Heparin Sodium/ Dextrose 250 ml @ 10 mls/hr TITRATE PRN IV 11/16/17 13:45 11/22/17 04:15 (Zofran Inj) 4 mg Q6HR PRN IV PUSH 11/17/17 09:45 11/18/17 17:00 (Vitamin D3) 2,000 units DAILY PO 11/17/17 16:15 11/22/17 10:14 (Symbicort 160-4.5 Mcg Inh) 2 puff Q12HR INH 11/19/17 21:00 11/22/17 10:15 (Duoneb Neb) 1 ampule QID NEB NEB 11/19/17 16:00 11/22/17 12:36 (KCl) 20 meq DAILY PO 11/19/17 13:15 11/22/17 10:14 (Zithromax) 500 mg DAILY PO 11/20/17 09:00 11/22/17 10:14 (Lasix) 40 mg Q12H PO 11/22/17 05:00 11/22/17 17:07 Vital Signs / I&O Vital Signs Date Time Temp Pulse Resp B/P (MAP) Pulse Ox O2 Delivery O2 Flow Rate FiO2 11/22/17 16:00 60 11/22/17 15:00 94 Nasal Cannula 3.00 11/22/17 15:00 73 11/22/17 15:00 54 20 138/66 (90) 94 11/22/17 14:00 74 11/22/17 13:00 74 11/22/17 12:36 95 Nasal Cannula 3.00 11/22/17 12:00 75 11/22/17 11:00 67 11/22/17 11:00 95 Nasal Cannula 3.00 11/22/17 11:00 98.3 61 20 133/75 (94) 95 11/22/17 10:00 72 11/22/17 09:00 60 11/22/17 08:00 62 11/22/17 07:15 60 11/22/17 07:15 61 20 133/82 (99) 95 11/22/17 07:15 95 11/22/17 06:00 68 11/22/17 05:00 64 11/22/17 04:42 97.7 58 20 112/77 (89) 92 11/22/17 04:00 72 11/22/17 03:00 60 11/22/17 02:00 64 11/22/17 01:00 68 11/22/17 00:00 68 11/21/17 23:00 97.6 69 20 133/80 (97) 96 11/21/17 23:00 70 11/21/17 22:00 68 11/21/17 21:00 68 11/21/17 20:00 96 Nasal Cannula 2.50 11/21/17 20:00 68 11/21/17 20:00 97.5 68 20 144/72 (96) 96 11/21/17 19:00 73 11/21/17 18:00 72 I/O 11/21/17 11/21/17 11/21/17 11/22/17 11/22/17 11/22/17 07:00 15:00 23:00 07:00 15:00 23:00 Intake Total 464 ml 645.5 ml Output Total 1000 ml 700 ml 1250 ml Balance -536 ml -700 ml -604.5 ml Intake Oral 320 ml 480 ml IV Total 144 ml 165.5 ml Output Urine Total 1000 ml 700 ml 1250 ml Stool Total 0 ml # Bowel Movements 0 1 Physical Exam GENERAL: NAD SKIN: Warm and dry. HEAD: Atraumatic. Normocephalic. EYES: Pupils equal and round. No scleral icterus. No injection or drainage. ENT: No nasal bleeding or discharge. Mucous membranes pink and moist. NECK: Trachea midline. No JVD. CARDIOVASCULAR: Regular rate and rhythm. RESPIRATORY: No accessory muscle use. Decreased breath sounds bilaterally GASTROINTESTINAL: Abdomen soft, non-tender, nondistended. Hepatic and splenic margins not palpable. MUSCULOSKELETAL: 1+ pitting edema NEUROLOGICAL: Awake and alert. No obvious cranial nerve deficits. Motor grossly within normal limits. Five out of 5 muscle strength in the arms and legs. Normal speech. PSYCHIATRIC: Appropriate mood and affect; insight and judgment normal. Laboratory Laboratory Tests Test 11/21/17 19:53 11/22/17 02:35 11/22/17 08:56 Activated Partial Thromboplast Time 38.5 SEC 53.7 SEC 49.7 SEC White Blood Count 6.2 TH/MM3 Red Blood Count 5.15 MIL/MM3 Hemoglobin 15.0 GM/DL Hematocrit 43.3 % Mean Corpuscular Volume 84.0 FL Mean Corpuscular Hemoglobin 29.2 PG Mean Corpuscular Hemoglobin Concent 34.7 % Red Cell Distribution Width 16.4 % Platelet Count 232 TH/MM3 Mean Platelet Volume 7.7 FL Blood Urea Nitrogen 52 MG/DL Creatinine 2.29 MG/DL Random Glucose 167 MG/DL Calcium Level 8.7 MG/DL Sodium Level 136 MEQ/L Potassium Level 4.4 MEQ/L Chloride Level 100 MEQ/L Carbon Dioxide Level 30.8 MEQ/L Anion Gap 5 MEQ/L Estimat Glomerular Filtration Rate 28 ML/MIN Assessment and Plan Problem List: (1) Cardiorenal syndrome with renal failure ICD Codes: I13.10 - Hypertensive heart and chronic kidney disease without heart failure, with stage 1 through stage 4 chronic kidney disease, or unspecified chronic kidney disease; N19 - Unspecified kidney failure Status: Acute (2) CKD (chronic kidney disease) stage 4, GFR 15-29 ml/min ICD Codes: N18.4 - Chronic kidney disease, stage 4 (severe) Status: Chronic (3) HTN (hypertension) ICD Codes: I10 - Essential (primary) hypertension Status: Acute (4) Proteinuria ICD Codes: R80.9 - Proteinuria, unspecified Status: Chronic (5) NSTEMI (non-ST elevated myocardial infarction) ICD Codes: I21.4 - Non-ST elevation (NSTEMI) myocardial infarction Status: Acute (6) CHF (congestive heart failure) ICD Codes: I50.9 - Heart failure, unspecified Status: Acute (7) Acute exacerbation of congestive heart failure ICD Codes: I50.9 - Heart failure, unspecified (8) Hypertension ICD Codes: I10 - Essential (primary) hypertension Status: Chronic (9) Diabetes ICD Codes: E11.9 - Type 2 diabetes mellitus without complications Status: Acute Assessment and Plan 1) NSTEMI Con't medical management for now Heparin drip 2) JEROME on CKD Resolving Azotemia as a possible cause of nausea 3) Cardiac cath will have to be on hold due to worsening kidney function Discussed continuing medical management vs cardiac catheterization Decided that he's worried about his heart, so will plan cardiac catheterization tomorrow morning if everything stable, diagnostic only 4) EF 20-25% 5) Coumadin on hold while on heparin drip 6) Fluid overload state, currently stable Urine output increasing, creatinine back to baseline Problem Qualifiers (1) CHF (congestive heart failure): Qualified Codes: I50.9 - Heart failure, unspecified Bernardo Avila DO Nov 22, 2017 17:25
--- NOTE | 2017-11-22 18:54 | HHI.PR ---
Subjective Remarks Awake and onO2 2 L. No SOB at rest. Will have cardiac cath in am. On CPAP at HS Objective Vital Signs Date Time Temp Pulse Resp B/P (MAP) Pulse Ox O2 Delivery O2 Flow Rate FiO2 11/22/17 18:00 60 11/22/17 17:00 60 11/22/17 16:00 60 11/22/17 15:00 94 Nasal Cannula 3.00 11/22/17 15:00 73 11/22/17 15:00 54 20 138/66 (90) 94 11/22/17 14:00 74 11/22/17 13:00 74 11/22/17 12:36 95 Nasal Cannula 3.00 11/22/17 12:00 75 11/22/17 11:00 67 11/22/17 11:00 95 Nasal Cannula 3.00 11/22/17 11:00 98.3 61 20 133/75 (94) 95 11/22/17 10:00 72 11/22/17 09:00 60 11/22/17 08:00 62 11/22/17 07:15 60 11/22/17 07:15 61 20 133/82 (99) 95 11/22/17 07:15 95 11/22/17 06:00 68 11/22/17 05:00 64 11/22/17 04:42 97.7 58 20 112/77 (89) 92 11/22/17 04:00 72 11/22/17 03:00 60 11/22/17 02:00 64 11/22/17 01:00 68 11/22/17 00:00 68 11/21/17 23:00 97.6 69 20 133/80 (97) 96 11/21/17 23:00 70 11/21/17 22:00 68 11/21/17 21:00 68 11/21/17 20:00 96 Nasal Cannula 2.50 11/21/17 20:00 68 11/21/17 20:00 97.5 68 20 144/72 (96) 96 11/21/17 19:00 73 I/O 11/21/17 11/21/17 11/21/17 11/22/17 11/22/17 11/22/17 07:00 15:00 23:00 07:00 15:00 23:00 Intake Total 464 ml 645.5 ml 480 ml Output Total 1000 ml 700 ml 1250 ml 550 ml Balance -536 ml -700 ml -604.5 ml -70 ml Intake Oral 320 ml 480 ml 480 ml IV Total 144 ml 165.5 ml Output Urine Total 1000 ml 700 ml 1250 ml 550 ml Stool Total 0 ml # Bowel Movements 0 1 2 Result Diagram: 11/22/1723411/22/175 Objective Remarks GENERAL: This is an obese elderly man not dyspneic. HEENT: Normocephalic. Pupils reactive. Tongue is moist. Throat is injected. Nasal mucosa edematous. NECK: No bruits, mild venous distention. CHEST: Equal movements with distant breath sounds, expiratory wheezes bilaterally. Prolonged expirations. There are a few crackles at the lung bases. HEART: Sounds are irregular, S1 and S2, with no murmur. ABDOMEN: Soft, protuberant without masses. No organomegaly or tenderness. The bowel sounds are active. EXTREMITIES: No clubbing and peripheral pulses are diminished. No calf tenderness. NEUROLOGIC: Reflexes are 1+. There is minimal edema. The patient does answer questions well and there are no gross motor or sensory deficits. SKIN: Dry and warm. Assessment and Plan Assessment and Plan IMPRESSION: 1. Pulmonary edema with basilar atelectasis. 2. Non-ST elevation myocardial infarction and history of coronary artery disease. 3. Atrial fibrillation on anticoagulation. 4. Chronic obstructive pulmonary disease. 5. Diabetes mellitus type 2. 6. Chronic kidney disease. 7. Hypertension. 8. NADINE. Plan : 1. Will Leave on O2 3 L 2. Nebs qid , Duoneb. 3. Continue Symbicort 160/4.5 mcg , 2 puffs bid. 4. Cont antibiotics, Zithromax 5. Cardiac cath in am 6. CPAP mask from home at Angelina Rosales MD Nov 22, 2017 18:54
[2017-11-22] MEDS: NITROGLYCERIN 0.4 MG SL 25 TABS/BTL SL PRN ×3 (19:41→20:17)
[2017-11-22 23:52] LABS: KAPPA/LAMBDA FREE 1.65 (0.26-1.65)
[2017-11-23] VITALS (28 sets, daily range): BP systolic 118–154; BP diastolic 65–78; PULSE 53–80; RESP 16–21; TEMP 97.8–98.5; O2SAT 92–96
[2017-11-23] MEDS: FUROSEMIDE 40 MG TAB PO SCH ×2 (05:00→17:51)
[2017-11-23 05:36] LABS: BICARBONATE 30.4 MEQ/L (21.0-32.0); CALCIUM 9.2 MG/DL (8.5-10.1); CREATININE 2.17 MG/DL (0.60-1.30)
[2017-11-23] MEDS: NITROGLYCERIN 2% OINT 1 GM PACKET TOPICAL SCH (06:00)
[2017-11-23] MEDS: ISOSORBIDE MONONITRATE 60 MG CR TAB (IMDUR) PO SCH (06:37)
[2017-11-23] MEDS: INSULIN ASPART SUPPLEMENTAL SCALE SQ SCH ×4 (08:00→20:19)
--- NOTE | 2017-11-23 08:15 | HHI.PR ---
Subjective Remarks Follow up CAD, CHF, renal failure. The patient reports an episode of chest pain last night that he described as "sharp, pressure". It was located in the right side of his chest and lasted about an hour. It did not radiate. It resolved with nitroglycerin. No chest pain or shortness of breath this morning. Objective Vitals Vital Signs Date Time Temp Pulse Resp B/P (MAP) Pulse Ox O2 Delivery O2 Flow Rate FiO2 11/23/17 08:00 60 11/23/17 07:15 92 11/23/17 07:15 97.8 61 19 126/73 (90) 92 11/23/17 07:00 60 11/23/17 06:10 60 11/23/17 05:12 60 11/23/17 04:54 67 11/23/17 03:20 97.8 60 17 134/78 (96) 95 11/23/17 03:20 95 3.00 11/23/17 03:11 60 11/23/17 02:18 60 11/23/17 01:15 63 11/23/17 00:07 60 11/22/17 23:35 97.9 61 18 140/78 (98) 95 11/22/17 23:35 95 3.00 11/22/17 23:13 64 11/22/17 22:50 60 11/22/17 21:00 60 11/22/17 20:53 98 Nasal Cannula 3.00 11/22/17 20:20 68 11/22/17 19:25 97 Nasal Cannula 3.00 11/22/17 19:25 98.2 58 18 134/78 (96) 97 11/22/17 19:25 60 11/22/17 18:00 60 11/22/17 17:00 60 11/22/17 16:00 60 11/22/17 15:00 94 Nasal Cannula 3.00 11/22/17 15:00 73 11/22/17 15:00 54 20 138/66 (90) 94 11/22/17 14:00 74 11/22/17 13:00 74 11/22/17 12:36 95 Nasal Cannula 3.00 11/22/17 12:00 75 11/22/17 11:00 67 11/22/17 11:00 95 Nasal Cannula 3.00 11/22/17 11:00 98.3 61 20 133/75 (94) 95 11/22/17 10:00 72 11/22/17 09:00 60 I/O 11/22/17 11/22/17 11/22/17 11/23/17 11/23/17 11/23/17 07:00 15:00 23:00 07:00 15:00 23:00 Intake Total 645.5 ml 480 ml 360 ml Output Total 1250 ml 550 ml 125 ml Balance -604.5 ml -70 ml 235 ml Intake Oral 480 ml 480 ml 360 ml IV Total 165.5 ml Output Urine Total 1250 ml 550 ml 125 ml Stool Total 0 ml # Bowel Movements 2 0 Result Diagram: 11/22/17 0235 11/23/17 0351 Imaging Last Impressions Chest X-Ray 11/20/17 0600 Signed Impressions: Service Date/Time: Monday, November 20, 2017 04:15 - CONCLUSION: No significant change. Mild bibasilar atelectasis again seen. Adam Cross MD Renal Ultrasound 11/16/17 0000 Signed Impressions: Service Date/Time: Thursday, November 16, 2017 13:20 - CONCLUSION: 1. No evidence of hydronephrosis. 2. 1 cm benign appearing left renal cyst. Martin Fernandez MD Objective Remarks General: Obese male in no acute distress. Heart: Regular rate and rhythm. No murmur. Lungs: Decreased breath sounds in the bases. Breathing is nonlabored. Abdomen: Soft, nontender, nondistended. Extremities: No lower extremity edema. Psych: Alert and oriented. Procedures None Urinary Catheter: Yes Assessment to: Continue Ness insert reason: Measure Accurate Output Vascular Central Line Catheter: No A/P Assessment and Plan 1. NSTEMI: Patient has significant history of coronary artery disease. Appreciate cardiology recommendations. Troponin is significantly elevated, but trending down. Patient without chest pain. Continue aspirin, beta-bryan. Per cardiology, plan for cardiac catheterization this morning. The risks and benefits of the procedure have been explained to the patient by cardiology and nephrology. We will need to monitor his renal function closely post procedure. 2. Acute exacerbation of chronic systolic congestive heart failure: Echocardiogram from 07/13/17 showed ejection fraction of 20-25%. Continue Lasix. BNP is elevated. Strict intake/output. 3. Atrial fibrillation: Coumadin on hold. On heparin drip. Currently in normal sinus rhythm. Continue telemetry monitoring. 4. Insulin-dependent diabetes mellitus: Levemir on hold secondary to poor oral intake. Will resume as oral intake improves. He is currently n.p.o. for procedure. Monitor Accu-Cheks and cover with sliding scale insulin. 5. Acute kidney injury superimposed on chronic kidney disease, cardiorenal syndrome: Appreciate nephrology recommendations. Creatinine continues to improve. Continue diuresis. Monitor labs. 6. Hypertension: Continue home medications. 7. DVT prophylaxis: Heparin drip. 8. Nausea: Improved. Continue antiemetics as needed. Discharge Planning Pending further clinical improvement and clearance by nephrology/cardiology. Fredis Otoole MD Nov 23, 2017 08:15
[2017-11-23] MEDS: ESCITALOPRAM OXALATE 20 MG TAB PO SCH (08:35)
[2017-11-23] MEDS: POTASSIUM CHLORIDE 10 MEQ CONTROLLED RELEASE TAB PO SCH (08:35)
[2017-11-23] MEDS: ASPIRIN 81 MG CHEW TAB CHEW SCH (08:35)
[2017-11-23] MEDS: CHOLECALCIFEROL (VIT D3) 1000 UNIT TAB PO SCH (08:35)
[2017-11-23] MEDS: TAMSULOSIN HCL 0.4 MG CAP PO SCH (08:35)
[2017-11-23] MEDS: METOPROLOL SUCCINATE 50 MG EXTENDED RELEASE TAB PO SCH (08:35)
[2017-11-23] MEDS: AZITHROMYCIN 250 MG TAB PO SCH (08:36)
[2017-11-23] MEDS: BUDESONIDE-FORMOTEROL 160/4.5 MCG INHALER INH SCH ×2 (08:36→20:16)
[2017-11-23] MEDS: SODIUM CHLORIDE 0.9% FLUSH 10 ML FLUSH IV FLUSH SCH ×2 (08:36→20:19)
[2017-11-23] MEDS: RESP: ALBUTEROL 2.5 MG/IPRATROPIUM 0.5 MG NEB (SCH) NEB ×2 (08:55→13:35)
[2017-11-23] MEDS ORDERED: HEPARIN-NS/PF FLUSH BAG 2,000 ML IV FLUSH ONE (10:14)
[2017-11-23] MEDS ORDERED: VERAPAMIL HCL 5 MG/2 ML VIAL ONE (10:15)
[2017-11-23] MEDS ORDERED: HEPARIN SODIUM - IV 10,000 UNITS/10 ML VIAL ONE (10:15)
[2017-11-23] MEDS ORDERED: NITROGLYCERIN INJ 0 ML ONE (10:15)
[2017-11-23] MEDS ORDERED: MIDAZOLAM HCL 2 MG/2 ML VIAL ONE (10:27)
--- NOTE | 2017-11-23 11:42 | CATHPROC ---
[employer] HIS Report Study Information Study Number Admission Scheduled Start Study Start [id number] Nov 15 2017 10:48PM 11/22/2017 Nov 23 2017 10:07AM [place] [facility] Cardiac Catheterization Admit Source Facility Department Other [facility] - Medical Office Technologist Physician and Clinical Staff Initial Bernardo Nixon Boat Pilot Jescia Dykes RN Recorder Rosalia Ennis,SHELBY Scrub Ezequiel MartinezRT(R) Procedures Performed Procedure Location (Site) Vessel Name Coronary Angiograms LCA Left Coronary Coronary Angiograms RCA Right Coronary Coronary Angiograms SWENSON-LAD Left Coronary Coronary Angiograms FREE RADIAL-OM1 Left Coronary L Heart Cath Wire insertion Fem Art (right) Femoral Art Equipment Time Motion Picture Equipment Supervisor Description Size Mfg Part Number Used/Scraped TRANSDUCER, TRUWAVE [id number] 10:26 PUGH BATISTA * Used W/TEMICOCK *[id number] INTRODUCER SET, 10:26 [employer] FR 5 [id number] *[id number] Used MICROPUNCTURE, STIFFENED [id number] *[id number] 534-521T *[id number] 10:26 [employer] INDUSTRIES PACK, CCL CUSTOM * Used *[id number] 10:39 [employer] JL 4.0 DXTERITY CATHETER FR 5 Used *[id number] 10:26 [employer] WIRE, 3MMJ .035 180CM 180CM Used *[id number] 10:26 NAMIC MANIFOLD, 4 PORT * Used *[id number] 10:26 [employer] OMNIPAQUE, 350 MG, 150ML 150ML [id number] Used [id number] 10:26 [employer] BLANKET,WARM AIR CCL * Used *[id number] 10:26 [employer] MEDICAL SHEATH, FR5 TERUMO (10CM) FR 5 Used *[id number] Equipment Model, Serial, Lot Number and Expiration Data Description Model Number Serial Number Lot Number Expiration D ate JL 4.0 DXTERITY CATHETER [id number] 06-01-2020 History: Current Medications Medication Dosage/Unit Route Frequency Last Date/Time Taken ASA Beta Joaquina Coumadin History: Allergies Allergy Reaction morphine RASH History: Risk Factors Family History of Hypertension Dyslipidemia Previous MS Previous Heart Failure Premature CAD Yes Yes No No Yes Prior Valve Prior PCI Prior PCIDate Prior CABG Prior CABGDate Surgery Yes Yes 09/13/2015 Yes 09/13/2002 Cerebrovascular Peripheral Artery Chronic Lung On Dialysis Diabetes Diabetes Therapy Disease Disease Disease No Yes No Yes Yes Insulin History: Stress Tests Stress or Imaging Studies Performed No History: MS/CV Data Previous Cath Date Previous CABG Date Previous MS Time 09/13/2015 09/13/2002 16 Years History: Other Current Smoker Method Quit Packs a Day Years Used Pack Years No Cigarettes 42 Years Ago 2 10 20 Labs Hgb (g/dl) Hct (%) WBC (l/cumm) Platelets (thousands) 11.60-17.00 35.00-51.00 4.00-11.00 150.00-450.00 15.0 43.3 6.2 232 Glucose (mg/dl) BUN (mg/dl) Creatinine (mg/dl) BUN:Creatinine (1:x) 74.00-106.00 7.00-18.00 0.50-1.30 10.00-20.00 151 45 2.3 19.6 Na (meq/l) K (meq/l) 136.00-145.00 3.50-5.10 136 4.5 INR (PTT:PT) 0.90-1.10 1.5 Troponin I (ng/ml) CPK (u/l) CPK-MB (ng/ML) 0.02-0.05 26.00-308.00 0.50-3.60 35.3 77.5 5.4 Medication Medication Total Dose (Bolus/Oral) Medication Total Dosage/Unit 1% XYLOCAINE 20 mL FENTANYL 25 mcg NITRO OINTMENT 1 inches VERSED 0.5 mg Medications (Bolus/Oral) Medication Time Given Dosage/Unit Administered By Reason NITRO OINTMENT 11/23/2017 10:22:51 AM 1 inches Patient arrived on 1 inches NITRO OINTMENT via Peripheral IV. VERSED 11/23/2017 11:01:22 AM 0.5 mg Jesica Dykes 0.5 mg VERSED given in lab by Jesica Dykes, RN via Peripheral IV. 1% XYLOCAINE 11/23/2017 11:02:33 AM 20 mL Bernardo Avila 20 mL 1% XYLOCAINE given in lab by Bernardo Avila in Right Groin via Subcutaneous. FENTANYL 11/23/2017 11:02:40 AM 25 mcg Jesica Dykes 25 mcg FENTANYL given in lab by Jesica Dykes RN via Peripheral IV. Medication (Drip) Medication Time Given Dosage/Unit Concentration/Unit Diluent (ml) Solution IV Solutions 11/23/2017 10:22:20 AM 50 mL (IV) 500 NaCl .9 Patient arrived on IV Solutions via Peripheral IV. Pump/Drip Flow using NaCl .9. Initial Case Assessment Cardiovascular HR NIBP Chest Pain 82 108/66 0 Edema Present Skin color Skin None Normal Warm Dry Circulatory - Right Pulses Dorsalis Pedis Femoral 1 1 Scale (0,1,2,3,4,d) Circulatory - Left Pulses Dorsalis Pedis Femoral 1 Scale (0,1,2,3,4,d) Circulatory - Lower Extremities Color Lower Right Color Lower Left Normal Normal Neurological State Oriented to time-place- Alert Moves all extremities person Respiration - General Respiration Rate SpO2 (%) O2 (lpm) (B/min) 20 95 3 Chronological Log Time Study Chronological Log 10:13:12 Heparin drip was discontinued 10:13:55 Patient arrived via Bed. 10:13:56 Patient Name, D.O.B, / Armband Verified By R.N. 10:13:57 Consent signed by the physician and the patient and verified by the Medical Office Technologist staff. 10:20:42 Patient has been NPO for More than 6Hrs. 10:20:43 Skin Breakdown-ok 10:21:30 A # 22 IV was noted in the Forearm (left). Grade = 0 10:22:20 Patient arrived on IV Solutions via Peripheral IV. Pump/Drip Flow using NaCl .9. 10:22:51 Patient arrived on 1 inches NITRO OINTMENT via Peripheral IV. Vitals capture started with the following parameters, Patient=Adult, Interval=5 min, Initial Pr ztcjgz=956 mmHg, 10:25:45 Deflation Rate=5 mmHg, Cuff placed on Right Ankle 10:26:17 HR=67 bpm, TETL=614/66 mmhg, SpO2=94.0 %, Resp=20 B/min, Pain=0, Dany=10, Veliz=2 Assessment: Initial Case, HR=82 BPM, APQS=345/66 mmhg, Chest Pain=0, Edema=None, Color=Normal, Skin = Warm, Dry Right Pulses: Alhaji Ped=1, Femoral=1 Left Pulses: Alhaji Ped=1 10:26:27 Lower Right Extremities: Color=Normal Lower Left Extremities: Color=Normal Neurological: State=Alert, Ox3, MCNULTY Respiration: Resp=20 B/min, SpO2=95 %, O2=3 lpm 10:31:53 HR=60 bpm, OLEM=980/74 mmhg, SpO2=95.0 %, Resp=15 B/min, Pain=0, Dany=10, Veliz=2 10:32:39 Right groin prepped with 2% chlorhexidine, and draped after a 3 min. waiting time. 10:36:26 HR=62 bpm, CDYR=315/78 mmhg, SpO2=96.0 %, Resp=16 B/min, Pain=0, Dany=10, Veliz=2 10:38:31 Reference ECG taken 10:38:37 Pressure channel 1 zeroed. 10:41:25 HR=66 bpm, BPGJ=169/77 mmhg, SpO2=93.0 %, Resp=24 B/min, Pain=0, Dany=10, Veliz=2 10:45:00 MD arrived. 10:46:26 HR=60 bpm, RMEP=663/76 mmhg, SpO2=96.0 %, Resp=13 B/min, Pain=0, Dany=10, Veliz=2 10:51:25 HR=60 bpm, FCLB=296/74 mmhg, SpO2=93.0 %, Resp=6 B/min, Pain=0, Dany=10, Veliz=2 10:56:26 HR=73 bpm, DNPI=385/71 mmhg, SpO2=95.0 %, Resp=15 B/min, Pain=0, Dany=10, Veliz=2 Time Out. Correct patient, correct procedure, correct physician, power injector loaded, or not loaded with contrast with 11:00:12 surgical team present. Time Out Concurred by MD and individual staff in procedure. 11:01:02 Case Start 11:01:22 0.5 mg VERSED given in lab by Jesica Dykes, JOANNE via Peripheral IV. 11:01:58 HR=83 bpm, BUXB=697/74 mmhg, SpO2=93.0 %, Resp=16 B/min, Pain=0, Dany=10, Veliz=2 11:02:33 20 mL 1% XYLOCAINE given in lab by Bernardo Avila in Right Groin via Subcutaneous. 11:02:40 25 mcg FENTANYL given in lab by Jesica Dykes, JOANNE via Peripheral IV. 11:04:26 Access site was Right Femoral Artery. A INTRODUCER SET, MICROPUNCTURE, STIFFENED FR 5 was advanced into the Fem Art (right) using the 11:04:43 Percutaneous technique. 11:05:12 A SHEATH, FR5 TERUMO (10CM) FR 5 was exchanged in the Fem Art (right). This was necessary i n order ~REASON~. 11:06:30 HR=68 bpm, PEMQ=430/68 mmhg, SpO2=94.0 %, Resp=25 B/min, Pain=0, Dany=10, Veliz=2 11:06:38 An injection in the Fem Art (right) was made through the SHEATH, FR5 TERUMO (10CM) FR 5. A JR 4.0 INFINITI CATHETER FR 5 was advanced over a wire. OMNIPAQUE, 350 MG, 150ML 150ML was us ed for 11:07:10 injections. 11:07:14 A WIRE, 3MMJ .035 180CM 180CM was inserted via Fem Art (right). 11:07:48 Wire removed Recorded Pressure: LV, HR=94, Condition=Condition 1 11:08:32 (Left Ventricle) LV 129/5/23 Recorded Pressure: LV, Ao, HR=66, Condition=Condition 1 11:09:01 (Left Ventricle) LV 132/2/22, (Aorta) Ao 131/30/88 11:09:47 The RCA was injected and visualized at various angles. OMNIPAQUE, 350 MG, 150ML 150ML used . 11:10:29 The FREE RADIAL-OM1 was injected and visualized at various angles. OMNIPAQUE, 350 MG, 150ML 150ML used. 11:12:04 HR=63 bpm, KCVH=970/76 mmhg, SpO2=83.0 %, Resp=20 B/min, Pain=0, Dany=10, Veliz=2 11:12:32 Catheter was removed A JL 4.0 DXTERITY CATHETER FR 5 was advanced over a wire. OMNIPAQUE, 350 MG, 150ML 150ML was us ed for 11:12:34 injections. Recorded Pressure: Ao, HR=60, Condition=Condition 1 11:13:27 (Aorta) Ao 135/63/90 11:14:55 The SWENSON-LAD was injected and visualized at various angles. OMNIPAQUE, 350 MG, 150ML 150ML used. 11:16:28 HR=60 bpm, MBBK=398/75 mmhg, SpO2=94.0 %, Resp=20 B/min, Pain=0, Dany=10, Veliz=2 11:18:04 Catheter was removed A JL 4.0 DXTERITY CATHETER FR 5 was advanced over a wire. OMNIPAQUE, 350 MG, 150ML 150ML was u sed for 11:18:14 injections. 11:19:59 The LCA was injected and visualized at various angles. OMNIPAQUE, 350 MG, 150ML 150ML use d. 11:20:15 Catheter was removed 11:20:39 Case End 11:21:31 HR=71 bpm, YDRK=839/77 mmhg, SpO2=95.0 %, Resp=20 B/min, Pain=0, Dany=10, Veliz=2 11:23:08 No case complications noted. 11:23:09 Cine recording checked. 11:23:37 ACT (Normal Range 90-180) = 140 11:25:35 Sheath removed; pressure applied to access site. 11:26:32 HR=60 bpm, JWCF=426/66 mmhg, SpO2=93.0 %, Resp=20 B/min, Pain=0, Dany=10, Veliz=2 11:31:29 HR=28 bpm, PZVV=021/74 mmhg, SpO2=95.0 %, Resp=20 B/min, Pain=0, Dany=10, Veliz=2 11:36:30 HR=60 bpm, MBQL=701/70 mmhg, SpO2=92.0 %, Resp=16 B/min, Pain=0, Dany=10, Veliz=2 11:40:53 Sterile dressing applied to site 11:41:14 A Left Heart Cath was performed. 11:41:20 Patient moved to stretcher 11:41:29 HR=63 bpm, AUAT=613/71 mmhg, SpO2=95.0 %, Resp=12 B/min, Pain=0, Dany=10, Veliz=2 11:41:58 Vitals capture stopped. End Study - Contrast Media Used In Study Contrast Total Opened (mL) Total Used (mL) Total Wasted (mL) Omnipaque 100 30 70 End Study - Maximum Contrast Load Max Contrast Load (mL) 271.7 End Study - Radiation Exposure Fluoro Time (minutes) 4.6 End Study - Sheaths Sheaths Pulled By Sheath Hold Time (min) Ezequiel Martinez 20 End Study - Patient Disposition Complications Transferred To No Medical Office Technologist Holding
[2017-11-23] MEDS ORDERED: MISC INFORMATION XX ONE (11:45)
--- NOTE | 2017-11-23 18:41 | HHI.PR ---
Subjective Remarks Awake and on O2 2 L. No SOB at rest. Had cardiac cath today and no intervention planned. On CPAP at HS. Less cough. Objective Vital Signs Date Time Temp Pulse Resp B/P (MAP) Pulse Ox O2 Delivery O2 Flow Rate FiO2 11/23/17 18:00 53 11/23/17 17:00 69 11/23/17 16:00 72 11/23/17 15:00 98.5 72 21 123/69 (87) 94 11/23/17 15:00 80 11/23/17 15:00 94 Nasal Cannula 2.00 11/23/17 14:00 73 11/23/17 13:00 67 11/23/17 12:00 96 Nasal Cannula 3.00 11/23/17 12:00 60 11/23/17 12:00 60 18 118/65 (82) 96 11/23/17 09:00 60 11/23/17 08:56 92 Nasal Cannula 3.00 11/23/17 08:00 60 11/23/17 07:15 92 11/23/17 07:15 97.8 61 19 126/73 (90) 92 11/23/17 07:00 60 11/23/17 06:10 60 11/23/17 05:12 60 11/23/17 04:54 67 11/23/17 03:20 97.8 60 17 134/78 (96) 95 11/23/17 03:20 95 3.00 11/23/17 03:11 60 11/23/17 02:18 60 11/23/17 01:15 63 11/23/17 00:07 60 11/22/17 23:35 97.9 61 18 140/78 (98) 95 11/22/17 23:35 95 3.00 11/22/17 23:13 64 11/22/17 22:50 60 11/22/17 21:00 60 11/22/17 20:53 98 Nasal Cannula 3.00 11/22/17 20:20 68 11/22/17 19:25 97 Nasal Cannula 3.00 11/22/17 19:25 98.2 58 18 134/78 (96) 97 11/22/17 19:25 60 I/O 11/22/17 11/22/17 11/22/17 11/23/17 11/23/17 11/23/17 07:00 15:00 23:00 07:00 15:00 23:00 Intake Total 645.5 ml 480 ml 360 ml 240 ml 960 ml Output Total 1250 ml 550 ml 125 ml 1000 ml Balance -604.5 ml -70 ml 235 ml 240 ml -40 ml Intake Oral 480 ml 480 ml 360 ml 960 ml IV Total 165.5 ml 240 ml Output Urine Total 1250 ml 550 ml 125 ml 1000 ml Stool Total 0 ml # Bowel Movements 2 0 Result Diagram: 11/22/17 0235 11/23/17 0351 Objective Remarks GENERAL: This is an obese elderly man not dyspneic. HEENT: Normocephalic. Pupils reactive. Tongue is moist. Throat is injected. Nasal mucosa edematous. NECK: No bruits, no venous distention. CHEST: Equal movements with distant breath sounds, expiratory wheezes bilaterally. Prolonged expirations. HEART: Sounds are irregular, S1 and S2, with no murmur. ABDOMEN: Soft, protuberant without masses. No organomegaly or tenderness. The bowel sounds are active. EXTREMITIES: No clubbing and peripheral pulses are diminished. No calf tenderness. NEUROLOGIC: Reflexes are 1+. There is no edema. The patient has no gross motor or sensory deficits. SKIN: Dry and warm. Assessment and Plan Assessment and Plan IMPRESSION: 1. Pulmonary edema with basilar atelectasis. 2. Non-ST elevation myocardial infarction and history of coronary artery disease. 3. Atrial fibrillation on anticoagulation. 4. Chronic obstructive pulmonary disease. 5. Diabetes mellitus type 2. 6. Chronic kidney disease. 7. Hypertension. 8. NADINE. Plan : 1. Will Leave on O2 2 L 2. Nebs tid Duoneb. 3. Continue Symbicort 160/4.5 mcg , 2 puffs bid. 4. D/C , Zithromax in am 5. IS qid. 6. CPAP mask at Angelina Rosales MD Nov 23, 2017 18:41
[2017-11-23] MEDS ORDERED: IOHEXOL 350 MG/ML 50 ML BTL (for Cath Lab) OTHER ONE (18:52)
--- NOTE | 2017-11-23 20:01 | EKG ---
Date Performed: 11/22/2017 Time Performed: 20:30:36 PTAGE: 67 years EKG: Sinus bradycardia PVCs Left axis deviation Possible anteroseptal infarct - age undetermined Inferior/lateral ST-T changes suggest myocardial injury/ischemia Abnormal ECG PREVIOUS TRACING : 11/22/2017 20.29 Since the previous tracing, no significant change noted DOCTOR: Oneil Byrne Interpretating Date/Time 11/23/2017 19:59:36
--- NOTE | 2017-11-23 23:52 | PD.CARD.PN ---
Subjective Subjective Remarks Patient was seen earlier after the cath, late entry No events overnight SOB better, no chest pain Objective Medications Current Medications Medications (Trade) Dose Ordered Sig/Jennifer Route Start Time Stop Time Status Last Admin (NS Flush) 2 ml UNSCH PRN IV FLUSH 11/15/17 23:15 (NS Flush) 2 ml BID IV FLUSH 11/16/17 09:00 11/23/17 20:19 (Tylenol) 650 mg Q4H PRN PO 11/15/17 23:15 11/17/17 15:11 (D50w (Vial) Inj) 50 ml UNSCH PRN IV PUSH 11/15/17 23:15 (Glucagon Inj) 1 mg UNSCH PRN OTHER 11/15/17 23:15 (NovoLOG SUPPLEMENTAL SCALE) 1 ACHS SLIDING SCALE SQ 11/16/17 08:00 11/23/17 20:19 (Norvasc) 5 mg DAILY PO 11/16/17 09:00 Future Hold 11/17/17 09:22 (Aspirin Chew) 81 mg DAILY CHEW 11/16/17 09:00 11/23/17 08:35 (Lexapro) 20 mg DAILY PO 11/16/17 09:00 11/23/17 08:35 (Levemir Inj) 70 units BID SQ 11/16/17 09:00 Future Hold 11/17/17 20:35 (Imdur) 120 mg DAILY@0700 PO 11/16/17 07:00 11/23/17 06:37 (Toprol Xl) 100 mg DAILY PO 11/16/17 09:00 11/23/17 08:35 (Flomax) 0.4 mg DAILY PO 11/16/17 09:00 11/23/17 08:35 (Zofran Inj) 4 mg Q6HR PRN IV PUSH 11/17/17 09:45 11/18/17 17:00 (Vitamin D3) 2,000 units DAILY PO 11/17/17 16:15 11/23/17 08:35 (Symbicort 160-4.5 Mcg Inh) 2 puff Q12HR INH 11/19/17 21:00 11/23/17 20:16 (KCl) 20 meq DAILY PO 11/19/17 13:15 11/23/17 08:35 (Zithromax) 500 mg DAILY PO 11/20/17 09:00 11/24/17 08:59 11/23/17 08:36 (Lasix) 40 mg Q12H PO 11/22/17 05:00 11/23/17 17:51 (Nitrostat Sl) 0.4 mg Q10M PRN SL 11/22/17 19:45 11/22/17 20:17 Vital Signs / I&O Vital Signs Date Time Temp Pulse Resp B/P (MAP) Pulse Ox O2 Delivery O2 Flow Rate FiO2 11/23/17 23:00 66 11/23/17 22:03 67 11/23/17 21:36 72 11/23/17 20:07 68 11/23/17 19:20 93 Nasal Cannula 3.00 11/23/17 19:17 93 Nasal Cannula 3.00 11/23/17 19:17 98.0 63 17 154/77 (102) 93 11/23/17 19:01 68 11/23/17 18:00 53 11/23/17 17:00 69 11/23/17 16:00 72 11/23/17 15:00 98.5 72 21 123/69 (87) 94 11/23/17 15:00 80 11/23/17 15:00 94 Nasal Cannula 2.00 11/23/17 14:00 73 11/23/17 13:00 67 11/23/17 12:00 96 Nasal Cannula 3.00 11/23/17 12:00 60 11/23/17 12:00 60 18 118/65 (82) 96 11/23/17 09:00 60 11/23/17 08:56 92 Nasal Cannula 3.00 11/23/17 08:00 60 11/23/17 07:15 92 11/23/17 07:15 97.8 61 19 126/73 (90) 92 11/23/17 07:00 60 11/23/17 06:10 60 11/23/17 05:12 60 11/23/17 04:54 67 11/23/17 03:20 97.8 60 17 134/78 (96) 95 11/23/17 03:20 95 3.00 11/23/17 03:11 60 11/23/17 02:18 60 11/23/17 01:15 63 11/23/17 00:07 60 I/O 11/23/17 11/23/17 11/23/17 11/24/17 11/24/17 11/24/17 07:00 15:00 23:00 07:00 15:00 23:00 Intake Total 360 ml 240 ml 960 ml Output Total 125 ml 1000 ml Balance 235 ml 240 ml -40 ml Intake Oral 360 ml 960 ml IV Total 240 ml Output Urine Total 125 ml 1000 ml # Bowel Movements 0 Physical Exam GENERAL: NAD SKIN: Warm and dry. HEAD: Atraumatic. Normocephalic. EYES: Pupils equal and round. No scleral icterus. No injection or drainage. ENT: No nasal bleeding or discharge. Mucous membranes pink and moist. NECK: Trachea midline. No JVD. CARDIOVASCULAR: Regular rate and rhythm. RESPIRATORY: No accessory muscle use. Decreased breath sounds bilaterally GASTROINTESTINAL: Abdomen soft, non-tender, nondistended. Hepatic and splenic margins not palpable. MUSCULOSKELETAL: 1+ pitting edema NEUROLOGICAL: Awake and alert. No obvious cranial nerve deficits. Motor grossly within normal limits. Five out of 5 muscle strength in the arms and legs. Normal speech. PSYCHIATRIC: Appropriate mood and affect; insight and judgment normal. Laboratory Laboratory Tests Test 11/23/17 03:51 Activated Partial Thromboplast Time 46.0 SEC Blood Urea Nitrogen 45 MG/DL Creatinine 2.17 MG/DL Random Glucose 151 MG/DL Calcium Level 9.2 MG/DL Sodium Level 136 MEQ/L Potassium Level 4.5 MEQ/L Chloride Level 99 MEQ/L Carbon Dioxide Level 30.4 MEQ/L Anion Gap 7 MEQ/L Estimat Glomerular Filtration Rate 30 ML/MIN Assessment and Plan Problem List: (1) Cardiorenal syndrome with renal failure ICD Codes: I13.10 - Hypertensive heart and chronic kidney disease without heart failure, with stage 1 through stage 4 chronic kidney disease, or unspecified chronic kidney disease; N19 - Unspecified kidney failure Status: Acute (2) CKD (chronic kidney disease) stage 4, GFR 15-29 ml/min ICD Codes: N18.4 - Chronic kidney disease, stage 4 (severe) Status: Chronic (3) HTN (hypertension) ICD Codes: I10 - Essential (primary) hypertension Status: Acute (4) Proteinuria ICD Codes: R80.9 - Proteinuria, unspecified Status: Chronic (5) NSTEMI (non-ST elevated myocardial infarction) ICD Codes: I21.4 - Non-ST elevation (NSTEMI) myocardial infarction Status: Acute (6) CHF (congestive heart failure) ICD Codes: I50.9 - Heart failure, unspecified Status: Acute (7) Acute exacerbation of congestive heart failure ICD Codes: I50.9 - Heart failure, unspecified (8) Hypertension ICD Codes: I10 - Essential (primary) hypertension Status: Chronic (9) Diabetes ICD Codes: E11.9 - Type 2 diabetes mellitus without complications Status: Acute Assessment and Plan 1) NSTEMI Cath showing no change in his coronary anatomy with no lesions to intervene on Con't medical management 2) JEROME on CKD Resolving Azotemia as a possible cause of nausea 3) EF 20-25% 4) Coumadin can be restarted 5) Fluid overload state, currently stable Urine output increasing, creatinine back to baseline Problem Qualifiers (1) CHF (congestive heart failure): Qualified Codes: I50.9 - Heart failure, unspecified Bernardo Avila DO Nov 23, 2017 23:52
[2017-11-24] VITALS (17 sets, daily range): BP systolic 137–146; BP diastolic 73–84; PULSE 59–73; RESP 18; TEMP 97.7–98; O2SAT 94–97
[2017-11-24 05:09] LABS: AUTOMATED NEUTROPHIL # 3.2 TH/MM3 (1.8-7.7); BASOPHIL % 0.6 % (0.0-2.0); EOSINOPHIL # 0.1 TH/MM3 (0-0.4); EOSINOPHIL % 2.7 % (0.0-4.0); HEMATOCRIT 44.4 % (39.0-51.0); HEMOGLOBIN 15.1 GM/DL (13.0-17.0); LYMPH % 24.1 % (9.0-44.0); LYMPHOCYTE # 1.3 TH/MM3 (1.0-4.8); MEAN CELL VOLUME 84.4 FL (80.0-100.0); MEAN CORPUSCULAR HEMOGLOBIN 28.6 PG (27.0-34.0); MEAN CORPUSCULAR HGB CONC 33.9 % (32.0-36.0); MEAN PLATELET VOLUME 8.1 FL (7.0-11.0); MONO % 12.1 % (0.0-8.0); MONOCYTE # 0.6 TH/MM3 (0-0.9); NEUT % 60.5 % (16.0-70.0); PLATELET COUNT 244 TH/MM3 (150-450); RED BLOOD COUNT 5.26 MIL/MM3 (4.50-5.90); RED CELL DISTRIBUTION WIDTH 16.2 % (11.6-17.2); WHITE BLOOD COUNT 5.4 TH/MM3 (4.0-11.0)
[2017-11-24 05:16] LABS: BICARBONATE 26.5 MEQ/L (21.0-32.0); CALCIUM 9.7 MG/DL (8.5-10.1); CREATININE 2.16 MG/DL (0.60-1.30)
[2017-11-24] MEDS: ISOSORBIDE MONONITRATE 60 MG CR TAB (IMDUR) PO SCH (06:19)
[2017-11-24] MEDS: FUROSEMIDE 40 MG TAB PO SCH ×2 (06:20→17:21)
[2017-11-24 07:44] LABS: LYMPHOCYTES 16 % (9-44); METAMYELOCYTES 2 % (0-1); MONOCYTES 14 % (0-8); MYELOCYTES 2 % (0-0); NEUTROPHIL # MANUAL DIFF 3.5 TH/MM3 (1.8-7.7); POLYS (SEG NEUTROPHILS) 61 % (16-70)
[2017-11-24] MEDS: INSULIN ASPART SUPPLEMENTAL SCALE SQ SCH ×3 (08:00→17:26)
[2017-11-24] MEDS: ASPIRIN 81 MG CHEW TAB CHEW SCH (08:14)
[2017-11-24] MEDS: POTASSIUM CHLORIDE 10 MEQ CONTROLLED RELEASE TAB PO SCH (08:14)
[2017-11-24] MEDS: ESCITALOPRAM OXALATE 20 MG TAB PO SCH (08:14)
[2017-11-24] MEDS: TAMSULOSIN HCL 0.4 MG CAP PO SCH (08:14)
[2017-11-24] MEDS: METOPROLOL SUCCINATE 50 MG EXTENDED RELEASE TAB PO SCH (08:14)
[2017-11-24] MEDS: CHOLECALCIFEROL (VIT D3) 1000 UNIT TAB PO SCH (08:14)
[2017-11-24] MEDS: SODIUM CHLORIDE 0.9% FLUSH 10 ML FLUSH IV FLUSH SCH (08:15)
[2017-11-24] MEDS: BUDESONIDE-FORMOTEROL 160/4.5 MCG INHALER INH SCH (08:15)
--- NOTE | 2017-11-24 09:56 | HHI.PR ---
Subjective Remarks This is a pleasant 67 y/o male who came to ER with Respiratory insufficiency, and COPD he has DM II, Hypertension, Chronic kidney disease, Cardiomyopathy, low ejection fraction had previous PCI and stent placement, had persistent cough and wheezing, has CAD status post CABG x 3, with Diagnosis of Pulmonary Edema wit basilar atelectasis , Atrial Fibrillation on anticoagulation, COPD, DM II, CKD, Htn, had Echocardiogram with EF 20-25% Normal left ventricular size, wall thickness is normal, global left ventricular dysfunction, I have been called at this time after engagement specialist Doctor Bernardo Avila clear the patient for discharge and support services specialist Doctor April for discharge patient in his bedroom with his Daughter Miss Yvonne Sandhu. no nausea, vomit or diarrhea discussed with nurse and asked for PT for discharge to SNF Objective Vital Signs Date Time Temp Pulse Resp B/P (MAP) Pulse Ox O2 Delivery O2 Flow Rate FiO2 11/24/17 09:39 64 11/24/17 08:00 94 Room Air 11/24/17 08:00 97.7 60 18 142/78 (99) 94 11/24/17 08:00 60 11/24/17 06:25 63 11/24/17 05:05 60 11/24/17 04:04 60 11/24/17 03:49 98.0 63 18 146/84 (104) 97 11/24/17 03:49 97 3.00 11/24/17 03:49 60 11/24/17 02:03 63 11/24/17 01:22 63 11/24/17 00:42 60 11/23/17 23:25 95 3.00 11/23/17 23:25 98.2 60 16 138/77 (97) 95 11/23/17 23:00 66 11/23/17 22:03 67 11/23/17 21:36 72 11/23/17 20:07 68 11/23/17 19:20 93 Nasal Cannula 3.00 11/23/17 19:17 93 Nasal Cannula 3.00 11/23/17 19:17 98.0 63 17 154/77 (102) 93 11/23/17 19:01 68 11/23/17 18:00 53 11/23/17 17:00 69 11/23/17 16:00 72 11/23/17 15:00 98.5 72 21 123/69 (87) 94 11/23/17 15:00 80 11/23/17 15:00 94 Nasal Cannula 2.00 11/23/17 14:00 73 11/23/17 13:00 67 11/23/17 12:00 96 Nasal Cannula 3.00 11/23/17 12:00 60 11/23/17 12:00 60 18 118/65 (82) 96 I/O 11/23/17 11/23/17 11/23/17 11/24/17 11/24/17 11/24/17 07:00 15:00 23:00 07:00 15:00 23:00 Intake Total 360 ml 240 ml 960 ml 480 ml Output Total 125 ml 1000 ml 700 ml Balance 235 ml 240 ml -40 ml -220 ml Intake Oral 360 ml 960 ml 480 ml IV Total 240 ml Output Urine Total 125 ml 1000 ml 700 ml # Bowel Movements 0 Result Diagram: 11/24/17 0318 11/24/17 0318 Imaging Last Impressions Chest X-Ray 11/20/17 0600 Signed Impressions: Service Date/Time: Monday, November 20, 2017 04:15 - CONCLUSION: No significant change. Mild bibasilar atelectasis again seen. Adam Cross MD Renal Ultrasound 11/16/17 0000 Signed Impressions: Service Date/Time: Thursday, November 16, 2017 13:20 - CONCLUSION: 1. No evidence of hydronephrosis. 2. 1 cm benign appearing left renal cyst. Martin Fernandez MD Procedures 11/23/[address] of [address] st elevation [place], found no significant change on his Coronary anatomy since previous Catheterization, history of coronary bypass graft x 3 (2/3 grafts patent. re start Warfarin for Atrial Fibrillation. Bernardo Avila, DO Other Results Laboratory Tests Test 11/15/17 20:00 11/16/17 07:35 11/16/17 09:15 11/16/17 18:18 Blood Urea Nitrogen 35 MG/DL Creatinine 2.59 MG/DL Random Glucose 198 MG/DL Total Protein 6.6 GM/DL Albumin 2.7 GM/DL Calcium Level 8.6 MG/DL Magnesium Level 2.0 MG/DL Alkaline Phosphatase 124 U/L Aspartate Amino Transf (AST/SGOT) 110 U/L Alanine Aminotransferase (ALT/SGPT) 21 U/L Total Bilirubin 0.8 MG/DL Sodium Level 133 MEQ/L Potassium Level 4.2 MEQ/L Chloride Level 98 MEQ/L Carbon Dioxide Level 21.3 MEQ/L B-Type Natriuretic Peptide 1445 PG/ML Total Creatine Kinase 1436 U/L Creatine Kinase MB 56.2 NG/ML Creatine Kinase MB % 3.9 % Troponin I 21.70 NG/ML Urine Squamous Epithelial Cells 1 /hpf Urine Granular Casts 1 /lpf Urine Mucus FEW /lpf Microscopic Urinalysis Comment CULT NOT INDICATED Urine Immunofixation Urine Color YELLOW Urine Turbidity HAZY Urine pH 5.5 Urine Specific [place] 1.021 Urine Protein 300 mg/dL Urine Glucose (UA) 70 mg/dL Urine Ketones TRACE mg/dL Urine Occult Blood MOD Urine Nitrite NEG Urine Bilirubin NEG Urine Urobilinogen LESS THAN 2.0 MG/DL Urine Leukocyte Esterase NEG Urine RBC LESS THAN 1 /hpf Urine WBC 2 /hpf Urine Hyaline Casts 29 /lpf Urine Eosinophils NONE SEEN /HPF Test 11/17/17 02:09 11/17/17 18:18 11/20/17 03:36 11/23/17 03:51 Prothrombin Time 15.5 SEC Prothromb Time International Ratio 1.5 RATIO Total Protein 5.9 GM/DL Blood Urea Nitrogen 62 MG/DL 67 MG/DL Creatinine 3.21 MG/DL 2.85 MG/DL Random Glucose 129 MG/DL 154 MG/DL Albumin 2.6 GM/DL Calcium Level 8.9 MG/DL 8.2 MG/DL Phosphorus Level 4.9 MG/DL 4.4 MG/DL Sodium Level 133 MEQ/L 133 MEQ/L Potassium Level 5.1 MEQ/L 3.7 MEQ/L Chloride Level 98 MEQ/L 96 MEQ/L Carbon Dioxide Level 27.3 MEQ/L 27.0 MEQ/L Albumin/Globulin Ratio 1.06 Kqxam-[id number] 0.28 GM/DL Atpjf-9-Qegxvxjex 0.99 GM/DL Beta Globulins 0.77 GM/DL Gamma Globulins 0.83 GM/DL Electrophoresis Pathologist Comment 25-Hydroxy Vitamin D Total LESS THAN 4.2 ng/ML Complement C3 132 MG/DL Complement C4 30 MG/DL Free [place] Light Chains 62.70 mg/L Free Lambda Light Chains 38.00 mg/L Free [place]/Lambda Light Chain Ratio 1.65 Hepatitis B Surface Antigen NEGATIVE Hepatitis C Antibody NEGATIVE Urine Total Volume 24 Hours 725 ML Urine Total Protein 24 Hour 2080 MG/24HR Urine Protein Electrophoresis Intrp COMMENT Magnesium Level 2.3 MG/DL Activated Partial Thromboplast Time 46.0 SEC Test 11/24/17 03:18 White Blood Count 5.4 TH/MM3 Red Blood Count 5.26 MIL/MM3 Hemoglobin 15.1 GM/DL Hematocrit 44.4 % Mean Corpuscular Volume 84.4 FL Mean Corpuscular Hemoglobin 28.6 PG Mean Corpuscular Hemoglobin Concent 33.9 % Red Cell Distribution Width 16.2 % Platelet Count 244 TH/MM3 Mean Platelet Volume 8.1 FL Neutrophils (%) (Auto) 60.5 % Lymphocytes (%) (Auto) 24.1 % Monocytes (%) (Auto) 12.1 % Eosinophils (%) (Auto) 2.7 % Basophils (%) (Auto) 0.6 % Neutrophils # (Auto) 3.2 TH/MM3 Lymphocytes # (Auto) 1.3 TH/MM3 Monocytes # (Auto) 0.6 TH/MM3 Eosinophils # (Auto) 0.1 TH/MM3 Basophils # (Auto) 0.0 TH/MM3 CBC Comment AUTO DIFF Differential Total Cells Counted 100 Neutrophils % (Manual) 61 % Lymphocytes % 16 % Monocytes % 14 % Eosinophils % 5 % Neutrophils # (Manual) 3.5 TH/MM3 Metamyelocytes 2 % Myelocytes 2 % Differential Comment FINAL DIFF MANUAL Platelet Estimate NORMAL Platelet Morphology Comment NORMAL Red Cell Morphology Comment NORMAL Blood Urea Nitrogen 44 MG/DL Creatinine 2.16 MG/DL Random Glucose 177 MG/DL Calcium Level 9.7 MG/DL Sodium Level 134 MEQ/L Potassium Level 4.5 MEQ/L Chloride Level 98 MEQ/L Carbon Dioxide Level 26.5 MEQ/L Anion Gap 10 MEQ/L Estimat Glomerular Filtration Rate 30 ML/MIN Objective Remarks General: Obese male in no acute distress. Heart: Regular rate and rhythm. No murmur. Lungs: Decreased breath sounds in the bases. Breathing is nonlabored. Abdomen: Soft, nontender, nondistended. Extremities: No lower extremity edema. Psych: Alert and oriented. Medications and IVs Current Medications Medications (Trade) Dose Ordered Sig/Jennifer Route Start Time Stop Time Status Last Admin (NS Flush) 2 ml UNSCH PRN IV FLUSH 11/15/17 23:15 (NS Flush) 2 ml BID IV FLUSH 11/16/17 09:00 11/24/17 08:15 (Tylenol) 650 mg Q4H PRN PO 11/15/17 23:15 11/17/17 15:11 (D50w (Vial) Inj) 50 ml UNSCH PRN IV PUSH 11/15/17 23:15 (Glucagon Inj) 1 mg UNSCH PRN OTHER 11/15/17 23:15 (NovoLOG SUPPLEMENTAL SCALE) 1 ACHS SLIDING SCALE SQ 11/16/17 08:00 11/24/17 08:00 (Norvasc) 5 mg DAILY PO 11/16/17 09:00 Future Hold 11/17/17 09:22 (Aspirin Chew) 81 mg DAILY CHEW 11/16/17 09:00 11/24/17 08:14 (Lexapro) 20 mg DAILY PO 11/16/17 09:00 11/24/17 08:14 (Levemir Inj) 70 units BID SQ 11/16/17 09:00 Future Hold 11/17/17 20:35 (Imdur) 120 mg DAILY@0700 PO 11/16/17 07:00 11/24/17 06:19 (Toprol Xl) 100 mg DAILY PO 11/16/17 09:00 11/24/17 08:14 (Flomax) 0.4 mg DAILY PO 11/16/17 09:00 11/24/17 08:14 (Zofran Inj) 4 mg Q6HR PRN IV PUSH 11/17/17 09:45 11/18/17 17:00 (Vitamin D3) 2,000 units DAILY PO 11/17/17 16:15 11/24/17 08:14 (Symbicort 160-4.5 Mcg Inh) 2 puff Q12HR INH 11/19/17 21:00 11/24/17 08:15 (KCl) 20 meq DAILY PO 11/19/17 13:15 11/24/17 08:14 (Lasix) 40 mg Q12H PO 11/22/17 05:00 11/24/17 06:20 (Nitrostat Sl) 0.4 mg Q10M PRN SL 11/22/17 19:45 11/22/17 20:17 A/P Assessment and Plan 1. NSTEMI: Patient has significant history of coronary artery disease. Appreciate cardiology recommendations. Troponin is significantly elevated, but trending down. Patient without chest pain. Continue aspirin, beta-bryan. Per cardiology, plan for cardiac catheterization this morning. The risks and benefits of the procedure have been explained to the patient by cardiology and nephrology. 11/23/[address] elevation [place], found no significant change on his Coronary anatomy since previous Catheterization, history of coronary bypass graft x 3 (2/3 grafts patent. re start Warfarin for Atrial Fibrillation. okay to discharge from engagement specialist standpoint. Bernardo Avila DO 2. Acute exacerbation of chronic systolic congestive heart failure: Echocardiogram from 07/13/17 showed ejection fraction of 20-25%. Continue Lasix. BNP is elevated. Strict intake/output. Improved. 3. Atrial fibrillation: to continue Warfarin and continue Monitoring as in SNF. 4. Insulin-dependent diabetes mellitus: Levemir on hold secondary to poor oral intake. Will resume as oral intake improves. He is currently n.p.o. for procedure. Monitor Accu-Cheks and cover with sliding scale insulin. 5. Acute kidney injury superimposed on chronic kidney disease Stage IV was followed by Nephrology specialist improving to baseline. 6. Hypertension: Continue home medications. DVT prophylaxis: Warfarin. Discharge Planning discharge to SNF today. Luc Brock MD Nov 24, 2017 09:56
--- NOTE | 2017-11-24 12:05 | MA ---
cc: Bernardo Avila DO 11/23/2017 PROCEDURE: Left heart catheterization, coronary angiogram, bypass angiogram, moderate sedation 20 minutes. PREPROCEDURE DIAGNOSES: Non-ST elevation myocardial infarction, coronary artery disease, history of coronary artery bypass graft x 3 (2/3 grafts patent). POSTPROCEDURE DIAGNOSIS: No change in coronary artery disease. MEDICATIONS: Versed 0.5 mg, fentanyl 25 mcg. CONTRAST USED: 30 mL. FLUOROSCOPY: For 6 minutes. MODERATE SEDATION: 20 minutes. ESTIMATED BLOOD LOSS: 10 mL. PROCEDURAL SUMMARY: Adam Cortez is a pleasant 67-year-old male who presented to [facility] Emergency Room due to shortness of breath and was found to have an elevated troponin. Because of this he was recommended cardiac catheterization. Risks, benefits and alternatives were explained to him and he consented as such. He was brought to the lab and prepped in the usual sterile fashion. Right femoral artery was accessed using a modified Seldinger technique and placement of a 5/6 [place] Slender sheath. This was easily aspirated and flushed. The JR4 was advanced over a J wire to the ascending aorta and across the aortic valve for measurement of left ventricular pressure. This was pulled back across the aortic valve showing no significant gradient of the aortic stenosis. JR4 was then used for selective angiography of the [place] right coronary artery system, the saphenous vein graft to the first and second obtuse marginals, and SWENSON to the LAD. This is then exchanged out for a JL4 which was used for selective angiography of the ____ coronary artery system. The JL4 was removed over a J wire. Sheath was removed and pressure was held for hemostasis. 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 FINDINGS: LEFT MAIN: Overall small with 50% disease. It bifurcated to ____ LAD and circumflex. LEFT ANTERIOR DESCENDING: Stent noted in the proximal portion with 100% occlusion distal to this. Gives off one small diagonal which is overall 1.5 mm. LEFT CIRCUMFLEX: Overall small vessel with a 95% occlusion in the proximal portion. It probably does give off 3 obtuse marginals with the first one being 100% occluded, the second and third being overall small with diffuse 70% disease. RIGHT CORONARY ARTERY: 100% occluded in the mid portion. LEFT INTERNAL MAMMARY ARTERY TO LEFT ANTERIOR DESCENDING: Patent which fills with antegrade and retrograde. Retrograde fills 1 small diagonal. It also supplies some minimal collaterals to the right coronary artery system. SAPHENOUS VEIN GRAFT TO FIRST AND SECOND OBTUSE MARGINALS: Overall patent. Touchdown to the first obtuse marginal is 100% occluded. Touchdown to the second obtuse marginal is patent and fills the third obtuse marginal. LEFT VENTRICULAR END DIASTOLIC PRESSURE: 18. IMPRESSIONS: 1. Non-ST elevation myocardial infarction. 2. No significant change in his coronary anatomy since previous cardiac catheterization. 3. History of coronary artery bypass graft x 3 (2/3 grafts patent). RECOMMENDATIONS: 1. Mr. Cortez appears to have no change in his coronary anatomy and will be recommended continued medical therapy. 2. We will plan on stopping his heparin drip. 3. He can be restarted on his Coumadin therapy for his atrial fibrillation. 4. He will continue diuresis as possible and we will watch his overall kidney function. 5. Further recommendations will be made based on the hospital course. Thank you for allowing me to see Adam Cortez. If there are any questions, please do not hesitate to call. Bernardo Avila DO VGP/rt , 12:35 AM , 01:40 AM
[2017-11-24] MEDS ORDERED: COUM5TAB PO (12:46)
[2017-11-24] MEDS ORDERED: FURO40TA PO (12:46)
[2017-11-24] MEDS ORDERED: Budeson-Formot 160-4.5 Mcg Inh INH (12:46)
[2017-11-24] MEDS ORDERED: CHOL1000 PO (12:46)
--- NOTE | 2017-11-24 12:48 | HHI.DS ---
Discharge Summary Admission Date Nov 15, 2017 at 22:48 Discharge Date: Nov 24, 2017 Admitting Diagnosis NSTEMI. Chronic kidney disease (1) A-fib ICD Code: I48.91 - Unspecified atrial fibrillation (2) CHF (congestive heart failure) ICD Code: I50.9 - Heart failure, unspecified Diagnosis: Principal Status: Acute (3) CKD (chronic kidney disease) stage 4, GFR 15-29 ml/min ICD Code: N18.4 - Chronic kidney disease, stage 4 (severe) Diagnosis: Principal Status: Chronic (4) NSTEMI (non-ST elevated myocardial infarction) ICD Code: I21.4 - Non-ST elevation (NSTEMI) myocardial infarction Diagnosis: Principal Status: Acute (5) Sleep apnea ICD Code: G47.30 - Sleep apnea, unspecified Diagnosis: Principal Status: Acute (6) PNA (pneumonia) ICD Code: J18.9 - Pneumonia, unspecified organism Diagnosis: Principal Procedures 11/23/17 with diagnosis of Non st elevation SD, found no significant change on his Coronary anatomy since previous Catheterization, history of coronary bypass graft x 3 (2/3 grafts patent. re start Warfarin for Atrial Fibrillation. Bernardo Avila DO Brief History - From Admission 67-year-old male with a past medical history significant for CHF (echo on showed an EF of 30-35%), CAD, hypertension, hyperlipidemia, atrial fibrillation on Coumadin, insulin-dependent diabetes mellitus, TIA and GERD presents to the emergency department with nausea and shortness of breath. He also states he has weakness and that his legs gave out on him today and he just laid on the floor for many hours. He has a nonproductive cough. He denies any fever/chills/nausea/vomiting/diarrhea/abdominal pain. He denies any lateralizing signs/symptoms. CBC/BMP: 11/24/17 0318 11/24/17 0318 Significant Findings Laboratory Tests Test 11/21/17 13:51 11/21/17 19:53 11/22/17 02:35 11/22/17 08:56 Activated Partial Thromboplast Time 42.5 SEC (24.3-30.1) 38.5 SEC (24.3-30.1) 53.7 SEC (24.3-30.1) 49.7 SEC (24.3-30.1) Blood Urea Nitrogen 52 MG/DL (7-18) Creatinine 2.29 MG/DL (0.60-1.30) Random Glucose 167 MG/DL (74-106) Estimat Glomerular Filtration Rate 28 ML/MIN (>89) Test 11/23/17 03:51 11/24/17 03:18 Activated Partial Thromboplast Time 46.0 SEC (24.3-30.1) Blood Urea Nitrogen 45 MG/DL (7-18) 44 MG/DL (7-18) Creatinine 2.17 MG/DL (0.60-1.30) 2.16 MG/DL (0.60-1.30) Random Glucose 151 MG/DL (74-106) 177 MG/DL (74-106) Estimat Glomerular Filtration Rate 30 ML/MIN (>89) 30 ML/MIN (>89) Monocytes (%) (Auto) 12.1 % (0.0-8.0) Monocytes % 14 % (0-8) Eosinophils % 5 % (0-4) Metamyelocytes 2 % (0-1) Myelocytes 2 % (0-0) Sodium Level 134 MEQ/L (136-145) Imaging Last Impressions Chest X-Ray 11/20/17 0600 Signed Impressions: Service Date/Time: Monday, November 20, 2017 04:15 - CONCLUSION: No significant change. Mild bibasilar atelectasis again seen. Adam Cross MD Renal Ultrasound 11/16/17 0000 Signed Impressions: Service Date/Time: Thursday, November 16, 2017 13:20 - CONCLUSION: 1. No evidence of hydronephrosis. 2. 1 cm benign appearing left renal cyst. Martin Fernandez MD PE at Discharge General: Obese male in no acute distress. Heart: Regular rate and rhythm. No murmur. Lungs: Decreased breath sounds in the bases. Breathing is nonlabored. Abdomen: Soft, nontender, nondistended. Extremities: No lower extremity edema. Psych: Alert and oriented. Hospital Course This is a pleasant 67 y/o male who came to ER with Respiratory insufficiency, and COPD he has DM II, Hypertension, Chronic kidney disease, Cardiomyopathy, low ejection fraction had previous PCI and stent placement, had persistent cough and wheezing, has CAD status post CABG x 3, with Diagnosis of Pulmonary Edema wit basilar atelectasis , Atrial Fibrillation on anticoagulation, COPD, DM II, CKD, Htn, had Echocardiogram with EF 20-25% Normal left ventricular size, wall thickness is normal, global left ventricular dysfunction, I have been called at this time after information management specialist Doctor Bernardo Avila clear the patient for discharge and quality systems specialist Doctor April for discharge patient in his bedroom with his Daughter Miss Yvonne Sandhu. no nausea, vomit or diarrhea discussed with nurse and asked for PT for discharge to SNF Assessment and Plan 1. NSTEMI: Patient has significant history of coronary artery disease. Appreciate cardiology recommendations. Troponin is significantly elevated, but trending down. Patient without chest pain. Continue aspirin, beta-bryan. Per cardiology, plan for cardiac catheterization this morning. The risks and benefits of the procedure have been explained to the patient by cardiology and nephrology. 11/23/[address] elevation SD, found no significant change on his Coronary anatomy since previous Catheterization, history of coronary bypass graft x 3 (2/3 grafts patent. re start Warfarin for Atrial Fibrillation. okay to discharge from information management specialist standpoint. Bernardo Avila, 2. Acute exacerbation of chronic systolic congestive heart failure: Echocardiogram from 07/13/17 showed ejection fraction of 20-25%. Continue Lasix. BNP is elevated. Strict intake/output. Improved. 3. Atrial fibrillation: to continue Warfarin and continue Monitoring as in SNF. 4. Insulin-dependent diabetes mellitus: Levemir on hold secondary to poor oral intake. Will resume as oral intake improves. He is currently n.p.o. for procedure. Monitor Accu-Cheks and cover with sliding scale insulin. 5. Acute kidney injury superimposed on chronic kidney disease Stage IV was followed by Nephrology specialist improving to baseline. 6. Hypertension: Continue home medications. DVT prophylaxis: Warfarin. Discharge Planning discharge to SNF today. Pt Condition on Discharge: Stable Discharge Disposition: Discharge to SNF Discharge Time: > 30 minutes Discharge Instructions DIET: Follow Instructions for: Heart Healthy Diet, Diabetic Diet Activities you can perform: Regular-No Restrictions Luc Brock MD Nov 24, 2017 12:48
--- NOTE | 2017-11-24 12:52 | HHI.PR ---
Subjective Remarks Awake and off O 2. No SOB at rest. Will go to rehab. On CPAP at HS. No cough. Objective Vital Signs Date Time Temp Pulse Resp B/P (MAP) Pulse Ox O2 Delivery O2 Flow Rate FiO2 11/24/17 12:08 73 11/24/17 11:04 97.8 60 18 137/74 (95) 95 11/24/17 11:04 60 11/24/17 11:04 95 Room Air 11/24/17 10:04 60 11/24/17 09:39 64 11/24/17 08:00 94 Room Air 11/24/17 08:00 97.7 60 18 142/78 (99) 94 11/24/17 08:00 60 11/24/17 06:25 63 11/24/17 05:05 60 11/24/17 04:04 60 11/24/17 03:49 98.0 63 18 146/84 (104) 97 11/24/17 03:49 97 3.00 11/24/17 03:49 60 11/24/17 02:03 63 11/24/17 01:22 63 11/24/17 00:42 60 11/23/17 23:25 95 3.00 11/23/17 23:25 98.2 60 16 138/77 (97) 95 11/23/17 23:00 66 11/23/17 22:03 67 11/23/17 21:36 72 11/23/17 20:07 68 11/23/17 19:20 93 Nasal Cannula 3.00 11/23/17 19:17 93 Nasal Cannula 3.00 11/23/17 19:17 98.0 63 17 154/77 (102) 93 11/23/17 19:01 68 11/23/17 18:00 53 11/23/17 17:00 69 11/23/17 16:00 72 11/23/17 15:00 98.5 72 21 123/69 (87) 94 11/23/17 15:00 80 11/23/17 15:00 94 Nasal Cannula 2.00 11/23/17 14:00 73 11/23/17 13:00 67 I/O 11/23/17 11/23/17 11/23/17 11/24/17 11/24/17 11/24/17 07:00 15:00 23:00 07:00 15:00 23:00 Intake Total 360 ml 240 ml 960 ml 480 ml Output Total 125 ml 1000 ml 700 ml Balance 235 ml 240 ml -40 ml -220 ml Intake Oral 360 ml 960 ml 480 ml IV Total 240 ml Output Urine Total 125 ml 1000 ml 700 ml # Bowel Movements 0 Result Diagram: 11/24/17 0318 11/24/17 0318 Procedures 11/23/17 [address] diagnosis of [address] elevation OR, found no significant change on his Coronary anatomy since previous Catheterization, history of coronary bypass graft x 3 (2/3 grafts patent. re start Warfarin for Atrial Fibrillation. Bernardo Avila, DO Objective Remarks GENERAL: This is an obese elderly man not dyspneic. HEENT: Normocephalic. Pupils reactive. Tongue is moist. Throat is injected. Nasal mucosa edematous. NECK: No bruits, no venous distention. CHEST: Equal movements with distant breath sounds, Prolonged expirations. HEART: Sounds are irregular, S1 and S2, with no murmur. ABDOMEN: Soft, protuberant without masses. No organomegaly or tenderness. The bowel sounds are active. EXTREMITIES: No clubbing and peripheral pulses are diminished. No calf tenderness. NEUROLOGIC: Reflexes are 1+. There is no edema. The patient has no gross motor or sensory deficits. SKIN: Dry and warm. Assessment and Plan Assessment and Plan IMPRESSION: 1. Pulmonary edema with basilar atelectasis. 2. Non-ST elevation myocardial infarction and history of coronary artery disease. 3. Atrial fibrillation on anticoagulation. 4. Chronic obstructive pulmonary disease. 5. Diabetes mellitus type 2. 6. Chronic kidney disease. 7. Hypertension. 8. NADINE. Plan : 1. D/C o2 2. Nebs tid Duoneb. 3. Continue Symbicort 160/4.5 mcg , 2 puffs bid. 4. To rehab today 5. Will see As OP in 3 weeks 6. CPAP mask at Angelina Rosales MD Nov 24, 2017 12:52
[2017-11-24] MEDS ORDERED: LOSA25TA PO (13:35)
[2017-11-24] MEDS ORDERED: TORS20TA PO (13:35)
[2017-11-24] MEDS ORDERED: FURO1TAB60 PO (13:39)
[2017-11-24 14:15] LABS: INTERNATIONAL NORMALIZED RATIO 1.1 RATIO; PROTHROMBIN TIME - PATIENT 11.3 SEC (9.8-11.6)
[2017-11-24] MEDS ORDERED: WARFARIN SOD 5 MG TAB PO ONE (14:24)
--- NOTE | 2017-11-24 15:53 | PD.CARD.PN ---
Subjective Subjective Remarks No events overnight SOB better, no chest pain Objective Medications Current Medications Medications (Trade) Dose Ordered Sig/Jennifer Route Start Time Stop Time Status Last Admin (NS Flush) 2 ml UNSCH PRN IV FLUSH 11/15/17 23:15 (NS Flush) 2 ml BID IV FLUSH 11/16/17 09:00 11/24/17 08:15 (Tylenol) 650 mg Q4H PRN PO 11/15/17 23:15 11/17/17 15:11 (D50w (Vial) Inj) 50 ml UNSCH PRN IV PUSH 11/15/17 23:15 (Glucagon Inj) 1 mg UNSCH PRN OTHER 11/15/17 23:15 (NovoLOG SUPPLEMENTAL SCALE) 1 ACHS SLIDING SCALE SQ 11/16/17 08:00 11/24/17 12:00 (Norvasc) 5 mg DAILY PO 11/16/17 09:00 Future Hold 11/17/17 09:22 (Aspirin Chew) 81 mg DAILY CHEW 11/16/17 09:00 11/24/17 08:14 (Lexapro) 20 mg DAILY PO 11/16/17 09:00 11/24/17 08:14 (Levemir Inj) 70 units BID SQ 11/16/17 09:00 Future Hold 11/17/17 20:35 (Imdur) 120 mg DAILY@0700 PO 11/16/17 07:00 11/24/17 06:19 (Toprol Xl) 100 mg DAILY PO 11/16/17 09:00 11/24/17 08:14 (Flomax) 0.4 mg DAILY PO 11/16/17 09:00 11/24/17 08:14 (Zofran Inj) 4 mg Q6HR PRN IV PUSH 11/17/17 09:45 11/18/17 17:00 (Vitamin D3) 2,000 units DAILY PO 11/17/17 16:15 11/24/17 08:14 (Symbicort 160-4.5 Mcg Inh) 2 puff Q12HR INH 11/19/17 21:00 11/24/17 08:15 (KCl) 20 meq DAILY PO 11/19/17 13:15 11/24/17 08:14 (Lasix) 40 mg Q12H PO 11/22/17 05:00 11/24/17 06:20 (Nitrostat Sl) 0.4 mg Q10M PRN SL 11/22/17 19:45 11/22/17 20:17 (Coumadin) 5 mg DAILY@1600 PO 11/25/17 16:00 Vital Signs / I&O Vital Signs Date Time Temp Pulse Resp B/P (MAP) Pulse Ox O2 Delivery O2 Flow Rate FiO2 11/24/17 15:49 94 Room Air 11/24/17 15:49 97.7 60 18 138/73 (94) 94 11/24/17 15:49 60 11/24/17 14:03 59 11/24/17 13:02 73 11/24/17 12:08 73 11/24/17 11:04 97.8 60 18 137/74 (95) 95 11/24/17 11:04 60 11/24/17 11:04 95 Room Air 11/24/17 10:04 60 11/24/17 09:39 64 11/24/17 08:10 94 21 11/24/17 08:00 94 Room Air 11/24/17 08:00 97.7 60 18 142/78 (99) 94 11/24/17 08:00 60 11/24/17 06:25 63 11/24/17 05:05 60 11/24/17 04:04 60 11/24/17 03:49 98.0 63 18 146/84 (104) 97 11/24/17 03:49 97 3.00 11/24/17 03:49 60 11/24/17 02:03 63 11/24/17 01:22 63 11/24/17 00:42 60 11/23/17 23:25 95 3.00 11/23/17 23:25 98.2 60 16 138/77 (97) 95 11/23/17 23:00 66 11/23/17 22:03 67 11/23/17 21:36 72 11/23/17 20:07 68 11/23/17 19:20 93 Nasal Cannula 3.00 11/23/17 19:17 93 Nasal Cannula 3.00 11/23/17 19:17 98.0 63 17 154/77 (102) 93 11/23/17 19:01 68 11/23/17 18:00 53 11/23/17 17:00 69 11/23/17 16:00 72 I/O 11/23/17 11/23/17 11/23/17 11/24/17 11/24/17 11/24/17 07:00 15:00 23:00 07:00 15:00 23:00 Intake Total 360 ml 240 ml 960 ml 480 ml Output Total 125 ml 1000 ml 700 ml Balance 235 ml 240 ml -40 ml -220 ml Intake Oral 360 ml 960 ml 480 ml IV Total 240 ml Output Urine Total 125 ml 1000 ml 700 ml # Bowel Movements 0 Physical Exam GENERAL: NAD SKIN: Warm and dry. HEAD: Atraumatic. Normocephalic. EYES: Pupils equal and round. No scleral icterus. No injection or drainage. ENT: No nasal bleeding or discharge. Mucous membranes pink and moist. NECK: Trachea midline. No JVD. CARDIOVASCULAR: Regular rate and rhythm. RESPIRATORY: No accessory muscle use. Decreased breath sounds bilaterally GASTROINTESTINAL: Abdomen soft, non-tender, nondistended. Hepatic and splenic margins not palpable. MUSCULOSKELETAL: 1+ pitting edema NEUROLOGICAL: Awake and alert. No obvious cranial nerve deficits. Motor grossly within normal limits. Five out of 5 muscle strength in the arms and legs. Normal speech. PSYCHIATRIC: Appropriate mood and affect; insight and judgment normal. Laboratory Laboratory Tests Test 11/24/17 03:18 11/24/17 13:29 White Blood Count 5.4 TH/MM3 Red Blood Count 5.26 MIL/MM3 Hemoglobin 15.1 GM/DL Hematocrit 44.4 % Mean Corpuscular Volume 84.4 FL Mean Corpuscular Hemoglobin 28.6 PG Mean Corpuscular Hemoglobin Concent 33.9 % Red Cell Distribution Width 16.2 % Platelet Count 244 TH/MM3 Mean Platelet Volume 8.1 FL Neutrophils (%) (Auto) 60.5 % Lymphocytes (%) (Auto) 24.1 % Monocytes (%) (Auto) 12.1 % Eosinophils (%) (Auto) 2.7 % Basophils (%) (Auto) 0.6 % Neutrophils # (Auto) 3.2 TH/MM3 Lymphocytes # (Auto) 1.3 TH/MM3 Monocytes # (Auto) 0.6 TH/MM3 Eosinophils # (Auto) 0.1 TH/MM3 Basophils # (Auto) 0.0 TH/MM3 CBC Comment AUTO DIFF Differential Total Cells Counted 100 Neutrophils % (Manual) 61 % Lymphocytes % 16 % Monocytes % 14 % Eosinophils % 5 % Neutrophils # (Manual) 3.5 TH/MM3 Metamyelocytes 2 % Myelocytes 2 % Differential Comment FINAL DIFF MANUAL Platelet Estimate NORMAL Platelet Morphology Comment NORMAL Red Cell Morphology Comment NORMAL Blood Urea Nitrogen 44 MG/DL Creatinine 2.16 MG/DL Random Glucose 177 MG/DL Calcium Level 9.7 MG/DL Sodium Level 134 MEQ/L Potassium Level 4.5 MEQ/L Chloride Level 98 MEQ/L Carbon Dioxide Level 26.5 MEQ/L Anion Gap 10 MEQ/L Estimat Glomerular Filtration Rate 30 ML/MIN Prothrombin Time 11.3 SEC Prothromb Time International Ratio 1.1 RATIO Assessment and Plan Problem List: (1) Cardiorenal syndrome with renal failure ICD Codes: I13.10 - Hypertensive heart and chronic kidney disease without heart failure, with stage 1 through stage 4 chronic kidney disease, or unspecified chronic kidney disease; N19 - Unspecified kidney failure Status: Acute (2) CKD (chronic kidney disease) stage 4, GFR 15-29 ml/min ICD Codes: N18.4 - Chronic kidney disease, stage 4 (severe) Status: Chronic (3) HTN (hypertension) ICD Codes: I10 - Essential (primary) hypertension Status: Acute (4) Proteinuria ICD Codes: R80.9 - Proteinuria, unspecified Status: Chronic (5) NSTEMI (non-ST elevated myocardial infarction) ICD Codes: I21.4 - Non-ST elevation (NSTEMI) myocardial infarction Status: Acute (6) CHF (congestive heart failure) ICD Codes: I50.9 - Heart failure, unspecified Status: Acute (7) Acute exacerbation of congestive heart failure ICD Codes: I50.9 - Heart failure, unspecified (8) Hypertension ICD Codes: I10 - Essential (primary) hypertension Status: Chronic (9) Diabetes ICD Codes: E11.9 - Type 2 diabetes mellitus without complications Status: Acute Assessment and Plan 1) NSTEMI Cath showing no change in his coronary anatomy with no lesions to intervene on Con't medical management 2) JEROME on CKD Resolving Azotemia as a possible cause of nausea 3) EF 20-25% 4) Coumadin can be restarted 5) Fluid overload state, currently stable Urine output increasing, creatinine back to baseline 6) Cardiovascularly stable for discharge Problem Qualifiers (1) CHF (congestive heart failure): Qualified Codes: I50.9 - Heart failure, unspecified Bernardo Avila DO Nov 24, 2017 15:53
[2017-11-25] MEDS ORDERED: WARFARIN SOD 5 MG TAB PO SCH (16:00)
== END 2017-11-24 18:14 | DRG 280 ==
LOC: NEDAMB 16:45 → NEDA 22:48 → HCPC 11-16 00:25
PROVIDERS: ADMIT Family Medicine; ATTEND Internal Medicine
PROC: B2111ZZ Fluoroscopy of Multiple Coronary Arteries using Low Osmolar Contrast (ICD-10-PCS; 2017-11-23)
PROC: B2181ZZ Fluoroscopy of Left Internal Mammary Bypass Graft using Low Osmolar Contrast (ICD-10-PCS; 2017-11-23)
PROC: B2131ZZ Fluoroscopy of Multiple Coronary Artery Bypass Grafts using Low Osmolar Contrast (ICD-10-PCS; 2017-11-23)
PROC: B2151ZZ Fluoroscopy of Left Heart using Low Osmolar Contrast (ICD-10-PCS; 2017-11-23)
PROC: 4A023N7 Measurement of Cardiac Sampling and Pressure, Left Heart, Percutaneous Approach (ICD-10-PCS; principal; 2017-11-23 10:00)
DX: I21.4 Non-ST elevation (NSTEMI) myocardial infarction (principal); I50.23 Acute on chronic systolic (congestive) heart failure; N17.9 Acute kidney failure, unspecified; J18.9 Pneumonia, unspecified organism; N18.4 Chronic kidney disease, stage 4 (severe); I42.9 Cardiomyopathy, unspecified; J44.0 Chronic obstructive pulmonary disease with (acute) lower respiratory infection; I13.0 Hypertensive heart and chronic kidney disease with heart failure and stage 1 through stage 4 chronic kidney disease, or unspecified chronic kidney disease; J98.11 Atelectasis; I25.810 Atherosclerosis of coronary artery bypass graft(s) without angina pectoris; E11.21 Type 2 diabetes mellitus with diabetic nephropathy; I25.82 Chronic total occlusion of coronary artery; I48.91 Unspecified atrial fibrillation; I25.10 Atherosclerotic heart disease of native coronary artery without angina pectoris; E11.22 Type 2 diabetes mellitus with diabetic chronic kidney disease; E78.5 Hyperlipidemia, unspecified; G47.33 Obstructive sleep apnea (adult) (pediatric); K21.9 Gastro-esophageal reflux disease without esophagitis; R11.0 Nausea; Z79.01 Long term (current) use of anticoagulants; Z79.4 Long term (current) use of insulin; Z86.73 Personal history of transient ischemic attack (TIA), and cerebral infarction without residual deficits; Z87.891 Personal history of nicotine dependence; Z95.1 Presence of aortocoronary bypass graft; Z95.5 Presence of coronary angioplasty implant and graft
CPT/HCPCS: 71045; 76775; 80048; 80053; 80069; 81001; 81050; 82306; 82550; 82552; 82948; 83735; 83880; 83883; 84100; 84156; 84165; 84166; 84484; 85002; 85007; 85025; 85027; 85610; 85730; 86160; 86335; 86803; 87205; 87340; 87804; 93005; 93306; 93459; 94060; 94640; 94664; 96374; C1769; C1893; J1205; J1644; J1815; J1940; J2250; J2405; J2930; J3010; J3250; Q9967